=== PATIENT | male | born 2005 | race Caucasian/White ===

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

== ENCOUNTER 2024-03-31 14:34 | Emergency (ER) | payer OTHER, SELFPAY ==
--- NOTE | 2024-03-31 14:50 | ED.EXTPRO ---
HPI - Extremity Problem General Chief complaint: Skin/Abscess/Foreign Body Stated complaint: rt hand swelling Time Seen by Provider: 03/31/24 15:10 Source: patient and RN notes reviewed Mode of arrival: ambulatory Limitations: dementia History of Present Illness HPI Narrative: 18-year-old male presents with concern for redness, pain, swelling to the right hand. Reports he may have gotten a bug bite on the knuckle and over the last 2 days it has become red, swollen, slightly tender. He reports mild itching. Reports he has been using hydrocortisone cream, Benadryl, ibuprofen. He denies fever, body aches, chills, sweats. MD Complaint: extremity pain Related Data Home Medications Medication Instructions Recorded Confirmed finasteride 1 mg tablet 1 mg PO DAILY 10/30/23 10/30/23 minoxidil 03/31/24 Allergies Allergy/AdvReac Type Severity Reaction Status Date / Time Penicillins Allergy Mild Rash Verified 03/31/24 14:54 Sulfa (Sulfonamide AdvReac Mild Vomiting Verified 03/31/24 14:54 Antibiotics) Review of Systems Review of Systems: CONSTITUTIONAL: Denies malaise, chills, sweats, or fever. EYES: Denies redness, or discharge. ENT: Denies rhinorrhea, congestion, swollen lips, swollen tongue CARDIOVASCULAR: Denies chest pain, palpitations, or edema. RESPIRATORY: Denies cough or dyspnea. GASTROINTESTINAL: Denies abdominal pain, nausea, vomiting SKIN: Reports redness, swelling, tenderness to the right hand proximal to the 3rd digit. Denies purulent drainage, vesicles, bullae, numbness, pain beyond proportion MUSCULOSKELETAL: Denies joint pain or myalgia. NEUROLOGIC: Denies headache. All systems reviewed & are unremarkable except as noted in HPI and below [facility] Past Medical History Medical History (Updated 03/31/24 @ 15:19 by Sharita Rowe NP) Asthma Strep throat Surgical History Surgical History History of adenoidectomy History of myringotomy History of tonsillectomy History of tympanoplasty Social History Social History Smoking status: Never smoker Living arrangements: with family Occupation/Education: student Gender identity (if verbalized by the patient): Male Comments At time of signature, agree with nursing past medical, surgical, social and family history. There is no relevant family history pertinent to the presenting complaint Exam Narrative: GENERAL: Well-appearing, well-nourished, and in no acute distress. HEAD: Normocephalic, atraumatic. EYES: PERRLA, conjunctivae clear ENT: Mucous membranes moist. NECK: Supple. No lymphadenopathy CHEST: Clear to auscultation. No respiratory distress. HEART: Regular rate and rhythm. SKIN: Warm, dry. Erythema, induration, tenderness, warmth with sharp margins noted to the 3rd PCP joint and proximal to the joint of the right hand. No vesicles, bullae, necrosis, ecchymosis, crepitus noted. NEURO: Alert and oriented x3. PSYCH: Normal mood and affect Course Course Emergency Course: Patient is aware of diagnosis, understands and agrees to treatment plan. Anticipatory guidance given. Patient agrees to follow-up as directed and is aware of reasons to seek care at the emergency department. Portions of this record may have been created with voice recognition software Level of Care: Express Care Visit Vital Signs Vital signs: Reviewed. MDM - Extremity (Nontraumatic) MDM Narrative Medical decision making narrative: I evaluated this in the express care. History is obtained from patient who is an independent historian and physical exam was performed.? Available medical records were reviewed. ? Exam findings and relevant testing show no acute concerns or changes; patient is non-toxic appearing and is in no distress. No risk factors or findings concerning for epidural abscess, diskitis, vertebral osteomyelitis, cord com
[2024-03-31 14:55] VITALS: BP 98/52; PULSE 99; RESP 18; TEMP 36.6; O2SAT 98
== END 2024-03-31 15:25 | disposition home or self-care (01) ==
PROVIDERS: Emergency Provider Nurse Practitioner; PCP Family Medicine Sports Medicine
DX: L03.113 Cellulitis of right upper limb (principal); J45.909 Unspecified asthma, uncomplicated
CPT/HCPCS: 99213; G0463

== ENCOUNTER 2024-07-24 14:55 | Emergency (ER) | payer OTHER, SELFPAY ==
[2024-07-24 15:09] VITALS: BP 115/59; PULSE 72; RESP 16; TEMP 36.5; O2SAT 100
--- NOTE | 2024-07-24 15:36 | ED.EAR ---
HPI - Ear Problem General Chief complaint: Ear Stated complaint: RT ear pain Time Seen by Provider: 07/24/24 15:30 Source: patient and RN notes reviewed Mode of arrival: ambulatory Limitations: no limitations History of Present Illness HPI Narrative: Patient presents today complaining of a 2 day history of right ear pain, fullness, decreased hearing. He has tried Tylenol, ibuprofen, Excedrin with relief of pain, but not the fullness. Denies any additional URI symptoms at this time. Related Data Home Medications Medication Instructions Recorded Confirmed dicyclomine 10 mg capsule 10 mg PO QID 07/24/24 07/24/24 finasteride 1 mg tablet 1 mg PO DAILY 07/24/24 07/24/24 methylphenidate HCl 20 mg biphasic 20 mg PO DAILY 07/24/24 07/24/24 50-50 capsule,extended release Allergies Allergy/AdvReac Type Severity Reaction Status Date / Time Sulfa (Sulfonamide AdvReac Intermediate Nausea and Verified 07/24/24 15:04 Antibiotics) Vomiting Penicillins AdvReac Mild Rash Verified 07/24/24 15:04 Review of Systems Review of Systems: CONSTITUTIONAL: Denies body aches, fever, chills, or sweats. EYES: Denies visual changes, redness, or discharge. ENT: Denies rhinorrhea, congestion, sore throat. + right ear pain and fullness CARDIOVASCULAR: Denies chest pain, palpitations, or edema. RESPIRATORY: Denies cough or dyspnea. GASTROINTESTINAL: Denies abdominal pain, nausea, vomiting, or diarrhea. GENITOURINARY: Denies dysuria or hematuria. SKIN: Denies rash, itching, or wounds. MUSCULOSKELETAL: Denies back pain, joint pain, or myalgia. NEUROLOGIC: Denies headache, numbness, tingling, or weakness. PSYCH: Denies depression or anxiety. [facility] Past Medical History Medical History (Updated 07/24/24 @ 15:39 by Heidi Naidu, JOE, IGLESIA) Asthma Strep throat Surgical History Surgical History History of adenoidectomy History of myringotomy History of tonsillectomy History of tympanoplasty Social History Social History Smoking status: Never smoker Living arrangements: with family Occupation/Education: student Gender identity (if verbalized by the patient): Male Comments At time of signature, I have reviewed and agree with nursing past medical, surgical, social and family history unless otherwise noted. Please see nursing chart for further information. There is no relevant family history pertinent to the presenting complaint Exam Narrative: GENERAL: Well-appearing, well-nourished, and in no acute distress. HEAD: Normocephalic, atraumatic. EYES: EOMI. No redness or drainage. Conjunctivae normal. ENT: Mucous membranes pink and moist. Nares clear. No rhinorrhea. Left TM normal. Right TM severely erythematous and bulging with purulent material. NECK: Normal AROM. Supple. No lymphadenopathy. CHEST: No respiratory distress. EXTREMITIES: Normal range of motion. No edema. SKIN: Warm, dry, no rash. Capillary refill normal. Normal skin turgor. NEURO: No focal deficits. Alert and oriented x3. Gait steady. PSYCH: Normal affect. No signs of depression or anxiety. Course Course Level of Care: Express Care Visit Vital Signs Vital signs: Vital Signs Temperature 97.7 F 07/24/24 15:09 Pulse Rate 72 07/24/24 15:09 Respiratory Rate 16 07/24/24 15:09 Blood Pressure 115/59 L 07/24/24 15:09 Pulse Oximetry 100 07/24/24 15:09 Oxygen Delivery Room Air 07/24/24 15:09 Temperature 97.7 F 07/24/24 15:09 Pulse Rate 72 07/24/24 15:09 Respiratory Rate 16 07/24/24 15:09 Blood Pressure 115/59 L 07/24/24 15:09 Pulse Oximetry 100 07/24/24 15:09 Oxygen Delivery Room Air 07/24/24 15:09 Reviewed Medical Decision Making MDM Narrative Medical decision making narrative: Patient has been diagnosed with right otitis media. Prescription for cefdinir sent to pharmacy. Anticipatory guidance given. Differential Diagnosis Differential Diagnosis: Otitis media, otitis externa, ruptured TM, serous otitis, cerumen impaction Vital Signs Vital Signs: Vital Signs Temperature 97.7 F 07/24/24 15:09 Pulse Rate 72 07/24/24 15:09 Respiratory Rate 16 07/24/24 15:09 Blood Pressure 115/59 L 07/24/24 15:09 Pulse Oximetry 100 07/24/24 15:09 Oxygen Delivery Room Air 07/24/24 15:09 Temperature 97.7 F 07/24/24 15:09 Pulse Rate 72 07/24/24 15:09 Respiratory Rate 16 07/24/24 15:09 Blood Pressure 115/59 L 07/24/24 15:09 Pulse Oximetry 100 07/24/24 15:09 Oxygen Delivery Room Air 07/24/24 15:09 Critical Care Time Critical Care Time Critical Care Time: No Discharge Plan Discharge Clinical Impression: Acute suppur right otitis media w/o spontan rupture tympanic membrane Qualifiers: Recurrence: non-recurrent Qualified Code(s): H66.001 - Acute suppurative otitis media without spontaneous rupture of ear drum, right ear Patient Disposition: Home, Self-Care Condition: Stable Instructions: Antibiotic Form, Ear Infection (GEN) Additional Instructions: You have been diagnosed with a right-sided ear infection. Please take the cefdinir as prescribed. Continue [id number] medicine for pain if needed. Follow-up with your PCP in 3-4 days if symptoms are not improving. Prescriptions: New cefdinir 300 mg capsule 300 mg PO Q12H 7 Days Qty: 14 0RF No Action dicyclomine 10 mg capsule 10 mg PO QID methylphenidate HCl 20 mg capsule,ER biphasic 50-50 20 mg PO DAILY finasteride 1 mg Tablet 1 mg PO DAILY Follow-up/Referrals: Clay,Esa Kasper MD [Primary Care Provider] - Time of Disposition: 15:40
== END 2024-07-24 15:41 | disposition home or self-care (01) ==
PROVIDERS: Emergency Provider Nurse Practitioner; PCP Family Medicine Sports Medicine
DX: H66.001 Acute suppurative otitis media without spontaneous rupture of ear drum, right ear (principal); J45.909 Unspecified asthma, uncomplicated
CPT/HCPCS: 99213; G0463

== ENCOUNTER 2024-07-31 14:43 | Emergency (ER) | payer OTHER, SELFPAY ==
[2024-07-31 15:00] VITALS: BP 114/57; PULSE 99; RESP 18; TEMP 36.8; O2SAT 100
--- NOTE | 2024-07-31 15:03 | ED_ITS ---
HPI - Ear Problem General Chief complaint: Ear Stated complaint: ear infection Time Seen by Provider: 07/31/24 15:03 Source: patient Mode of arrival: ambulatory Limitations: no limitations History of Present Illness HPI Narrative: 18-year-old male presents with complaint of pain to right ear with decreased hearing. Patient was seen at [facility] on July 25 and diagnosed with ear infection. Completed cefdinir but continues to have symptoms. Afebrile. All systems reviewed and negative except as noted above. Related Data Home Medications Medication Instructions Recorded Confirmed dicyclomine 10 mg capsule 10 mg PO QID 07/24/24 07/31/24 finasteride 1 mg tablet 1 mg PO DAILY 07/24/24 07/31/24 methylphenidate HCl 20 mg biphasic 20 mg PO DAILY 07/24/24 07/31/24 50-50 capsule,extended release fluticasone propionate 50 1 spray intranasal BID 07/31/24 07/31/24 mcg/actuation nasal spray,suspension Allergies Allergy/AdvReac Type Severity Reaction Status Date / Time Penicillins Allergy Mild Rash Verified 07/31/24 15:04 Sulfa (Sulfonamide AdvReac Intermediate Nausea and Verified 07/31/24 15:04 Antibiotics) Vomiting Review of Systems Review of Systems: CONSTITUTIONAL: Denies fever, chills, or sweats. EYES: Denies visual changes, redness, or discharge. ENT: Denies rhinorrhea, congestion, sore throat . Reports right ear pain with decreased hearing. CARDIOVASCULAR: Denies chest pain, palpitations, or edema. RESPIRATORY: Denies cough or dyspnea. GASTROINTESTINAL: Denies abdominal pain, nausea, vomiting, or diarrhea. GENITOURINARY: Denies dysuria or hematuria. SKIN: Denies rash or itching. MUSCULOSKELETAL: Denies back pain, joint pain, or myalgia. NEUROLOGIC: Denies headache, numbness, or weakness. PSYCHIATRIC: Denies anxiety or depression. All other systems reviewed are negative, except as documented in HPI. [facility] Past Medical History Medical History (Updated 07/31/24 @ 15:13 by Federica Trivedi NP) Asthma Strep throat Surgical History Surgical History History of adenoidectomy History of myringotomy History of tonsillectomy History of tympanoplasty Social History Social History Smoking status: Never smoker Living arrangements: with family Occupation/Education: student Gender identity (if verbalized by the patient): Male Comments At time of signature, agree with nursing past medical, surgical, social and family history. There is no relevant family history pertinent to the presenting complaint. Exam Narrative: GENERAL: This is a well-nourished, well-developed patient, in no apparent distress. HEAD: normocephalic, atraumatic. EYES: PERRL. Sclera clear/white. Vision is grossly intact. EARS: External ears normal, auditory canals clear and without drainage, L TM normal. R TM erythematous with yellowish fluid, dull light reflex. no perforation bilaterally. NOSE: External nose normal with no obvious nasal discharge, nares without redness, no rhinorrhea. THROAT: Mucous membranes moist, posterior pharynx clear. NECK: Neck supple, non-tender without lymphadenopathy, masses or thyromegaly. CARDIOVASCULAR: Regular rate and rhythm without murmurs, gallops, or rubs. RESPIRATORY: Clear to auscultation. Breath sounds equal bilaterally. No wheezes, rales, or rhonchi. SKIN: warm, Dry, intact with no suspicious lesions or rash, good texture and turgor. NEURO: awake, alert, and oriented to person, place and time. There were no obvious focal neurologic abnormalities. EXTREMITIES: No joint tenderness, effusion, or edema noted. Course Course Level of Care: Express Care Visit Vital Signs Vital signs: Vital Signs Temperature 36.8 C 07/31/24 15:00 Pulse Rate 99 07/31/24 15:00 Respiratory Rate 18 07/31/24 15:00 Blood Pressure 114/57 L 07/31/24 15:00 Pulse Oximetry 100 07/31/24 15:00 Oxygen Delivery Room Air 07/31/24 15:00 Temperature 36.8 C 07/31/24 15:00 Pulse Rate 99 07/31/24 15:00 Respiratory Rate 18 07/31/24 15:00 Blood Pressure 114/57 L 07/31/24 15:00 Pulse Oximetry 100 07/31/24 15:00 Oxygen Delivery Room Air 07/31/24 15:00 Reviewed Medical Decision Making MDM Narrative Medical decision making narrative: patient continues to have ear infection to right ear. treatment failure with cefdinir. Will treat with azithromycin due to penicillin allergy. Recommend [id number] antihistamine and continue Flonase. Patient is aware of diagnosis, understands and agrees to treatment plan. Anticipatory guidance given. Patient agrees to follow-up as directed and is aware of reasons to seek care at the emergency department. Portions of this record may have been created with voice recognition software Differential Diagnosis Differential Diagnosis: Right otitis media, right serous otitis media, ruptured TM Vital Signs Vital Signs: Vital Signs Temperature 36.8 C 07/31/24 15:00 Pulse Rate 99 07/31/24 15:00 Respiratory Rate 18 07/31/24 15:00 Blood Pressure 114/57 L 07/31/24 15:00 Pulse Oximetry 100 07/31/24 15:00 Oxygen Delivery Room Air 07/31/24 15:00 Temperature 36.8 C 07/31/24 15:00 Pulse Rate 99 07/31/24 15:00 Respiratory Rate 18 07/31/24 15:00 Blood Pressure 114/57 L 07/31/24 15:00 Pulse Oximetry 100 07/31/24 15:00 Oxygen Delivery Room Air 07/31/24 15:00 Discharge Plan Discharge Clinical Impression: Acute serous otitis media Qualifiers: Laterality: right Recurrence: not specified as recurrent Qualified Code(s): H65.01 - Acute serous otitis media, right ear Patient Disposition: Home, Self-Care Condition: Stable Instructions: Antibiotic Form, Fluid In The Ear (Serous Otitis Media) (ED) Additional Instructions: take antibiotic as prescribed until gone. Take an [id number] antihistamine daily such as Zyrtec or Claritin. Continue using Flonase as directed on packaging. follow-up with your doctor if symptoms are not improving. Prescriptions: New azithromycin 250 mg tablet See Rx Instructions .ROUTE .COMPLEX Qty: 6 0RF Rx Instructions: For 250 mg dose pack: take 500 mg today (day 1), then 250 mg for 4 days (days 2-5) No Action fluticasone propionate [Flonase] 50 mcg/actuation [place],Suspension 1 spray INTRANASAL BID Rx Instructions: administer into each nostril dicyclomine 10 mg capsule 10 mg PO QID methylphenidate HCl 20 mg capsule,ER biphasic 50-50 20 mg PO DAILY finasteride 1 mg Tablet 1 mg PO DAILY Follow-up/Referrals: Clay,Esa Kasper MD [Primary Care Provider] - Time of Disposition: 15:13
== END 2024-07-31 15:17 | disposition home or self-care (01) ==
PROVIDERS: Emergency Provider Nurse Practitioner Family; PCP Family Medicine Sports Medicine
DX: H65.01 Acute serous otitis media, right ear (principal); J45.909 Unspecified asthma, uncomplicated
CPT/HCPCS: 99213; G0463

== ENCOUNTER 2024-09-16 09:43 | Emergency (ER) | payer OTHER, SELFPAY ==
[2024-09-16 10:01] VITALS: BP 120/51; PULSE 95; RESP 18; TEMP 36.6; O2SAT 100
--- NOTE | 2024-09-16 11:02 | ED_ITS ---
HPI - Ear Problem General Chief complaint: Ear Stated complaint: ear infection Source: patient Mode of arrival: ambulatory Limitations: no limitations History of Present Illness HPI Narrative: 19-year-old male presents to [facility] with complaints of bilateral ear pressure, decreased hearing and left ear pain for the past 2-3 days. Patient reports he started with cough, congestion runny nose for the past 4-5 days. Patient takes Flonase daily. Patient was evaluated here for similar symptoms in late June and was given round of cefdinir at that time. Patient was then seen in early July for similar symptoms and given a round of Zithromax at that time. Patient ear tubes as a child. Patient denies fever, body aches chills, nausea vomiting or diarrhea. MD Complaint: ear pain and decreased hearing Location: left ear Duration: intermittent Relieving factors: nothing Exacerbating factors: nothing Related Data Home Medications ?Medication ?Instructions ?Recorded ?Confirmed ?Last Taken ?Type dicyclomine 10 mg capsule 10 mg PO QID 07/24/24 07/31/24 Unknown History finasteride 1 mg tablet 1 mg PO DAILY 07/24/24 07/31/24 Unknown History fluticasone propionate 50 1 spray intranasal BID 07/31/24 07/31/24 Unknown History mcg/actuation nasal spray,suspension methylphenidate HCl 30 mg biphasic mg PO 09/16/24 Unknown History 50-50 capsule,extended release Allergies Allergy/AdvReac Type Severity Reaction Status Date / Time Penicillins Allergy Mild Rash Verified 09/16/24 10:21 Sulfa (Sulfonamide AdvReac Intermediate Nausea and Verified 09/16/24 10:21 Antibiotics) Vomiting Review of Systems Constitutional: Constitutional: Denies chills, Denies fatigue, Denies fever(s) and Denies weakness ENT: Denies dizziness, Denies epistaxis, Reports nasal congestion and Denies sore throat Comments: Bilateral ear pressure, left ear pain Respiratory: Respiratory: Reports cough, Denies dyspnea and Denies wheezing Gastrointestinal: Gastrointestinal: Denies diarrhea, Denies nausea and Denies vomiting Integumentary/Breasts: Skin/Breast: Denies rash Neurologic: Denies headache(s) [facility] Past Medical History Medical History (Updated 09/16/24 @ 11:08 by Wilma Bobo APRN) Strep throat Asthma Surgical History Surgical History History of tympanoplasty History of myringotomy History of adenoidectomy History of tonsillectomy Social History Social History Smoking status: Never smoker Living arrangements: with family Occupation/Education: student Gender identity (if verbalized by the patient): Male Comments At time of signature, I agree with nursing past medical, surgical, social and family history. There is no relevant family history pertinent to the presenting complaint. Exam Const: General: healthy appearing and no acute distress Nutritional Appearance: well nourished Orientation/consciousness: patient oriented x3 Limitations: no limitations HENMT: Head: normal to inspection Ears: external ears normal and TM abnormal dull bilateral, wth effusion serous bilateral and erythematous on the left Eyes: Conjunctivae: conjunctivae normal Neck: Neck: normal visual inspection Resp: Effort & Inspection: normal respiratory effort and not labored Auscultation: clear to auscultation bilaterally, no crackles, no rales, no rhonchi and no wheezes Cardio: Rate: regular rate Rhythm: regular rhythm Heart sounds: no murmurs Skin: General skin exam: normal color Rashes: no rashes Wounds: no wounds Neuro: General: patient oriented x3 Speech: normal speech Psych: Affect: normal affect Attitude: cooperative Course Course Level of Care: Express Care Visit Vital Signs Vital signs: Vital Signs Temperature 36.6 C 09/16/24 10:01 Pulse Rate 95 09/16/24 10:01 Respiratory Rate 18 09/16/24 10:01 Blood Pressure 120/51 L 09/16/24 10:01 Pulse Oximetry 100 09/16/24 10:01 Oxygen Delivery Room Air 09/16/24 10:01 Temperature 36.6 C 09/16/24 10:01 Pulse Rate 95 09/16/24 10:01 Respiratory Rate 18 09/16/24 10:01 Blood Pressure 120/51 L 09/16/24 10:01 Pulse Oximetry 100 09/16/24 10:01 Oxygen Delivery Room Air 09/16/24 10:01 Medical Decision Making MDM Narrative Medical decision making narrative: Educated patient continue Flonase daily. Educated patient to follow-up with primary care provider to discuss ENT referral. Educated patient to proceed to the emergency room if symptoms worsen Differential Diagnosis Differential Diagnosis: Otitis externa, acute otalgia, cerumen impaction Vital Signs Vital Signs: Vital Signs Temperature 36.6 C 09/16/24 10:01 Pulse Rate 95 09/16/24 10:01 Respiratory Rate 18 09/16/24 10:01 Blood Pressure 120/51 L 09/16/24 10:01 Pulse Oximetry 100 09/16/24 10:01 Oxygen Delivery Room Air 09/16/24 10:01 Temperature 36.6 C 09/16/24 10:01 Pulse Rate 95 09/16/24 10:01 Respiratory Rate 18 09/16/24 10:01 Blood Pressure 120/51 L 09/16/24 10:01 Pulse Oximetry 100 09/16/24 10:01 Oxygen Delivery Room Air 09/16/24 10:01 Critical Care Time Critical Care Time Critical Care Time: No Discharge Plan Discharge Clinical Impression: Acute suppur left otitis media w/o spontan rupture tympanic membrane Patient Disposition: Home, Self-Care Condition: Stable Instructions: Antibiotic Form, Ear Infection (ED) Additional Instructions: Continue Flonase daily Take Claritin daily Take prednisone and cefdinir as prescribed Follow-up with primary care provider to discuss ENT referral Proceed to the emergency room symptoms worsen Patient Language: [place]ian Prescriptions: New prednisone 20 mg tablet 40 mg PO DAILY 5 Days Qty: 10 0RF cefdinir 300 mg capsule 300 mg PO Q12H 10 Days Qty: 20 0RF loratadine [Claritin] 10 mg tablet 10 mg PO DAILY Qty: 30 0RF No Action fluticasone propionate [Flonase] 50 mcg/actuation [place],Suspension 1 spray INTRANASAL BID Rx Instructions: administer into each nostril methylphenidate HCl 30 mg capsule,ER biphasic 50-50 PO dicyclomine 10 mg capsule 10 mg PO QID finasteride 1 mg Tablet 1 mg PO DAILY Follow-up/Referrals: Clay,Esa Kasper MD [Primary Care Provider] - Time of Disposition: 11:09
--- OUTSIDE RECORDS SUMMARY | 2024-09-23 12:20 | XMS_ITS | Clinical Summary ---
Author Organization [facility] Address [address] [place] [address] Care Team Providers Care Manager Game Name Role Phone Nafisa Juarez MD Unavailable [phone] Esa Williamson MD Primary Care Provider [phone] Source Comments [facility],non-owned Affiliates and Associated Physician Practices is amultiple site organization consisting of ambulatory clinics and hospital sitesin [place], [place], [place] and [place]. This disclosure is being madepursuant to the Care Everywhere program and may not contain all information available regarding this patient. Last updated 18.[facility] Allergies Active Allergy Reactions Criticality Noted Date Comments Penicillins Rash Medium 03/22/2018 Sulfa Drugs 05/16/2014 Medications * Be aware that medications may not be up to date on this document. Alwaysverify current medications with the patient. Medication Sig Dispensed Refills Start Date End Date Status fluticasone propionate (FLONASE) 50 MCG/ACT nasal spray [place] 1 spray into each nostril once daily Active albuterol HFA (PROVENTIL;VENTOLIN;P ROAIR) 108 (90 Base) MCG/ACT inhalerIndications:Co ugh variant asthma (HCC) Inhale 2 puffs by mouth every 4 hours as needed 17 Inhaler 2 06/21/2020 Active dicyclomine (BENTYL) 20 MG tabletIndications:Amita rrhea, unspecified type Take 1 (one) tablet by mouth 4 times daily as needed 120 tablet 3 09/11/2021 Active Active Problems Problem Noted Date Diagnosed Date Influenza A 12/06/2018 Overview (12/06/2018): 12/05/18 Tamiflu Encounter for routine child health examination without abnormal findings 03/24/2018 Fear of vaccinations 03/24/2018 Cough variant asthma 08/02/2014 Immunizations Name Administration Dates Next Due INFLUENZA VACCINE, TRIV. (AF LURIA, FLUZONE TRIVALENT; 6MO+) (IIV3) 08/01/2014 Covid Pfizer primary monoval ent 12+ yr 0.3mL Purple cap 01/14/2021,12/23/2020 DTaP VACCINE IM (6wk-6yrs) 11/06/2008,,02/25/2005,2004,2004 FLU VACCINE TRI IIV3 SPLIT P F IM (FLUVIRIN) 07/05/2007,07/15/2006,07/24/2005,2004 HEP A PEDS 2 DOSE 08/24/2006,02/17/2006 HEP B VACCINE, PED/ADOL 12/09/2005,2004, HIB Hep B 12/09/2005,2004,2004 HIB-PRP-OMP 3 DOSE 12/09/2005,2004, 005 Human Papilloma Virus Nine[place] lent Vaccine 11/04/2020,07/02/2020,05/02/2020 INFLUENZA 07/20/2012, 1,10/13/2010,2006,07/15/2006,07/24/2005,06/23/2005 INFLUENZA VACCINE, QUADR. (F LUZONE; FLULAVAL; FLUARIX; AFLURIA QUADRIVALENT; 6MO+), 0.5 ML (IIV4) 08/01/2020 Influenza Nasal 08/11/2011,10/13/2010 MENINGOCOCAL MENINGITIS 04/10/2016 MMR 11/06/2008,09/30/2005 PNEUMOCOCCAL PCV7 CONJ, PEDS 12/09/2005, 02/25/2005,2004,2004 POLIO IPV 11/06/2008, 5,02/25/2005,2004 TDAP (7yrs+) 04/10/2016 VARICELLA 11/06/2008,02/17/2006 Family History Medical History Relation Name Comments Allergic Rhinitis Other Asthma Other Cancer - Colon Other Autoimmune Disease Neg Hx Hypertension Neg Hx Migraine Neg Hx Seizures Neg Hx Sudd. <30 Neg Hx Thyroid Disease Neg Hx Relation Name Status Comments Other Social History Tobacco Use Types Packs/Day Years Used Date Smoking Tobacco: Never Smokeless Tobacco: Never Alcohol Use Standard Drinks/Week Comments No 0 (1 standard drink = 0.6 oz pur e alcohol) Sex and Gender Information Value Date Recorded Sex Assigned at Not on file Gender Identity Not on file Sexual Orientation Not on file Last Filed Vital Signs Vital Sign Reading Time Taken Comments Blood Pressure 110/70 05/02/2020 3:13 PM CDT Pulse 100 05/02/2019 3:37 PM CDT Temperature 36.2 ??C (97.2 ??F) 11/04/2020 3:57 PM CS T Respiratory Rate 20 11/25/2015 7:13 PM AIRPLANE PILOT PHOTOGRAMMETRY Oxygen Saturation 100% 12/05/2018 11:00 AM CDT Inhaled Oxygen Concentration - - Weight 70.4 kg (155 lb 3.3 oz) 09/11/2021 10:38 AM AIRPLANE PILOT PHOTOGRAMMETRY Height 178.2 cm (5' 10.16 ) 09/11/2021 10:38 AM AIRPLANE PILOT PHOTOGRAMMETRY Body Mass Index 22.17 09/11/2021 10:38 AM AIRPLANE PILOT PHOTOGRAMMETRY Plan of Treatment Health Maintenance Due Date Last Done Comments PNEUMOCOCCAL VACCINE (1 of 1 - PPSV23 or PCV20) 2010 12/09/2005, 02/25/2005, 2004, Additional history exists HIV SCREENING 2019 HEPATITIS C SCREENING 08/16/2022 DEPRESSION SCREENING 09/27/2023 05/02/2020 COVID-19 VACCINE ( season) 2024 01/14/2021, 12/23/2020 INFLUENZA VACCINE (#1) 2024 , 08/01/2020, 08/01/2014, Additional history exists DTAP/TDAP/TD VACCINES (7 - Td or Tdap) 04/10/2026 04/10/2016, 11/06/2008, 12/09/2005, Additional history exists ZOSTER VACCINE (1 of 2) 2054 HEPATITIS B VACCINE Completed 12/09/2005, 12/09/2005, 2004, Additional history exists HIB VACCINE Completed 12/09/2005, 11/25, 2004, Additional history exists MENINGOCOCCAL VACCINE Aged Out 04/10/2016 No damian etienne eligible based on patient's age to complete this topic HPV VACCINE Completed 11/04/2020, 02/2020, 05/02/2020 Goals Goal Patient Goal Type Associated Problems Recent Progress Patient-Stated? Author Use safety retraint in car Lifestyle On track( 020 3:14 PM CDT) No Massiel Delgado MA Care Teams Manager Game Relationship Specialty [place] [id number] [place] [id number] PCP - General Family Medicine 09/11/21 Nafisa Juaerz MD Orthopedic Surgery 06/28/19
--- OUTSIDE RECORDS SUMMARY | 2024-09-23 12:20 | XMS_ITS | Patient Health Summary ---
Author Organization [facility] Address [address] [place] [address] Care Team Providers Care Home Appliance Tech Name Role Phone Nafisa Juarez MD Unavailable [phone] Esa Williamson MD Primary Care Provider [phone] Note from [facility],non-owned Affiliates and Associated Physician Practices is amultiple site organization consisting of ambulatory clinics and hospital sitesin [place], [place] and [place]. This disclosure is being madepursuant to the Care Everywhere program and may not contain all information available regarding this patient. Last updated 18.[facility] Allergies * Penicillins(Rash) -Medium Criticality * Sulfa Drugs Medications * Be aware that medications may not be up to date on this document. Alwaysverify current medications with the patient. * fluticasone propionate (FLONASE) 50 MCG/ACT nasal spray [place] 1 spray into each nostril once daily * albuterol HFA (PROVENTIL;VENTOLIN;PROAIR) 108 (90 Base) MCG/ACT inhaler (Started 06/21/2020) Inhale 2 puffs by mouth every 4 hours as needed 2 refills by 06/21/2021 * dicyclomine (BENTYL) 20 MG tablet(Started 09/11/2021) Take 1 (one) tablet by mouth 4 times daily as needed 3 refills by 09/11/2022 Active Problems Problem Noted Date Diagnosed Date Influenza A 12/06/2018 Encounter for routine child health examination without abnormal findings 03/24/2018 Fear of vaccinations 03/24/2018 Cough variant asthma 08/02/2014 Immunizations * INFLUENZA VACCINE, TRIV. (AFLURIA, FLUZONE TRIVALENT; 6MO+) (IIV3)(Given 08/01/2014) * Covid Pfizer primary monovalent 12+ yr 0.3mL Purple cap(Given 01/14/2021, 12/23/2020) * DTaP VACCINE IM (6wk-6yrs)(Given 11/06/2008, 12/09/2005, 02/25/2005, 2004, 2004) * FLU VACCINE TRI IIV3 SPLIT PF IM (FLUVIRIN)(Given 07/05/2007, 07/15/2006, 07/24/2005, 06/23/2005) * HEP A PEDS 2 DOSE(Given 08/24/2006, 02/17/2006) * HEP B VACCINE, PED/ADOL(Given 12/09/2005, 2004, 2004) * HIB Hep B(Given 12/09/2005, 2004, 2004) * HIB-PRP-OMP 3 DOSE(Given 12/09/2005, 2004, 2004) * Human Papilloma Virus Ninevalent Vaccine(Given 11/04/2020, 07/02/2020, 05/02/2020) * INFLUENZA(Given 07/20/2012, 08/11/2011, 10/13/2010, 07/05/2007, 07/15/2006, 07/24/2005, 06/23/2005) * INFLUENZA VACCINE, QUADR. (FLUZONE; FLULAVAL; FLUARIX; AFLURIA QUADRIVALENT; 6MO+), 0.5 ML (IIV4)(Given 08/01/2020) * Influenza Nasal(Given 08/11/2011, 10/13/2010) * MENINGOCOCAL MENINGITIS(Given 04/10/2016) * MMR(Given 11/06/2008, 09/30/2005) * PNEUMOCOCCAL PCV7 CONJ, PEDS(Given 12/09/2005, 02/25/2005, 2004, 2004) * POLIO IPV(Given 11/06/2008, 06/03/2005, 02/25/2005, 2004) * TDAP (7yrs+)(Given 04/10/2016) * VARICELLA(Given 11/06/2008, 02/17/2006) Social History Tobacco Use Types Packs/Day Years [...] T Respiratory Rate 20 11/25/2015 7:13 PM STUFFER Oxygen Saturation 100% 12/05/2018 11:00 AM CDT Inhaled Oxygen Concentration - - Weight 70.4 kg (155 lb 3.3 oz) 09/11/2021 10:38 AM STUFFER Height 178.2 cm (5' 10.16 ) 09/11/2021 10:38 AM STUFFER Body Mass Index 22.17 09/11/2021 10:38 AM STUFFER Procedures * XR LUMBAR SPINE 2 OR 3VW(Performed 05/21/2019) Performed for Acute low back pain without sciatica, unspecified back pain laterality * LIPID PROFILE+GLUCOSE - POINT OF CARE (AMB)(Performed 05/02/2019) Performed for Screening for lipid disorders * INFLUENZA A+B - POINT OF CARE (AMB)(Performed 12/05/2018) Performed for Fever, unspecified fever cause * STREP A SCREEN - POINT OF CARE (AMB) STL(Performed 12/05/2018) Performed for Fever, unspecified fever cause Results * XR LUMBAR SPINE 2 OR 3VW (05/21/2019) Anatomical Region Laterality Modality Spine Other Raina Calhoun PRN OCCUPATIONAL THERAPIST-MERCURY CELL CLEANER DIAGNOSTIC IMAGING ORDERABLES * (ABNORMAL) LIPID PROFILE+GLUCOSE - POINT OF CARE (AMB) (05/02/2019) QC Verified Yes Yes Cholesterol POCT 175 200 mg/dl HDL POCT 50 mg/dL Triglycerides POCT 162(A) 130 mg/dL LDL 92 130 mg/dl Non HDL Cholesterol POCT 125 145 mg/dL Total Cholesterol/HDL Ratio POCT 3.5 6.0 Glucose 106 70 - 126 mg/dL Blood BLOOD SPECIMEN / Unknown 05/02/2019 Raina Calhoun PRN OCCUPATIONAL THERAPIST-MERCURY CELL CLEANER LAB - POINT OF CARE ORDERABLES * STREP A SCREEN - POINT OF CARE (AMB) STL (12/05/2018) Strep A Rapid POCT Negative Negative Strep A Internal Control Present Lot # [id number] Expiration Date [id number] Throat ENTIRE THROAT (SURFACE REGION OF NECK) / Unknown 12/05/2018 Les Carvalho MD LAB - POINT OF CARE ORDERABLES * (ABNORMAL) INFLUENZA A+B - POINT OF CARE (AMB) (12/05/2018) Influenza A Antigen Rapid Positive(A) Negative Influenza B Antigen Rapid Negative Negative Influenza Internal Control PRESENT NEGATIVE - POSITIVE Influenza Lot Number [id number] Influenza Expiration Date 11/23/2019 Other NASOPHARYNGEAL SWAB / Unknown 12/05/2018 Les Carvalho MD LAB - POINT OF CARE ORDERABLES Care Teams Home Appliance Tech Relationship Specialty [place] [address] [place] [address] PCP - General Family Medicine 09/11/21 Nafisa Juarez MD Orthopedic Surgery 06/28/19
--- OUTSIDE RECORDS SUMMARY | 2024-09-23 12:20 | XMS_ITS | Referral Summary ---
Author Organization [facility] [employer] Address [address] [place] [address] Care Team Providers Care Assembler And Tester Electronics Name Role Phone Nafisa Juarez MD Unavailable [phone] Esa Williamson MD Primary Care Provider [phone] Source Comments [facility] [employer],non-owned Affiliates and Associated Physician Practices is amultiple site organization consisting of ambulatory clinics and hospital sitesin [place], [place], [place] and [place]. This disclosure is being madepursuant to the Care Everywhere program and may not contain all information available regarding this patient. Last updated 18.[facility] [employer] Allergies Active Allergy Reactions Criticality Noted Date Comments Penicillins Rash Medium 03/22/2018 Sulfa Drugs 05/16/2014 Medications * Be aware that medications may not be up to date on this document. Alwaysverify current medications with the patient. Medication Sig Dispensed Refills Start Date End Date Status fluticasone propionate (FLONASE) 50 MCG/ACT nasal spray [place] 1 spray into each nostril once daily [...] 11/06/2008, 5,02/25/2005,2004 TDAP (7yrs+) 04/10/2016 VARICELLA 11/06/2008,02/17/2006 Social History Tobacco Use Types Packs/Day Years [...] T Respiratory Rate 20 11/25/2015 7:13 PM USER SUPPORT ANALYST Oxygen Saturation 100% 12/05/2018 11:00 AM CDT Inhaled Oxygen Concentration - - Weight 70.4 kg (155 lb 3.3 oz) 09/11/2021 10:38 AM USER SUPPORT ANALYST Height 178.2 cm (5' 10.16 ) 09/11/2021 10:38 AM USER SUPPORT ANALYST Body Mass Index 22.17 09/11/2021 10:38 AM USER SUPPORT ANALYST Plan of Treatment Not on file Goals Goal Patient Goal Type Associated Problems Recent Progress Patient-Stated? Author Use safety retraint in car Lifestyle On track( 020 3:14 PM CDT) No Massiel Delgado MA Care Teams Assembler And Tester Electronics Relationship Specialty [place] [address] [place] [address] PCP - General Family Medicine 09/11/21 Nafisa Juarez MD Orthopedic Surgery 06/28/19
--- OUTSIDE RECORDS SUMMARY | 2024-09-23 12:21 | XMS_ITS | Encounter Summary ---
Author Organization [facility] Address [address] [place] [address] Care Team Providers Care Pipe Installer Name Role Phone Les Carvalho MD Primary Care Provider [phone] Nafisa Juarez MD Unavailable [phone] Reason for Visit * Reason Onset Date Comments Headache 07/03/2020 Fever 07/03/2020 Encounter Details Date Type Department Care Team (Late st Contact Info) Description 07/03/2020 Nurse Triage [facility] - Pediatrics [address] [place] [address] Les Carvalho MD [address] [place] [address] Headache; Fever Social History Tobacco Use Types Packs/Day Years Used Date Smoking Tobacco: Never Smokeless Tobacco: Never Alcohol Use Standard Drinks/Week Comments No 0 (1 standard drink = 0.6 oz pur e alcohol) Sex and Gender Information Value Date Recorded Sex Assigned at Not on file Gender Identity Not on file Sexual Orientation Not on file documented as of this encounter Miscellaneous Notes * Telephone Encounter - Daisy Bang RN - 07/03/2020 8:33 AM CDT Reason for Disposition ??? Fever onset within 24 hours of receiving VACCINE ??? Normal immunization reaction Answer Assessment - Initial Assessment Questions 1. FEVER LEVEL: What is the most recent temperature? What was the highest temperature in the last 24 hours? Slightly under 100 2. MEASUREMENT: How was it measured? (NOTE: Mercury thermometers should not be used according to the [place] [employer] and should be removed from the home to prevent accidental exposure to this toxin.) axillary 3. ONSET: When did the fever start? This morning 4. CHILD'S APPEARANCE: How sick is your child acting? What is he doing right now? If asleep, ask: How was he acting before he went to sleep? Headache, nausea 5. PAIN: Does your child appear to be in pain? (e.g., frequent crying or fussiness) If yes, Whatdoes it keep your child from doing? - MILD: doesn't interfere with normal activities - MODERATE: interferes with normal activities or awakens from sleep - SEVERE: excruciating pain, unable to do any normal activities, doesn't want to move, incapacitated mild 6. SYMPTOMS: Does he have any other symptoms besides the fever? Nausea and headache 7. CAUSE: If there are no symptoms, ask: What do you think is causing the fever? 8. VACCINE: Did your child get a vaccine shot within the last month? gardisil 9. CONTACTS: Does anyone else in the family have an infection? 10. TRAVEL HISTORY: Has your child traveled outside the country in the last month? (Note to triager: If positive, decide if this is a high risk area. If so, follow current CDC or local public health agency's recommendations.) 11. FEVER MEDICINE: Are you giving your child any medicine for the fever? If so, ask, How much and how often? (Caution: Acetaminophen should not be given more than 5 times per day. Reason: a leading cause of liver damage or even failure). Protocols used: FEVER - 3 MONTHS OR [id number]-FH, IMMUNIZATION [id number] documented in this encounter Plan of Treatment Not on file documented as of this encounter Goals Goal Patient Goal Type Associated Problems Recent Progress Patient-Stated? Author Use safety retraint in car Lifestyle On track( 020 3:14 PM CDT) No Massiel Delgado MA documented as of this encounter Visit Diagnoses Not on filedocumented in this encounter Care Teams Pipe Installer Relationship Specialty Start Date End Date Les Carvalho MD [address] [place] [id number] PCP - General Pediatrics 03/22/18 09/10/21 Nafisa Juarez MD [address] [place] [address] Orthopedic Surgery 06/28/19 documented as of this encounter
--- OUTSIDE RECORDS SUMMARY | 2024-09-23 12:21 | XMS_ITS | Encounter Summary ---
Author Organization [facility] Address [address] [place] [address] Care Team Providers Care Data Center Engineer Name Role Phone Les Carvalho MD Primary Care Provider [phone] Reason for Visit * Reason Comments Well Child Check 13 yo Encounter Details Date Type Department Care Team (Late st Contact Info) Description 05/02/2019 3:30 PM CDT Office Visit [facility] - Pediatrics [address], [facility] [address] [place] [address] Raina Calhoun, REJI-SUPERVISOR PRINTING [employer]OP Right from the Start Pediatrics [address] [place] [address] Encounter for well child visit at 13 years of age (Primary Dx); Cough variant asthma (HCC); Acute low back pain without sciatica, unspecified back pain laterality; Screening for lipid disorders Social History Tobacco Use Types Packs/Day Years Used Date Smoking Tobacco: Never Smokeless Tobacco: Never Alcohol Use Standard Drinks/Week Comments No 0 (1 standard drink = 0.6 oz pur e alcohol) Sex and Gender Information Value Date Recorded Sex Assigned at Not on file Gender Identity Not on file Sexual Orientation Not on file documented as of this encounter Last Filed Vital Signs Vital Sign Reading Time Taken Comments Blood Pressure 120/62 05/02/2019 3:37 PM CDT Pulse 100 05/02/2019 3:37 PM CDT Temperature 36.6 ??C (97.8 ??F) 05/02/2019 3:37 PM CD T Respiratory Rate - - Oxygen Saturation - - Inhaled Oxygen Concentration - - Weight 50.1 kg (110 lb 6.4 oz) 05/02/2019 3:37 P M CDT Height 164.5 cm (5' 4.76 ) 05/02/2019 3:37 PM CD T Body Mass Index 18.51 05/02/2019 3:37 PM CDT Body Mass Index Percentile 32.39% 05/02/2019 3:3 7 PM CDT Growth Chart: [facility] (Boys, 2-2 0 Years) documented in this encounter Patient Instructions * Patient Instructions* EdnaIsabellAstrid F - 05/02/2019 3:40 PM CDT YOUR GROWING CHILD: 12 TO 14 YEARS Child???s Name: Willi Nelson Today???s Date: 05/02/2019 BP 128/36 (BP SITE: LEFT ARM, BP POSITION: SITTING) Pulse 111 Temp 97.8 ??F (36.6 ??C) (Temporal) Ht 1.645 m (5' 4.76 ) Wt 50.1 kg (110 lb 6.4 oz) BMI 18.51 kg/m2 Wt Readings from Last 1 Encounters: 05/02/19 50.1 kg (110 lb 6.4 oz) (31 %, Z= -0.50)* * Growth percentiles are based on CDC 2-20 Years data. 31 %ile (Z= -0.50) based on CDC 2-20 Years eehnti-wkz-mtu data using vitals from 05/02/2019. Ht Readings from Last 1 Encounters: 05/02/19 1.645 m (5' 4.76 ) (31 %, Z= -0.49)* * Growth percentiles are based on CDC 2-20 Years data. 31 %ile (Z= -0.49) based on CDC 2-20 Years inijejh-eep-pdy data using vitals from 05/02/2019. IMMUNIZATIONS One of the best ways to insure continued good health for your child is through a program of regularimmunizations. Many contagious diseases have now been controlled by immunizations. We routinely immunize children at the time of their regular checkups. It is important for you to keep a record of all immunizations given. This information will be of value to you in the care of your child in the future. We will provide you a copy of your immunization record at each of your visits. WHAT TO EXPECT Talk with your child after school about their day, what they liked, what they didn???t like, and ifthey have any concerns. Talk with your child about what to do if they or someone they know is beingbullied. It???s a good idea to give your child chores to do around the house. Some age appropriate chores include: 1. Wash dishes 2. Prepare simple family meals 3. [place] leaves 4. Take the trash out for pick-up 5. Be responsible for feeding and watering the family pet 6. Keep bedroom and designates room in house clean 7. Vacuum individual rooms 8. Be responsible for homework Limit TV and electronic device time to 5-6 hours a day. Make sure that your child is active for at least 3 hours a day. Talk to your child about not using cigarettes, using drugs, or drinking alcohol. Make sure that youare familiar with the friends that they are spending time with. Teach your child the importance of delaying sexual behavior and make sure they know that they can ask you any questions that they make have about sexual behaviors. SAFETY POISON CONTROL: (PLEASE POST IN YOUR HOME OR ON YOUR PHONE) There are three ingredients for childhood injuries and accidents: the child, the object, and the environment in which the injury happens. Therefore, you must be aware of all three. Continue to be aware of poisonous hazards in your home, basement, and garage. Establish a plan for leaving the house in case of fire. Alert your children to be careful around strange animals, and to not bother any animal that is eating. Children should now know their name, address, and telephone number. Remind your child about not accepting rides or food from strangers. Helmets should be worn for anything that your child rides on that has wheels or could possibly fallout of or off of including but not limited to: bikes, skates, skate boards, scooters, horses, pogo sticks, etc. CAR SEATS Children should stay in a booster seat until adult belts fit correctly (usually when a child reaches about 4' 9 in height and is between 8 and 12 years of age). [place] and [place] law, effective May 24, 2006, says your child must be in a booster seat if they are ages 4 through 7 who weigh at least 40 pounds, unless they are 80 pounds or 4???9?? tall. BE SURE THE FAMILY RULE REGARDING CAR RESTRAINTS FOR ALL PASSENGERS IS ALWAYS OBEYED AND THAT YOUR CHILD IS IN AN APPROVED CAR SEAT. MAKE SURE YOUR CHILD IS SECURED IN THE CAR SEAT AND JUST IMPORTANTLY, MAKE SURE THE CAR SEAT IS PROPERLY SECURED IN THE CAR. DO NOT ALLOW ANYONE TO SMOKE AROUND YOUR CHILD. DIET Make sure that your child is eating breakfast in the morning middle school music teacher. Encourage them to eat at least 3 servings of dairy a day and at least 5 serving of vegetables/fruits per day. Limit candy, soft drinks, and other high fat/calorie food and snacks. TEETH Your child should be established and receiving regular check-ups with a dentist. A daily routine ofbrushing at least twice a day needs to be in place by now. Frequently your child may need some supervision for proper technique. Also, your child should be flossing at least once daily. SLEEP Make sure that your child is getting at least 8-10 hours of sleep a night. Where can I go for more information? [place] [employer] ( ) www.aap.org, HealthyChildren.org www.healthychildren.org Website and free downloadable chapis for smartphones: http://www.[employer].Moviestorm/ and http://www.[employer]/ documented in this encounter Progress Notes * Raina Calhoun APRN-SUPERVISOR [employer]ING [employer] - 05/02/2019 3:42 PM CDT Adolescent Well Energy Management Specialist Visit Name: Willi Nelson Age: [age] year old Accompanied By: Mother, brother Chief Complaint Patient presents with ??? Well Child Check 13 yo Concerns: 2 year history of intermittent lower back pain, not waking patient at night, pain will last for about 5-10 minutes. Mild to moderate pain, no pain medications. Patient does wrestle. Denies radiating pain or known trauma. Diet: Eats well balanced meals, good variety Yes Limits foods high in fat or calorie content Yes Interim Illness: The patient returns today for routine well child care centre manager. Illnesses since our last visit include: none Meds: Current Outpatient Prescriptions Medication Sig Dispense Refill ??? albuterol HFA (PROVENTIL;VENTOLIN;PROAIR) 108 (90 Base) MCG/ACT inhaler Inhale 2 puffs by mouthevery 4 hours as needed Reasons: Asthma 2 Inhaler 0 ??? fluticasone propionate (FLONASE) 50 MCG/ACT nasal spray Bypro 1 spray into each nostril once daily ??? LANSOPRAZOLE PO Take by mouth. No current facility-administered medications for this visit. Allergies: Allergies Allergen Reactions ??? Penicillins Rash ??? Sulfa Drugs Social History: Home: lives with their family, mom, brother Education: 9th Grade. Doing well in school. Activities: wrestling, model [employer] Drugs: no alcohol use no tobacco use occasional caffeine use Drug use: Never Sex: heterosexual, not sexually active Psych: No concerns for depression or suicidal ideation OBJECTIVE: BP 120/62 (BP SITE: LEFT ARM, BP POSITION: SITTING) Pulse 100 Temp 97.8 ??F (36.6 ??C) (Temporal) Ht 1.645 m (5' 4.76 ) Wt 50.1 kg (110 lb 6.4 oz) BMI 18.51 kg/m2 Wt Readings from Last 3 Encounters: 05/02/19 50.1 kg (110 lb 6.4 oz) (31 %, Z= -0.50)* 12/12/18 46.2 kg (101 lb 12.8 oz) (23 %, Z= -0.73)* 12/05/18 46.7 kg (103 lb) (26 %, Z= -0.65)* * Growth percentiles are based on CDC 2-20 Years data. Ht Readings from Last 3 Encounters: 05/02/19 1.645 m (5' 4.76 ) (31 %, Z= -0.49)* 03/22/18 1.515 m (4' 11.65 ) (13 %, Z= -1.14)* 06/14/15 1.321 m (4' 4 ) (6 %, Z= -1.55)* * Growth percentiles are based on CDC 2-20 Years data. 31 %ile (Z= -0.50) based on CDC 2-20 Years zelufr-bhy-ztf data using vitals from 05/02/2019. 31 %ile (Z= -0.49) based on CDC 2-20 Years lpznrzv-wmz-jca data using vitals from 05/02/2019. Body mass index is 18.51 kg/(m^2). Physical Exam: GENERAL: Alert, well developed, well nourished SKIN: No rash or lesions HEAD: Normocephalic EYES: PERRL, EOMI, red reflex bilat EARS: TM's WNL, canals clear NOSE: Passages clear MOUTH: OP clear, dentition appropriate, no oral lesions or excessive dental caries NECK: Thyroid not enlarged, nodes WNL, no mass or torticollis LUNGS: CTA bilaterally HEART: RRR without murmur ABD: Soft, NT,ND, NABS, no mass or HSM EXT: MAEW, FROM, no C/C/E, pulses 2+ BACK: No scoliosis NEURO: Alert, nl tone and reflexes for age, age appropriate gait : Nl male phallus, testicles normal, no hernia or hydrocele Stevenson Stage: III Impression / Plan: 1. Well child with normal growth and development. Oral and written anticipatory guidance provided including well child information, nutrition, well balanced diet, safety,and general well child care centre manager. Patient counseled regarding avoidance of alcohol, tobacco and drugs. Parent and patient instructed to call if any questions, concerns, problems or other health issues. Plan per orders. HPV declined today, patient has a needle phobia Immunizations benefits and risks discussed including site soreness, fever and allergic reaction. 2. Cough variant asthma: Albuterol MDI, 2 puffs every 4-6 hours as needed Asthma action plan completed. Follow up as needed. 3. Screening for lipoid disorder: Elevated Triglycerides, repeat fasting lab recommended. 4. Lower back pain, intermittent: X-ray of lumbar spine ordered Stretching exercises encouraged. Next Appointment: 1 year documented in this encounter Plan of Treatment Not on file documented as of this encounter Goals Goal Patient Goal Type Associated Problems Recent Progress Patient-Stated? Author Use safety retraint in car Lifestyle On track( 020 3:14 PM CDT) No Massiel Delgado MA documented as of this encounter Procedures Procedure Name Priority Date/Time Associated Diagnosis Comments LIPID PROFILE+GLUCOSE - POINT OF CARE (AMB) Routine 05/02/2019 Screening for lipid disorders documented in this encounter Results * XR LUMBAR SPINE 2 OR 3VW (05/21/2019) Anatomical Region Laterality Modality Spine Other Raina Calhoun PARTS CATALOGUER-SUPERVISOR PRINTING SHOP DIAGNOSTIC IMAGING ORDERABLES * (ABNORMAL) LIPID PROFILE+GLUCOSE - POINT OF CARE (AMB) (05/02/2019) QC Verified Yes Yes Cholesterol POCT 175 200 mg/dl HDL POCT 50 mg/dL Triglycerides POCT 162(A) 130 mg/dL LDL 92 130 mg/dl Non HDL Cholesterol POCT 125 145 mg/dL Total Cholesterol/HDL Ratio POCT 3.5 6.0 Glucose 106 70 - 126 mg/dL Blood BLOOD SPECIMEN / Unknown 05/02/2019 Raina Calhoun APRN-SUPERVISOR [employer] LAB - POINT OF CARE ORDERABLES documented in this encounter Visit Diagnoses Diagnosis Encounter for well child visit at 13 years of age- Primary Cough variant asthma (HCC) Cough variant asthma Acute low back pain without sciatica, unspecified back pain laterality Screening for lipid disorders documented in this encounter Care Teams Data Center Engineer Relationship Specialty Start Date End Date Les Carvalho MD [address] [place] [address] PCP - General Pediatrics 03/22/18 09/10/21 documented as of this encounter
--- OUTSIDE RECORDS SUMMARY | 2024-09-23 12:21 | XMS_ITS | Encounter Summary ---
Author Organization [facility] Address [address] [place] [address] [place] [address] Care Team Providers Care Auto Refinisher Name Role Phone Les Carvalho MD Primary Care Provider [phone] Nafisa Juarez MD Unavailable [phone] Reason for Visit * Reason Comments Imm Inj Encounter Details Date Type Department Care Team (Latest Contact Info) Description 08/01/2020 1:00 PM CLINICAL RESEARCH SPECIALIST Clinical Support [facility] Medical [facility] - Pediatrics [address] [place] [address] [place] [phone] Need for vaccination Social History Tobacco Use Types Packs/Day Years Used Date Smoking Tobacco: Never Smokeless Tobacco: Never Alcohol Use Standard Drinks/Week Comments No 0 (1 standard drink = 0.6 oz pur e alcohol) Sex and Gender Information Value Date Recorded Sex Assigned at Not on file Gender Identity Not on file Sexual Orientation Not on file COVID-19 Exposure Response Date Recorded In the last month, have you been in contact with someone who was confirmed or suspected to have Coronavirus / COVID-19? No / Unsure 07/29/2020 8:21 AM CLINICAL RESEARCH SPECIALIST documented as of this encounter Last Filed Vital Signs Vital Sign Reading Time Taken Comments Blood Pressure - - Pulse - - Temperature 36.5 ??C (97.7 ??F) 08/01/2020 1:59 PM CS T Respiratory Rate - - Oxygen Saturation - - Inhaled Oxygen Concentration - - Weight - - Height - - Body Mass Index - - documented in this encounter Progress Notes * Carl Ryan MA - 08/01/2020 1:00 PM CST Willi Nelson is a 14 year old male here today for flu shot. ICAL RESEARCH SPECIALIST documented in this encounter Plan of Treatment Not on file documented as of this encounter Goals Goal Patient Goal Type Associated Problems Recent Progress Patient-Stated? Author Use safety retraint in car Lifestyle On track( 020 3:14 PM CDT) Massiel Schulte MA documented as of this encounter Visit Diagnoses Diagnosis Need for vaccination- Primary Need for prophylactic vaccination and inoculation against unspecified single disease documented in this encounter Care Teams Auto Refinisher Relationship Specialty Start Date End Date Les Carvalho MD [address] [address] PCP - General Pediatrics 03/22/18 09/10/21 Nafisa Juarez MD [address] [id number] Orthopedic Surgery 06/28/19 documented as of this encounter
--- OUTSIDE RECORDS SUMMARY | 2024-09-23 12:21 | XMS_ITS | Encounter Summary ---
Author Organization [facility] Address [address] [place] [address] Care Team Providers Care Survey Research Teacher Name Role Phone Les Carvalho MD Primary Care Provider [phone] Nafisa Juarez MD Unavailable [phone] Reason for Visit * Reason Comments Refill Request Encounter Details Date Type Department Care Team (Late st Contact Info) Description 06/21/2020 Refill [facility] Medical [facility] - Pediatrics [address] [facility] [facility] [address] [place] [address] Les Cravalho MD [address] [place] [address] Refill Request Social History Tobacco Use Types Packs/Day Years [...] encounter Miscellaneous Notes * Telephone Encounter - Aleah Chaparro RN - 06/21/2020 11:19 AM CDT MEDICATION REFILL REQUEST - NOT PROTOCOL DRIVEN Last Office Visit with PCP: 05/02/2020 Next Appointment with PCP: Visit date not found Follow-up: 12 months Date of last refill: 04/11/19 Please advise. documented in this encounter Plan of Treatment Not on file documented as of this encounter Goals Goal Patient Goal Type Associated Problems Recent Progress Patient-Stated? Author Use safety retraint in car Lifestyle On track( 020 3:14 PM CDT) No Massiel Delgado MA documented as of this encounter Visit Diagnoses Diagnosis Cough variant asthma (HCC) Cough variant asthma documented in this encounter Care Teams Survey Research Teacher Relationship Specialty Start Date End Date Les Carvalho MD [address] [address] PCP - General Pediatrics 03/22/18 09/10/21 Nafisa Juarez MD [address] [address] Orthopedic Surgery 06/28/19 documented as of this encounter
--- OUTSIDE RECORDS SUMMARY | 2024-09-23 12:21 | XMS_ITS | Encounter Summary ---
Author Organization [facility] Health Address [address] [place] [address] [place] [address] Care Team Providers Care Feather Washer Name Role Phone Les Carvalho MD Primary Care Provider [phone] Nafisa Juarez MD Unavailable [phone] Reason for Referral * Evaluate & Treat - Closed Specialty Diagnoses / Procedures Referred By Contac t Referred To Contact Orthopedics Diagnoses Spondylolisthesis of lumbar region Les Carvalho MD [address] [place] [address] [facility] [address] [place] [address] [place] [address] Referral ID Status Reason Start Date Expiration Date V isits Requested Visits Authorized [id number] Closed Specialty Services Required 05/25/2019 11/21/2019 1 1 Scheduling Instructions If this order was placed as Emergent, this office will personally call this provider to schedule your appointment. If this order was placed as Urgent, an [facility] Wine Sales Representative will contact you within the next 4 hours to schedule your appointment. If your order was placed as Routine, an [facility] Wine Sales Representative will contact you by phone within the next 24 hours to schedule your appointment. Please let them know if you would like to schedule your appointment at a different [facility] location. Reason for Visit * Reason Comments Pain Back * Evaluate & Treat - Closed Specialty Diagnoses / Procedures Referred By Contac t Referred To Contact Orthopedics Diagnoses Spondylolisthesis of lumbar region Les Carvalho MD [address] [place] [address] [address] [place] [address] [facility]Note 3] [place] [address] Referral ID Status Reason Start Date Expiration Date V isits Requested Visits Authorized [id number] Closed Specialty Services Required 05/25/2019 11/21/2019 1 1 Encounter Details Date Type Department Care Team (Late st Contact Info) Description 06/28/2019 7:52 AM CDT - 06/28/2019 11:59 PM CDT Hospital Encounter [facility] Pediatrics - Orthopedics [address] [place] [place] [address] Nafisa Juarez MD [address] [facility] [place] [address] Discharge Disposition: Home or Self Care Social History Tobacco Use Types Packs/Day Years [...] have Coronavirus / COVID-19? No / Unsure 02/05/2020 10:04 AM CDT documented as of this encounter Last Filed Vital Signs Vital Sign Reading Time Taken Comments Blood Pressure - - Pulse - - Temperature - - Respiratory Rate - - Oxygen Saturation - - Inhaled Oxygen Concentration - - Weight 53.3 kg (117 lb 8.1 oz) 06/28/2019 8:00 A M CDT Height 166.6 cm (5' 5.59 ) 06/28/2019 8:00 AM CD T Body Mass Index 19.2 06/28/2019 8:00 AM CDT Body Mass Index Percentile 41.86% 06/28/2019 8:0 0 AM CDT Growth Chart: [facility] (Boys, 2-2 0 Years) documented in this encounter Discharge Instructions * Patient Instructions* Nafisa Juarez MD - 06/28/2019 8:39 AM CDT ICD-10-CM 1. Low back pain without sciatica, unspecified back pain laterality, unspecified chronicity M54.5 Halima referral to Physical Therapy 2. Spondylolisthesis of lumbar region M43.16 AMB REFERRAL TO PEDIATRIC ORTHOPEDICS AMB REFERRAL TO PEDIATRIC ORTHOPEDICS Return appointment: 3 month(s) for a Routine (15 min) visit if continues to have pain Medications prescribed: None, PT ordered Activity Restrictions: [employer] excuse: Patient had appointment on 06/28/19 If you have any further questions please contact Houston Pineda RN [phone]. documented in this encounter Medications at Time of Discharge Medication Sig Dispensed Refills Start Date End Date fluticasone propionate (FLONASE) 50 MCG/ACT nasal spray [place] 1 spray into each nostril once daily albuterol HFA (PROVENTIL;VENTOLIN;PRO AIR) 108 (90 Base) MCG/ACT inhalerIndications:Asth ma Inhale 2 puffs by mouth every 4 hours as needed Reasons: Asthma 2 Inhaler 04/11/2019 06/21/2020 LANSOPRAZOLE PO Take by mouth. 09/11/2021 documented as of this encounter Progress Notes * Nafisa Juarez MD - 06/28/2019 8:42 AM CDT PEDIATRIC ORTHOPAEDIC SURGERY Office Visit NAME: Willi Nelson DATE OF SERVICE: 06/28/2019 DATE: 2005 PCP: Les Carvalho MD Chief Complaint Patient presents with ??? Pain Back SUBJECTIVE: Willi presents for a New Problem Evaluation. Willi Nelson is a 13 year old male who presents with complaint of Back pain. This began several months ago and was Associated with an injury: happened after wrestling at school . Willi was seen no. He has recurrent self limited episodes of low back pain in the past. Since the pain began the symptoms have been stable. Today the pain is perceived as mild(1-3 pain scale). At the worst, the patient describes it as achy on a scale of 1 - 10.The pain is undescribable in character. Willi does not have pain at night. Willi has had similar pain before. His symptoms are aggravated by activity and are alleviated by rest. He has been treating with nothing. Neurological complaints: none Loss of bowel/urine control? no Radiation?: no Previous workup: none HISTORY: He was full term . There were not problems with the or delivery. IMMUNIZATIONS: Immunization status: up to date and documented. PAST MEDICAL HISTORY: has a past medical history of Acid reflux, Allergic rhinitis, and Asthma. PAST SURGICAL HISTORY: has a past surgical history that includes negative surgical history. MEDICATIONS: has a current medication list which includes the following prescription(s): albuterol hfa, fluticasone propionate, and lansoprazole. ALLERGIES: Penicillins and Sulfa drugs SOCIAL HISTORY: Willi lives with his parents. Willi does attend school, high school. Willi is involved in Boxing. FAMILY HISTORY: Family history is negative for genetic conditions affecting children. REVIEW OF SYSTEMS: History obtained from mother. A 12 point ROS was obtained and all others were negative except what is listed in the HPI. PHYSICAL EXAMINATION:Ht 5' 5.59 (166.6 cm) Wt 117 lb 8.1 oz (02796 g) BMI 19.2 kg/m2 General appearance: He has good head control. Orientation: alert, cooperative, no distress. Mood&affect: both mood and affect are normal Extremities: Bilateral upper extremity Skin - No rashes or abnormal dyspigmentation Inspection - No swelling, erythema, deformity, atrophy or hypertrophy noted Tenderness - absent Joint effusion - absent Range of motion - full range of motion Stability - stable Bilateral lower extremity Skin - No rashes or abnormal dyspigmentation Inspection - No swelling, erythema, deformity, atrophy or hypertrophy noted Tenderness - absent Joint effusion - absent Range of motion - full range of motion Stability - stable Back: Inspection: no skin abnormalities Head position: centered Shoulder Position: normal Chest wall abnormality: normal Waist asymmetry: No Body Position: balanced Thoracic spine: flexible, full range of motion without pain Lumbar spine: flexible, There are no abnormalities of the lumbosacral spine SLR - negative right leg, negative left leg Cutler forward bending: elevated right thoracic prominence Muscle tone and ROM exam: muscle tone normal without spasm Leg Length discrepancy: none Lower Extremity Neuro Exam right left Strength: normal 5/5 strength in all tested muscle groups normal 5/5 strength in all tested muscle groups Sensation: normal normal Reflexes: 2+ and symmetric 2+ and symmetric Gait: normal gait and stance, able to walk on heels, toes and in tandem Bilateral hamstring tightness RADIOLOGY: OSH XRs 05/20/2019 reviewed which show no significant abnormality ASSESSMENT: 13 year old 10 month old male with : 1. Low back pain without sciatica, unspecified back pain laterality, unspecified chronicity PLAN: 1. Questions solicited and answered. Patient/family voiced understanding to info/instructions given. 2. The diagnosis and findings were explained to the patient, questions answered. 3. Bracing: No 4. PT ordered 5. Medications Prescribed: none 6. Activity Restrictions: none 7. Follow up: as needed in 2-3 months. scoliosis PA and lateral X-rays I spent more than 45 minutes seeing patient, reviewing images and discussion case with colleagues and formulating the plan. Greater than 50% of that time was spent in counseling and/or coordination of care. Plan for PT 06/28/19 Nafisa Juarez MD Motor Equipment Commanding Officer of Orthopaedics Adult and Pediatric Spine Surgery * Brandie Hatfield - 06/28/2019 8:01 AM CDT # of children in family 2 order 2 grade freshmen Recreational Activities: boxing Scoliosis first noticed by: n/a Menarch (date) n/a Voice change (date) 13 Pain relieved by lying down Worsened by: sitting, lefting Radiation of sx n/a Bowel and Bladder sx n/a Previous xrays taken? yes documented in this encounter Plan of Treatment Scheduled Referrals Name Type Priority Associated Diagnoses Order Schedule AMB REFERRAL TO PEDIATRIC ORTHOPEDICS Outpatient Referral Routine Spondylolisthesis of lumbar region 1 Occurrences starting 06/28/2019 until 06/28/2019 documented as of this encounter Goals Goal Patient Goal Type Associated Problems Recent Progress Patient-Stated? Author Use safety retraint in car Lifestyle On track( 020 3:14 PM CDT) No Massiel Delgado MA documented as of this encounter Visit Diagnoses Diagnosis Low back pain without sciatica, unspecified back pain laterality, unspecified chronicity- Primary Spondylolisthesis of lumbar region Acquired spondylolisthesis documented in this encounter Care Teams Feather Washer Relationship Specialty Start Date End Date Les Carvalho MD [address] [address] PCP - General Pediatrics 03/22/18 09/10/21 Nafisa Juarez MD [address] [address] Orthopedic Surgery 06/28/19 documented as of this encounter
--- OUTSIDE RECORDS SUMMARY | 2024-09-23 12:21 | XMS_ITS | Encounter Summary ---
Author Organization [facility] Address [address] [facility] [place] [address] Care Team Providers Care Hourly Shift Name Role Phone Dilan Castaneda MD Primary Care Provider [phone] Reason for Visit * Reason Comments Weight Check Encounter Details Date Type Department Care Team (Late st Contact Info) Description 06/14/2015 3:15 PM CDT Office Visit [facility] - Family Medicine [address] [place] [address] Dilan Castaneda MD [address] [place] [phone] Slow weight gain (Primary Dx) Social History Tobacco Use Types Packs/Day Years Used Date Smoking Tobacco: Never Alcohol Use Standard Drinks/Week Comments Not Asked 0 (1 standard drink = 0.6 oz [...] - Inhaled Oxygen Concentration - - Weight 25.2 kg (55 lb 9.6 oz) 06/14/2015 3:19 PM CDT Height 132.1 cm (4' 4 ) 06/14/2015 3:19 PM CDT Body Mass Index 14.46 06/14/2015 3:19 PM CDT Body Mass Index Percentile 4.87% 06/14/2015 3:1 9 PM CDT Growth Chart: CDC (Boys, 2-2 0 Years) documented in this encounter Patient Instructions * Patient Instructions* Massiel Delgado MA - 06/14/2015 3:19 PM CDT YOUR GROWING CHILD: 9 TO 11 YEARS Child???s Name: Willi Nelson Today???s Date: 06/14/2015 Wt 25.22 kg (55 lb 9.6 oz) BMI 15.04 kg/m2 Wt Readings from Last 1 Encounters: 06/14/15 25.22 kg (55 lb 9.6 oz) (2 %*, Z = -2.11) * Growth percentiles are based on CDC 2-20 Years data. 2%ile (Z=-2.11) based on CDC 2-20 Years [id number] data using vitals from 06/14/2015. Ht Readings from Last 1 Encounters: 06/14/15 1.295 m (4' 3 ) (3 %*, Z = -1.93) * Growth percentiles are based on CDC 2-20 Years data. 3%ile (Z=-1.93) based on CDC 2-20 Years [id number] data using vitals from 06/14/2015. IMMUNIZATIONS One of the best ways to [...] appropriate chores include: 1. Wash dishes 2. [place] leaves 3. Take the trash out for pick-up 4. Be responsible for feeding and watering the family pet 5. Keep bedroom and designates room in house clean 6. Vacuum individual rooms 7. Be responsible for homework Limit TV and electronic device time to 3-4 hours a day. DO NOT put a TV or computer in your child???s room. Make sure that your child is active [...] scooters, horses, pogo sticks, etc. CAR SEATS Booster seats are for older children who have outgrown their forward-facing car safety seats. Children should stay in a booster seat until adult belts fit correctly (usually when a child reaches about 4' 9 in height and is between 8 and 12 years of age). 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 Encourage them to eat at least [...] that your child is getting at least 10-11 hours of sleep a night. Where can I go for more information? [place] [employer] ( ) www.aap.org, HealthyChildren.org www.healthychildren.org Website and free downloadable chapis for smartphones: http://www.[employer]/ and http://www.[employer]/ documented in this encounter Progress Notes * Dilan Castaneda MD - 06/14/2015 3:45 PM CDT Willi presents for a weight check. He was last seen on 03/27/15 for a well check and he had not gained weight over the past few months. In discussion with mom it was decided that we would proceed with trying to increase calories in. He is very active so mom has been supplementing with 1 can of pediasure a day. He has gained about 13 oz in 2 months. No fever, rash, cough, congestion, nausea, vomiting or diarrhea. No other sxs or concerns. I reviewed allergies and PMHx. Wt 25.22 kg (55 lb 9.6 oz) BMI 14.45 kg/m2 Head - normocephalic, without trauma Eye exam - pupils equal and reactive, extraocular eye movements intact. Nose no exudate Ears clear Throat MMM, no erythema Neck - Supple with no thyromegaly CVS exam: normal rate, regular rhythm, normal S1, S2, no murmurs, rubs, clicks or gallops. Chest - clear to auscultation, no wheezes, rales or rhonchi, symmetric air entry. Abdomen - soft, nontender, nondistended, no masses or organomegaly. Skin - No rashes or abnormal pigmentation Assessment/Plan Slow weight gain - he has maintained the 2 nd % for weight encourage increase intake continue pediasure supplementation weight check at home once a month Call or be seen if he cid not continue to gain weight documented in this encounter Plan of Treatment Not on file documented as of this encounter Goals Goal Patient Goal Type Associated Problems Recent Progress Patient-Stated? Author Use safety retraint in car Lifestyle On track( 020 3:14 PM CDT) No Massiel Delgado MA documented as of this encounter Visit Diagnoses Diagnosis Slow weight gain- Primary Failure to thrive documented in this encounter Care Teams Hourly Shift Relationship Specialty Start Date End Date Dilan Castaneda MD [address] [place] [address] PCP - General Pediatrics 03/27/15 06/22/17 documented as of this encounter
--- OUTSIDE RECORDS SUMMARY | 2024-09-23 12:21 | XMS_ITS | Encounter Summary ---
Author Organization [facility] Address [address] [place] [address] [place] [address] Care Team Providers Care Ready Mix Truck Driver Name Role Phone Nafisa Juarez MD Unavailable [phone] Esa Williamson MD Primary Care Provider [phone] Encounter Details Date Type Department Care Team (Latest Contact Info) Description 09/11/2021 Travel Social History Tobacco Use Types Packs/Day Years [...] have Coronavirus / COVID-19? 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 Author Use safety retraint in car Lifestyle On track( 020 3:14 PM CDT) No Massiel Delgado MA documented as of this encounter Visit Diagnoses Not on filedocumented in this encounter Care Teams Ready Mix Truck Driver Relationship Specialty [place] [address] [place] [address] PCP - General Family Medicine 09/11/21 Nafisa Juarez MD Orthopedic Surgery 06/28/19 documented as of this encounter
--- OUTSIDE RECORDS SUMMARY | 2024-09-23 12:21 | XMS_ITS | Encounter Summary ---
Author Organization [facility] Address [address] [place] [address] Care Team Providers Care Waiter/Waitress Bar Name Role Phone Les Carvalho MD Primary Care Provider [phone] Reason for Referral * Evaluate & Treat - Closed Specialty Diagnoses / Procedures Referred By Contac t Referred To Contact Orthopedics Diagnoses Spondylolisthesis of lumbar region Les Carvalho MD [address] [place] [address] [facility] [address] [place] [address] [place] [address] Referral ID Status Reason Start Date Expiration Date V isits Requested Visits Authorized [id number] Closed Specialty Services Required 05/25/2019 11/21/2019 1 1 Scheduling Instructions If this order was placed as Emergent, this office will personally call this provider to schedule your appointment. If this order was placed as Urgent, an [facility] Safety And Occupational Health Manager will contact you within the next 4 hours to schedule your appointment. If your order was placed as Routine, an [facility] Safety And Occupational Health Manager will contact you by phone within the next 24 hours to schedule your appointment. Please let them know if you would like to schedule your appointment at a different [facility] location. Reason for Visit * Reason Onset Date Comments Results 05/25/2019 Encounter Details Date Type Department Care Team (Late st Contact Info) Description 05/25/2019 Telephone [facility] - Pediatrics [address] [place] [address] [place] [phone] Les Carvalho MD [address] [place] [address] Results Social History Tobacco Use Types Packs/Day Years [...] encounter Miscellaneous Notes * Telephone Encounter - Les Carvalho MD - 05/25/2019 4:56 PM CDT Willi had X-rays of his Lumbar spine done on 05/20/19 for evaluation of recurrent low back pain over the past 2 years. X-ray results reviewed with mother over the phone. X-rays of Lumbar spine showedmild grade 1/4 Spondylolisthesis of L3 anterior relative to L2 with Vertbral alignment. No fractures or other abnormalities noted on X-ray. Unclear if this is the cause of his chronic low back pain. Will refer to Peds Orthopedics at . Mother would prefer to go to the [facility]. * Telephone Encounter - Sandie Pang RN - 05/25/2019 1:56 PM CDT Results received from [facility]. Please advise. * Telephone Encounter - Sandie Pang RN - 05/25/2019 12:15 PM CDT Pt's mother called for results of xray done this weekend at [facility] in [place]. No report in chart. I have faxed request to [facility] to fax us the results. documented in this encounter Plan of Treatment Scheduled Referrals Name Type Priority Associated Diagnoses Order Schedule AMB REFERRAL TO PEDIATRIC ORTHOPEDICS Outpatient Referral Routine Spondylolisthesis of lumbar region 1 Occurrences starting 05/25/2019 until 05/25/2020 documented as of this encounter Goals Goal Patient Goal Type Associated Problems Recent Progress Patient-Stated? Author Use safety retraint in car Lifestyle On track( 020 3:14 PM CDT) Massiel Schulte MA documented as of this encounter Visit Diagnoses Diagnosis Spondylolisthesis of lumbar region- Primary Acquired spondylolisthesis documented in this encounter Care Teams Waiter/Waitress Bar Relationship Specialty Start Date End Date Les Carvalho MD [address] [place] [address] PCP - General Pediatrics 03/22/18 09/10/21 documented as of this encounter
--- OUTSIDE RECORDS SUMMARY | 2024-09-23 12:21 | XMS_ITS | Encounter Summary ---
Author Organization [facility] Address [address] [place] [address] [place] [address] Care Team Providers Care Car Shagger Name Role Phone Les Carvalho MD Primary Care Provider [phone] Nafisa Juarez MD Unavailable [phone] Encounter Details Date Type Department Care Team (Latest Contact Info) Description 07/29/2020 Travel Social History Tobacco Use Types Packs/Day [...] COVID-19? 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 Author Use safety retraint in car Lifestyle On track( 020 3:14 PM CDT) No Massiel Delgado MA documented as of this encounter Visit Diagnoses Not on filedocumented in this encounter Care Teams Car Shagger Relationship Specialty Start Date End Date Les Carvalho MD [address] [place] [id number] PCP - General Pediatrics 03/22/18 09/10/21 Nafisa Juarez MD [address] [place] [address] Orthopedic Surgery 06/28/19 documented as of this encounter
--- OUTSIDE RECORDS SUMMARY | 2024-09-23 12:21 | XMS_ITS | Encounter Summary ---
Author Organization [facility] Address [address] [place] [address] Care Team Providers Care Brand Sales Consultant Name Role Phone Dilan Castaneda MD Primary Care Provider [phone] Reason for Visit * Reason Comments Refill Request Encounter Details Date Type Department Care Team (Late st Contact Info) Description 06/13/[address] [facility] - Family Medicine [address] [place] [address] Kerri Felipe MD [address] [place], [place] [address]Y [address] [place] [phone] Refill Request Social History Tobacco Use Types [...] encounter Miscellaneous Notes * Telephone Encounter - Sharita Hunt - 06/14/2015 8:40 AM CDT Last refill: 03/09/15 Last OV: 03/27/15 documented in this encounter Plan of Treatment Not on file documented as of this encounter Goals Goal Patient Goal Type Associated Problems Recent Progress Patient-Stated? Author Use safety retraint in car Lifestyle On track( 020 3:14 PM CDT) No Massiel Delgado MA documented as of this encounter Visit Diagnoses Not on filedocumented in this encounter Care Teams Brand Sales Consultant Relationship Specialty Start Date End Date Dilan Castaneda MD [address] [place] [address] PCP - General Pediatrics 03/27/15 06/22/17 documented as of this encounter
--- OUTSIDE RECORDS SUMMARY | 2024-09-23 12:21 | XMS_ITS | Encounter Summary ---
Author Organization [facility] Address [address] [facility] [place] [address] Care Team Providers Care Front Office Java Developer Name Role Phone Nafisa Juarez MD Unavailable [phone] Esa Williamson MD Primary Care Provider [phone] Reason for Visit * Reason Onset Date Comments Results 09/12/2021 Encounter Details Date Type Department Care Team (Late st Contact Info) Description 09/12/2021 Telephone [facility] Pediatrics - [address] [address] Genia Mccarthy MD [address] [place] [phone] Results Social History Tobacco Use Types Packs/Day [...] COVID-19? No / Unsure 09/11/2021 11:22 AM HOME HEALTH CLINICAL LIAISON documented as of this encounter Miscellaneous Notes * Telephone Encounter - Brandie Llanos RN - 09/23/2021 11:41 AM HOME HEALTH CLINICAL LIAISON Gave Dr Mccarthy's messages to mom. HEALTH CLINICAL LIAISON * Telephone Encounter - Gail Acosta RN - 09/23/2021 10:55 AM HOME HEALTH CLINICAL LIAISON Mom returning call. HEALTH CLINICAL LIAISON * Telephone Encounter - Genia Mccarthy MD - 09/23/2021 9:11 AM CST Thanks Aye. Yes all labs normal HEALTH CLINICAL LIAISON * Telephone Encounter - Gail Acosta RN - 09/23/2021 8:33 AM CST Left message on unidentified voicemail to call the office HEALTH CLINICAL LIAISON * Telephone Encounter - Gail Acosta RN - 09/23/2021 6:43 AM CST Also, now received normal Fecal Calprotectin (9). Will call mom with all results. HEALTH CLINICAL LIAISON * Telephone Encounter - Gail Acosta RN - 09/23/2021 6:24 AM CST Mom calling requesting lab results. Dr. Mccarthy had previous said all normal, waiting on TTG and Iga. Those have been received and arenormal. HEALTH CLINICAL LIAISON * Telephone Encounter - Gail Acosta RN - 09/17/2021 8:10 AM CST Received IgA and TTG result, imported into media. Will forward to Dr. Mccarthy to review. HEALTH CLINICAL LIAISON * Telephone Encounter - Genia Mccarthy MD - 09/15/2021 3:05 PM CST labs look good so far. I dont see celiac serology yet. We can let family know results when we have all labs back. HEALTH CLINICAL LIAISON * Telephone Encounter - Gail Acosta RN - 09/12/2021 7:38 AM CST Received CBC, CRP, CMP, ESR. Imported into media. Will forward to Dr. Mccarthy to review. HEALTH CLINICAL LIAISON documented in this encounter Plan of Treatment Not on file documented as of this encounter Goals Goal Patient Goal Type Associated Problems Recent Progress Patient-Stated? Author Use safety retraint in car Lifestyle On track( 020 3:14 PM CDT) No Masisel Delgado MA documented as of this encounter Visit Diagnoses Not on filedocumented in this encounter Care Teams Front Office Java Developer Relationship Specialty [place] [address] [place] [address] PCP - General Family Medicine 09/11/21 Nafisa Juarez MD Orthopedic Surgery 06/28/19 documented as of this encounter
--- OUTSIDE RECORDS SUMMARY | 2024-09-23 12:21 | XMS_ITS | Encounter Summary ---
Author Organization [facility] Address [address] [place] [address] [place] [address] Care Team Providers Care Elder Assistant Name Role Phone Les Carvalho MD Primary Care Provider [phone] Reason for Visit * Reason Onset Date Comments MEDICATION REFILL 04/11/2019 Encounter Details Date Type Department Care Team (Late st Contact Info) Description 04/11/2019 Refill [facility] Medical [facility] - Pediatrics [address] [facility], [facility] [address] [place] [address] Les Carvalho MD [address] [place] [address] MEDICATION REFILL Social History Tobacco Use Types Packs/Day Years [...] encounter Miscellaneous Notes * Telephone Encounter - Sandie Pang RN - 04/11/2019 8:30 AM CDT Refill request for Albuterol inhaler ROWENA:12-12-18 Last refill:03-22-18 NOV:04-17-19 Requested Prescriptions Pending Prescriptions Disp Refills ??? albuterol HFA (PROVENTIL;VENTOLIN;PROAIR) 108 (90 Base) MCG/ACT inhaler 2 Inhaler 0 Sig: Inhale 2 puffs by mouth every 4 hours as needed Reasons: Asthma documented in this encounter Plan of Treatment Not on file documented as of this encounter Goals Goal Patient Goal Type Associated Problems Recent Progress Patient-Stated? Author Use safety retraint in car Lifestyle On track( 020 3:14 PM CDT) Massiel Schulte MA documented as of this encounter Visit Diagnoses Diagnosis Cough variant asthma (HCC) Cough variant asthma documented in this encounter Care Teams Elder Assistant Relationship Specialty Start Date End Date Les Carvalho MD [address] [place] [address] PCP - General Pediatrics 03/22/18 09/10/21 documented as of this encounter
--- OUTSIDE RECORDS SUMMARY | 2024-09-23 12:21 | XMS_ITS | Encounter Summary ---
Author Organization [facility] Address [address] [place] [address] [place] [address] Care Team Providers Care Correctional Medicine Physician Name Role Phone Les Carvalho MD Primary Care Provider Nafisa Juarez MD Unavailable [phone] Encounter Details Date Type Department Care Team (Latest Contact Info) Description 11/04/2020 4:00 PM PROTOCOL MANAGER Clinical Support [facility] Medical [facility] - Pediatrics [address] [place] [address] [address] [place] [phone] Need for vaccination Social History Tobacco Use [...] Pressure - - Pulse - - Temperature 36.2 ??C (97.2 ??F) 11/04/2020 3:57 PM CS T Respiratory Rate - - Oxygen Saturation - - Inhaled Oxygen Concentration - - Weight - - Height - - Body Mass Index - - documented in this encounter Plan of Treatment [...] disease documented in this encounter Care Teams Correctional Medicine Physician Relationship Specialty Start Date End Date Les Carvalho MD [address] [address] PCP - General Pediatrics 03/22/18 09/10/21 Nafisa Juarez MD [address] [address] Orthopedic Surgery 06/28/19 documented as of this encounter
--- OUTSIDE RECORDS SUMMARY | 2024-09-23 12:21 | XMS_ITS | Encounter Summary ---
Author Organization [facility] Address [address] [facility] [place] [address] Care Team Providers Care Pharmacy Benefits Coordinator Name Role Phone Dilan Castaneda MD Primary Care Provider [phone] Reason for Visit * Reason Onset Date Comments MEDICATION REFILL 04/12/2015 Encounter Details Date Type Department Care Team (Late st Contact Info) Description 04/12/2015 Refill [facility] Medical Group - Family Medicine [address] [place] [address] Dilan Castaneda MD [address] [facility] [address] [place] [phone] MEDICATION REFILL Social History Tobacco Use Types [...] encounter Miscellaneous Notes * Telephone Encounter - Lola Hollis - 04/12/2015 1:30 PM CDT Left detailed message on machine per HIPPA that 3 inhalers have been sent to the pharmacy and to call office if she has any questions. * Telephone Encounter - Dilan Castaneda MD - 04/12/2015 10:35 AM CDT Prescription for 3 inhalers sent to the pharmacy. * Telephone Encounter - Lola Hollis - 04/12/2015 8:57 AM CDT Patients mother called to get emergency Albuterol inhaler's refilled. Mom states she needs one for him to take to school and one for him to be able to leave at aftercare. documented in this encounter Plan of Treatment Not on file documented as of this encounter Goals Goal Patient Goal Type Associated Problems Recent Progress Patient-Stated? Author Use safety retraint in car Lifestyle On track( 020 3:14 PM CDT) No Massiel Delgado MA documented as of this encounter Visit Diagnoses Not on filedocumented in this encounter Care Teams Pharmacy Benefits Coordinator Relationship Specialty Start Date End Date Dilan Castaneda MD [address] [place] [address] PCP - General Pediatrics 03/27/15 06/22/17 documented as of this encounter
--- OUTSIDE RECORDS SUMMARY | 2024-09-23 12:21 | XMS_ITS | Encounter Summary ---
Author Organization [facility] Address [address] [place] [address] [place] [address] Care Team Providers Care Business Education Teacher Name Role Phone Les Carvalho MD Primary Care Provider [phone] Nafisa Juarez MD Unavailable [phone] Encounter Details Date Type Department Care Team (Latest Contact Info) Description 02/05/2020 Travel Social History Tobacco Use Types Packs/Day [...] AM CDT documented as of this encounter Plan of Treatment Not on file documented as of this encounter Goals Goal Patient Goal Type Associated Problems Recent Progress Patient-Stated? Author Use safety retraint in car Lifestyle On track( 020 3:14 PM CDT) No Massiel Delgado MA documented as of this encounter Visit Diagnoses Not on filedocumented in this encounter Care Teams Business Education Teacher Relationship Specialty Start Date End Date Les Carvalho MD [address] [place] [id number] PCP - General Pediatrics 03/22/18 09/10/21 Nafisa Juarez MD [address] [place] [address] Orthopedic Surgery 06/28/19 documented as of this encounter
--- OUTSIDE RECORDS SUMMARY | 2024-09-23 12:21 | XMS_ITS | Encounter Summary ---
Author Organization [facility] Address [address] [place] [address] Care Team Providers Care Fixture Fabricator Repairer Name Role Phone Les Carvalho MD Primary Care Provider [phone] Encounter Details Date Type Department Care Team (Late st Contact Info) Description 05/26/2019 Orders Only [facility] Medical Group - Pediatrics [address] [facility] [address] [place] [address] Raina Calhoun, REJI-MILL LABORER Right from the Start Pediatrics [address] [facility] [address] [place] [address] Acute low back pain without sciatica, unspecified back pain laterality Social History Tobacco Use Types Packs/Day Years Used Date Smoking Tobacco: Never Smokeless Tobacco: Never Alcohol Use Standard Drinks/Week Comments No 0 (1 standard drink = 0.6 oz pur e alcohol) Sex and Gender Information Value Date Recorded Sex Assigned at Not on file Gender Identity Not on file Sexual Orientation Not on file documented as of this encounter Plan of Treatment Not on file documented as of this encounter Goals Goal Patient Goal Type Associated Problems Recent Progress Patient-Stated? Author Use safety retraint in car Lifestyle On track( 020 3:14 PM CDT) No Massiel Delgado MA documented as of this encounter Procedures Procedure Name Priority Date/Time Associated Diagnosis Comments XR LUMBAR SPINE 2 OR 3VW Routine 05/21/2019 Acute low back pain without sciatica, unspecified back pain laterality documented in this encounter Results * XR LUMBAR SPINE 2 OR 3VW (05/21/2019) Anatomical Region Laterality Modality Spine Other Raina Calhoun SURFACE GRINDING MACHINE HAND-MILL LABORER DIAGNOSTIC IMAGING ORDERABLES documented in this encounter Visit Diagnoses Diagnosis Acute low back pain without sciatica, unspecified back pain laterality documented in this encounter Care Teams Fixture Fabricator Repairer Relationship Specialty Start Date End Date Les Carvalho MD [address] [place] [address] PCP - General Pediatrics 03/22/18 09/10/21 documented as of this encounter
--- OUTSIDE RECORDS SUMMARY | 2024-09-23 12:21 | XMS_ITS | Encounter Summary ---
Author Organization [facility] Address [address] [facility] [place] [address] Care Team Providers Care Portfolio Administrator Name Role Phone Les Carvalho MD Primary Care Provider [phone] Nafisa Juarez MD Unavailable [phone] Encounter Details Date Type Department Care Team (Latest Contact Info) Description 07/02/2020 4:00 PM CDT Clinical Support [facility] Medical [facility] - Pediatrics [address] [place] [phone] Need for vaccination Social History Tobacco Use Types Packs/Day Years Used Date Smoking Tobacco: Never Smokeless Tobacco: Never Alcohol Use Standard Drinks/Week Comments No 0 (1 standard drink = 0.6 oz pur e alcohol) Sex and Gender Information Value Date Recorded Sex Assigned at Not on file Gender Identity Not on file Sexual Orientation Not on file documented as of this encounter Progress Notes * Dayana Roe - 07/02/2020 4:00 PM CDT Pt here for HPV #2 documented in this encounter Plan of Treatment [...] disease documented in this encounter Care Teams Portfolio Administrator Relationship Specialty Start Date End Date Les Carvalho MD [address] [address] PCP - General Pediatrics 03/22/18 09/10/21 Nafisa Juarez MD [address] [address] Orthopedic Surgery 06/28/19 documented as of this encounter
--- OUTSIDE RECORDS SUMMARY | 2024-09-23 12:21 | XMS_ITS | Encounter Summary ---
Author Organization [facility] Address [address] [place] [address] Care Team Providers Care Correctional Officer Lieutenant Name Role Phone Nafisa Juarez MD Unavailable [phone] Esa Williamson MD Primary Care Provider [phone] Reason for Visit * Reason Comments GI Problem diarrhea constantly. and frequently. happening for years. Encounter Details Date Type Department Care Team (Latest Contact Info) Description 09/11/2021 10:25 AM ENVIRONMENTAL EDUCATOR - 09/11/2021 11:59 PM ENVIRONMENTAL EDUCATOR Hospital Encounter [facility] Pediatrics - GI [address] [place] [address] Genia Mccarthy MD [facility] [place] [address] Discharge Disposition: Home or Self Care Social [...] COVID-19? No / Unsure 09/11/2021 11:22 AM ENVIRONMENTAL EDUCATOR documented as of this encounter Last Filed Vital Signs Vital Sign Reading Time Taken Comments Blood Pressure - - Pulse - - Temperature - - Respiratory Rate - - Oxygen Saturation - - Inhaled Oxygen Concentration - - Weight 70.4 kg (155 lb 3.3 oz) 09/11/20 21 10:38 AM ENVIRONMENTAL EDUCATOR Height 178.2 cm (5' 10.16 ) 09/11/2021 10:38 AM ENVIRONMENTAL EDUCATOR Body Mass Index 22.17 09/11/2021 10:38 AM ENVIRONMENTAL EDUCATOR Body Mass Index Percentile 61.96% 09/11 10:38 AM ENVIRONMENTAL EDUCATOR Growth Chart: [facility] (Boys, 2-2 0 Years) documented in this encounter Discharge Instructions * Patient Instructions* Genia Mccarthy MD - 09/11/2021 11:08 AM ENVIRONMENTAL EDUCATOR 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 This is bothersome, but notdangerous. I have also ordered additional testing to look for other issues (celiac, signs of Crohn's or colitis) Check out the low FODMAP diet Take the Bentyl 20 mg twice daily, you can take additional doses (up to 4 times daily if needed) RONMENTAL EDUCATOR documented in this encounter Medications at Time of Discharge Medication Sig Dispensed Refills Start Date End Date albuterol HFA (PROVENTIL;VENTOLIN;PROA IR) 108 (90 Base) MCG/ACT inhalerIndications:Cough variant asthma (HCC) Inhale 2 puffs by mouth every 4 hours as needed 17 Inhaler 2 06/21/2020 dicyclomine (BENTYL) 20 MG tabletIndications:Diarrh ea, unspecified type Take 1 (one) tablet by mouth 4 times daily as needed 120 tablet 3 09/11/2021 fluticasone propionate (FLONASE) 50 MCG/ACT nasal spray [place] 1 spray into each nostril once daily documented as of this encounter Progress Notes * Genia Mccarthy MD - 09/11/2021 10:42 AM CST CHIEF COMPLAINT: GI Problem (diarrhea constantly. and frequently. happening for years. ) Willi Nelson was seen in the Pediatric GI clinic accompanied by his in consultation at request ofhis or PCP Esa Williamson MD HISTORY: Willi is a 16 year old male who presents with abdomnal pain and diarrhea. . History is obtained from my review of available records in EMR and Willi has had long history of abdominal pain and frequent stooling that he describes as diarrhea . Mos t concerned about frequency of stool He has alreay had 3-4 trips to the bathroom, this morning though cant recall how many times he actually stooled. ?tenesmus. Perceived to have large aount of flatulence that is malodorous. On questioning, he describes what seems to be a [place] type 4 stool, occasionally liquid stools, this is not frequent. I have reviewed growth chart - he hasnt had any weight loss Sometimes has nuasea when he has a BM Occasional heart burn PAST MEDICAL HISTORY: Willi's past medical history includes: Past Medical History: Diagnosis Date ??? Acid reflux ??? Allergic rhinitis ??? Asthma PAST SURGICAL HISTORY: Willi's past surgical history includes: Past Surgical History: Procedure Laterality Date ??? NEGATIVE SURGICAL HISTORY SOCIAL HISTORY: Social History Social History Narrative Willi lives at home with his mother and brother FAMILY HISTORY: Family History Problem Relation Name Age of Onset ??? Asthma Other ??? Allergic Rhinitis Other ??? Cancer - Colon Other ??? Autoimmune Disease Neg Hx ??? Hypertension Neg Hx ??? Migraine Neg Hx ??? Seizures Neg Hx ? ? Sudd. <30 Neg Hx ??? Thyroid Disease Neg Hx No family history of Crohn's disease, Ulcerative colitis or celiac disease REVIEW OF SYSTEMS is negative for fever, weight loss, mouth sores, joint pains or rashes. The remainder of the 14 point review of systems is as stated in HPI or otherwise egative. CURRENT MEDICATIONS: Current Outpatient Medications Medication Sig Dispense Refill ??? albuterol HFA (PROVENTIL;VENTOLIN;PROAIR) 108 (90 Base) MCG/ACT inhaler Inhale 2 puffs by mouthevery 4 hours as needed 17 Inhaler 2 ??? dicyclomine (BENTYL) 20 MG tablet Take 1 (one) tablet by mouth 4 times daily as needed 120 tablet 3 ??? fluticasone propionate (FLONASE) 50 MCG/ACT nasal spray [place] 1 spray into each nostril once daily No current facility-administered medications for this encounter. PHYSICAL EXAM: Ht 1.782 m (5' 10.16 ) Wt 70.4 kg (155 lb 3.3 oz) BMI 22.17 kg/m2 General: Healthy, alert, well nourished Head: Normocephalic, atraumatic Eyes: No scleral icterus, no injection Mouth: Moist mucus membranes, no oral ulcers Neck: No lymphadenopathy Heart: Regular rate and rhythm, no murmur Lungs: Clear to auscultation bilaterally Abdomen: soft, nontender, nondistended, no Hepatosplenomegaly Rectal:deferred Extremities: warm and well perfused, no joint swelling Neuro: No facial asymmetry, normal tone, normal gait IMPRESSION: 16 year old male with abdominal pain and stooling changes. He meets many criteria for IBS. Also consider celiac disease. Less likely IBD> PLAN: Orders Placed This Encounter ??? CBC WITH DIFFERENTIAL Standing Status: Future Number of Occurrences: 1 Standing Expiration Date: 09/06/2022 Order Specific Question: Release to patient Answer: Immediate ??? CALPROTECTIN FECAL Standing Status: Future Number of Occurrences: 1 Standing Expiration Date: 09/06/2022 Order Specific Question: Release to patient Answer: Immediate ??? COMPREHENSIVE METABOLIC PANEL Standing Status: Future Number of Occurrences: 1 Standing Expiration Date: 09/06/2022 Order Specific Question: Release to patient Answer: Immediate ??? C-REACTIVE PROTEIN Standing Status: Future Number of Occurrences: 1 Standing Expiration Date: 09/06/2022 Order Specific Question: Release to patient Answer: Immediate ??? ERYTHROCYTE SEDIMENTATION RATE Standing Status: Future Number of Occurrences: 1 Standing Expiration Date: 09/06/2022 Order Specific Question: Release to patient Answer: Immediate ??? IGA BLOOD Standing Status: Future Number of Occurrences: 1 Standing Expiration Date: 09/06/2022 Order Specific Question: Release to patient Answer: Immediate ??? TISSUE TRANSGLUTAMINASE AB IGA Standing Status: Future Number of Occurrences: 1 Standing Expiration Date: 09/06/2022 Order Specific Question: Release to patient Answer: Immediate ??? CBC WITH DIFFERENTIAL Standing Status: Standing Number of Occurrences: 1 Order Specific Question: Release to patient Answer: Immediate ??? CALPROTECTIN FECAL Standing Status: Standing Number of Occurrences: 1 Order Specific Question: Release to patient Answer: Immediate ??? COMPREHENSIVE METABOLIC PANEL Standing Status: Standing Number of Occurrences: 1 Order Specific Question: Release to patient Answer: Immediate ??? C-REACTIVE PROTEIN Standing Status: Standing Number of Occurrences: 1 Order Specific Question: Release to patient Answer: Immediate ??? ERYTHROCYTE SEDIMENTATION RATE Standing Status: Standing Number of Occurrences: 1 Order Specific Question: Release to patient Answer: Immediate ??? IGA BLOOD Standing Status: Standing Number of Occurrences: 1 Order Specific Question: Release to patient Answer: Immediate ??? TISSUE TRANSGLUTAMINASE AB IGA Standing Status: Standing Number of Occurrences: 1 Order Specific Question: Release to patient Answer: Immediate ??? dicyclomine (BENTYL) 20 MG tablet Sig: Take 1 (one) tablet by mouth 4 times daily as needed Dispense: 120 tablet Refill: 3 1. Labs today 2. Start anti-spasmodic for IBS 3. Discussed low FODMAP diet 4. Follow up in 3months, sooner if more concerning symptoms. 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 This is bothersome, but notdangerous. I have also ordered additional testing to look for other issues (celiac, signs of Crohn's or colitis) Check out the low FODMAP diet Take the Bentyl 20 mg twice daily, you can take additional doses (up to 4 times daily if needed) Plan of care, including education on the safe and effective use of medication(s) and/or medical equipment if prescribed, was discussed with the family. They verbalized understanding and agreed with the treatment options discussed. 09/11/2021 1:03 PM RONMENTAL EDUCATOR documented in this encounter Plan of Treatment Not on file documented as of this encounter Goals Goal Patient Goal Type Associated Problems Recent Progress Patient-Stated? Author Use safety retraint in car Lifestyle On track( 020 3:14 PM CDT) No Massiel Delgado MA documented as of this encounter Visit Diagnoses Diagnosis Diarrhea, unspecified type- Primary Abdominal pain, generalized documented in this encounter Care Teams Correctional Officer Lieutenant Relationship Specialty [place] [address] [place] [address] PCP - General Family Medicine 09/11/21 Nafisa Juarez MD Orthopedic Surgery 06/28/19 documented as of this encounter
--- OUTSIDE RECORDS SUMMARY | 2024-09-23 12:21 | XMS_ITS | Encounter Summary ---
Author Organization [facility] Address [address] [facility] [place] [address] Care Team Providers Care Full Stack Software Developer Name Role Phone Dilan Castaneda MD Primary Care Provider [phone] Reason for Visit * Reason Comments Refill Request Encounter Details Date Type Department Care Team (Late st Contact Info) Description 04/20/2015 Refill [facility] Medical Group - Family Medicine [address] [place], [place] [id number] Kerri Felipe MD [address] [place], [place] [address] [place] [phone] Refill Request Social History Tobacco Use Types [...] encounter Miscellaneous Notes * Telephone Encounter - Radha Dorantes MA - 04/20/2015 8:41 AM CDT Last OV: 03/27/15 Last refill: 08/17/14 documented in this encounter Plan of Treatment Not on file documented as of this encounter Goals Goal Patient Goal Type Associated Problems Recent Progress Patient-Stated? Author Use safety retraint in car Lifestyle On track( 020 3:14 PM CDT) No Massiel Delgado MA documented as of this encounter Visit Diagnoses Not on filedocumented in this encounter Care Teams Full Stack Software Developer Relationship Specialty Start Date End Date Dilan Castaneda MD [address] [place] [address] PCP - General Pediatrics 03/27/15 06/22/17 documented as of this encounter
--- OUTSIDE RECORDS SUMMARY | 2024-09-23 12:21 | XMS_ITS | Encounter Summary ---
Author Organization [facility] Address [address] [place] [address] [place] [address] Care Team Providers Care Flight Manager Name Role Phone Les Carvalho MD Primary Care Provider [phone] Reason for Visit * Reason Comments Follow-up asthma Ear Pain right, x3 days Encounter Details Date Type Department Care Team (Late st Contact Info) Description 12/12/2018 4:00 PM CDT Office Visit [facility] - Pediatrics [address] [facility], [address] [phone] Les Carvalho MD [address] [place] [address] Cough variant asthma (HCC) (Primary Dx); Influenza A; Otalgia of right ear Social History Tobacco Use Types Packs/Day Years [...] Pressure - - Pulse - - Temperature 36 ??C (96.8 ??F) 12/12/2018 3:59 PM CDT Respiratory Rate - - Oxygen Saturation - - Inhaled Oxygen Concentration - - Weight 46.2 kg (101 lb 12.8 oz) 12/12/2018 3:59 PM CDT Height - - Body Mass Index - - documented in this encounter Patient Instructions * Patient Instructions* Les Carvalho MD - 12/12/2018 4:06 PM CDT Images from the original note were not included. Asthma in Children WHAT YOU NEED TO KNOW: What is asthma? Asthma is a condition that causes breathing problems. Inflammation and narrowing ofyour child's airway prevents air from getting to his or her lungs. An asthma attack is when your child's symptoms get worse. If your child's asthma is not managed, symptoms may become chronic or life- threatening. What is cough-variant asthma? Cough-variant asthma is a type of asthma with symptoms of a dry coughthat comes and goes. A dry cough may be your child's only symptom, or he or she may also have chesttightness. Your child's cough may be worse at night. These symptoms may be caused by exercise or exposure to odors, allergens, or respiratory infections. Cough-variant asthma is treated the same way as typical asthma. What are the signs and symptoms of asthma in children? ?? Coughing ?? Wheezing ?? Shortness of breath ?? Fast breathing in infants ?? Chest tightness What may trigger an asthma attack? ?? A sinus infection, cold, or the flu ?? Exercise ?? Intense crying, laughing, or yelling ?? Cold air, or a change in weather temperature ?? Air pollution or pollen ?? Tobacco smoke ?? Acid reflux ?? Pets, fur, dust mites, cockroaches, or mold How is asthma in children diagnosed? Tell your child's county bailiff if your child has a family history of asthma. Tell the provider about your child's symptoms and what you think may trigger symptoms. The provider will examine your child and listen to his or her lungs. Your child may need to be tested for allergies that could trigger asthma attacks. He or she may also need the following: ?? Lung function tests are done to show how well your child can breathe. ?? A chest x-ray is used to check for other lung problems such as an infection. How is asthma in children treated? The cause of your child's asthma, such as acid reflux, may need to be treated. Your child may need any of the following: ?? Medicines decrease inflammation, open your child's airway, and make breathing easier. Your childmay need rescue medicine that works quickly during an attack. He or she may also need long-acting medicine that works over time to prevent attacks. Asthma medicine may be inhaled, taken as a pill, orinjected. ?? Allergy testing may be used to find allergies that trigger an asthma attack. Your child may needallergy shots or medicine to control allergies that make his or her asthma worse. What is an Asthma Action Plan (AAP)? An AAP is a written plan to help you manage your child's asthma. It is created with your child's county bailiff. Give the AAP to all of your child's care providers.This includes your child's teachers and school nurse. An AAP contains the following information: ?? A list of what triggers your child's asthma ?? How to keep your child away from triggers ?? When and how to use a peak flow meter ?? What your child's peak numbers are for the Green, Yellow, and Red Zones ?? Symptoms to watch for and how to treat them ?? Names and doses of medicines, and when to use each medicine ?? Emergency telephone numbers and locations of emergency care ?? Instructions for when to call the doctor and when to seek immediate care What else can I do to manage my child's asthma? ?? Keep a diary of your child's asthma symptoms. This will help identify asthma triggers so you cankeep your child away from them. ?? Do not smoke near your child. Do not smoke in your car or anywhere in your home. Do not let yourolder child smoke. Nicotine and other chemicals in cigarettes and cigars can make your child's asthma worse. Ask your child's county bailiff for information if you or your child currently smoke and need help to quit. E-cigarettes or smokeless tobacco still contain nicotine. Talk to your child's county bailiff before you or your child use these products. ?? Manage your child's other health conditions. This includes allergies and acid reflux. These conditions can make your child's symptoms worse. ?? Ask about vaccines your child may need. Vaccines can help prevent infections that could worsen your child's symptoms. Your child may need a yearly flu vaccine. Call your local emergency number (911 in the ) if: ?? Your child's peak flow numbers are in the Red Zone and do not get better after treatment. ?? Your child's lips or nails are blue or meneses. ?? The skin of your child's neck and ribcage pull in with each breath. ?? Your child's nostrils are flaring with each breath. ?? Your child has trouble talking or walking because of shortness of breath. When should I call my child's doctor? ?? Your child's peak flow numbers are in the Yellow Zone and his or her symptoms are the same or worse after treatment. ?? Your child is breathing faster than usual. ?? Your child needs to use his or her rescue medicine more often than every 4 hours. ?? Your child's shortness of breath is so severe that he or she cannot sleep or do usual activities. ?? Your child has a fever. ?? Your child coughs up yellow or green mucus. ?? Your child runs out of medicine before his or her next scheduled refill. ?? Your child needs more medicine than usual to control his or her symptoms. ?? Your child struggles to do his or her usual activities because of symptoms. ?? You have questions or concerns about your child's condition or care. CARE AGREEMENT: You have the right to help plan your child's care. Learn about your child's health condition and how it may be treated. Discuss treatment options with your child's healthcare providers to decide whatcare you want for your child. The above information is an educational sign language interpreter only. It is not intended as medical advice for individual conditions or treatments. Talk to your doctor, nurse or pharmacist before following any medical regimen to see if it is safe and effective for you. ?? Copyright [employer] 2018 Information is for End User's use only and may not be sold, redistributed or otherwise used for commercial purposes. All illustrations and images included in CareNotes?? are the copyrighted property of [employer] or [employer] documented in this encounter Progress Notes * Les Carvalho MD - 12/12/2018 4:07 PM CDT Sick Visit Name: Willi Nelson Age: [age] year old Accompanied By: Mother CC: Chief Complaint Patient presents with ??? Follow-up asthma ??? Ear Pain right, x3 days HPI: 13 year old male here for follow up of recent asthma exacerbation and Influenza A. He was seenon 12/05/18 with 2 days of cough, congestion, runny nose, headaches, sore throat and fever up to 103. He was started on Prednisone, Tamiflu and Albuterol Neb treatments. Mother states that he threw up after the first dose of steroids, and then did not take them after that. Since then he has felt better, fever resolved. However, he is still coughing a lot and has right ear pain off and on over thepast 2-3 days. No wheezing, retractions, stridor, SOB, tachypnea. Denies rash, fever, sore throat, headaches, respiratory distress, vomiting, diarrhea. Current Medications: Current Outpatient Prescriptions Medication Sig Dispense Refill ??? albuterol HFA (PROVENTIL;VENTOLIN;PROAIR) 108 (90 BASE) MCG/ACT inhaler Inhale 2 puffs by mouthevery 4 hours as needed Reasons: Asthma 2 Inhaler 0 ??? fluticasone propionate (FLONASE) 50 MCG/ACT nasal spray Neville 1 spray into each nostril once daily ??? LANSOPRAZOLE PO Take by mouth. No current facility-administered medications for this visit. Allergies: Allergies Allergen Reactions ??? Penicillins Rash ??? Sulfa Drugs PE: Temp 96.8 ??F (36 ??C) (Temporal) Wt 46.2 kg (101 lb 12.8 oz) General alert, cooperative, no distress Skin Skin color, texture, turgor normal. No rashes or lesions Head NCAT w/o lesions or tenderness Eyes/ Ears sclera and conjunctiva clear Bilateral TM and external canals normal Nose/ Throat/ Mouth nose:clear rhinorrhea and mucosal edema and congestion, throat: normal and no erythema or exudates noted. Mouth:mucous membranes moist and pink Neck supple, non-tender, with full ROM Nodes no lymphadenopathy Heart regular rate and rhythm, no murmur Lungs Coarse breath sounds to auscultation bilaterally Faint wheezing noted to posterior lung bases Abdomen soft, non-tender, non distended, normal BS ?? Extremities no cyanosis, edema INFLUENZA A&B-POSITIVE FOR INFLUENZA A RAPID STREP-NEGATIVE ?? Impression / Plan: 1. Asthma, Mild Intermittent. With mild exacerbation. Still with mild wheezing on exam. Restart on Prednisone 20 mg tabs, 2 tabs (40 mg) po q day x 4 days. Albuterol HFA 2-4 puffs every 4 hours as needed for asthma symptoms. ER if signs of significant respiratory distress or dehydration.?? Call any questions, concerns, breathing difficulties, increased respiratory rate, worsening of wheezing, or signs/symptoms of respiratory distress including: retractions, accessory muscle use, head bobbing or grunting respirations.?? Follow up as needed to recheck asthma symptoms. 2. Influenza A Symptoms improved. Completed Tamiflu 75 mg po BID x 5 days. Reviewed symptoms. Continue supportive care for colds. Encourage adequate po fluids. Humidifier. Tylenol/Motrin as needed for fever/pain. Follow up as needed. Call or return to clinic prn if these symptoms worsen or fail to improve as anticipated. 3. Otalgia, right. Reassurance. Ear exam normal today and symptoms improved. No further evaluation or treatment neededat this time. Follow up as needed. ?? documented in this encounter Plan of Treatment Not on file documented as of this encounter Goals Goal Patient Goal Type Associated Problems Recent Progress Patient-Stated? Author Use safety retraint in car Lifestyle On track( 020 3:14 PM CDT) No Massiel Delgado MA documented as of this encounter Visit Diagnoses Diagnosis Cough variant asthma (HCC)- Primary Cough variant asthma Influenza A Influenza with other respiratory manifestations Otalgia of right ear Otalgia, unspecified documented in this encounter Care Teams Flight Manager Relationship Specialty Start Date End Date Les Carvalho MD [address] [place] [address] PCP - General Pediatrics 03/22/18 09/10/21 documented as of this encounter
--- OUTSIDE RECORDS SUMMARY | 2024-09-23 12:21 | XMS_ITS | Encounter Summary ---
Author Organization [facility] Address [address] [place] [address] Care Team Providers Care Crystal Growing Technician Name Role Phone Dilan Castaneda MD Primary Care Provider [phone] Encounter Details Date Type Department Care Team (Latest Contact Info) Description 11/25/2015 6:45 PM BABY NURSE - 11/25/2015 11:59 PM BABY NURSE Hospital Encounter [facility] [address], [address] [place] [address] Sharath Bland, RESIDENT SERVICES MANAGER-SOFT SUGAR SUPERVISOR [address] [place] [address] Discharge Disposition: Home or Self Care Social [...] Sign Reading Time Taken Comments Blood Pressure 104/68 11/25/2015 7:13 PM BABY NURSE Pulse 84 11/25/2015 7:13 PM BABY NURSE Temperature 36.9 ??C (98.4 ??F) 11/25/2015 7:13 PM CS T Respiratory Rate 20 11/25/2015 7:13 PM BABY NURSE Oxygen Saturation 100% 11/25/2015 7:13 PM BABY NURSE Inhaled Oxygen Concentration - - Weight 27.8 kg (61 lb 3.2 oz) 11/25/2015 7:13 PM BABY NURSE Height - - Body Mass Index - - documented in this encounter Discharge Instructions * Patient Instructions* Sharath Bland, ELIECER - 11/25/2015 7:42 PM BABY NURSE Images from the original note were not included. -need ear recheck in 7-10 days, sooner if worse or changes as discussed. Warm wash cloth over ear can help with pain as can otc topical ear gtts as discussed. -monitor symptoms closely for improvement or any changes/problems. -Patient to follow up with primary care provider/ER in 4-5 days if symptoms persist and not improving and sooner with PCP/ER if becoming worse or symptoms change/new symptoms arise as discussed, -Take medications as directed. Proper medication use, risks, side effects/adverse effects and potential interactions reviewed and patient states understands. Patient states understanding and agrees with plan of care at this time and stating no further questions. Patient to stay well hydrated, otc tylenol or ibuprofen for pain or fever as discussed. AVS reviewed with patient. Otitis Media in Children WHAT YOU SHOULD KNOW: Otitis media is an ear infection. Your child may have an ear infection in one or both ears. Your child may get an ear infection when his eustachian tubes become swollen or blocked. Eustachian tubes drain fluid away from the middle ear. Your child may have a buildup of fluid and pressure in his ear when he has an ear infection. The ear may become infected by germs, which grow easily in the fluid trapped behind the eardrum. INSTRUCTIONS: Medicines: ?? Medicines may be given to decrease your child's pain or fever, or to treat an infection caused by bacteria. ?? Give your child's medicine as directed. Call your child's primary healthcare provider (PHP) if you think the medicine is not working as expected. Tell him if your child is allergic to any medicine. Keep a current list of the medicines, vitamins, and herbs your child takes. Include the amounts, and when, how, and why they are taken. Bring the list or the medicines in their containers to follow-up visits. Carry your child's medicine list with you in case of an emergency. Throw away old medicine lists. ?? Do not give aspirin to children younger than 18 years. Your child could develop Leticia syndrome ifhe takes aspirin. Leticia syndrome can cause life- threatening brain and liver damage. Check your child's medicine labels for aspirin, salicylates, or oil of wintergreen. Care for your child at home: ?? Prop your child's head and chest up while he sleeps. This may decrease his ear pressure and pain. ?? Have your child lie with his infected ear facing down to allow excess fluid to drain from his ear. ?? Use ice or heat to help decrease your child's ear pain. Ask which of these is best for your child, and use as directed. ?? Ask about ways to keep water out of your child's ears when he bathes or swims. Prevent otitis media: ?? Wash your and your child's hands often to help prevent the spread of germs. Encourage everyone in your house to wash their hands with soap and water after they use the bathroom, after they change a diaper, and before they prepare or eat food. ?? Keep your child away from people who are ill, such as sick playmates. Germs spread easily and quickly in daycare centers. ?? If possible, breastfeed your baby. Your baby may be less likely to get an ear infection if he isbreastfed. ?? Do not give your child a bottle while he is lying down. This may cause liquid from his sinuses to leak into his eustachian tube. ?? Keep your child away from people who smoke. ?? Vaccinate your child. Ask your child's PHP about the shots your child needs. Follow up with your child's PHP as directed: Write down your questions so you remember to ask them during your child's visits. Contact your child's PHP if: ?? Your child has a fever. ?? Your child is still not eating or drinking 24 hours after he takes his medicine. ?? Your child still has signs and symptoms of an ear infection 48 hours after he takes his medicine. ?? You have questions or concerns about your child's condition or care. Return to the emergency department if: ?? You see blood or pus draining from your child's ear. ?? Your child seems confused or cannot stay awake. ?? Your child has a stiff neck and a fever. ?? 2015 [employer]. Information is for End User's use only and may not be sold, redistributed or otherwise used for commercial purposes. All illustrations and images included in CareNotes?? are the copyrighted property of [employer] or [employer]. The above information is an educational speech language clinician only. It is not intended as medical advice for individual conditions or treatments. Talk to your doctor, nurse or pharmacist before following any medical regimen to see if it is safe and effective for you. Otitis Media in Children WHAT YOU SHOULD KNOW: Otitis media is an ear infection. Your child may have an ear infection in one or both ears. Your child may get an ear infection when his eustachian tubes become swollen or blocked. Eustachian tubes drain fluid away from the middle ear. Your child may have a buildup of fluid and pressure in his ear when he has an ear infection. The ear may become infected by germs, which grow easily in the fluid trapped behind the eardrum. AFTER YOU LEAVE: Medicines: ?? Medicines may be given to decrease your child's pain or fever, or to treat an infection caused by bacteria. ?? Give your child's medicine as directed. Contact your child's primary healthcare provider (PHP) if you think the medicine is not working as expected. Tell him if your child is allergic to any medicine. Keep a current list of the medicines, vitamins, and herbs your child takes. Include the amounts, and when, how, and why they are taken. Bring the list or the medicines in their containers to follow-up visits. Carry your child's medicine list with you in case of an emergency. Throw away old medicine lists. ?? Do not give aspirin to children younger than 18 years. Your child could develop Leticia syndrome ifhe takes aspirin. Leticia syndrome can cause life- threatening brain and liver damage. Check your child's medicine labels for aspirin, salicylates, or oil of wintergreen. Care for your child at home: ?? Prop your child's head and chest up while he sleeps. This may decrease his ear pressure and pain. ?? Have your child lie with his infected ear facing down to allow excess fluid to drain from his ear. ?? Use ice or heat to help decrease your child's ear pain. Ask which of these is best for your child, and use as directed. ?? Ask about ways to keep water out of your child's ears when he bathes or swims. Prevent otitis media: ?? Wash your and your child's hands often to help prevent the spread of germs. Encourage everyone in your house to wash their hands with soap and water after they use the bathroom, after they change a diaper, and before they prepare or eat food . ?? Keep your child away from people who are ill, such as sick playmates. Germs spread easily and quickly in daycare centers. ?? If possible, breastfeed your baby. Your baby may be less likely to get an ear infection if he isbreastfed. ?? Do not give your child a bottle while he is lying down. This may cause liquid from his sinuses to leak into his eustachian tube. ?? Keep your child away from people who smoke. ?? Vaccinate your child. Ask your child's PHP about the shots your child needs. Follow up with your child's PHP as directed: Write down your questions so you remember to ask them during your child's visits. Contact your child's PHP if: ?? Your child has a fever. ?? Your child is still not eating or drinking 24 hours after he takes his medicine. ?? Your child still has signs and symptoms of an ear infection 48 hours after he takes his medicine. ?? You have questions or concerns about your child's condition or care. Seek care immediately or call 911 if: ?? You see blood or pus draining from your child's ear. ?? Your child seems confused or cannot stay awake. ?? Your child has a stiff neck and a fever. ?? 2015 [employer]. Information is for End User's use only and may not be sold, redistributed or otherwise used for commercial purposes. All illustrations and images included in CareNotes?? are the copyrighted property of [employer] or [employer]. The above information is an educational speech language clinician only. It is not intended as medical advice for individual conditions or treatments. Talk to your doctor, nurse or pharmacist before following any medical regimen to see if it is safe and effective for you. Otitis Media in Children, Broadcast Traffic Coordinator GENERAL INFORMATION: Otitis media is an infection in one or both ears. Children are most likely to get ear infections when they are between 3 months and 3 years old. Ear infections are most common during the winter and early spring months. Your child may have an ear infection more than once. Common symptoms include the following: ?? Fever ?? Ear pain or tugging, pulling, or rubbing of the ear ?? Decreased appetite from painful sucking, swallowing, or chewing ?? Fussiness, restlessness, or difficulty sleeping ?? Yellow fluid or pus coming from the ear ?? Difficulty hearing ?? Dizziness or loss of balance Seek immediate care for the following symptoms: ?? Blood or pus draining from your child's ear ?? Confusion or your child cannot stay awake ?? Stiff neck and a fever Treatment for otitis media may include medicines to decrease your child's pain or fever or medicineto treat an infection caused by bacteria. Ear tubes may be used to keep fluid from collecting in your child's ears. Your child may need these to help prevent frequent ear infections or hearing loss. During this procedure, the healthcare provider will cut a small hole in your child's eardrum. Prevent otitis media: ?? Wash your and your child's hands often to help prevent the spread of germs. Encourage everyone in your house to wash their hands with soap and water after they use the bathroom, change a diaper, and before they prepare or eat food. ?? Keep your child away from people who are ill, such as sick playmates. Germs spread easily and quickly in daycare centers. ?? If possible, breastfeed your baby. Your baby may be less likely to get an ear infection if he isbreastfed. ?? Do not give your child a bottle while he is lying down. This may cause liquid from his sinuses to leak into his eustachian tube. ?? Keep your child away from people who smoke. ?? Vaccinate your child. Ask your child's healthcare provider about the shots your child needs. Follow up with your healthcare provider as directed: Write down your questions so you remember to ask them during your visits. CARE AGREEMENT: You have the right to help plan your care. Learn about your health condition and how it may be treated. Discuss treatment options with your caregivers to decide what care you want to receive. You always have the right to refuse treatment. The above information is an educational speech language clinician only. It is not intended as medical advice for individual conditions or treatments. Talk to your doctor, nurse or pharmacist before following any medical regimen to see if it is safe and effective for you. ?? 2014 [employer]. Information is for End User's use only and may not be sold, redistributed or otherwise used for commercial purposes. All illustrations and images included in CareNotes?? are the copyrighted property of [employer]. or [employer]. NURSE documented in this encounter Medications at Time of Discharge Medication Sig Dispensed Refills Start Date End Date albuterol HFA (PROVENTIL;VENTOLIN;PROA IR) 108 (90 BASE) MCG/ACT inhaler Inhale 2 Puffs by mouth every 4 hours as needed 3 Inhaler 0 04/12/2015 03/22/2018 amoxicillin (AMOXIL) 400 MG/5ML suspension Take 6.25 mL by mouth 3 times daily for 10 days 187.5 mL 0 11/25/2015 12/05/2015 Beclomethasone Dipropionate (QVAR IN) Inhale by mouth. 0 03/22/2018 lansoprazole (PREVACID) 30 MG capsule Take 1 Cap by mouth once daily 30 Cap 1 03/09/2015 03/22/2018 lansoprazole (PREVACID) 30 MG capsule TAKE ONE CAPSULE BY MOUTH EVERY DAY 30 Cap 1 03/09/2015 03/22/2018 LANSOPRAZOLE PO Take by mouth. 09/11/2021 montelukast (SINGULAIR) 4 MG chew tablet TAKE 1 TABLET BY MOUTH EVERY DAY AT BEDTIME 30 Tab 3 06/14/2015 03/22/2018 montelukast (SINGULAIR) 4 MG chew tablet TAKE 1 TABLET BY MOUTH EVERY DAY AT BEDTIME 30 Tab 3 03/09/2015 03/22/2018 QVAR 80 MCG/ACT inhaler INHALE 2 PUFFS BY MOUTH 2 TIMES A DAY 1 Inhaler 5 04/21/2015 03/22/2018 documented as of this encounter Progress Notes * Sharath Bland APRN-CNP - 11/25/2015 7:37 PM CST Images from the original note were not included. Provider contact with the patient: 11/25/2015 19:37 Willi Nelson [id number] [facility] History No chief complaint on file. ear pain HPI Pt and guardian report pt has had ear pain left side since last night, worse today, also mild pain right ear per pt. Mom reports mild cold last week that has resolved. Denies sore throat or abd pain.Tylenol last at 4pm. Denies injury or trauma. States long history of ear infections. Pt alert and oriented x3, nad, intake and output wnl other than mentioned, denies other complaints including cp/sob/dizziness/n/v/d/fever or chills. Denies other aggravating or alleviating factors at this time. Pt denies recent travel outside of [facility] in past 21 days. No past medical history on file. No past surgical history on file. No family history on file. History Social History ??? Marital Status: Single Spouse Name: N/A Number of Children: N/A ??? Years of Education: N/A Occupational History ??? Not on file. Social History Main Topics ??? Smoking status: Never Smoker ??? Smokeless tobacco: Not on file ??? Alcohol Use: Not on file ??? Drug Use: Not on file ??? Sexual Activity: Not on file Other Topics Concern ??? Not on file Social History Narrative Review of Systems Review of Systems Constitutional: Negative. HENT: Positive for ear pain. Negative for congestion, ear discharge, hearing loss, nosebleeds, sorethroat and tinnitus. Eyes: Negative. Respiratory: Negative. Negative for stridor. Cardiovascular: Negative. Gastrointestinal: Negative. Genitourinary: Negative. Musculoskeletal: Negative. Skin: Negative. Neurological: Negative. Negative for headaches. Endo/Heme/Allergies: Negative. Psychiatric/Behavioral: Negative. All other systems reviewed and are negative. Physical Exam BP 104/68 mmHg Pulse 84 Temp(Src) 98.4 ??F (Oral) Resp 20 Wt 27.76 kg (61 lb 3.2 oz) [id number]% Physical Exam Constitutional: He appears well-developed and well-nourished. He is active. No distress. HENT: Head: Atraumatic. No signs of injury. Nose: No nasal discharge. Mouth/Throat: Mucous membranes are moist. Dentition is normal. Bilateral acute otitis media with erythema mild retraction and dullness, tms intact, eacs wnl bilaterally, pop non erythematous, tonsils 1+ non erythematous and without exudate, no submandibular or cervical lymphadenopathy or nuchal rigidity noted at this time. Eyes: Conjunctivae and EOM are normal. Right eye exhibits no discharge. Left eye exhibits no discharge. Neck: Normal range of motion. Neck supple. No rigidity. Cardiovascular: Normal rate, regular rhythm, S1 normal and S2 normal. Pulmonary/Chest: Effort normal and breath sounds normal. There is normal air entry. No accessory muscle usage, nasal flaring or stridor. No respiratory distress. Air movement is not decreased. No transmitted upper airway sounds. He has no decreased breath sounds. He has no wheezes. He has no rhonchi. He has no rales. He exhibits no retraction. Abdominal: Soft. Bowel sounds are normal. He exhibits no distension and no mass. There is no hepatosplenomegaly. There is no tenderness. There is no rigidity, no rebound and no guarding. Genitourinary: Denies complaints. Musculoskeletal: Normal range of motion. Lymphadenopathy: No occipital adenopathy is present. He has no cervical adenopathy. Neurological: He is alert. He exhibits normal muscle tone. Coordination normal. Skin: Skin is warm and moist. Capillary refill takes less than 3 seconds. No petechiae and no rash noted. He is not diaphoretic. No jaundice. Nursing note and vitals reviewed. Medications Current Outpatient Prescriptions Medication Sig Dispense Refill ??? amoxicillin (AMOXIL) 400 MG/5ML suspension Take 6.25 mL by mouth 3 times daily for 10 days 187.5 mL 0 ??? QVAR 80 MCG/ACT inhaler INHALE 2 PUFFS BY MOUTH 2 TIMES A DAY 1 Inhaler 5 ??? montelukast (SINGULAIR) 4 MG chew tablet TAKE 1 TABLET BY MOUTH EVERY DAY AT BEDTIME (Patient not taking: Reported on 11/25/2015) 30 Tab 3 ??? albuterol HFA (PROVENTIL;VENTOLIN;PROAIR) 108 (90 BASE) MCG/ACT inhaler Inhale 2 Puffs by mouthevery 4 hours as needed 3 Inhaler 0 ??? lansoprazole (PREVACID) 30 MG capsule Take 1 Cap by mouth once daily (Patient not taking: Reported on 11/25/2015) 30 Cap 1 ??? lansoprazole (PREVACID) 30 MG capsule TAKE ONE CAPSULE BY MOUTH EVERY DAY (Patient not taking: Reported on 11/25/2015) 30 Cap 1 ??? montelukast (SINGULAIR) 4 MG chew tablet TAKE 1 TABLET BY MOUTH EVERY DAY AT BEDTIME (Patient not taking: Reported on 11/25/2015) 30 Tab 3 ??? Beclomethasone Dipropionate (QVAR IN) Inhale by mouth. ??? LANSOPRAZOLE PO Take by mouth. Procedures Procedures ECG Interpretation ECG Interpretation Lab/SPO2 Interpretation No results found for this visit on 11/25/15. No orders to display Progress Notes 1939 discussed symptoms, diagnosis, monitoring, treatment and follow up. Pt guardian states understanding and denies further questions at this time. ED Course Medical Decision Making Orders Placed This Encounter ??? amoxicillin (AMOXIL) 400 MG/5ML suspension -need ear recheck in 7-10 days, sooner if worse or changes as discussed. Warm wash cloth over ear can help with pain as can otc topical ear gtts as discussed. -monitor symptoms closely for improvement or any changes/problems. -Patient to follow up with primary care provider/ER in 4-5 days if symptoms persist and not improving and sooner with PCP/ER if becoming worse or symptoms change/new symptoms arise as discussed, -Take medications as directed. Proper medication use, risks, side effects/adverse effects and potential interactions reviewed and patient states understands. Patient states understanding and agrees with plan of care at this time and stating no further questions. Patient to stay well hydrated, otc tylenol or ibuprofen for pain or fever as discussed. AVS reviewed with patient. Clinical Impression Final diagnoses: Other acute nonsuppurative otitis media of both ears, recurrence not specified (Primary) NURSE documented in this encounter Miscellaneous Notes * Addendum Note - Federica Mckeon CPC - 11/26/2015 11:22 PM CSTEncounter addended by: Federica Mckeon CPC on: 11/26/2015 11:22 PM
Documentation filed: Charges VN NURSE * Addendum Note - Sharath Bland APRN-CNP - 11/25/2015 7:44 PM BABY NURSE Encounter addended by: Sharath Bland APRN-CNP on: 11/25/2015 7:44 PM
Documentation filed: Letters NURSE documented in this encounter Plan of Treatment Not on file documented as of this encounter Goals Goal Patient Goal Type Associated Problems Recent Progress Patient-Stated? Author Use safety retraint in car Lifestyle On track( 020 3:14 PM CDT) Massiel Schulte MA documented as of this encounter Visit Diagnoses Diagnosis Other acute nonsuppurative otitis media of both ears, recurrence not specified- Primary documented in this encounter Care Teams Crystal Growing Technician Relationship Specialty Start Date End Date Dilan Castaneda MD [address] [place] [address] PCP - General Pediatrics 03/27/15 06/22/17 documented as of this encounter
--- OUTSIDE RECORDS SUMMARY | 2024-09-23 12:21 | XMS_ITS | Encounter Summary ---
Author Organization [facility] Address [address] [place] [address] [place] [address] Care Team Providers Care Farm Butcher Name Role Phone Les Carvalho MD Primary Care Provider [phone] Nafisa Juarez MD Unavailable [phone] Encounter Details Date Type Department Care Team (Latest Contact Info) Description 05/02/2020 Travel Social History Tobacco Use Types Packs/Day [...] have Coronavirus / COVID-19? No / Unsure 05/02/2020 4:04 PM CDT documented as of this encounter Plan of Treatment Not on file documented as of this encounter Goals Goal Patient Goal Type Associated Problems Recent Progress Patient-Stated? Author Use safety retraint in car Lifestyle On track( 020 3:14 PM CDT) No Massiel Delgado MA documented as of this encounter Visit Diagnoses Not on filedocumented in this encounter Care Teams Farm Butcher Relationship Specialty Start Date End Date Les Carvalho MD [address] [place] [id number] PCP - General Pediatrics 03/22/18 09/10/21 Nafisa Juarez MD [address] [place] [address] Orthopedic Surgery 06/28/19 documented as of this encounter
--- OUTSIDE RECORDS SUMMARY | 2024-09-23 12:21 | XMS_ITS | Encounter Summary ---
Author Organization [facility] Address [address] [place] [address] Care Team Providers Care Emergency Operator Name Role Phone Les Carvalho MD Primary Care Provider [phone] Reason for Visit * Reason Comments Congestion started yesterday Fever started yesterday, h ighest 103 Cough x2 days Encounter Details Date Type Department Care Team (Late st Contact Info) Description 12/05/2018 11:00 AM CDT Office Visit [facility] - Pediatrics [address] [facility], [facility] [address] [place] [address] Les Carvalho MD [address] [place] [address] Influenza A (Primary Dx); Cough variant asthma (HCC); Fever, unspecified fever cause Social History Tobacco Use Types Packs/Day Years [...] Taken Comments Blood Pressure - - Pulse 107 12/05/2018 11:00 AM CDT Temperature 37.3 ??C (99.2 ??F) 12/05/2018 11:00 AM C DT Respiratory Rate - - Oxygen Saturation 100% 12/05/2018 11:00 AM CDT Inhaled Oxygen Concentration - - Weight 46.7 kg (103 lb) 12/05/2018 11:00 AM CDT Height - - Body Mass Index - - documented in this encounter Patient Instructions * Patient Instructions* Les Carvalho MD - 12/05/2018 11:21 AM CDT Images from the original note were not included. Influenza in Children WHAT YOU NEED TO KNOW: What is influenza? Influenza (the flu) is an infection caused by the influenza virus. The flu is easily spread when an infected person coughs, sneezes, or has close contact with others. Your child may be able to spread the flu to others for 1 week or longer after signs or symptoms appear. What are the signs and symptoms of the flu? Severe symptoms are more likely in children younger than 5. They are also more likely in children who have heart or lung disease, or a weak immune system. Signs and symptoms include the following: ?? Fever and chills ?? Headaches, body aches, earaches, and muscle or joint pain ?? Dry cough, runny or stuffy nose, and sore throat ?? Loss of appetite, nausea, vomiting, or diarrhea ?? Tiredness ?? Fast breathing, trouble breathing, or chest pain How is the flu diagnosed? Your child's healthcare provider will examine your child. Tell him or herif your child has health problems such as epilepsy or asthma. Tell the provider if your child has been around sick people or traveled recently. A sample of fluid may be collected from your child's nose or throat to be tested for the flu virus. How is the flu treated? Most healthy children get better within a week. Your child may need any of the following: ?? Acetaminophen decreases pain and fever. It is available without a doctor's order. Ask how much to give your child and how often to give it. Follow directions. Read the labels of all other medicines your child uses to see if they also contain acetaminophen, or ask your child's doctor or pharmacist. Acetaminophen can cause liver damage if not taken correctly. ?? NSAIDs , such as ibuprofen, help decrease swelling, pain, and fever. This medicine is available with or without a doctor's order. NSAIDs can cause stomach bleeding or kidney problems in certain people. If your child takes blood thinner medicine, always ask if NSAIDs are safe for him. Always readthe medicine label and follow directions. Do not give these medicines to children under 6 months of age without direction from your child's healthcare provider. ?? Antivirals help fight a viral infection. How can I manage my child's symptoms? ?? Help your child rest and sleep as much as possible as he or she recovers. ?? Give your child liquids as directed to help prevent dehydration. Your child may need to drink more than usual. Ask your child's healthcare provider how much liquid your child should drink each day. Good liquids include water, fruit juice, or broth. ?? Use a cool mist humidifier to increase air moisture in your home. This may make it easier for your child to breathe and help decrease his or her cough. How can I help prevent the spread of the flu? ?? Have your child wash his or her hands often. Use soap and water. Encourage your child to wash his or her hands after using the bathroom, coughs, or sneezes. Use gel hand cleanser that contains 60%alcohol, when soap and water are not available. Teach your child to wash his or her hands before touching his or her eyes, ears, and mouth. ?? Teach your child to cover his or her mouth when sneezing or coughing. Show your child how to cough into a tissue or the bend of his or her arm. If your child uses a tissue, have him or her throw it away immediately. Then have your child wash his or her hands. ?? Clean shared items with a germ-killing silverware cleaner. Clean table surfaces, doorknobs, and light switches. Do not share towels, silverware, and dishes with people who are sick. Wash bed sheets, towels, silverware, and dishes with soap and water. ?? Your child should wear a mask over his or her mouth and nose when sick. The face mask may help protect others from becoming infected with the flu. He or she should wear the mask when in common areas in your home. The mask should also be worn when your child is in his or her healthcare provider'soffice. ?? Keep your child home if he or she is sick. Keep your child home until his or her fever and symptoms are gone for 24 hours. ?? Get your child vaccinated. The influenza vaccine helps prevent influenza (flu). Everyone older than 6 months should get a yearly influenza vaccine. Get the vaccine as soon as it is available. Yourchild will need 2 vaccines during the first year of the vaccine. The 2 vaccines should be given 4 or more weeks apart. It is best if the same type of vaccine is given both times. Call your local emergency number (911 in the [place]) if: ?? Your child has fast breathing, trouble breathing, or chest pain. ?? Your child has a seizure. ?? Your child does not want to be held and does not respond to you. ?? He or she does not wake up. When should I call my child's doctor? ?? Your child has a fever with a rash. ?? Your child's skin is blue or meneses. ?? Your child's symptoms got better, but then came back with a fever or a worse cough. ?? Your child will not drink liquids, is not urinating, or has no tears when he or she cries. ?? Your child has trouble breathing, a cough, and vomits blood. ?? Your child's symptoms get worse. ?? Your child has new symptoms, such as muscle pain or weakness. ?? You have questions or concerns about your child's condition or care. CARE AGREEMENT: You have the right to help plan your child's care. Learn about your child's health condition and how it may be treated. Discuss treatment options with your child's healthcare providers to decide whatcare you want for your child. The above information is an hotel maid only. It is not intended as medical advice for individual conditions or treatments. Talk to your doctor, nurse or pharmacist before following any medical regimen to see if it is safe and effective for you. ?? Copyright [employer] 2018 Information is for End User's use only and may not be sold, redistributed or otherwise used for commercial purposes. All illustrations and images included in CareNotes?? are the copyrighted property of [employer] Inc[employer] or [employer] documented in this encounter Progress Notes * Les Carvalho MD - 12/05/2018 11:03 AM CDT Sick Visit Name: Willi Nelson Age: 13 y.o. Accompanied By: Mother CC: Chief Complaint Patient presents with ??? Congestion started yesterday ??? Fever started yesterday, highest 103 ??? Cough x2 days HPI: 13 year old male with history of asthma here with cough, congestion, runny nose, headaches, sore throat and fever up to 103. General malaise with decreased appetite. Older brother with similar symptoms. No wheezing, retractions, stridor, SOB, tachypnea. Denies rash, ear pain, respiratory distress, vomiting, diarrhea. Current Medications: Current Outpatient Prescriptions Medication Sig Dispense Refill ??? albuterol HFA (PROVENTIL;VENTOLIN;PROAIR) 108 (90 BASE) MCG/ACT inhaler Inhale 2 puffs by mouthevery 4 hours as needed Reasons: Asthma 2 Inhaler 0 ??? fluticasone propionate (FLONASE) 50 MCG/ACT nasal spray [place] 1 spray into each nostril once daily ??? LANSOPRAZOLE PO Take by mouth. ??? oseltamivir (TAMIFLU) 75 MG capsule Take 1 capsule by mouth 2 times daily for 5 days Reasons: Influenza A 10 capsule 0 ??? predniSONE (DELTASONE) 20 MG tablet Take 2 tablets by mouth once daily for 5 days Reasons: Asthma 10 tablet 0 No current facility-administered medications for this visit. Allergies: Allergies Allergen Reactions ??? Penicillins Rash ??? Sulfa Drugs PE: Pulse 107 Temp 99.2 ??F (37.3 ??C) (Temporal) Wt 46.7 kg (103 lb) SpO2 100% General alert, cooperative, no distress Skin Skin [...] Abdomen soft, non-tender, non distended, normal BS Extremities no cyanosis, edema INFLUENZA A&B-POSITIVE FOR INFLUENZA A RAPID STREP-NEGATIVE Impression / Plan: 1. Influenza A Flu swab today + for influenza A. Rx for Tamiflu 75 mg po BID x 5 days. Reviewed symptoms. Handout on Flu given. Supportive care for colds. Encourage adequate po fluids. Humidifier. Tylenol/Motrin asneeded for fever/pain. Follow up as needed. Call or return to clinic prn if these symptoms worsen or fail to improve as anticipated. 2. Asthma, Mild Intermittent. With mild exacerbation. Start on Prednisone 20 mg tabs, 2 tabs (40 mg) po q da x 5 days. Albuterol HFA 2-4 puffs every 4 hours as needed for asthma symptoms. Spacer given in office today. Spacer usage emphasized and reviewed with family. ER if signs of significant respiratory distress or dehydration.?? Call any questions, concerns, breathing difficulties, increased respiratory rate, worsening of wheezing, or signs/symptoms of respiratory distress including: retractions, accessory muscle use, head bobbing or grunting respirations.?? Follow up in 1 week to recheck asthma symptoms. documented in this encounter Plan of Treatment Not on file documented as of this encounter Goals Goal Patient Goal Type Associated Problems Recent Progress Patient-Stated? Author Use safety retraint in car Lifestyle On track( 020 3:14 PM CDT) No Massiel Delgado MA documented as of this encounter Procedures Procedure Name Priority Date/Time Associated Diagnosis Comments STREP A SCREEN - POINT OF CARE (AMB) STL Routine 12/05/2018 Fever, unspecified fever cause INFLUENZA A+B - POINT OF CARE (AMB) Routine 12/05/2018 Fever, unspecified fever cause documented in this encounter Results * (ABNORMAL) INFLUENZA A+B - POINT OF CARE (AMB) (12/05/2018) Pathologist [facility] Influenza A Antigen Rapid Positive(A) Negative Influenza [...] Strep A Internal Control Present Lot # [id number] Expiration Date [id number] Throat ENTIRE THROAT (SURFACE REGION OF NECK) / Unknown 12/05/2018 Les Carvalho MD LAB - POINT OF CARE ORDERABLES documented in this encounter Visit Diagnoses Diagnosis Influenza A- Primary Influenza with other respiratory manifestations Cough variant asthma (HCC) Cough variant asthma Fever, unspecified fever cause documented in this encounter Care Teams Emergency Operator Relationship Specialty Start Date End Date Les Carvalho MD [address] [place] [address] PCP - General Pediatrics 03/22/18 09/10/21 documented as of this encounter
--- OUTSIDE RECORDS SUMMARY | 2024-09-23 12:21 | XMS_ITS | Encounter Summary ---
Author Organization [facility] Address [address] [place] [address] [place] [address] Care Team Providers Care Paint Roller Winder Name Role Phone Les Carvalho MD Primary Care Provider [phone] Reason for Visit * Reason Comments Well Child Check Encounter Details Date Type Department Care Team (Late st Contact Info) Description 03/22/2018 2:30 PM CDT Office Visit [facility] - Pediatrics [address] [facility], [facility] [address] [place] [address] Les Carvalho MD [address] [place] [address] Encounter for routine child health examination without abnormal findings (Primary Dx); Cough variant asthma (HCC); Fear of vaccinations Social History Tobacco Use Types Packs/Day Years [...] Sign Reading Time Taken Comments Blood Pressure 105/60 03/22/2018 1:28 PM CDT Pulse 95 03/22/2018 1:28 PM CDT Temperature 36.3 ??C (97.4 ??F) 03/22/2018 1:28 PM CD T Respiratory Rate - - Oxygen Saturation 100% 03/22/2018 1:28 PM CDT Inhaled Oxygen Concentration - - Weight 37.4 kg (82 lb 6.4 oz) 03/22/2018 1:28 PM CDT Height 151.5 cm (4' 11.65 ) 03/22/2018 1:28 PM C DT Body Mass Index 16.28 03/22/2018 1:28 PM CDT Body Mass Index Percentile 9.94% 03/22/2018 1:2 8 PM CDT Growth Chart: [facility][NOTE 3] (Boys, 2-2 0 Years) documented in this encounter Patient Instructions * Patient Instructions* Madison Lopez - 03/22/2018 1:35 PM CDT YOUR GROWING CHILD: 12 TO 14 YEARS Child???s Name: Willi Nelson Today???s Date: 03/22/2018 BP 105/60 (BP SITE: RIGHT ARM, BP POSITION: SITTING) Pulse 95 Temp 97.4 ??F (36.3 ??C) (Temporal) Ht 1.515 m (4' 11.65 ) Wt 37.4 kg (82 lb 6.4 oz) SpO2 100% BMI 16.28 kg/m2 Wt Readings from Last 1 Encounters: 03/22/18 37.4 kg (82 lb 6.4 oz) (7 %, Z= -1.50)* * Growth percentiles are based on CDC 2-20 Years data. 7 %ile (Z= -1.50) based on CDC 2-20 Years [id number] data using vitals from 03/22/2018. Ht Readings from Last 1 Encounters: 03/22/18 1.515 m (4' 11.65 ) (13 %, Z= -1.14)* * Growth percentiles are based on CDC 2-20 Years data. 13 %ile (Z= -1.14) based on CDC 2-20 Years [id number] data using vitals from 03/22/2018. IMMUNIZATIONS One of the best ways to [...] dishes 2. Prepare simple family meals 3. [place] leaves 4. Take the trash out for [...] between 8 and 12 years of age). [place] and [place] law, effective May 24, 2006, says your [...] child is eating breakfast in the morning school nurse. Encourage them to eat at least 3 [...] Where can I go for more information? [employer] ( ) www.aap.org, HealthyChildren.org www.healthychildren.org Website and free downloadable chapis for smartphones: http://www.Ins[employer] Business Applications.Binary Thumb/ and http://www.Accion.Binary Thumb/ documented in this encounter Progress Notes * Les Carvalho MD - 03/22/2018 1:32 PM CDT Adolescent Well Refueling [place] Visit Name: Willi Nelson Age: 12 y.o. Accompanied By: Mother Chief Complaint Patient presents with ??? Well Child Check Concerns: 12 year old male here for Well Child Visit and to establish care. No concerns. Doing well. ROS: General: Denies recent changes in weight, appetite, energy level, sleep habits, or bowel/bladder habits. Eyes: Denies blurred vision, diplopia, discharge, pain, itching, redness, or photophobia. ENT: Denies hearing loss, ear pain, congestion, nasal drainage, nose bleeds, post-nasal drip, sore throat, and hoarseness. Cardio: Denies chest pain, palpitations, irregular heart beat, syncope. Pulmonary: Denies shortness of breath, cough, sputum, wheezing, or hemoptysis. Gastro: Denies loss of appetite, dysphagia,abdominal pain, nausea, vomiting, diarrhea, constipation, heartburn,bloody/tarry stools, or vomiting blood. : Reports normal urine output with no c/o pain or discomfort. MS: Denies muscle or joint pain, weakness, or swelling, back pain, or recent injuries. Neuro: Denies headache, dizziness, seizures, numbness/tingling, or weakness. Endo: Denies excessive thirst, fatigue, weight changes, weakness,or cold/heat intolerance. Skin: +history of eczema. Denies rashes, itching bruises or lesions.. Immunologic: +asthma, seasonal allergies, eczema Diet: Eats well balanced meals, good variety Yes Limits foods high in fat or calorie content Yes Interim Illness: The patient returns today for routine well child caregiver private home. Illnesses since our last visit include: none Past Medical History: Diagnosis Date ??? Acid reflux ??? Allergic rhinitis ??? Asthma Family History Problem Relation Age of Onset ??? Asthma Other ??? Allergic Rhinitis Other ??? Cancer - Colon Other ??? Autoimmune Disease Neg Hx ??? Hypertension Neg Hx ??? Migraine Neg Hx ??? Seizures Neg Hx ? ? Sudd. <30 Neg Hx ??? Thyroid Disease Neg Hx Social History Occupational History ??? Not on file. Social History Main Topics ??? Smoking status: Never Smoker ??? Smokeless tobacco: Never Used ??? Alcohol use No ??? Drug use: No ??? Sexual activity: No Home: lives with their family Education: 8th Grade. No teacher or parent concerns. and Doing well in school Activities: Fencing Drugs: no alcohol use no tobacco use no caffeine use Drug use: Never Sex: heterosexual, not sexually active Psych: +Severe fear of needles/vaccinations. No concerns for depression or suicidal ideation Meds: Current Outpatient Prescriptions Medication Sig Dispense Refill ??? albuterol HFA (PROVENTIL;VENTOLIN;PROAIR) 108 (90 BASE) MCG/ACT inhaler Inhale 2 Puffs by mouthevery 4 hours as needed 3 Inhaler 0 ??? QVAR 80 MCG/ACT inhaler INHALE 2 PUFFS BY MOUTH 2 TIMES A DAY (Patient not taking: Reported on 03/22/2018) 1 Inhaler 5 ??? lansoprazole (PREVACID) 30 MG capsule Take 1 Cap by mouth once daily (Patient not taking: Reported on 11/25/2015) 30 Cap 1 ??? montelukast (SINGULAIR) 4 MG chew tablet TAKE 1 TABLET BY MOUTH EVERY DAY AT BEDTIME (Patient not taking: Reported on 11/25/2015) 30 Tab 3 ??? LANSOPRAZOLE PO Take by mouth. No current facility-administered medications for this visit. Allergies: Allergies Allergen Reactions ??? Penicillins Rash ??? Sulfa Drugs OBJECTIVE: BP 105/60 (BP SITE: RIGHT ARM, BP POSITION: SITTING) Pulse 95 Temp 97.4 ??F (36.3 ??C) (Temporal) Ht 1.515 m (4' 11.65 ) Wt 37.4 kg (82 lb 6.4 oz) SpO2 100% BMI 16.28 kg/m2 Wt Readings from Last 3 Encounters: 03/22/18 37.4 kg (82 lb 6.4 oz) (7 %, Z= -1.50)* 11/25/15 27.8 kg (61 lb 3.2 oz) (4 %, Z= -1.74)* 06/14/15 25.2 kg (55 lb 9.6 oz) (2 %, Z= -2.11)* * Growth percentiles are based on CDC 2-20 Years data. Ht Readings from Last 3 Encounters: 03/22/18 1.515 m (4' 11.65 ) (13 %, Z= -1.14)* 06/14/15 1.321 m (4' 4 ) (6 %, Z= -1.55)* 03/27/15 1.308 m (4' 3.5 ) (5 %, Z= -1.60)* * Growth percentiles are based on CDC 2-20 Years data. 7 %ile (Z= -1.50) based on CDC 2-20 Years [id number]-[id number] data using vitals from 03/22/2018. 13 %ile (Z= -1.14) based on CDC 2-20 Years [id number] data using vitals from 03/22/2018. Body mass index is 16.28 kg/(m^2). Physical Exam: GENERAL: Alert, well developed, well nourished SKIN: No rash or lesions HEAD: Normocephalic EYES: PERRL, EOMI, fundi grossly normal, red reflex bilat EARS: TM's WNL, canals [...] well balanced diet, safety,and general well child caregiver private home. Patient counseled regarding avoidance of alcohol, tobacco and drugs. Parent and patient instructed to call if any questions, concerns, problems or other health issues. Immunizations benefits and risks discussed including site soreness, fever and allergic reaction. Next Appointment: 1 year 2. History of Asthma. Symptoms in the past have been consistent with cough variant asthma especially during intense exercise. Reviewed symptoms. Asthma Action Plan and Medication Authorization form for school given to mother. Refill albuterol HFA 2-4 puffs every 4-6 hours as needed for asthma symptoms. Follow up if increased albuterol usage and/or asthma symptoms increase. 3. Fear of Vaccinations. Mother reports that Willi has an intense fear of vaccinations and needles. In the past it has been extremely difficult to give him immunizations even when he has been older. It has taken multiple clinic staff at previous clinics to hold him down. At the time of this visit his recommended vaccines are the HPV series, which mother does want him to get, however we will defer them at this time. Mother requests referral for help with his severe fear of vaccinations. I will be in contact with different behavioral health specialists and/or psychiatry for potential therapy. documented in this encounter Plan of Treatment Not on file documented as of this encounter Goals Goal Patient Goal Type Associated Problems Recent Progress Patient-Stated? Author Use safety retraint in car Lifestyle On track( 020 3:14 PM CDT) Massiel Schulte MA documented as of this encounter Visit Diagnoses Diagnosis Encounter for routine child health examination without abnormal findings- Primary Routine infant or child health check Cough variant asthma (HCC) Cough variant asthma Fear of vaccinations Other isolated or specific phobias documented in this encounter Care Teams Paint Roller Winder Relationship Specialty Start Date End Date Les Carvalho MD [address] [place] [address] PCP - General Pediatrics 03/22/18 09/10/21 documented as of this encounter
--- OUTSIDE RECORDS SUMMARY | 2024-09-23 12:21 | XMS_ITS | Encounter Summary ---
Author Organization [facility] Address [address] [place] [address] Care Team Providers Care Wheel Installer Name Role Phone Les Carvalho MD Primary Care Provider [phone] Nafisa Juarez MD Unavailable Reason for Visit * Reason Comments Well Child Check Encounter Details Date Type Department Care Team (Late st Contact Info) Description 05/02/2020 3:15 PM CDT Office Visit [facility] Medical [facility] - Pediatrics [address] [place] [address] Les Carvalho MD [address] [place] [address] Encounter for routine child health examination without abnormal findings (Primary Dx); Need for vaccination; Cough variant asthma (HCC) Social History Tobacco Use Types Packs/Day Years [...] PM CDT documented as of this encounter Last Filed Vital Signs Vital Sign Reading Time Taken Comments Blood Pressure 110/70 05/02/2020 3:13 PM CDT Pulse - - Temperature 36.7 ??C (98 ??F) 05/02/2020 3:13 PM CDT Respiratory Rate - - Oxygen Saturation - - Inhaled Oxygen Concentration - - Weight 60.1 kg (132 lb 6.4 oz) 05/02/2020 3:13 P M CDT Height 171.5 cm (5' 7.5 ) 05/02/2020 3:13 PM CDT Body Mass Index 20.43 05/02/2020 3:13 PM CDT Body Mass Index Percentile 51.61% 05/02/2020 3:1 3 PM CDT Growth Chart: CDC (Boys, 2-2 0 Years) documented in this encounter Patient Instructions * Patient Instructions* Jyothi, December - 05/02/2020 3:14 PM CDT YOUR GROWING CHILD: 15 TO 17 YEARS Child???s Name: Willi Nelson Today???s Date: 05/02/2020 BP 110/70 Temp 98 ??F (36.7 ??C) (Temporal) Ht 1.715 m (5' 7.5 ) Wt 60.1 kg (132 lb 6.4 oz) BMI 20.43 kg/m2 Today's Percentiles 52 %ile (Z= 0.04) based on CDC (Boys, 2-20 Years) fhrnga-nex-gcu data using vitals from 05/02/2020. 44 %ile (Z= -0.16) based on CDC (Boys, 2-20 Years) Tgfxckt-msh-cpx data based on Stature recorded on 05/02/2020. Today and Previous Weights and Heights Wt Readings from Last 3 Encounters: 05/02/20 60.1 kg (132 lb 6.4 oz) (52 %, Z= 0.04)* 06/28/19 53.3 kg (117 lb 8.1 oz) (41 %, Z= -0.23)* 05/02/19 50.1 kg (110 lb 6.4 oz) (31 %, Z= -0.49)* * Growth percentiles are based on CDC (Boys, 2-20 Years) data. Ht Readings from Last 3 Encounters: 05/02/20 1.715 m (5' 7.5 ) (44 %, Z= -0.16)* 06/28/19 1.666 m (5' 5.59 ) (37 %, Z= -0.33)* 05/02/19 1.645 m (5' 4.76 ) (31 %, Z= -0.48)* * Growth percentiles are based on [facility] (Boys, 2-20 Years) data. IMMUNIZATIONS One of the best ways to [...] they or someone they know is beingbullied. Speak with your child about what they might want to do after high school, where they might want to go to college, and if they have a career in mind. It???s a good idea to give your child chores to do around the house. Some age appropriate chores include: 1. Wash dishes 2. Prepare simple family meals 3. [place] leaves 4. Take the trash out for pick-up 5. Be responsible for feeding and watering the family pet 6. Keep bedroom and designates room in house clean 7. Vacuum individual rooms 8. Be responsible for homework 9. Help younger siblings with their chores Limit TV and electronic device time to [...] boards, scooters, horses, pogo sticks, etc. CAR SAFETY Please speak with your child about the importance of car safety. Make use that they wear seat beltsat all times while driving or being a passenger. Also speak to them about cell phone usage while driving. The texts and phone calls can WAIT. [place] law, effective May 24, 2006, says your child must be in a booster seat if they are ages 4 through 7 who weigh at least 40 pounds, unless they are 80 pounds or 4???9?? tall. DO NOT ALLOW ANYONE TO SMOKE AROUND YOUR CHILD. DIET Make sure that your child is eating breakfast in the morning preschool teacher assistant. Encourage them to eat at least 3 [...] Where can I go for more information? [place] [employer] ( ) www.aap.org, HealthyChildren.org www.healthychildren.org Website and free downloadable chapis for smartphones: http://www.Shellcatch.[employer]/ and http://www.Scodix.[employer]/ documented in this encounter Progress Notes * Les Carvalho MD - 05/02/2020 3:24 PM CDT Adolescent Well Sheet Manufacturing Supervisor Visit Name: Willi Nelson Age: [age] year old Accompanied By: Mother Chief Complaint Patient presents with ??? Well Child Check Concerns: 14 year old male here for [facility]. Diet: Eats well balanced meals, good variety Yes Limits foods high in fat or calorie content Yes Interim Illness: The patient returns today for routine well school childcare attendant. Illnesses since our last visit include: none Meds: Current Outpatient Medications Medication Sig Dispense Refill ??? albuterol HFA (PROVENTIL;VENTOLIN;PROAIR) 108 (90 Base) MCG/ACT inhaler Inhale 2 puffs by mouthevery 4 hours as needed Reasons: Asthma 2 Inhaler 0 ??? fluticasone propionate (FLONASE) 50 MCG/ACT nasal spray [place] 1 spray into each nostril once daily ??? LANSOPRAZOLE PO Take by mouth. No current facility-administered medications for this visit. Allergies: Allergies Allergen Reactions ??? Penicillins Rash ??? Sulfa Drugs Social History: Home: lives with their family Education: 10th Grade. No teacher or parent concerns. and Doing well in school Activities: None Drugs: no alcohol use no tobacco use no caffeine use Drug use: Never Sex: heterosexual, not sexually active Psych: No concerns for depression or suicidal ideation OBJECTIVE: BP 110/70 Temp 98 ??F (36.7 ??C) (Temporal) Ht 1.715 m (5' 7.5 ) Wt 60.1 kg (132 lb 6.4 oz) BMI 20.43 kg/m2 Wt Readings from Last 3 Encounters: 05/02/20 60.1 kg (132 lb 6.4 oz) (52 %, Z= 0.04)* 06/28/19 53.3 kg (117 lb 8.1 oz) (41 %, Z= -0.23)* 05/02/19 50.1 kg (110 lb 6.4 oz) (31 %, Z= -0.49)* * Growth percentiles are based on CDC (Boys, 2-20 Years) data. Ht Readings from Last 3 Encounters: 05/02/20 1.715 m (5' 7.5 ) (44 %, Z= -0.16)* 06/28/19 1.666 m (5' 5.59 ) (37 %, Z= -0.33)* 05/02/19 1.645 m (5' 4.76 ) (31 %, Z= -0.48)* * Growth percentiles are based on CDC (Boys, 2-20 Years) data. 52 %ile (Z= 0.04) based on CDC (Boys, 2-20 Years) zqkmyd-cxd-ueq data using vitals from 05/02/2020. 44 %ile (Z= -0.16) based on [facility] (Boys, 2-20 Years) Hezmckw-wvp-swm data based on Stature recorded on 05/02/2020. Body mass index is 20.43 kg/m??. Physical Exam: GENERAL: Alert, well developed, well [...] normal, no hernia or hydrocele Stevenson Stage: V Impression / Plan: 1. Well child with normal growth and development. Oral and written anticipatory guidance provided including well child information, nutrition, well balanced diet, safety,and general well school childcare attendant. Patient counseled regarding avoidance of alcohol, tobacco and drugs. Parent and patient instructed to call if any questions, concerns, problems or other health issues. HPV #1 vaccine given today. Immunizations benefits and risks discussed including site soreness, fever and allergic reaction. Next Appointment: 1 year 2. History of Cough Variant Asthma. Stable. Albuterol HFA PRN. Medication form and Asthma action plan for school. documented in this encounter Plan of Treatment Not on file documented as of this encounter Goals Goal Patient Goal Type Associated Problems Recent Progress Patient-Stated? Author Use safety retraint in car Lifestyle On track( 020 3:14 PM CDT) Massiel Schulte MA documented as of this encounter Visit Diagnoses Diagnosis Encounter for routine child health examination without abnormal findings- Primary Routine or child health check Need for vaccination Need for prophylactic vaccination and inoculation against unspecified single disease Cough variant asthma (HCC) Cough variant asthma documented in this encounter Care Teams Wheel Installer Relationship Specialty Start Date End Date Les Carvalho MD [address] [address] PCP - General Pediatrics 03/22/18 09/10/21 Nafisa Juarez MD [address] [id number] Orthopedic Surgery 06/28/19 documented as of this encounter
--- OUTSIDE RECORDS SUMMARY | 2024-09-23 12:22 | XMS_ITS | Encounter Summary ---
Author Organization [facility] Address [address] [place] [address] Care Team Providers Care Automatic Machines Supervisor Name Role Phone Dilan Castaneda MD Primary Care Provider [phone] Reason for Visit * Reason Comments Physical 9 year Encounter Details Date Type Department Care Team (Late st Contact Info) Description 03/27/2015 5:30 PM CDT Office Visit [facility] Medical [facility] - Family Medicine [address] [place] [address] Dilan Castaneda MD [address] [place] [id number] Routine infant or child health check (Primary Dx); Asthma, mild persistent, with acute exacerbation; Poor weight gain in child Social History Tobacco Use Types Packs/Day Years [...] Sign Reading Time Taken Comments Blood Pressure 98/62 03/27/2015 5:06 PM CDT Pulse - - Temperature 36.3 ??C (97.3 ??F) 03/27/2015 5:06 PM CD T Respiratory Rate - - Oxygen Saturation - - Inhaled Oxygen Concentration - - Weight 24.9 kg (54 lb 12.8 oz) 03/27/2015 5:06 P M CDT Height 130.8 cm (4' 3.5 ) 03/27/2015 5:06 PM CDT Body Mass Index 14.53 03/27/2015 5:06 PM CDT Body Mass Index Percentile 6.26% 03/27/2015 5:0 6 PM CDT Growth Chart: CDC (Boys, 2-2 0 Years) documented in this encounter Patient Instructions * Patient Instructions* Massiel Delgado MA - 03/27/2015 4:59 PM CDT YOUR GROWING CHILD: 9 TO 11 YEARS Child???s Name: Willi Nelson Today???s Date: 03/27/2015 BP 98/62 mmHg Temp(Src) 97.3 ??F (Oral) Wt 24.857 kg (54 lb 12.8 oz) BMI 14.53 kg/m2 Wt Readings from Last 1 Encounters: 03/27/15 24.857 kg (54 lb 12.8 oz) (2 %*, Z = -2.07) * Growth percentiles are based on [facility] 2-20 Years data. 2%ile (Z=-2.07) based on CDC 2-20 Years sbjzcu-hrg-mwi data using vitals from 03/27/2015. Ht Readings from Last 1 Encounters: 03/27/15 1.308 m (4' 3.5 ) (5 %*, Z = -1.60) * Growth percentiles are based on [facility] 2-20 Years data. 5%ile (Z=-1.60) based on [facility] 2-20 Years cetqrbv-xjl-pgh data using vitals from 03/27/2015. IMMUNIZATIONS One of the best ways to [...] appropriate chores include: 1. Wash dishes 2. [place] leaves 3. Take the trash out for [...] and 12 years of age). [place] law, effective May 24, 2006, says your [...] is eating breakfast in the morning preschool teacher's assistant. Encourage them to eat at least [...] Where can I go for more information? [place] [employer] ( ) www.aap.org, HealthyChildren.org www.healthychildren.org Website and free downloadable chapis for smartphones: http://www.Big Contacts/ and http://www.PureWRX/ documented in this encounter Progress Notes * Dilan Castaneda MD - 03/27/2015 6:34 PM CDT I. Interval History / Parent's Concerns Parent concerns: weight gain. He has not gained any weight over the past 8 months. He eats well andis drinking a lot, but is very active. Asthma - takes Q lashon and singulair daily and 2 to 3 times a year he usess his albuterol inhaler II. Physical Exam BP 98/62 mmHg Temp(Src) 97.3 ??F (Oral) Wt 24.857 kg (54 lb 12.8 oz) BMI 14.53 kg/m2 Eyes: Normal HEENT: Normal Neck: Normal Chest/Breast: Normal Lungs: Clear to auscultation, unlabored breathing Heart: Normal PMI, regular rate & rhythm, normal S1,S2, no murmurs, rubs, or gallops Abdomen: Normal scaphoid appearance, soft, non-tender, without organ enlargement or masses. Genitourinary: Normal male, testes descended, sherice 2 Musculoskeletal: Normal symmetric bulk and strength Lymphatic: No abnormally enlarged lymph nodes. Skin/Hair/Nails: No rashes or abnormal dyspigmentation Neurologic: Mental status normal, no cranial nerve deficits, normal strength and tone, normal gait III. Anticipatory Guidance (check at least one) Discussed the following topics with parents/child: Exercise/Physical activity IV. Labs/Immunizations No labs indicated. Shots up to date so far. V. Lead Screen N/A . Developmental - Personal-Social and Language (check at least one) Follows rules at school, Follows rules at home VII. Developmental - Fine Motor / Gross Motor (check at least one) Handwriting within normal limits and Sports and gross motor skills within normal limits VIII. Hearing (check at least one) Parental perception of hearing is normal IX. Vision (check at least one) Parental/child perception of vision is normal X. Dental Referral for routine preventative dental care every 6 months Assessment and Plan: Healthy patient, routine guidance given. Follow up at next scheduled well child check. Poor weight gain - will recheck his weight in 2 to 3 months. Mom will encourage intake and considera protein calorie supplement ( pediasure) Asthma - continue Qvar and singulair daily documented in this encounter Plan of Treatment Not on file documented as of this encounter Goals Goal Patient Goal Type Associated Problems Recent Progress Patient-Stated? Author Use safety retraint in car Lifestyle On track( 020 3:14 PM CDT) No Massiel Delgado MA documented as of this encounter Visit Diagnoses Diagnosis Routine or child health check- Primary Asthma, mild persistent, with acute exacerbation (HCC) Poor weight gain in child Failure to thrive documented in this encounter Care Teams Automatic Machines Supervisor Relationship Specialty Start Date End Date Dilan Castaneda MD [address] [place] [address] PCP - General Pediatrics 03/27/15 06/22/17 documented as of this encounter
--- OUTSIDE RECORDS SUMMARY | 2024-09-23 12:22 | XMS_ITS | Encounter Summary ---
Author Organization [facility] Address [address] [place] [address] Care Team Providers Care Photographs Curator Name Role Phone Kerri Felipe MD Primary Care Provider [phone] Reason for Visit * Reason Onset Date Comments MEDICATION REFILL 03/09/2015 Encounter Details Date Type Department Care Team (Late st Contact Info) Description 03/09/2015 Refill [facility] Medical [facility] - Family Medicine [address] [place] [address] Kerri Felipe MD [address] [place] [address] [address] [place] [phone] MEDICATION REFILL Social History Tobacco Use Types [...] * Telephone Encounter - Sharita Hunt - 03/09/2015 8:[address] Felipe patient. Last refill: 01/05/15 with 1 refill Last OV: 08/01/14 documented in this encounter Plan of Treatment Not on file documented as of this encounter Visit Diagnoses Not on filedocumented in this encounter Care Teams Photographs Curator Relationship Specialty Start Date End Date Kerri Felipe MD PCP - General Pediatrics 05/07/14 03/26/15 documented as of this encounter
--- OUTSIDE RECORDS SUMMARY | 2024-09-23 12:22 | XMS_ITS | Encounter Summary ---
Author Organization [facility] Address [address] [place] [address] Care Team Providers Care Hot Plate Press Operator Name Role Phone Kerri Felipe MD Primary Care Provider [phone] Reason for Visit * Reason Comments Establish Care Medication Check Encounter Details Date Type Department Care Team (Late st Contact Info) Description 05/16/2014 4:30 PM CDT Office Visit [facility] Medical [facility] - Family Medicine [address] [place] [address] Kerri Felipe MD [address] [place] [address] [address] [place] [id number] Cough variant asthma (HCC) (Primary Dx) Social History Tobacco Use Types Packs/Day Years Used Date Smoking Tobacco: Never Assessed Sex and Gender Information Value Date Recorded Sex Assigned at Not on file Gender Identity Not on file Sexual Orientation Not on file documented as of this encounter Last Filed Vital Signs Vital Sign Reading Time Taken Comments Blood Pressure 84/44 05/16/2014 4:14 PM CDT Pulse 80 05/16/2014 4:14 PM CDT Temperature 36.8 ??C (98.3 ??F) 05/16/2014 4:14 PM CD T Respiratory Rate - - Oxygen Saturation 98% 05/16/2014 4:14 PM CDT Inhaled Oxygen Concentration - - Weight 24 kg (53 lb) 05/16/2014 4:14 PM CDT Height 128.3 cm (4' 2.5 ) 05/16/2014 4:14 PM CDT Body Mass Index 14.61 05/16/2014 4:14 PM CDT Body Mass Index Percentile 11.00% 05/16/2014 4:1 4 PM CDT Growth Chart: CDC (Boys, 2-2 0 Years) documented in this encounter Patient Instructions * Patient Instructions* Anisha Calabrese, [id number] - 05/16/2014 4:46 PM CDT Images from the original note were not included. Asthma in Children GENERAL INFORMATION: What is asthma in children? Asthma is long-term inflammation and narrowing of the airways in your child's lungs. This causes less air flow to his lungs and makes it hard for your child to breathe. Anasthma attack is when your child's symptoms are worse than usual. During an asthma attack, the muscles around your child's airways tighten. This causes the airways to swell and make more mucus. What are the types of asthma in children? ?? Intermittent: Your child has symptoms 2 times a month or less. His asthma attacks last minutes and his symptoms are mild. In between attacks, your child has no symptoms. ?? Mild persistent: Your child has symptoms more than 2 times a week but not 2 days in a row. He has symptoms at night 2 to 4 times a month or less. His asthma attacks last minutes to hours. His symptoms interfere with his daily activities. ?? Moderate persistent: Your child has symptoms each day. He has symptoms at night more than once aweek but not every night. His asthma attacks last for hours or days. His symptoms keep him from doing any activity. ?? Severe persistent: You child has symptoms has symptoms that last most of the day and night. His asthma attacks last for many days and can get worse over time. Your child may need to be taken to the hospital for treatment. What triggers an asthma attack? The exact cause of asthma is not known. The following may trigger an asthma attack: ?? Activities: ?? Sports or exercise ?? Stress or strong emotions, such as fear, anger, or hard crying or laughing ?? Allergens: ?? Certain foods ?? Cockroach droppings, dust, or dust mites ?? Dander (tiny skin flakes) from cats, dogs, and other animals ?? Mold or plant pollen ?? Irritants: ?? Air pollution, chemical fumes, or cigarette smoke ?? Strong-smelling body care products ?? Very cold or hot weather, with high or low humidity ?? Medical problems and medicines: ?? A cold or the flu ?? Infections in his airways, lungs, or sinuses caused by bacteria or viruses ?? Medicines such as NSAIDs or heart medicine What increases my child's risk of asthma? ?? Family history: He has parents or other family members who have asthma. ?? Medical conditions: Lung infections, sinusitis, and gastric reflux can damage your child's airways and cause them to react easily to triggers. ?? Closed, crowded spaces: Poor air flow in closed spaces may lead to buildup of dirt, dust, chemicals, and smoke. If your child breathes in these irritants, it may trigger an asthma attack. What are the signs and symptoms of an asthma attack? ?? Coughing: This is usually worse at night or early in the morning. ?? Wheezing: This is a whistling or squeaky sound when your child breathes. ?? Struggling with activities: Your child may get tired easily with small amounts of physical activity. He may have trouble playing sports. He may need to slow down or stop to catch his breath often. ?? Allergies: Your child's nose may be red, runny, and clogged, and he may have itchy and teary eyes. Your child may also have dry, red, itchy or flaking skin, or an itchy, sore throat. ?? Trouble breathing: Your child's chest may feel tight. He may take hard, fast breaths. Your childmay feel like he cannot get enough air in or out of his lungs. He may raise his shoulders to force air in and out of his lungs. ?? Trouble sleeping: Coughing and breathing problems may make it hard for your child to fall asleep. His symptoms may wake him from sleep. This can make him feel tired and sleepy the next day. How is asthma in children diagnosed? Your child's caregiver will ask about your child's medical history and examine him. He will ask about your child's symptoms and what triggers them. Tell your child's caregiver what medicine or other treatments have been used for your child's symptoms. Your childmay need any of the following tests: ?? Peak flow testing: A peak flow meter is a small tube-shaped device that measures how much and how fast your child exhales. This test can usually be given to children older than 5. ?? Pulmonary function test: This helps caregivers learn how well your child's lungs work. During the test, your child breathes into a mouthpiece connected to a machine. The machine measures how much air he breathes in and out over a certain amount of time. ?? Bronchoprovocation testing: This test measures how much air your child can breathe out as fast as he can. This test is done first to see how well his lungs work normally. Then, your child's caregiver will give your child a chemical to trigger a mild asthma attack. After 10 minutes, your child's caregiver will repeat the test. If the amount of air he breathes out decreases, it is likely that hehas asthma. ?? Allergy testing: These tests help caregivers find out if your child has allergies and if those allergies trigger his asthma. Your child's caregiver will put a drop of different liquids on his arm or back. These may include liquids from foods and some chemicals. He will prick the skin under thesedrops with a needle. He will wipe off the drops and watch closely for any redness or swelling on your child's skin. He will monitor your child closely during this test. ?? Blood tests: Your child may need blood tests to determine if his asthma attack is triggered by an infection. ?? Blood gases: These tests are also called arterial blood gases (ABGs). Blood is taken from an artery usually in your child's wrist. ABGs may be done if your child has trouble breathing or other problems caused by his illness. ?? Chest x-ray: This is a picture of your child's lungs to look for signs of infection, such as pneumonia. How is asthma in children treated? ?? Make an asthma action plan: This is a set of instructions to follow when your child has an asthma attack. Work with your child's caregiver to develop an asthma action plan. List any medicines yourchild takes and how much or how often he takes them. Also list his triggers. Write down his signs and symptoms and what to do if he has an attack. List emergency phone numbers. Update the plan when he has an asthma attack and write down what may have triggered it. The plan should explain when to seek immediate care for your child or call 911. ?? Medicines: ?? Inhaled short-acting bronchodilators: These are given to help open your child's airways quickly.They start to work right away and are used to relieve sudden, severe symptoms, such as trouble breathing. These medicines may be called relievers or rescue inhalers. ?? Steroids: These help decrease swelling and open your child's airways to help him breathe easier.They may be given as a pill or an inhaler. After an asthma attack, your child may need steroid pills for several days. Inhaled steroids are used for long-term control. ?? Combination inhalers: These include a long-acting bronchodilator and a steroid. They can help open the airways over time, and are used to decrease and prevent breathing problems. They are only used when your child's asthma is not controlled with other medicines. They are not helpful during an asthma attack. ?? Leukotriene inhibitors: These can decrease the swelling in your child's lungs. They may help reduce your child's wheezing or shortness of breath. They may also help shorten your child's asthma attacks. They are used for long-term control of asthma. They are not used to treat an asthma attack. ?? Mast cell stabilizers: These help decrease inflammation and prevent your child's airways from becoming too narrow. They can be used regularly to decrease the number of asthma attacks. They can also be used right before your child is exposed to a trigger. They are not used once an asthma attack has started. What types of inhalers may be used to treat my child's asthma? ?? Metered dose inhaler: This is a small, tube-shaped device. Your child holds the open end inside his mouth. The medicine comes out as a mist when he presses a switch. Your child should breathe in deeply to get the right amount of medicine. He may use a spacer with this inhaler. A spacer is a large tube that holds the mist before your child breathes it in. ?? Nebulizer: A long tube goes from the machine to a small round container that holds asthma medicine. The liquid turns into a mist once the machine is turned on. Your child breathes in this mist through a mouthpiece. ?? Dry powder inhaler: This is a small tube or disc-shaped device that contains powder asthma medicine. Your child holds the open end inside his mouth. The powder is released when he presses a switch. With this type of inhaler, your child must breathe in hard to suck in the powder. How can I help prevent my child from having an asthma attack? ?? Avoid triggers. ?? Follow your child's asthma action plan. ?? Try to avoid people who are sick and stay up-to-date on your child's vaccines. ?? Use air conditioning to control the temperature and humidity in your house. ?? Keep pets out of your home. If you have cockroaches or other pests in your home, get rid of themquickly. ?? Remove old carpets, fabric-covered furniture, drapes, and furry toys in your house. Use hypoallergenic covers for your child's mattresses and pillows. What are the risks of asthma in children? Without treatment, you child's asthma can get worse. His asthma attacks can last longer and happen more often. He may have trouble doing his usual activitiesor miss school. He may even need to be admitted to the hospital for treatment. Your child's lung tissue can get damaged and scarred. His body may not get enough oxygen. This can cause damage to his or crystal and be life-threatening. Where can I find support and more information? ?? [employer] [address], [address] [place] [address] Phone: Web Address: http://www.aaaai.org ?? National Asthma Education and Prevention Program National Heart, Lung and Blood [place] National Asthma Education and Prevention Program [address] [address] [place] [address] Phone: Web Address: http://www.nhlbi.nih.gov/about/naepp/ When should I contact my child's caregiver? Contact your child's caregiver if: ?? Your child coughs or wheezes more than usual. ?? Your child's medicines do not relieve his symptoms as well as they used to. ?? Your child's symptoms keep him from doing activities he enjoys. ?? You have questions or concerns about your child's condition or care. When should I seek immediate care? Seek care immediately or call 911 if: ?? Your child has wheezing or shortness of breath that does not get better with treatment. ?? Your child faints or does not respond. ?? Your child has severe chest pain. ?? Your child's lips or fingernails turn meneses or blue. CARE AGREEMENT: You have the right to help plan your child's care. Learn about your child's health condition and how it may be treated. Discuss treatment options with your child's caregivers to decide what care you want for your child. Copyright ?? 2012. [employer]. All rights reserved. Information is for End User's use only andmay not be sold, redistributed or otherwise used for commercial purposes. The above information is an dining room maid only. It is not intended as medical advice for individual conditions or treatments. Talk to your doctor, nurse or pharmacist before following any medical regimen to see if it is safe and effective for you. documented in this encounter Progress Notes * Kerri Felipe MD - 05/16/2014 4:53 PM CDT SUBJECTIVE: Willi is here today with mother, brother He has a new member this is the very 1st time he is being seen here family moved to the area just recently with Chief Complaint Patient presents with ??? Establish Care ??? Medication Check Here to establish the care, and to have medicsation check, and follow up of his cough variant asthma. Child had been diagnosed with cough variant asthma a year ago, mother status that he was coughing for a long long time when the needed diagnosis of the above ahe was treated with the albuterol inhaler and Q lashon Inhaler 2 inhalation twice daily which is the inhaled corticosteroid, he has been on it for the past year he has not had anycough since the he was put on it. He is also on a Flonase nasal for Allergic Rhinitisnever had any wheezing, he only had the cough. PAST HISTORY: Child was born after full-term normal weighing 6 lb 14 oz at He had his tonsillar else and adenoids out 2 years ago and Tympanostomy tubes put in few years ago, he had to have tubes put in again a year or so ago again FAMILY HISTORY: father has asthma SOCIAL HISTORY Child live with both parents and older brother, he is in 4th grade this year no one smokes in the household. OBJECTIVE: BP 84/44 Pulse 80 Temp(Src) 98.3 ??F (Oral) Wt 24.041 kg (53 lb) BMI 14.60 kg/m2 General appearance: alert, active, well appearing, and in no distress Head- normocephalic, atraumatic. Eyes- pupils equal and reactive, extraocular eye movements intact, sclera anicteric. ENT- Ears - bilateral TM's and external ear canals normal. Nose: Nares normal. Septum midline. Mucosa normal. No drainage Oropharyngeal exam - mucous membranes moist, pharynx normal without lesions. CVS exam: normal rate, regular rhythm, normal S1, S2, no murmurs, rubs, clicks or gallops. Chest: clear to auscultation, no wheezes, rales or rhonchi, symmetric air entry. Abdominal exam: soft, nontender, nondistended, no masses or organomegaly. Skin exam: No rashes or abnormal dyspigmentation ASSESSMENT and PLAN: Child with a history of cough variant asthma on inhaled corticosteroid Had a lengthy discussion with mom regarding the diagnosis and the treatment, and continuation of inhaled corticosteroid explaining to mom as the child has had no symptoms since does put on inhaled corticosteroid I am not 100 sure about the diagnosis of asthma so we could stopped the inhaled corticosteroid after the winter months see if his symptoms come back Gave mother of stuff info on of rescue medicine an, controller medicine, in treatment of asthma to make sure to rinse the mouth after the use of inhaled corticosteroids Mother to call if any concerns questions, to call or return as needed. documented in this encounter Plan of Treatment Not on file documented as of this encounter Visit Diagnoses Diagnosis Cough variant asthma (HCC)- Primary Cough variant asthma documented in this encounter Care Teams Hot Plate Press Operator Relationship Specialty Start Date End Date Kerri Felipe MD PCP - General Pediatrics 05/07/14 03/26/15 documented as of this encounter
--- OUTSIDE RECORDS SUMMARY | 2024-09-23 12:22 | XMS_ITS | Encounter Summary ---
Author Organization [facility] Address [address] [place] [address] Care Team Providers Care Computing Consultant Name Role Phone Kerri Felipe MD Primary Care Provider [phone] Reason for Visit * Reason Comments Refill Request Encounter Details Date Type Department Care Team (Late st Contact Info) Description 03/09/2015 Refill [facility] Medical [facility] - Family Medicine [address] [place] [address] Kerri Felipe MD [address] [place], [place] [address] [place] [id number] Refill Request Social History Tobacco Use Types [...] encounter Miscellaneous Notes * Telephone Encounter - Yenny Hurtado LPN - 03/09/2015 11:03 AM CDT Last refill of Singulair 10/23/14 Last OV 08/01/14 documented in this encounter Plan of Treatment Not on file documented as of this encounter Visit Diagnoses Not on filedocumented in this encounter Care Teams Computing Consultant Relationship Specialty Start Date End Date Kerri Felipe MD PCP - General Pediatrics 05/07/14 03/26/15 documented as of this encounter
--- OUTSIDE RECORDS SUMMARY | 2024-09-23 12:22 | XMS_ITS | Encounter Summary ---
Author Organization [facility] Address [address] [address] Care Team Providers Care Pediatric Licensed Practical Nurse Name Role Phone Kerri Felipe MD Primary Care Provider [phone] Encounter Details Date Type Department Care Team (Latest Contact Info) Description 10/04/2014 6:48 PM HEALTH AND SAFETY COORDINATOR - 10/04/2014 11:59 PM HEALTH AND SAFETY COORDINATOR Hospital Encounter [facility] [address], [address] [place] [address] Idania Easton, SIGNS SALES REPRESENTATIVE-DECATIZER [address] [place] [address] Discharge Disposition: Home or Self Care Social History Tobacco Use Types Packs/Day Years Used Date Smoking Tobacco: Never Assessed Sex and Gender Information Value Date Recorded Sex Assigned at Not on file Gender Identity Not on file Sexual Orientation Not on file documented as of this encounter Last Filed Vital Signs Vital Sign Reading Time Taken Comments Blood Pressure 89/69 10/04/2014 6:54 PM HEALTH AND SAFETY COORDINATOR Pulse 83 10/04/2014 6:54 PM HEALTH AND SAFETY COORDINATOR Temperature 36.7 ??C (98 ??F) 10/04/2014 6:54 PM HEALTH AND SAFETY COORDINATOR Respiratory Rate 18 10/04/2014 6:54 PM HEALTH AND SAFETY COORDINATOR Oxygen Saturation - - Inhaled Oxygen Concentration - - Weight 25.9 kg (57 lb) 10/04/2014 6:54 PM HEALTH AND SAFETY COORDINATOR Height - - Body Mass Index - - documented in this encounter Discharge Instructions * Patient Instructions* Idania Easton, REJI-DECATIZER - 10/04/2014 7:20 PM HEALTH AND SAFETY COORDINATOR Images from the original note were not included. Otitis Media in Children GENERAL INFORMATION: What is otitis media in children? Otitis media is an ear infection. Your child may have an ear infection in one or both ears. Children are most likely to get ear infections when they are between 3 months and 3 years old. Ear infections are most common during the winter and early spring months. Children often have ear infections more than once. What causes otitis media in children? Your child may get an ear infection when his eustachian tubesbecome swollen or blocked. Eustachian tubes connect the middle ear to the back of the nose and throat. They drain fluid away from the middle ear. Children with ear infections have a buildup of fluid and pressure in their ear. The ear may become infected by germs, which grow easily in the fluid trapped behind the eardrum. Who is at an increased risk for otitis media? ?? Children who go to daycare or school. ?? Children who live or play around people who smoke. ?? Children whose brother, sister, or parent has had problems with ear infections. ?? Babies who get their first ear infection before 6 months of age. ?? Children born with conditions such as cleft palate or Down syndrome. ?? Children who suck on pacifiers after 10 months of age. ?? Children who drink bottles while they lie flat. What are the signs and symptoms of otitis media in children? ?? Your child has a fever. ?? Your child has ear pain. He may tug, pull, or rub his ear. He may not eat as much due to pain when he sucks, swallows, or chews. ?? Your child is fussy and restless. He may also have trouble sleeping. ?? Your child has pus or yellowish fluid coming out of his ear. ?? Your child has trouble hearing. He may not hear quiet noises that he normally hears. He may seemlike he is not paying attention to you. He may try to sit very close to the TV or ask to turn up his music. ?? Your child may be dizzy or lose his balance. How is otitis media in children diagnosed? Your child's caregiver will look inside your child's ears. The caregiver may blow a puff of air inside your child's ears. These tests tell caregivers if your child's eardrums look healthy. If your child's eardrum is infected, it will not move as it should.A tympanogram is another test that may be done. During the test, an ear plug is put into each of your child's ears and air pressure is used to see how the eardrum moves. It can help your child's caregiver learn if your child has fluid in his middle ear. How is otitis media in children treated? ?? Medicines: ?? Ibuprofen or acetaminophen: These help decrease your child's pain and fever. They are available without a doctor's order. Ask how much to give to your child and how often to give it. ?? Ear drops: These help treat your child's ear pain. ?? Antibiotics: These help kill the germs that caused your child's ear infection. ?? Ear tubes: Your child may need ear tubes if he has infections often. He may need them if he has fluid in his ears that causes hearing loss. During this procedure, the caregiver will cut a small hole in your child's eardrum. The caregiver will put in a small tube to help fluid drain. What can I do to help prevent otitis media? ?? Wash your and your child's hands often: This will help prevent the spread of germs. Encourage everyone in your house to wash their hands with soap and water after they use the bathroom. Everyone should also wash their hands after they change a child's diaper and before they prepare or eat food. ?? Keep your child away from people who are ill: Germs are easily and quickly spread in daycare centers. Keep your child away from sick playmates. Try to keep him home if there is a cold or other infection going around daycare. ?? Keep your child away from people who smoke: Babies and children who are around people who smoke are more likely to have ear infections. ?? If possible, breastfeed your baby: Your baby may be less likely to get an ear infection if he isbreastfed. ?? Do not give your child a bottle while he is lying down: This may cause liquid from his sinuses to leak into his eustachian tube. ?? Vaccinate your child: Talk to your child's caregiver about the shots your child needs. What are the risks of otitis media in children? Ear infections can cause your child to have a short-term hearing loss. Your child's hearing usually returns to normal when the infection is gone. Sometimes ear infections lead to permanent hearing loss. Hearing loss can cause your child to have problems with learning and speaking clearly. When should I contact my child's caregiver? Contact your child's caregiver if: ?? Your child has a fever. [...] has a stiff neck and a fever. CARE AGREEMENT: You have the right to help plan your child's care. Learn about your child's health condition and how it may be treated. Discuss treatment options with your child's caregivers to decide what care you want for your child. Copyright ?? 2011. [employer]. All rights reserved. Information is for End User's use only andmay not be sold, redistributed or otherwise used for commercial purposes. The above information is an educational administrator only. It is not intended as medical advice for individual conditions or treatments. Talk to your doctor, nurse or pharmacist before following any medical regimen to see if it is safe and effective for you. TH AND SAFETY COORDINATOR documented in this encounter Medications at Time of Discharge Medication Sig Dispensed Refills Start Date End Date albuterol HFA (PROAIR HFA) 108 (90 BASE) MCG/ACT inhaler Inhale 2 Puffs by mouth every 4 hours as needed. 2 Inhaler 1 05/30/2014 11/19/2014 beclomethasone dipropionate (QVAR) 80 MCG/ACT inhaler Take 2 Puffs by mouth 2 times daily. 1 Inhaler 5 08/17/2014 11/19/2014 ciprofloxacin-dexamethas one (CIPRODEX) 0.3-0.1 % otic suspension Instill 4 Drops into left ear 2 times daily for 7 days. Shake well before using. 1 Bottle 0 10/04/2014 10/11/2014 fluticasone propionate (FLONASE) 50 MCG/ACT nasal spray Norwood 1 Norwood into each nostril once daily. 1 Bottle 5 08/17/2014 11/19/2014 lansoprazole (PREVACID) 30 MG capsule Take 1 Cap by mouth once daily. 30 Cap 2 06/18/2014 11/13/2014 montelukast (SINGULAIR) 4 MG chew tablet Take 1 Tab by mouth at bedtime. 30 Tab 3 08/01/2014 11/19/2014 documented as of this encounter Progress Notes * Idania Easton, SIGNS SALES REPRESENTATIVE-DECATIZER - 10/04/2014 7:19 PM CST [facility] PCP: Kerri Felipe Does patient have a PCP?: Yes Suggested Name: Kerri Felipe MD (PEDS) CHIEF COMPLAINT: Ear Pain SUBJECTIVE: Willi Nelson is a 9 y.o. male who presents to the Urgent Care today with complaints of left ear pain and drainage since this evening. Mom reports Willi noticed yellow and white drainage from the left ear when attempting to apply his headgear for wrestling practice tonight. Willi and his family just returned home from vacation in [place] earlier this week, Willi had been swimming frequently. Willi and mom deny an other symptoms. No fevers. No hearing change. No past medical history on file. No past surgical history on file. No family history on file. History Substance Use Topics ??? Smoking status: Not on file ??? Smokeless tobacco: Not on file ??? Alcohol Use: Not on file Current Outpatient Prescriptions on File Prior to Encounter Medication Sig Dispense Refill ??? beclomethasone dipropionate (QVAR) 80 MCG/ACT inhaler Take 2 Puffs by mouth 2 times daily. 1 Inhaler 5 ??? fluticasone propionate (FLONASE) 50 MCG/ACT nasal spray Norwood 1 Norwood into each nostril once daily. 1 Bottle 5 ??? montelukast (SINGULAIR) 4 MG chew tablet Take 1 Tab by mouth at bedtime. 30 Tab 3 ??? lansoprazole (PREVACID) 30 MG capsule Take 1 Cap by mouth once daily. 30 Cap 2 ??? albuterol HFA (PROAIR HFA) 108 (90 BASE) MCG/ACT inhaler Inhale 2 Puffs by mouth every 4 hours as needed. 2 Inhaler 1 No current facility-administered medications on file prior to encounter. Allergies Allergen Reactions ??? Sulfa Drugs Review of Systems - History obtained from mother and the patient General ROS: negative ENT ROS: positive for - left ear drainage and pain Respiratory ROS: positive for - cough, mom attributes to asthma negative for - shortness of breath, sputum changes or wheezing Cardiovascular ROS: negative Gastrointestinal ROS: negative Genito-Urinary ROS: negative Musculoskeletal ROS: negative Neurological ROS: negative Dermatological ROS: negative OBJECTIVE: Vitals: 10/04/14 1854 BP: 89/69 Pulse: 83 Temp: 98 ??F Resp: 18 Weight: 25.855 kg (57 lb) Pain Assessment Pain Score: Five Pain Loc: Ear Appearance alert, well appearing, and in no distress, oriented to person, place, and time, normal appearing weight, playful, active and well hydrated Eye exam pupils equal and reactive, extraocular eye movements intact ENT exam reveals Right canal free of fluid or infection. Left canal inflamed, mildly swollen with white, fluffy drainage present. Bilateral TM normal without fluid or infection, neck without nodes, throat normal without erythema or exudate, sinuses nontender and oral mucosa moist without lesions. Nasal mucosa is not swollen or inflamed. Chest clear to auscultation, no wheezes, rales or rhonchi, symmetric air entry CVS exam normal rate, regular rhythm, normal S1, S2, no murmurs, rubs, clicks or gallops Abdominal exam soft, nontender, nondistended, no masses or organomegaly Musculoskeletal exam no joint tenderness, deformity or swelling, no muscular tenderness noted, fullrange of motion without pain Neurological exam alert, oriented, normal speech, no focal findings or movement disorder noted, neck supple without rigidity Skin exam normal coloration and turgor, no rashes, no suspicious skin lesions noted ASSESSMENT: ICD-9-CM 1. Otitis externa of left ear 380.10 PLAN: Orders Placed This Encounter ??? ciprofloxacin-dexamethasone (CIPRODEX) 0.3-0.1 % otic suspension Sig: Instill 4 Drops into left ear 2 times daily for 7 days. Shake well before using. Dispense: 1 Bottle Refill: [address] Marcos Newsome D.O. Symptomatic care recommended: Motrin as needed for pain. Follow up with Kerri Azarpour 3days if symptoms persist or worsen. AVS reviewed with patient. The Parent indicates understanding of these issues and agrees with the plan. Patient discharged to Home. TH AND SAFETY COORDINATOR documented in this encounter Miscellaneous Notes * Addendum Note - Ana Deal CPC - 10/05/2014 5:06 PM CSTEncounter addended by: LA NENA Li on: 10/05/2014 5:06 PM
Documentation filed: Charges VN TH AND SAFETY COORDINATOR documented in this encounter Plan of Treatment Not on file documented as of this encounter Visit Diagnoses Diagnosis Otitis externa of left ear- Primary Infective otitis externa, unspecified documented in this encounter Care Teams Pediatric Licensed Practical Nurse Relationship Specialty Start Date End Date Kerri Felipe MD PCP - General Pediatrics 05/07/14 03/26/15 documented as of this encounter
--- OUTSIDE RECORDS SUMMARY | 2024-09-23 12:22 | XMS_ITS | Encounter Summary ---
Author Organization [facility] Address [address] [address] Care Team Providers Care String Winding Machine Operator Name Role Phone Kerri Felipe MD Primary Care Provider [phone] Encounter Details Date Type Department Care Team ([facility] st Contact Info) Description 12/23/2014 11:30 AM CDT - 12/23/2014 11:59 PM CDT [facility] [address], [address] [place] [address] Diana Sebastian APRN-SEAM TAPER MACHINE [address] [place] [address] Discharge Disposition: Home or Self Care Social [...] Sign Reading Time Taken Comments Blood Pressure 92/58 12/23/2014 11:33 AM CDT Pulse 77 12/23/2014 11:33 AM CDT Temperature 36.8 ??C (98.3 ??F) 12/23/2014 11:33 AM C DT Respiratory Rate 18 12/23/2014 11:33 AM CDT Oxygen Saturation 100% 12/23/2014 11:33 AM CDT Inhaled Oxygen Concentration - - Weight 24.9 kg (55 lb) 12/23/2014 11:33 AM CDT Height - - Body Mass Index - - documented in this encounter Discharge Instructions * Patient Instructions* Diana Sebastian APRN-SEAM TAPER MACHINE - 12/23/2014 11:46 AM CDT Images from the original note were not included. Conjunctivitis WHAT YOU SHOULD KNOW: Conjunctivitis, or pink eye, is inflammation of your conjunctiva. The conjunctiva is a thin tissue that covers the front of your eye and the back of your eyelids. The conjunctiva helps protect your eye and keep it moist. INSTRUCTIONS: Medicines: ?? Allergy medicine: This medicine helps decrease itchy, red, swollen eyes caused by allergies. It may be given as a pill, eye drops, or nasal spray. ?? Antibiotics: You will need antibiotics if your conjunctivitis is caused by bacteria. This medicine may be given as eye drops or eye ointment. ?? Steroid medicine: This medicine helps decrease inflammation. It may be given as a pill, eye drops, or nasal spray. ?? Take your medicine as directed: Call your primary healthcare provider if you think your medicineis not helping or if you have side effects. Tell him if you are allergic to any medicine. Keep a list of the medicines, vitamins, and herbs you take. Include the amounts, and when and why you take them. Bring the list or the pill bottles to follow-up visits. Carry your medicine list with you in case of an emergency. Follow up with your primary healthcare provider as directed: You may need to return for more tests on your eyes. These will help your primary healthcare provider check for eye damage. Write down yourquestions so you remember to ask them during your visits. Avoid the spread of conjunctivitis: ?? Wash your hands often: Wash your hands before you touch your eyes. Also wash your hands before you prepare or eat food and after you use the bathroom or change a diaper. ?? Avoid allergens: Try to avoid the things that cause your allergies, such as pets, dust, or grass. ?? Avoid contact: Do not share towels or washcloths. Try to stay away from others as much as possible. Ask when you can return to work or school. ?? Throw away eye makeup: Throw away mascara and other eye makeup. Manage your symptoms: ?? Apply a cool compress: Wet a washcloth with cold water and place it on your eye. This will help decrease swelling. ?? Use eye drops: Eye drops, or artificial tears, can be bought without a doctor's order. They helpkeep your eye moist. ?? Do not wear contact lenses: They can irritate your eye. Throw away the pair you are using and ask when you can wear them again. Use a new pair of lenses when your primary healthcare provider says it is okay. ?? Flush your eye: You may need to flush your eye with saline to help decrease your symptoms. Ask for more information on how to flush your eye. Contact your primary healthcare provider if: ?? Your eyesight becomes blurry. ?? You have tiny bumps or spots of blood on your eye. ?? You have questions or concerns about your condition or care. Return to the emergency department if: ?? The swelling in your eye gets worse, even after treatment. ?? Your vision suddenly becomes worse or you cannot see at all. ?? Your eye begins to bleed. Copyright ?? 2011. [employer]. All rights reserved. Information is for End User's use only andmay not be sold, redistributed or otherwise used for commercial purposes. The above information is an director educational radio only. It is not intended as medical advice for individual conditions or treatments. Talk to your doctor, nurse or pharmacist before following any medical regimen to see if it is safe and effective for you. documented in this encounter Medications at Time of Discharge Medication Sig Dispensed Refills Start Date End Date Beclomethasone Dipropionate (QVAR IN) Inhale by mouth. 0 03/22/2018 LANSOPRAZOLE PO Take by mouth. 09/11/2021 montelukast (SINGULAIR) 4 MG chew tablet TAKE 1 TABLET BY MOUTH EVERY DAY AT BEDTIME 30 Tab 3 11/19/2014 06/13/2015 moxifloxacin 0.5% (VIGAMOX) 0.5 % ophthalmic solution Instill 1 Drop into left eye 3 times daily for 7 days. 1 Bottle 0 12/23/2014 12/30/2014 documented as of this encounter Progress Notes * Diana Sebastian APRN-CNP - 12/23/2014 11:39 AM CDT Images from the original note were not included. Provider contact with the patient: 12/23/2014 11:39 Willi Nelson [id number] [facility] History Left eye red and crusty. HPI Comments: Willi Nelson is a 9 y.o. male who presents to the Urgent Care with complaints of ared, crusty left eye. He has had a mildly sore throat for a couple of days. That seems to be going away. He tried Chloraseptic spray which helps the throat a lot. He has a history of allergies. Had headache a couple of days ago. Denies fevers. He woke up with his left eye red and crusty this morning. Denies itching or photophobia. Accompanied by his mother. No past medical history on file. No [...] Review of Systems Review of Systems Constitutional: Negative for fever. HENT: Positive for sore throat. Eyes: Positive for discharge and redness. All other systems reviewed and are negative. Physical Exam BP 92/58 Pulse 77 Temp(Src) 98.3 ??F (Oral) Resp 18 Wt 24.948 kg (55 lb) SpO2 100% Physical Exam Constitutional: He appears well-developed and well-nourished. He is active and cooperative. HENT: Head: Normocephalic. Right Ear: Tympanic membrane normal. Left Ear: Tympanic membrane normal. Nose: Nose normal. Mouth/Throat: Mucous membranes are moist. Dentition is normal. Oropharynx is clear. Eyes: Left eye exhibits discharge and erythema. Cardiovascular: Normal rate, regular rhythm, S1 normal and S2 normal. Pulmonary/Chest: Effort normal and breath sounds normal. There is normal air entry. Lymphadenopathy: No anterior cervical adenopathy. Neurological: He is alert and oriented for age. Skin: Skin is warm and dry. Capillary refill takes less than 3 seconds. Nursing note reviewed. Medications Current Outpatient Prescriptions Medication Sig Dispense Refill ??? Beclomethasone Dipropionate (QVAR IN) Inhale by mouth. ??? LANSOPRAZOLE PO Take by mouth. ??? moxifloxacin 0.5% (VIGAMOX) 0.5 % ophthalmic solution Instill 1 Drop into left eye 3 times daily for 7 days. 1 Bottle 0 ??? montelukast (SINGULAIR) 4 MG chew tablet TAKE 1 TABLET BY MOUTH EVERY DAY AT BEDTIME 30 Tab 3 Procedures Procedures ECG Interpretation ECG Interpretation Lab/SPO2 Interpretation No results found for this visit on 12/23/14. No orders to display Progress Notes UC Course Discussed pink eye diagnosis with patient and mother. Will treat with Vigamox eye drops. Eye secretions contagious until on eye drops for 24-48 hours. Good handwashing. Don't share towels or washcloths. Change pillow case every morning. Patient and mother verbalize understanding of diagnosis and instructions. Follow up with your PCP in 3-5 days if not improving, sooner if worsening or if you have concerns. Medical Decision Making Orders Placed This Encounter ??? moxifloxacin 0.5% (VIGAMOX) 0.5 % ophthalmic solution Clinical Impression Final diagnoses: Mucopurulent conjunctivitis, left (Primary) documented in this encounter Miscellaneous Notes * Addendum Note - Patricia Horta CPC - 12/24/2014 6:06 PM CDTEncounter addended by: LA NENA Phelan on: 12/24/2014 6:06 PM
Documentation filed: Charges VN documented in this encounter Plan of Treatment Not on file documented as of this encounter Visit Diagnoses Diagnosis Mucopurulent conjunctivitis, left- Primary documented in this encounter Care Teams String Winding Machine Operator Relationship Specialty Start Date End Date Kerri Felipe MD PCP - General Pediatrics 05/07/14 03/26/15 documented as of this encounter
--- OUTSIDE RECORDS SUMMARY | 2024-09-23 12:22 | XMS_ITS | Encounter Summary ---
Author Organization [facility] Address [address] [place] [address] Care Team Providers Care Torpedo Man Name Role Phone Kerri Felipe MD Primary Care Provider [phone] Reason for Visit * Reason Comments Refill Request Encounter Details Date Type Department Care Team (Late st Contact Info) Description 11/13/2014 Refill [facility] - Family Medicine [address] [place] [address] Kerri Felipe MD [address] [place], [place] [address]Y [address] [place] [id number] Refill Request Social History Tobacco Use Types Packs/Day Years Used Date Smoking Tobacco: Never Assessed Sex and Gender Information Value Date Recorded Sex Assigned at Not on file Gender Identity Not on file Sexual Orientation Not on file documented as of this encounter Miscellaneous Notes * Telephone Encounter - Sulema Kaiser MD - 11/13/2014 1:53 PM CST Pharmacy requesting refill. should have run out before now. Sending to Dr felipe TRICAL ASSEMBLIES SUPERVISOR * Telephone Encounter - Sharita Hunt - 11/13/2014 12:[address] Felipe pt. Last refill: 06/18/14 Last OV: 08/01/14 TRICAL ASSEMBLIES SUPERVISOR documented in this encounter Plan of Treatment Not on file documented as of this encounter Visit Diagnoses Not on filedocumented in this encounter Care Teams Torpedo Man Relationship Specialty Start Date End Date Kerri Felipe MD PCP - General Pediatrics 05/07/14 03/26/15 documented as of this encounter
--- OUTSIDE RECORDS SUMMARY | 2024-09-23 12:22 | XMS_ITS | Encounter Summary ---
Author Organization [facility] Health Address [address] [facility] [place] [address] Care Team Providers Care Cable Installation Manager Name Role Phone Kerri Felipe MD Primary Care Provider [phone] Encounter Details Date Type Department Care Team (Late st Contact Info) Description 10/05/2014 Telephone [facility] [address] [facility], [address] [place] [address] Lizbeth Mejias APRN-CNP [address] [place] [address], [place] [address] Social History Tobacco Use Types Packs/Day Years Used Date Smoking Tobacco: Never Assessed Sex and Gender Information Value Date Recorded Sex Assigned at Not on file Gender Identity Not on file Sexual Orientation Not on file documented as of this encounter Miscellaneous Notes * Telephone Encounter - Lizbeth Mejias APRN-CNP - 10/05/2014 6:44 PM CST In chart for call-back MAKER SUPERVISOR documented in this encounter Plan of Treatment Not on file documented as of this encounter Visit Diagnoses Not on filedocumented in this encounter Care Teams Cable Installation Manager Relationship Specialty Start Date End Date Kerri Felipe MD PCP - General Pediatrics 05/07/14 03/26/15 documented as of this encounter
--- OUTSIDE RECORDS SUMMARY | 2024-09-23 12:22 | XMS_ITS | Encounter Summary ---
Author Organization [facility] Address [address] [facility] [place] [address] Care Team Providers Care Oil And Gas Lease Pumper Name Role Phone Kerri Felipe MD Primary Care Provider [phone] Encounter Details Date Type Department Care Team (Late st Contact Info) Description 11/19/2014 Orders Only [facility] Medical [facility] - Family Medicine [address] [place] [address] Antonia Macias MA Social History Tobacco Use Types Packs/Day Years Used Date Smoking Tobacco: Never Assessed Sex and Gender Information Value Date Recorded Sex Assigned at Not on file Gender Identity Not on file Sexual Orientation Not on file documented as of this encounter Plan of Treatment Not on file documented as of this encounter Visit Diagnoses Not on filedocumented in this encounter Care Teams Oil And Gas Lease Pumper Relationship Specialty Start Date End Date Kerri Felipe MD PCP - General Pediatrics 05/07/14 03/26/15 documented as of this encounter
--- OUTSIDE RECORDS SUMMARY | 2024-09-23 12:22 | XMS_ITS | Encounter Summary ---
Author Organization [facility] Address [address] [place] [address] Care Team Providers Care Geographic Information System Analyst Name Role Phone Kerri Felipe MD Primary Care Provider [phone] Reason for Visit * Reason Onset Date Comments MEDICATION REFILL 05/30/2014 Encounter Details Date Type Department Care Team (Late st Contact Info) Description 05/30/2014 Refill [facility] Medical [facility] - Family Medicine [address] [place] [address] Kerri Felipe MD [address] [place] [address] [address] [place] [address] MEDICATION REFILL Social History Tobacco Use Types Packs/Day Years Used Date Smoking Tobacco: Never Assessed Sex and Gender Information Value Date Recorded Sex Assigned at Not on file Gender Identity Not on file Sexual Orientation Not on file documented as of this encounter Miscellaneous Notes * Telephone Encounter - Sharita Hunt - 05/30/2014 4:05 PM CDT Last OV: 05/16/14 documented in this encounter Plan of Treatment Not on file documented as of this encounter Visit Diagnoses Not on filedocumented in this encounter Care Teams Geographic Information System Analyst Relationship Specialty Start Date End Date Kerri Felipe MD PCP - General Pediatrics 05/07/14 03/26/15 documented as of this encounter
--- OUTSIDE RECORDS SUMMARY | 2024-09-23 12:22 | XMS_ITS | Encounter Summary ---
Author Organization [facility] Address [address] [facility] [place] [address] Care Team Providers Care Railroader Name Role Phone Kerri Felipe MD Primary Care Provider [phone] Reason for Visit * Reason Comments Refill Request Encounter Details Date Type Department Care Team (Late st Contact Info) Description 01/05/2015 Refill [facility] - Family Medicine [address] [place] [address] Kerri Felipe MD [address] [place], [place] [address] [place] [address] Refill Request Social History Tobacco Use Types [...] Telephone Encounter - Yenny Hurtado LPN - 01/05/2015 9:50 AM CDT Last OV 08/01/14. Last RF 11/14/14. Requested Prescriptions Pending Prescriptions Disp Refills ??? lansoprazole (PREVACID) 30 MG capsule [Pharmacy Med Name: LANSOPRAZOLE DR 30 MG CAPSULE] 30 Cap1 Sig: TAKE ONE CAPSULE BY MOUTH EVERY DAY documented in this encounter Plan of Treatment Not on file documented as of this encounter Visit Diagnoses Not on filedocumented in this encounter Care Teams Railroader Relationship Specialty Start Date End Date Kerri Felipe MD PCP - General Pediatrics 05/07/14 03/26/15 documented as of this encounter
--- OUTSIDE RECORDS SUMMARY | 2024-09-23 12:22 | XMS_ITS | Encounter Summary ---
Author Organization [facility] Address [address] [facility] [place] [address] Care Team Providers Care Agricultural Consultant Name Role Phone Kerri Felipe MD Primary Care Provider Reason for Visit * Reason Onset Date Comments MEDICATION REFILL 06/18/2014 Encounter Details Date Type Department Care Team (Late st Contact Info) Description 06/18/2014 Refill [facility] Medical [facility] - Family Medicine [address] [place] [address] Kerri Felipe MD [address] [place], [place] [address] [place] [address] MEDICATION REFILL Social History Tobacco Use Types Packs/Day Years Used Date Smoking Tobacco: Never Assessed Sex and Gender Information Value Date Recorded Sex Assigned at Not on file Gender Identity Not on file Sexual Orientation Not on file documented as of this encounter Miscellaneous Notes * Telephone Encounter - Kiki Noriega - 06/18/2014 12:28 PM CDT Pharmacy requesting refill: Last RF 05/07/2014 and last OV 05/16/14. documented in this encounter Plan of Treatment Not on file documented as of this encounter Visit Diagnoses Not on filedocumented in this encounter Care Teams Agricultural Consultant Relationship Specialty Start Date End Date Kerri Felipe MD PCP - General Pediatrics 05/07/14 03/26/15 documented as of this encounter
--- OUTSIDE RECORDS SUMMARY | 2024-09-23 12:22 | XMS_ITS | Encounter Summary ---
Author Organization [facility] Address [address] [facility] [place] [address] Care Team Providers Care Academic Computing Director Name Role Phone Kerri Felipe MD Primary Care Provider Reason for Visit * Reason Comments Refill Request Encounter Details Date Type Department Care Team (Late st Contact Info) Description 11/19/2014 Refill [facility] Medical [facility] - Family Medicine [address] [place] [address] Kerri Felipe MD [address] [place], [place] [address]Y [address] [place] [address] Refill Request Social History Tobacco Use Types Packs/Day Years Used Date Smoking Tobacco: Never Assessed Sex and Gender Information Value Date Recorded Sex Assigned at Not on file Gender Identity Not on file Sexual Orientation Not on file documented as of this encounter Miscellaneous Notes * Telephone Encounter - Kiki Noriega - 11/19/2014 4:33 PM CST Pharmacy escribed refill request. Last RF 10/23/2014 and last OV 08/01/2014. MERIZATION OVEN OPERATOR documented in this encounter Plan of Treatment Not on file documented as of this encounter Visit Diagnoses Not on filedocumented in this encounter Care Teams Academic Computing Director Relationship Specialty Start Date End Date Kerri Felipe MD PCP - General Pediatrics 05/07/14 03/26/15 documented as of this encounter
--- OUTSIDE RECORDS SUMMARY | 2024-09-23 12:22 | XMS_ITS | Encounter Summary ---
Author Organization [facility] Address [address] [facility] [place] [address] Care Team Providers Care Front Desk Auxiliary Name Role Phone Kerri Felipe MD Primary Care Provider [phone] Reason for Visit * Reason Onset Date Comments MEDICATION REFILL 08/17/2014 Encounter Details Date Type Department Care Team (Late st Contact Info) Description 08/17/2014 Refill [facility] Medical Group - Family Medicine [address] [place] [address] Kerri Felipe MD [address] [place], [place] [address] [place] [address] MEDICATION REFILL Social History Tobacco Use Types Packs/Day Years Used Date Smoking Tobacco: Never Assessed Sex and Gender Information Value Date Recorded Sex Assigned at Not on file Gender Identity Not on file Sexual Orientation Not on file documented as of this encounter Miscellaneous Notes * Telephone Encounter - Kerri Felipe MD - 08/17/2014 2:34 PM CST Yes. BITS CURATOR * Telephone Encounter - Kiki Noriega - 08/17/2014 2:27 PM CST Pharmacy states that Qvar should be taken BID. Is it ok to change the order? BITS CURATOR * Telephone Encounter - Kiki Noriega - 08/17/2014 12:10 PM CST Both are historical medications. Last OV 08/01/2014. BITS CURATOR documented in this encounter Plan of Treatment Not on file documented as of this encounter Visit Diagnoses Not on filedocumented in this encounter Care Teams Front Desk Auxiliary Relationship Specialty Start Date End Date Kerri Felipe MD PCP - General Pediatrics 05/07/14 03/26/15 documented as of this encounter
--- OUTSIDE RECORDS SUMMARY | 2024-09-23 12:22 | XMS_ITS | Encounter Summary ---
Author Organization [facility] Health Address [address] [facility] [place] [address] Care Team Providers Care Wedger Machine Name Role Phone Kerri Felipe MD Primary Care Provider [phone] Encounter Details Date Type Department Care Team (Late st Contact Info) Description 12/25/2014 Telephone [facility] [address] [place] [address], [address] [place] [address] Dona Murphy, RN Social History Tobacco Use Types Packs/Day Years Used Date Smoking Tobacco: Never Alcohol Use Standard Drinks/Week Comments Not Asked 0 (1 standard drink = 0.6 oz pur e alcohol) Sex and Gender Information Value Date Recorded Sex Assigned at Not on file Gender Identity Not on file Sexual Orientation Not on file documented as of this encounter Miscellaneous Notes * Telephone Encounter - Dona Murphy, RN - 12/25/2014 10:45 AM CDT In chart for follow up call documented in this encounter Plan of Treatment Not on file documented as of this encounter Visit Diagnoses Not on filedocumented in this encounter Care Teams Wedger Machine Relationship Specialty Start Date End Date Kerri Felipe MD PCP - General Pediatrics 05/07/14 03/26/15 documented as of this encounter
--- OUTSIDE RECORDS SUMMARY | 2024-09-23 12:22 | XMS_ITS | Encounter Summary ---
Author Organization [facility] Address [address] [place] [address] Care Team Providers Care Glue Bone Drier Name Role Phone Kerri Felipe MD Primary Care Provider [phone] Reason for Visit * Reason Comments Cough on going Encounter Details Date Type Department Care Team (Late st Contact Info) Description 08/01/2014 4:40 PM HOSPITAL TELEVISION RENTAL CLERK Office Visit [facility] - Family Medicine [address] [place] [address] Kerri Felipe MD [address] [place], [place] [address] [address] [place] [phone] Cough (Primary Dx); Need for prophylactic vaccination and inoculation against influenza; Allergic rhinitis; Cough variant asthma (HCC) Social History Tobacco Use Types Packs/Day Years Used Date Smoking Tobacco: Never Assessed Sex and Gender Information Value Date Recorded Sex Assigned at Not on file Gender Identity Not on file Sexual Orientation Not on file documented as of this encounter Last Filed Vital Signs Vital Sign Reading Time Taken Comments Blood Pressure - - Pulse - - Temperature 36.9 ??C (98.5 ??F) 08/01/2014 4:48 PM CS T Respiratory Rate - - Oxygen Saturation - - Inhaled Oxygen Concentration - - Weight 24.9 kg (55 lb) 08/01/2014 4:48 PM HOSPITAL TELEVISION RENTAL CLERK Height - - Body Mass Index - - documented in this encounter Progress Notes * Brisa Thomas - 08/03/2014 11:23 AM CST Per documentation changed primary DX from V04.81 to 796.2 ITAL TELEVISION RENTAL CLERK * Kerri Felipe MD - 08/02/2014 10:23 AM CST SUBJECTIVE: Willi is here today with mother, brother with Chief Complaint Patient presents with ??? Cough on going Child has had a cough for at least 2 weeks, he has no wheezing no shortness of breath running no fever has not missed any school due to cough has a history of cough variant asthma and allergic rhinitis and currently is on Qvar inhaler and Flonase nasal he is also here for flu vaccine OBJECTIVE: Temp(Src) 98.5 ??F (Oral) Wt 24.948 kg (55 lb) General appearance: alert, active, well appearing, and in no distress ENT exam reveals - both sides TM normal without fluid or infection, neck without nodes and throat normal without erythema or exudate CVS exam: normal rate, regular rhythm, normal S1, S2, no murmurs, rubs, clicks or gallops. Chest: clear to auscultation, no wheezes, rales or rhonchi, symmetric air entry. Abdominal exam: soft, nontender, nondistended, no masses or organomegaly. Skin exam: No rashes or abnormal dyspigmentation ASSESSMENT and PLAN: Cough Allergic Rhinitis Cough varient asthma Continue with QVAR inhaler, Flonase nasal Will start him on Singulair, see orders Symptomatic treatment, cough instruction was given in detail. Flu.vacc.given,side effects explained. Mother to call me in 1 week with update To call or return as needed. ITAL TELEVISION RENTAL CLERK * Anisha Calabrese MA - 08/01/2014 5:40 PM CST VIS given. Consent signed and sent to scanning. ITAL TELEVISION RENTAL CLERK documented in this encounter Plan of Treatment Not on file documented as of this encounter Visit Diagnoses Diagnosis Cough- Primary Need for prophylactic vaccination and inoculation against influenza Allergic rhinitis Cough variant asthma (HCC) Cough variant asthma documented in this encounter Care Teams Glue Bone Drier Relationship Specialty Start Date End Date Kerri Felipe MD PCP - General Pediatrics 05/07/14 03/26/15 documented as of this encounter
--- OUTSIDE RECORDS SUMMARY | 2024-09-23 12:23 | XMS_ITS | Encounter Summary ---
Author Organization [facility] Address [address] [place] [address]. [place], [place] [address] [place] [address] Care Team Providers Care Regulatory Services Consultant Name Role Phone Esa Williamson MD Primary Care Provider [phone] Encounter Details Date Type Department Care Team (Latest Contact Info) Description 07/05/2024 Travel Social History Tobacco Use Types Packs/Day Years Used Date Smoking Tobacco: Never Passive Smoke Exposure: Never Smokeless Tobacco: Never Alcohol Use Standard Drinks/Week Comments Never 0 (1 standard drink = 0.6 oz pur e alcohol) PHQ-2 Answer Date Recorded Patient Health Questionnaire-2 Score 0 06/28/2024 Sex and Gender Information Value Date Recorded Sex Assigned at Not on file Legal Sex Male 7:45 PM CDT Gender Identity Not on file Sexual Orientation Not on file documented as of this encounter Plan of Treatment Upcoming Encounters Date Type Department Care Team (Latest Contact Info) Description 09/24/2024 7:30 PM PMP CERTIFIED PROJECT MANAGER Appointment [facility] [address] [place] [address] Nelly Guerrero SENIOR REPORT DEVELOPER [address] [place], [place] [address] 09/25/2024 7:00 AM PMP CERTIFIED PROJECT MANAGER Appointment [facility] [address] [place] [address] Nelly Guerrero SENIOR REPORT DEVELOPER [address] [facility] [place] [place] [address] 11/01/2024 9:10 AM PMP CERTIFIED PROJECT MANAGER Hospital Encounter [facility] [address] [place] [address] Chin Carcamo MD [address] [address] [place] [address] 11/01/2024 9:10 AM PMP CERTIFIED PROJECT MANAGER - 11/01/2024 9:40 AM PMP CERTIFIED PROJECT MANAGER Surgery [facility] [address] [place] [address] Chin Carcamo MD [address] [address] COLONOSCOPY DIAGNOSTIC WITH/WITHOUT SPECIMEN BRUSH/WASH Scheduled Procedures Name Priority Associated Diagnoses Date/Ti me COLONOSCOPY DIAGNOSTIC WITH/WITHOUT SPECIMEN BRUSH/WASH Hematochezia Chronic diarrhea 11/01/2024 9:10 AM PMP CERTIFIED PROJECT MANAGER documented as of this encounter Visit Diagnoses Not on filedocumented in this encounter Care Teams Regulatory Services Consultant Relationship Specialty [place] [address] [place] [address] PCP - General FAMILY PRACTICE 08/21/22 documented as of this encounter
--- OUTSIDE RECORDS SUMMARY | 2024-09-23 12:23 | XMS_ITS | Encounter Summary ---
Author Organization [facility] Address [address] [place] [address]. [place], [place] [address] [place] [address] Care Team Providers Care Rug Drying Machine Operator Name Role Phone Esa Williamson MD Primary Care Provider [phone] Reason for Referral * Sleep Lab (Routine) - Authorized Specialty Diagnoses / Procedures Referred By Jeb gilliam Referred To Contact [facility] Sleep Disorders Diagnoses Hypersomnolence Procedures Multiple Sleep Latency Test (MSLT) (86868) Nelly Guerrero NP [address] [place] [address] Phone: tel: fax: [facility] [address] [place] [address] Phone: tel: fax: Referral ID Status Reason Start Date Expiration Date V isits Requested Visits Authorized [id number] Authorized 08/01/2024 09/01/2025 1 1 DANCER * Sleep Lab (Routine) - Authorized Specialty Diagnoses / Procedures Referred By Jeb gilliam Referred To Contact [facility] Sleep Disorders Diagnoses Hypersomnolence Procedures Diagnostic PSG (39659, 97550) Nelly Guerrero NP [address] [place] [address] Phone: tel: fax: [facility] [address] [place] [address] Phone: tel: fax: Referral ID Status Reason Start Date Expiration Date V isits Requested Visits Authorized [id number] Authorized 08/01/2024 09/01/2025 1 1 DANCER Encounter Details Date Type Department Care Team (Late st Contact Info) Description 08/01/2024 Transcribe Orders [facility] [address] [place] [address] Nelly Guerrero LOCOMOTIVE SWITCH OPERATOR [address] [place], [place] [phone] Social History Tobacco Use Types Packs/Day Years [...] (Latest Contact Info) Description 09/24/2024 7:30 PM TAXI DANCER Appointment [facility] [address] [place] [address] Nelly Guerrero, LOCOMOTIVE SWITCH OPERATOR [address] [place] [address] 09/25/2024 7:00 AM TAXI DANCER Appointment [facility] [address] [place] [address] Nelly Guerrero LOCOMOTIVE SWITCH OPERATOR [address] [facility] [place] [place] [address] 11/01/2024 9:10 AM TAXI DANCER Hospital Encounter [facility] [address] [place] [address] Chin Carcamo MD [address] [facility] [address] [place] [address] 11/01/2024 9:10 AM TAXI DANCER - 11/01/2024 9:40 AM TAXI DANCER Surgery [facility] [address] [place] [address] Chin Carcamo MD [address] [facility] [address] [place], [place] [phone] COLONOSCOPY DIAGNOSTIC WITH/WITHOUT SPECIMEN BRUSH/WASH Scheduled Orders Name Type Priority Associated Diagnoses Orde r Schedule Diagnostic PSG (11104, 84159) Sleep Center Routine Hypersomnolence Expected: 08/01/2024, Expires: 08/01/2025 Multiple Sleep Latency Test (MSLT) (37526) Sleep Center Routine Hypersomnolence Expected: 08/01/2024, Expires: 08/01/2025 Scheduled Procedures Name Priority Associated Diagnoses Date/Ti me COLONOSCOPY DIAGNOSTIC WITH/WITHOUT SPECIMEN BRUSH/WASH Hematochezia Chronic diarrhea 11/01/2024 9:10 AM TAXI DANCER documented as of this encounter Visit Diagnoses Diagnosis Hematochezia Blood in stool Chronic diarrhea Diarrhea Hypersomnolence- Primary Hypersomnia, unspecified Hematochezia Blood in stool Chronic diarrhea Diarrhea documented in this encounter Care Teams Rug Drying Machine Operator Relationship Specialty [place] [address] [place] [address] PCP - General FAMILY PRACTICE 08/21/22 documented as of this encounter
--- OUTSIDE RECORDS SUMMARY | 2024-09-23 12:23 | XMS_ITS | Encounter Summary ---
Author Organization [facility] Address [address] [place] [address]. [place], [place] [address] [place] [address] Care Team Providers Care Airport Representative Name Role Phone Esa Williamson MD Primary Care Provider [phone] Encounter Details Date Type Department Care Team (Latest Contact Info) Description 07/31/2024 Scan [facility] INFO SRVCS Scanned, Doc Med Group Social History Tobacco Use Types Packs/Day Years [...] (Latest Contact Info) Description 09/24/2024 7:30 PM BREAKER HAND Appointment [facility] [address] [place] [address] Nelly Guerrero, RECORDS MANAGEMENT ANALYST [address] [place] [address] 09/25/2024 7:00 AM BREAKER HAND Appointment [facility] [address] [place] [address] Nelly Guerrero, RECORDS MANAGEMENT ANALYST [address] [place] [address] 11 11/01/2024 9:10 AM BREAKER HAND Hospital Encounter [facility] [address] [place] [address] Chin Carcamo MD [address] [address] 11/01/2024 9:10 AM BREAKER HAND - 11/01/2024 9:40 AM BREAKER HAND Surgery [facility] [address] [place] [address] Chin Carcamo MD [address] [address] COLONOSCOPY DIAGNOSTIC WITH/WITHOUT SPECIMEN BRUSH/WASH Scheduled Procedures Name Priority Associated Diagnoses Date/Ti me COLONOSCOPY DIAGNOSTIC WITH/WITHOUT SPECIMEN BRUSH/WASH Hematochezia Chronic diarrhea 11/01/2024 9:10 AM BREAKER HAND documented as of this encounter Visit Diagnoses Not on filedocumented in this encounter Care Teams Airport Representative Relationship Specialty [place] [address] [place] [address] PCP - General FAMILY PRACTICE 08/21/22 documented as of this encounter
--- OUTSIDE RECORDS SUMMARY | 2024-09-23 12:23 | XMS_ITS | Encounter Summary ---
Author Organization [facility] Address [address] [place] [address]. [place], [place] [address] [place] [address] Care Team Providers Care Manager Of Case Name Role Phone Esa Williamson MD Primary Care Provider [phone] Encounter Details Date Type Department Care Team (Latest Contact Info) Description 07/24/2024 Scan [facility] INFO SRVCS Scanned, Doc [...] (Latest Contact Info) Description 09/24/2024 7:30 PM IRONER HAND Appointment [facility] [address] [place] [address] Nelly Guerrero, BILLET INSPECTOR [address] [place] [address] 09/25/2024 7:00 AM IRONER HAND Appointment [facility] [address] [place] [address] Nelly Guerrero, BILLET INSPECTOR [address] [place] [address] 11/01/2024 9:10 AM IRONER HAND Hospital Encounter [facility] [address] [place] [address] Chin Carcamo MD [address] [address] 11/01/2024 9:10 AM IRONER HAND - 11/01/2024 9:40 AM IRONER HAND Surgery [facility] [address] [place] [address] Chin Carcamo MD [address] [address] COLONOSCOPY DIAGNOSTIC WITH/WITHOUT SPECIMEN BRUSH/WASH Scheduled Procedures Name Priority Associated Diagnoses Date/Ti me COLONOSCOPY DIAGNOSTIC WITH/WITHOUT SPECIMEN BRUSH/WASH Hematochezia Chronic diarrhea 11/01/2024 9:10 AM IRONER HAND documented as of this encounter Visit Diagnoses Not on filedocumented in this encounter Care Teams Manager Of Case Relationship Specialty [place] [address] [place] [address] PCP - General FAMILY PRACTICE 08/21/22 documented as of this encounter
--- OUTSIDE RECORDS SUMMARY | 2024-09-23 12:23 | XMS_ITS | Encounter Summary ---
Author Organization [facility] Address [address] [place] [address]. [place], [place] [address] [place] [address] Care Team Providers Care Manufacturing Shift Supervisor Name Role Phone Esa Williamson MD Primary Care Provider [phone] Reason for Referral * Sleep Lab (Routine) - Closed Specialty Diagnoses / Procedures Referred By Jeb gilliam Referred To Contact [facility] Sleep Disorders Diagnoses MARIO (obstructive sleep apnea) Procedures Diagnostic PSG (38298, 00059) Nelly Guerrero NP [address] [place] [address] Phone: tel: fax: [facility] [id number] [place] [address] Phone: tel: fax: Referral ID Status Reason Start Date Expiration Date Visits Re quested Visits Authorized [id number] Closed 06/23/2024 07/24/2025 1 1 Reason for Visit * Reason Comments Obstructive Sleep Apnea * Sleep Lab (Routine) - Closed Specialty Diagnoses / Procedures Referred By Contac t Referred To Contact [facility] Sleep Disorders Diagnoses MARIO (obstructive sleep apnea) Procedures Diagnostic PSG (42744, 81879) Nelly Guerrero NP [address] [place] [address] Phone: tel: fax: [facility] [address] [place] [address] Phone: tel: fax: Referral ID Status Reason Start Date Expiration Date Visits Re quested Visits Authorized [id number] Closed 06/23/2024 07/24/2025 1 1 Encounter Details Date Type Department Care Team (Latest Contact Info) Description 07/05/2024 8:10 PM CDT - 07/05/2024 11:59 PM CDT Hospital Encounter [facility] [address] [place] [address] Nelly Guerrero, HIGHWAY TRUCK DRIVER [address] [place] [address] Obstructive Sleep Apnea Discharge Disposition: Home or Self Care (Routine Discharge) Social History Tobacco Use Types Packs/Day Years [...] on file documented as of this encounter Medications at Time of Discharge albuterol sulfate HFA 108 (90 Base) MCG/ACT inhaler Inhale 1-2 puffs into the lungs every 4 (four) hours as needed. 05/14/2017 dicyclomine (BENTYL) 10 MG capsuleIndicatio ns:Chronic diarrhea Take 1 capsule (10 mg total) by mouth 4 (four) times daily as needed. 120 capsule 2 06/29/2024 methylphenidate LA (RITALIN LA) 20 MG 24 hr capsule take 1 capsule by mouth every day in the morning for 30 days 06/16/2024 Na sulfate-K sulfate-Mg sulfate (SUPREP BOWEL PREP KIT) 17.5-3.13-1.6 GM/177ML SolutionIndicati ons:Hematochezia ,Chronic diarrhea Take 177 mLs by mouth every 12 (twelve) hours. Per GI instructions 354 mL 06/28/2024 documented as of this encounter Progress Notes * Luke Solano MD - 07/05/2024 8:15 PM CDTEncounter addended by: Luke Solano MD on: 07/18/2024 1:00 PM Actions taken: Pend clinical note, Clinical Note Signed documented in this encounter Procedure Notes * Luke Solano MD - 07/05/2024 8:15 PM CDTAssociated Order(s): POLYSOMNOGRAPHY 4 OR MORE PARAMETERS [place], [place] DIAGNOSTIC NOCTURNAL POLYSOMNOGRAM INTERPRETATION PATIENT NAME: WILLI NELSON DATE OF : 2005 DATE OF SERVICE: 07/05/2024 PATIENT TYPE: CLI Ordering Phy Exam Description Nelly PAZ PSG 4+PARAMETERS ATTENDING PHYSICIAN: Luke Solano MD REFERRING PHYSICIAN: Nelly PAZ GENERAL INFORMATION Total Sleep Time: 436.5 minutes Sleep Efficiency Index: 96.4% Sleep Latency: 7.7 minutes REM Latency: 159.0 minutes Respiratory Disturbance Index: 6.2 per hour Apnea-Hypopnea Index: 0.3 per hour Procedure: The overnight polysomnogram was an attended study using a multiple channel system including simultaneous monitoring and recording of electroencephalography (EEG), right and left electrooculography (EOC), submental electromyography (EOG), submental electromyography (EMG), EKG, oral/nasal a irflow, snoring, respiratory effort, oxygen saturations, right and left anterior tibialis electromyography, and body position. Sleep Architecture: The patient underwent sleep testing and slept for a total of 436.5 minutes during 453.0 minutes of recording time. Latency to persistent sleep was 7.7 minutes with sleep efficiency of 96.4% and a REM latency of 159.0 minutes. Patient spent 3.4% (15.0 minutes) in stage N1, 64.5% (281.5 minutes) in stage N2, 14.2% (62.0 minutes) in Stage N3, 17.9% (78.0 minutes) in REM. The patient slept 100% of the time in supine position, 0.0% of the time in prone position, 0.0% of the time in left-sided position, and 0.0% of the time in right-sided position. There were 90 arousals, of which 15 were associated with respiratory events and 64 were spontaneous. Arousal index was 12.4 per hour. Limb Activity Summary: The patient demonstrated a total of 30 leg movements during the night, of which 12 had the appearance of periodic limb movements. There were a total of 12 arousals associated with leg movements for an arousal index with leg movements of 1.6 per hour. The periodic limb movement index was 1.6 per hour. Cardiac Events Summary: The average heart rate was 58.1 beats per minute. Bradycardia was noted during this study. Respiratory Events Summary: There were a total of 2 apneas and hypopneas, of which - were apneas. Of those apneas, - were Obstructive, - were Central and - were Mixed. There were an additional 15 respiratory event-related arousals. The overall AHI was 0.3 per hour and the overall RDI was 6.2 per hour. During non- supine sleep, the overall AHI was - per hour. During supine sleep, the overall AHI was 0.3 per hour. NREM AHI was - per hour and REM AHI was 1.5 per hour. Oxygen Saturation Summary: Patient's average saturation was 97.0% during REM and 96.2% during NREM.The patient's lowest saturation was 93.0% during REM and 93.0% during NREM. Saturation was 90% or higher for 100% of the total sleep time. Saturation was less than or equal to 88% for 0.0% of the total sleep time or 0.0 minutes. ASSESSMENT/PLAN: No Evidence of Obstructive Sleep Apnea. This patient should maintain good sleep hygiene techniques, maintain a consistent sleep/wake schedule with adequate hours of sleep, and avoid hazardous activities when sleepy. The patient should be cautioned about factors that may potentially exacerbate snoring and sleep-related problems, such as GEAR CHANGER depressants, especially at bedtime. This document was electronically signed by: Luke Solano M.D. on 07/11/2024 at 10:48 AM. documented in this encounter Plan of Treatment Upcoming Encounters Date Type Department Care Team (Latest Contact Info) Description 09/24/2024 7:30 PM PAINTER M[address]ROR Appointment [facility] [address] [place] [address] Nelly Guerrero, HIGHWAY TRUCK DRIVER [address] [place] [address] 09/25/2024 7:00 AM PAINTER MIRROR Appointment [facility] [address] [place] [address] Nelly Guerrero, HIGHWAY TRUCK DRIVER [address] [place] [address] 11/01/2024 9:10 AM PAINTER MIRROR Hospital Encounter [facility] [address] [place] [address] Chin Carcamo MD [address] [id number] 11/01/2024 9:10 AM PAINTER MIRROR - 11/01/2024 9:40 AM PAINTER MIRROR Surgery [facility] [address] [place] [address] Chin Carcamo MD [address] [address] COLONOSCOPY DIAGNOSTIC WITH/WITHOUT SPECIMEN BRUSH/WASH Scheduled Procedures Name Priority Associated Diagnoses Date/Ti me COLONOSCOPY DIAGNOSTIC WITH/WITHOUT SPECIMEN BRUSH/WASH Hematochezia Chronic diarrhea 11/01/2024 9:10 AM PAINTER MIRROR documented as of this encounter Procedures Procedure Name Priority Date/Time Associated Diagnosis Comments POLYSOMNOGRAPHY 4 OR MORE PARAMETERS Routine 07/05/2024 8:15 PM CDT MARIO (obstructive sleep apnea) documented in this encounter Results * Diagnostic PSG (00043, 73825) (07/05/2024 8:15 PM CDT) Narrative [facility] - 07/05/2024 8:15 PM CDT Luke Solaon MD ? 07/18/2024 ??1:00 PM [place], [place] DIAGNOSTIC NOCTURNAL POLYSOMNOGRAM INTERPRETATION PATIENT NAME: WILLI NELSON DATE OF : 2005 DATE OF SERVICE: 07/05/2024 PATIENT TYPE: CLI Ordering Phy Exam Description Nelly PAZ PSG 4+PARAMETERS ATTENDING PHYSICIAN: Luke Solano MD REFERRING PHYSICIAN: Nelly PAZ GENERAL INFORMATION Total Sleep Time: 436.5 minutes Sleep Efficiency Index: 96.4% Sleep Latency: 7.7 minutes REM Latency: 159.0 minutes Respiratory Disturbance Index: 6.2 per hour ?? Apnea-Hypopnea Index: 0.3 per hour Procedure: The overnight polysomnogram was an attended study using a multiple channel system including simultaneous monitoring and recording of electroencephalography (EEG), right and left electrooculography (EOC), submental electromyography (EOG), submental electromyography (EMG), EKG, oral/nasal airflow, snoring, respiratory effort, oxygen saturations, right and left anterior tibialis electromyography, and body position. Sleep Architecture: The patient underwent sleep testing and slept for a total of 436.5 minutes during 453.0 minutes of recording time. Latency to persistent sleep was 7.7 minutes with sleep efficiency of 96.4% and a REM latency of 159.0 minutes. Patient spent 3.4% (15.0 minutes) in stage N1, 64.5% (281.5 minutes) in stage N2, 14.2% (62.0 minutes) in Stage N3, 17.9% (78.0 minutes) in REM. The patient slept 100% of the time in supine position, 0.0% of the time in prone position, 0.0% of the time in left-sided position, and 0.0% of the time in right-sided position. There were 90 arousals, of which 15 were associated with respiratory events and 64 were spontaneous. Arousal index was 12.4 per hour. Limb Activity Summary: The patient demonstrated a total of 30 leg movements during the night, of which 12 had the appearance of periodic limb movements. There were a total of 12 arousals associated with leg movements for an arousal index with leg movements of 1.6 per hour. The periodic limb movement index was 1.6 per hour. Cardiac Events Summary: The average heart rate was 58.1 beats per minute. Bradycardia was noted during this study. Respiratory Events Summary: There were a total of 2 apneas and hypopneas, of which - were apneas. Of those apneas, - were Obstructive, - were Central and - were Mixed. There were an additional 15 respiratory event-related arousals. The overall AHI was 0.3 per hour and the overall RDI was 6.2 per hour. During non-supine sleep, the overall AHI was - per hour. During supine sleep, the overall AHI was 0.3 per hour. NREM AHI was - per hour and REM AHI was 1.5 per hour. Oxygen Saturation Summary: Patient's average saturation was 97.0% during REM and 96.2% during NREM. The patient's lowest saturation was 93.0% during REM and 93.0% during NREM. Saturation was 90% or higher for 100% of the total sleep time. Saturation was less than or equal to 88% for 0.0% of the total sleep time or 0.0 minutes. ASSESSMENT/PLAN: No Evidence of Obstructive Sleep Apnea. This patient should maintain good sleep hygiene techniques, maintain a consistent sleep/wake schedule with adequate hours of sleep, and avoid hazardous activities when sleepy. The patient should be cautioned about factors that may potentially exacerbate snoring and sleep-related problems, such as GEAR CHANGER depressants, especially at bedtime. This document was electronically signed by: Luke Solano M.D. on 07/11/2024 at 10:48 AM. us Nelly Guerrero NP SLEEP CENTER ORDERABLES Final Result [facility] [address] [place] [address], [place] [phone] documented in this encounter Visit Diagnoses Diagnosis Hematochezia Blood in stool Chronic diarrhea Diarrhea MARIO (obstructive sleep apnea) Obstructive sleep apnea (adult) (pediatric) Hematochezia Blood in stool Chronic diarrhea Diarrhea documented in this encounter Care Teams Manufacturing Shift Supervisor Relationship Specialty [place] [address] [place] [address] PCP - General FAMILY PRACTICE 08/21/22 documented as of this encounter
--- OUTSIDE RECORDS SUMMARY | 2024-09-23 12:23 | XMS_ITS | Clinical Summary ---
Author Organization [facility] Address [address] [place] [address]. [place], [place] [address] [place] [address] Care Team Providers Care Patient Access Manager Name Role Phone sEa Williamson MD Primary Care Provider Allergies Active Allergy Reactions Criticality Noted Date Comments Penicillins Rash Low 03/22/2018 Sulfa Antibiotics Vomiting Low 05/16/2014 Medications albuterol sulfate HFA 108 (90 Base) MCG/ACT inhaler Inhale 1-2 puffs into the lungs every 4 (four) hours as needed. 7 Active methylphenidate LA (RITALIN LA) 20 MG 24 hr capsule take 1 capsule by mouth every day in the morning for 30 days 4 Active Na sulfate-K sulfate-Mg sulfate (SUPREP BOWEL PREP KIT) 17.5-3.13-1.6 GM/177ML SolutionIndicat ions:Hematochez ia,Chronic diarrhea Take 177 mLs by mouth every 12 (twelve) hours. Per GI instructions 354 mL 4 Active dicyclomine (BENTYL) 10 MG capsuleIndicati ons:Chronic diarrhea Take 1 capsule (10 mg total) by mouth 4 (four) times daily as needed. 120 capsule 2 4 Active Active Problems Problem Noted Date Diagnosed Date Hematochezia 06/29/2024 Chronic diarrhea 06/29/2024 Spondylolisthesis of lumbar region 10/19/2022 Penile abnormality 08/24/2022 Irritable bowel syndrome with diarrhea 2 Cough variant asthma (HHS/HCC) 08/02/2014 Overview (02/20/2021): Transitioned From: History of asthma Encounters Date Type Department Care Team Description 08/01/2024 Transcribe Orders [facility] [address] [place] [address] Nelly Guerrero, DOG LICENSE OFFICER SUPERVISOR 07/31/2024 Scan [facility] INFO SRVCS Scanned, Doc [facility] 07/28/2024 Scan [facility] INFO SRVCS Scanned, [facility] 07/24/2024 Scan [facility] INFO SRVCS Scanned, Doc [facility] 07/05/2024 8:10 PM CDT - 07/05/2024 11:59 PM CDT Hospital Encounter [facility] [address] [place] [address] Nelly Guerrero, DOG LICENSE OFFICER SUPERVISOR Obstructive Sleep Apnea Discharge Disposition: Home or Self Care (Routine Discharge) 07/05/2024 Travel 06/29/2024 [facility] - [address], [address] [place] [phone] Chin Carcamo MD 06/28/2024 2:20 PM CDT [facility] - [address] [place] [phone] Gail John NP Follow Up; IBS (F/u (IBS/diarrhea,bloat ing)) 06/28/2024 Travel from Last 3 Months Immunizations Name Administration Dates Next Due DTaP (Daptacel) 11/06/2008 Dtap 12/09/2005, 5,2004,09/28 Dtap (Acel-Immune) 11/06/2008 Dtap (Generic) 11/06/2008 Fluzone 6 Months+ Quad (0.5 mL Prefilled Syringe) 07/20/2022,07/10/2021 HPV GARDASIL 9-VALENT 11/04/2020,07/02/2020,08/0 02/2020 Hepatitis A Vaccine - 2 Dose 08/24/2006,02/18/20 06 Hepatitis B (Generic: Adult) 12/09/2005,12/25/19 05,2004 Hib Vaccine, Prp-Omp 12/09/2005,2004,10/21 Hib-Hepatitis B (Comvax) 12/09/2005,2004,0 2004 Influenza (FluMist) 07/20/2012,08/11/2011,2010 Influenza (Generic) 08/01/2014, 7,07/05/2007,06/27,07/15/2006,07/24/2005,07/24/20 05,06/23/2005,06/23/2005 Influenza Adult (Generic) 08/01/2020,08/01/2020, 08/01/2014 MENINGOCOCCAL A C Y&W-135 oligosaccharide (MENVEO) 04/03/2021 MMR 11/06/2008,09/30/2005 Menactra 04/10/2016 PFIZER COVID-19 (ORIGINAL FO RMULATION, PURPLE CAP) mRNA, LNP-S, PF, 30 MCG/0.3 ML DOSE 09/16/2021,01/14/2021,12/23/2020 Pneumococcal (Prevnar 7) 12/09/2005,0609/2004,2004,09/28 Polio IPV (Ipol) 11/06/2008, 5,02/25/2005,10/29 Polio Ipv (Generic) 11/06/2008, 5,02/25/2005,10/29 Tdap (Generic) 04/10/2016 Varicella Vaccine 11/06/2008,02/17/2006 Family History Medical History Relation Comments No Known Problems Brother No Known Problems Father No Known Problems Mother Colon Cancer o n Mom's side Relation Status Comments Brother Alive Father Mother Alive Social History Tobacco Use Types Packs/Day Years Used Date Smoking Tobacco: Never Passive Smoke Exposure: Never Smokeless Tobacco: Never Tobacco Cessation:Counseling Given: No Alcohol Use Standard Drinks/Week Comments Never 0 [...] Reading Time Taken Comments Blood Pressure 110/70 06/28/2024 2:16 PM CDT Pulse 112 06/28/2024 2:16 PM CDT Temperature 36.9 ??C (98.4 ??F) 06/28/2024 2:16 PM CD T Respiratory Rate 18 06/28/2024 2:16 PM CDT Oxygen Saturation 100% 06/28/2024 2:16 PM CDT Inhaled Oxygen Concentration - - Weight 72.6 kg (160 lb) 06/28/2024 2:16 PM CDT Height 177.8 cm (5' 10 ) 06/28/2024 2:16 PM CDT Body Mass Index 22.96 06/28/2024 2:16 PM CDT Plan of Treatment Upcoming Encounters Date Type Department Care Team (Latest Contact Info) Description 09/24/2024 7:30 PM FLIGHT DISPATCHER Appointment [facility] [address] [place] [address] Nelly Guerrero, DOG LICENSE OFFICER SUPERVISOR [address] [place], [place] [address] 09/25/2024 7:00 AM FLIGHT DISPATCHER Appointment [facility] [address] [place] [address] Nelly Guerrero DOG LICENSE OFFICER SUPERVISOR [address] [place], [place] [address] 11/01/2024 9:10 AM FLIGHT DISPATCHER Hospital Encounter [facility] [address] [place] [address] Chin Carcamo MD [address] [place] [address] 11/01/2024 9:10 AM FLIGHT DISPATCHER - 11/01/2024 9:40 AM FLIGHT DISPATCHER Surgery [facility] [address] [place] [address] Chin Carcamo MD [address] [address] COLONOSCOPY DIAGNOSTIC WITH/WITHOUT SPECIMEN BRUSH/WASH Scheduled Procedures Name Priority Associated Diagnoses Date/Ti me COLONOSCOPY DIAGNOSTIC WITH/WITHOUT SPECIMEN BRUSH/WASH Hematochezia Chronic diarrhea 11/01/2024 9:10 AM FLIGHT DISPATCHER Health Maintenance Due Date Last Done Comments Pneumococcal Vaccine: Pediatrics (0 to 5 Years) and At-Risk Patients (6 to 64 Years) (1 of 2 - PCV) 2010 12/09/2005, 02/25/2005, 2004, Additional history exists Hepatitis C 2022 Annual Physical 04/16/2023 04/16/2022, 04/03/2021 COVID-19 Vaccine ( season) 2024 07/02/2022, 09/16/2021, 01/14/2021, Additional history exists Influenza Adult (#1) 2024 07/20/2022, 07/10/2021, 08/01/2020, Additional history exists DTaP, Tdap and Td Vaccines (7 - Td or Tdap) 04/10/2026 04/10/2016, 11/06/2008, 11/06/2008, Additional history exists Hepatitis B Vaccines Completed 12/09/2005, 12/09/2005, 2004, Additional history exists HPV Vaccines Completed 11/04/2020, 02/2020, 05/02/2020 Meningococcal Vaccine Completed 04/03/2021, 016 RSV Immunizations Under 20 Months Aged Out No longer eligible based on patient's age to complete this topic Procedures Procedure Name Priority Date/Time Associated Diagnosis Comments POLYSOMNOGRAPHY 4 OR MORE PARAMETERS Routine 07/05/2024 8:15 PM CDT MARIO (obstructive sleep apnea) from Last 3 Months Results * Diagnostic PSG (74142, 13810) (07/05/2024 8:15 PM CDT) Narrative [facility] - 07/05/2024 8:15 PM CDT Luke Solano MD ? 07/18/2024 ??1:00 PM [place], [place] DIAGNOSTIC NOCTURNAL POLYSOMNOGRAM INTERPRETATION PATIENT NAME: [...] exacerbate snoring and sleep-related problems, such as WRAPPER LAYER depressants, especially at bedtime. This document was electronically signed by: Luke Solano M.D. on 07/11/2024 at 10:48 AM. Nelly Guerrero NP SLEEP CENTER ORDERABLES Final Result [facility] [address] [place] [address], from Last 3 Months Insurance [employer] [facility] [employer] [facility] Care Teams Patient Access Manager Relationship Specialty [place] [address] [place] [address] PCP - General FAMILY PRACTICE 08/21/22
--- OUTSIDE RECORDS SUMMARY | 2024-09-23 12:23 | XMS_ITS | Encounter Summary ---
Author Organization [facility] Address [address] [place] [address]. [place], [place] [address] [place] [address] Care Team Providers Care Formal Wear Rental Clerk Name Role Phone Esa Williamson MD Primary Care Provider [phone] Encounter Details Date Type Department Care Team (Latest Contact Info) Description 07/28/2024 Scan [facility] HEALTH INFO SRVCS Scanned, [...] (Latest Contact Info) Description 09/24/2024 7:30 PM SEAFOOD PACKER Appointment [facility] [address] [place] [address] Nelly Guerrero, FARM SPECIALIST [address] [place] [address] 09/25/2024 7:00 AM SEAFOOD PACKER Appointment [facility] [address] [place] [address] Nelly Guerrero, FARM SPECIALIST [address] [place] [address] 11/01/2024 9:10 AM SEAFOOD PACKER Hospital Encounter [facility] [address] [place] [address] Chin Carcamo MD [address] [address] 11/01/2024 9:10 AM SEAFOOD PACKER - 11/01/2024 9:40 AM SEAFOOD PACKER Surgery [facility] [address] [place] [address] Chin Carcamo MD [address] [address] COLONOSCOPY DIAGNOSTIC WITH/WITHOUT SPECIMEN BRUSH/WASH Scheduled Procedures Name Priority Associated Diagnoses Date/Ti me COLONOSCOPY DIAGNOSTIC WITH/WITHOUT SPECIMEN BRUSH/WASH Hematochezia Chronic diarrhea 11/01/2024 9:10 AM SEAFOOD PACKER documented as of this encounter Visit Diagnoses Not on filedocumented in this encounter Care Teams Formal Wear Rental Clerk Relationship Specialty [place] [address] [place] [address] PCP - General FAMILY PRACTICE 08/21/22 documented as of this encounter
--- OUTSIDE RECORDS SUMMARY | 2024-09-23 12:24 | XMS_ITS | Encounter Summary ---
Author Organization [facility] Address [address] [place] [address]. [place], [place] [address] [place] [address] Care Team Providers Care Corporate Real Estate Specialist Name Role Phone Esa Williamson MD Primary Care Provider [phone] Encounter Details Date Type Department Care Team (Latest Contact Info) Description 01/01/2023 Travel Social History Tobacco Use Types Packs/Day Years Used Date Smoking Tobacco: Never Smokeless Tobacco: Never Alcohol Use Standard Drinks/Week Comments Never 0 (1 standard drink = 0.6 oz pur e alcohol) PHQ-2 Answer Date Recorded PHQ-2 Score - If the patient scores above 3, please move on to questions 3-9 0 08/24/2022 Sex and Gender Information Value Date Recorded Sex Assigned at Not on file Legal Sex Male 7:45 PM CDT Gender Identity Not on file Sexual Orientation Not on file COVID-19 Exposure Response Date Recorded In the last 10 days, have yo u been in contact with someone who was confirmed or suspected to have Coronavirus/COVID-19? No / Unsure 01/01/2023 1:31 PM CDT documented as of this encounter Plan of Treatment Upcoming Encounters Date Type Department Care Team (Latest Contact Info) Description 09/24/2024 7:30 PM DATA PROCESSING OPERATOR Appointment [facility] [address] [place] [address] Nelly Guerrero CRAB STEAMER [address] [place] [address] 09/25/2024 7:00 AM DATA PROCESSING OPERATOR Appointment [facility] [address] [place] [address] Nelly Guerrero, CRAB STEAMER [address] [place] [address] 11/01/2024 9:10 AM DATA PROCESSING OPERATOR Hospital Encounter [facility] [address] [place] [address] Chin Carcamo MD 3 [facility] [address] [place] [address] 11/01/2024 9:10 AM DATA PROCESSING OPERATOR - 11/01/2024 9:40 AM DATA PROCESSING OPERATOR Surgery [facility] [address] [place] [address] Chin Cracamo MD 3 [facility] [address] [place] [address] COLONOSCOPY DIAGNOSTIC WITH/WITHOUT SPECIMEN BRUSH/WASH Scheduled Procedures Name Priority Associated Diagnoses Date/Ti me COLONOSCOPY DIAGNOSTIC WITH/WITHOUT SPECIMEN BRUSH/WASH Hematochezia Chronic diarrhea 11/01/2024 9:10 AM DATA PROCESSING OPERATOR documented as of this encounter Visit Diagnoses Not on filedocumented in this encounter Care Teams Corporate Real Estate Specialist Relationship Specialty [place] [address] [place] [address] PCP - General FAMILY PRACTICE 08/21/22 documented as of this encounter
--- OUTSIDE RECORDS SUMMARY | 2024-09-23 12:24 | XMS_ITS | Encounter Summary ---
Author Organization [facility] Address [address] [place] [address]. [place], [place] [address] [place] [address] Care Team Providers Care Neurosurgical Nurse Name Role Phone Esa Williamson MD Primary Care Provider [phone]- [phone] Encounter Details Date Type Department Care Team (Latest Contact Info) Description 01/20/2023 3:21 PM CDT - 01/20/2023 11:59 PM CDT Hospital Encounter [facility] [address] [place] [address] Chin Carcamo MD 3 [place] [address] Discharge Disposition: Home or Self Care (Routine [...] suspected to have Coronavirus/COVID-19? No / Unsure 01/20/2023 3:17 PM CDT documented as of this encounter Medications at Time of Discharge albuterol sulfate HFA 108 (90 Base) MCG/ACT inhaler Inhale 1-2 puffs into the lungs every 4 (four) hours as needed. 05/14/2017 hyoscyamine ER (SYMAX-SR) 0.375 MG 12 hr tablet Take 1 tablet (0.375 mg total) by mouth every 12 (twelve) hours as needed for Cramping. 60 tablet 2 01/01/2023 03/02/2023 documented as of this encounter Progress Notes * Chin Carcamo MD - 01/20/2023 3:25 PM CDT Your celiac test was negative. documented in this encounter Plan of Treatment Upcoming Encounters Date Type Department Care Team (Latest Contact Info) Description 09/24/2024 7:30 PM COORDINATE MEASURING EQUIPMENT OPERATOR Appointment [facility] [address] [place] [address] Nelly Guerrero, SOFTWARE ASSET MANAGER [address] [place] [address] 09/25/2024 7:00 AM COORDINATE MEASURING EQUIPMENT OPERATOR Appointment [facility] [address] [place] [address] Nelly Guerrero, SOFTWARE ASSET MANAGER [address] [place] [address] 11/01/2024 9:10 AM COORDINATE MEASURING EQUIPMENT OPERATOR Hospital Encounter [facility] [address] [place] [address] Chin Carcamo MD [address] [address] 11/01/2024 9:10 AM COORDINATE MEASURING EQUIPMENT OPERATOR - 11/01/2024 9:40 AM COORDINATE MEASURING EQUIPMENT OPERATOR Surgery [facility] [address] [place] [address] Chin Carcamo MD [address] [place] [address] COLONOSCOPY DIAGNOSTIC WITH/WITHOUT SPECIMEN BRUSH/WASH Scheduled Procedures Name Priority Associated Diagnoses Date/Ti me COLONOSCOPY DIAGNOSTIC WITH/WITHOUT SPECIMEN BRUSH/WASH Hematochezia Chronic diarrhea 11/01/2024 9:10 AM COORDINATE MEASURING EQUIPMENT OPERATOR documented as of this encounter Procedures Procedure Name Priority Date/Time Associated Diagnosis Comments CELIAC DISEASE COMP PANEL Routine 01/20/2023 3:31 PM CDT Diarrhea, unspecified type documented in this encounter Results * CELIAC DISEASE COMP PANEL (01/20/2023 3:31 PM CDT) INTERPRETATION REPORT 01/28/2023 4:17 AM CDT [facility] Comment: No serological evidence for celiac disease is present. tTG may normalize in individuals with celiac disease who maintain a gluten free diet. If high suspicion of celiac disease, consider HLA DQ2 and DQ8 testing to rule out celiac disease. TISSUE TRANSGLUTAMINASE IGA AB <1.0 <15.0 U/mL 01/28/2023 4:17 AM CDT [facility] Comment: ? Value ?Interpretation ? <15.0 ?Antibody not detected > or = 15.0 ?Antibody detected IGA 97 47 - 310 mg/dL 01/28/2023 4:17 AM CDT [facility] Comment: Test Performed by Marco Antonio Alcantara, [employer] [facility], [address] [place] [address] Migel Vaz M.D., Ph.D., Director of Laboratories , [place] [id number] 01/20/2023 3:31 PM CDT Chin Carcamo MD LABORATORY Final Result [facility] [address] [place] [address], [place] [phone] documented in this encounter Visit Diagnoses Diagnosis Diarrhea, unspecified type Hematochezia Blood in stool Chronic diarrhea Diarrhea documented in this encounter Care Teams Neurosurgical Nurse Relationship Specialty [place] [address] [place] [address] PCP - General FAMILY PRACTICE 08/21/22 documented as of this encounter
--- OUTSIDE RECORDS SUMMARY | 2024-09-23 12:24 | XMS_ITS | Encounter Summary ---
Author Organization [facility] Address [address] [place] [address]. [place], [place] [address] [place] [address] Care Team Providers Care Astronomy Teacher Name Role Phone Esa Williamson MD Primary Care Provider [phone] Encounter Details Date Type Department Care Team (Latest Contact Info) Description 10/30/2023 Scan [facility] INFO SRVCS Scanned, Doc [...] (Latest Contact Info) Description 09/24/2024 7:30 PM TICKET SPECULATOR Appointment [facility] [address] [place] [address] Nelly Guerrero NP [address] [place], [place] [phone] 09/25/2024 7:00 AM TICKET SPECULATOR Appointment [facility] [address] [place] [address] Nelly Guerrero NP [address]6 [place] [address] 11/01/2024 9:10 AM TICKET SPECULATOR Hospital Encounter [facility] [address] [place] [address] Chin Carcamo MD 3 [facility] [address] [place] [address] 11/01/2024 9:10 AM TICKET SPECULATOR - 11/01/2024 9:40 AM TICKET SPECULATOR Surgery [facility] [address] [place] [address] Chin Carcamo MD 3 [facility] [address] [place] [address] COLONOSCOPY DIAGNOSTIC WITH/WITHOUT SPECIMEN BRUSH/WASH Scheduled Procedures Name Priority Associated Diagnoses Date/Ti me COLONOSCOPY DIAGNOSTIC WITH/WITHOUT SPECIMEN BRUSH/WASH Hematochezia Chronic diarrhea 11/01/2024 9:10 AM TICKET SPECULATOR documented as of this encounter Visit Diagnoses Not on filedocumented in this encounter Care Teams Astronomy Teacher Relationship Specialty [place] [address] [place] [address] PCP - General FAMILY PRACTICE 08/21/22 documented as of this encounter
--- OUTSIDE RECORDS SUMMARY | 2024-09-23 12:24 | XMS_ITS | Encounter Summary ---
Author Organization [facility] Address [address] [place] [address]. [place], [place] [address] [place] [address] Care Team Providers Care Water Chemist Name Role Phone Esa Williamson MD Primary Care Provider [phone] Encounter Details Date Type Department Care Team (Latest Contact Info) Description 03/31/2024 Scan [facility] INFO SRVCS Scanned, Doc Med Group Social History Tobacco Use Types Packs/Day Years Used Date Smoking Tobacco: Never Passive Smoke Exposure: Never Smokeless Tobacco: Never Alcohol Use Standard Drinks/Week Comments Never 0 (1 standard drink = 0.6 oz pur e alcohol) PHQ-2 Answer Date Recorded Patient Health Questionnaire-2 Score 1 01/06/2024 Sex and Gender Information Value Date Recorded Sex Assigned at Not on file Legal Sex Male 7:45 PM CDT Gender Identity Not on file Sexual Orientation Not on file documented as of this encounter Plan of Treatment Upcoming Encounters Date Type Department Care Team (Latest Contact Info) Description 09/24/2024 7:30 PM LINE SUPPLY Appointment [facility] [address] [place] [address] Nelly Guerrero, MANAGEMENT SERVICES TECHNICIAN [address] [place] [address] 09/25/2024 7:00 AM LINE SUPPLY Appointment [facility] [address] [place] [address] Nelly Guerrero, MANAGEMENT SERVICES TECHNICIAN [address] [place] [address] 09 11/01/2024 9:10 AM LINE SUPPLY Hospital Encounter [facility] [address] [place] [address] Chin Carcamo MD [address] [address] 11/01/2024 9:10 AM LINE SUPPLY - 11/01/2024 9:40 AM LINE SUPPLY Surgery [facility] [address] [place] [address] Chin Carcamo MD [address] [address] COLONOSCOPY DIAGNOSTIC WITH/WITHOUT SPECIMEN BRUSH/WASH Scheduled Procedures Name Priority Associated Diagnoses Date/Ti me COLONOSCOPY DIAGNOSTIC WITH/WITHOUT SPECIMEN BRUSH/WASH Hematochezia Chronic diarrhea 11/01/2024 9:10 AM LINE SUPPLY documented as of this encounter Visit Diagnoses Not on filedocumented in this encounter Care Teams Water Chemist Relationship Specialty [place] [address] [place] [address] PCP - General FAMILY PRACTICE 08/21/22 documented as of this encounter
--- OUTSIDE RECORDS SUMMARY | 2024-09-23 12:24 | XMS_ITS | Encounter Summary ---
Author Organization [facility] Address [address] [place] [address]. [place], [place] [address] [place] [address] Care Team Providers Care Inflated Pad Buffer Name Role Phone Esa Williamson MD Primary Care Provider [phone] Encounter Details Date Type Department Care Team (Late st Contact Info) Description 01/06/2023 Orders Only [facility] Medical Group Family & Internal Medicine [facility] [address] [place] [address] Esa Williamson MD [address] [place] [address] Social History Tobacco Use Types Packs/Day Years [...] (Latest Contact Info) Description 09/24/2024 7:30 PM CLINICAL DIETITIAN Appointment [facility] [address] [place] [address] Nelly Guerrero, LEATHER FITTER [address] [place] [address] 09/25/2024 7:00 AM CLINICAL DIETITIAN Appointment [facility] [address] [place] [address] Nelly Guerrero, LEATHER FITTER [address] [place] [address] 11/01/2024 9:10 AM CLINICAL DIETITIAN Hospital Encounter [facility] [address] [place] [address] Chin Carcamo MD 3 [facility] [address] [place] [address] 11/01/2024 9:10 AM CLINICAL DIETITIAN - 11/01/2024 9:40 AM CLINICAL DIETITIAN Surgery [facility] [address] [place] [address] Chin Carcamo MD 3 [facility] [address] [place] [address] COLONOSCOPY DIAGNOSTIC WITH/WITHOUT SPECIMEN BRUSH/WASH Scheduled Procedures Name Priority Associated Diagnoses Date/Ti me COLONOSCOPY DIAGNOSTIC WITH/WITHOUT SPECIMEN BRUSH/WASH Hematochezia Chronic diarrhea 11/01/2024 9:10 AM CLINICAL DIETITIAN documented as of this encounter Results * (ABNORMAL) COMPREHENSIVE METABOLIC PANEL (01/20/2023 3:31 PM CDT) [facility] GLUCOSE 89 70 - 99 MG/DL 01/20/2023 4:03 PM CDT [facility] BUN 21(H) 7 - 18 MG/DL 01/20/2023 4:03 PM CDT [facility] CREATININE S/P/B 1.07 0.7 - 1.3 MG/DL 01/20/2023 4:03 PM [facility] SODIUM S/P/B 140 136 - 145 MMOL/L 01/20/2023 4:03 PM [facility] POTASSIUM S/P/B 4.0 3.5 - 5.1 MMOL/L 01/20/2023 4:03 PM [facility] CHLORIDE S/P/B 105 100 - 108 MMOL/L 01/20/2023 4:03 PM [facility] CO2 26.6 21 - 32 MMOL/L 01/20/2023 4:03 PM [facility] CALCIUM S/P/B 9.3 8.5 - 10.1 MG/DL 01/20/2023 4:03 PM [facility] BILIRUBIN TOTAL S/P/B 0.5 0.2 - 1.1 MG/DL 01/20/2023 4:03 PM [facility] TOTAL PROTEIN S/P/B 7.6 6.4 - 8.2 G/DL 01/20/2023 4:03 PM [facility] ALBUMIN S/P/B 4.7 3.4 - 5.0 G/DL 01/20/2023 4:03 PM [facility] AST 22 15 - 37 U/L 01/20/2023 4:03 PM [facility] ALT 33 16 - 60 U/L 01/20/2023 4:03 PM [facility] ALKALINE PHOSPHATASE S/P/B 97 65 - 260 U/L 01/20/2023 4:03 PM [facility] ANION GAP 8.4 5 - 15 MMOL/L 01/20/2023 4:03 PM [facility] BUN CREATININE RATIO 19.6 6 - 26 01/20/2023 4:03 PM CDT [facility] A/G RATIO 1.6 1.0 - 2.0 RATIO 01/20/2023 4:03 PM CDT [facility] GFR ESTIMATE >90 >90 ML/MIN/1.7 3 M2 01/20/2023 4:03 PM CDT [facility] Comment: NOTE: eGFR is not calculated for patients <18 years of age. This is an estimated GFR calculation using the new CKD EPI creatinine equation without race and so does not require a correction factor for race. This estimated GFR should not be used for calculating drug doses. 01/20/2023 3:31 PM CDT us Esa Williamson MD LABORATORY Final Resul t [facility] [address] [place] [address], * (ABNORMAL) CBC W/DIFF AUTOMATED (01/20/2023 3:31 PM CDT) WBC 8.65 4.4 - 11.0 x10'3/uL 01/20/2023 3:48 PM CDT [facility] RBC 5.07 4.50 - 5.90 x10'6/uL 01/20/2023 3:48 PM CDT [facility] HGB 15.0 14.0 - 17.5 G/DL 01/20/2023 3:48 PM CDT [facility] HCT 43.3 41.5 - 50.4 % 01/20/2023 3:48 PM CDT [facility] MCV 85.4 80.0 - 96.0 FL 01/20/2023 3:48 PM CDT [facility] MCH 29.6 26.5 - 31.4 PG 01/20/2023 3:48 PM CDT [facility] MCHC 34.6 31.9 - 34.8 G/DL 01/20/2023 3:48 PM CDT [facility] RDW 12.2(L) 12.3 - 14.3 % 01/20/2023 3:48 PM CDT [facility] PLT 298 151 - 353 x10'3/uL 01/20/2023 3:48 PM CDT [facility] MPV 9.2(L) 9.7 - 11.9 FL 01/20/2023 3:48 PM CDT [facility] RBC MORPHOLOGY NORMAL 01/20/2023 3:48 PM CDT [facility] PLT MORPH. NORMAL 01/20/2023 3:48 PM CDT [facility] WBC MORPHOLOGY NORMAL 01/20/2023 3:48 PM CDT [facility] LYMPHOCYTES % 30.3 15.8 - 45.0 % 01/20/2023 3:48 PM CDT [facility] NEUTROPHILS % 56.1 42.1 - 71.9 % 01/20/2023 3:48 PM CDT [facility] MONOCYTES % 8.8 5.7 - 12.5 % 01/20/2023 3:48 PM CDT [facility] EOSINOPHILS 3.7 0.0 - 5.6 % 01/20/2023 3:48 PM CDT [facility] BASOPHILS 0.8 0.0 - 1.3 % 01/20/2023 3:48 PM CDT [facility] ABS. NEUTROPHILS 4.85 1.40 - 6.00 x10'3/uL 01/20/2023 3:48 PM CDT [facility] IMMATURE GRANS % 0.3 0.0 - 0.5 % 01/20/2023 3:48 PM CDT [facility] ABS. LYMPHOCYTES 2.62 0.80 - 4.70 x10'3/uL 01/20/2023 3:48 PM CDT [facility] 01/20/2023 3:31 PM CDT us Esa Williamson MD LABORATORY Final Resul t [facility] [address] [place] [address], documented in this encounter Visit Diagnoses Diagnosis Dizziness- Primary Dizziness and giddiness Hematochezia Blood in stool Chronic diarrhea Diarrhea documented in this encounter Care Teams Inflated Pad Buffer Relationship Specialty [place] [address] [place], [place] [id number] PCP - General FAMILY PRACTICE 08/21/22 documented as of this encounter
--- OUTSIDE RECORDS SUMMARY | 2024-09-23 12:24 | XMS_ITS | Encounter Summary ---
Author Organization [facility] Address [address] [place] [address]. [place], [place] [address] [place] [address] Care Team Providers Care Patient Access Director Name Role Phone Esa Williamson MD Primary Care Provider [phone] Encounter Details Date Type Department Care Team (Late st Contact Info) Description 03/24/2023 MyChart Message Enc [facility] [address] [place] [address] [employer], [facility] Provider Air Quality Message Social History Tobacco Use Types Packs/Day Years [...] (Latest Contact Info) Description 09/24/2024 7:30 PM GEOTHERMAL OPERATIONS ENGINEER Appointment [facility] [address] [place], [place] [address] Nelly Guerrero, DIRECTOR OF INDUSTRIAL RELATIONS [address] [place] [address] 09/25/2024 7:00 AM GEOTHERMAL OPERATIONS ENGINEER Appointment [facility] [address] [place] [address] Nelly Guerrero, DIRECTOR OF INDUSTRIAL RELATIONS [address] [place] [address] 11/01/2024 9:10 AM GEOTHERMAL OPERATIONS ENGINEER Hospital Encounter [facility] [address] [place] [address] Chin Carcamo MD 3 [facility] [address] [place] [address] 11/01/2024 9:10 AM GEOTHERMAL OPERATIONS ENGINEER - 11/01/2024 9:40 AM GEOTHERMAL OPERATIONS ENGINEER Surgery [facility] [address] [place] [address] Chin Carcamo MD 3 [facility] [address] [place] [address] COLONOSCOPY DIAGNOSTIC WITH/WITHOUT SPECIMEN BRUSH/WASH Scheduled Procedures Name Priority Associated Diagnoses Date/Ti me COLONOSCOPY DIAGNOSTIC WITH/WITHOUT SPECIMEN BRUSH/WASH Hematochezia Chronic diarrhea 11/01/2024 9:10 AM GEOTHERMAL OPERATIONS ENGINEER documented as of this encounter Visit Diagnoses Not on filedocumented in this encounter Care Teams Patient Access Director Relationship Specialty [place] [address] [place] [address] PCP - General FAMILY PRACTICE 08/21/22 documented as of this encounter
--- OUTSIDE RECORDS SUMMARY | 2024-09-23 12:24 | XMS_ITS | Encounter Summary ---
Author Organization [facility] Address [address] [place] [address]. [place], [place] [address] [place] [address] Care Team Providers Care Dormitory Counselor Name Role Phone Esa Williamson MD Primary Care Provider [phone] Reason for Referral * Surgical (Routine) - New Request Specialty Diagnoses / Procedures Referred By Conttomer gilliam Referred To Contact Diagnoses Hematochezia Chronic diarrhea Procedures Case request operating room: COLONOSCOPY DIAGNOSTIC WITH/WITHOUT SPECIMEN BRUSH/WASH Chin Carcamo MD 3 [facility] [address] [place] [address] Phone: tel: fax: Referral ID Status Reason Start Date Expiration Date V isits Requested Visits Authorized [id number] New Request 06/29/2024 06/29/2025 1 1 Encounter Details Date Type Department Care Team (Late st Contact Info) Description 06/29/2024 Orders Only [facility] Medical Group Multispecialty Care - [facility] [address] [facility] [address] [place] [address] Chin Carcamo MD 3 [facility] [address] [place], [place] [id number] Social History Tobacco Use Types Packs/Day Years [...] (Latest Contact Info) Description 09/24/2024 7:30 PM EXHAUST AND MUFFLER FITTER Appointment [facility] [address] [place] [address] Nelly Guerrero, BOAT GARNISHER [address] [place] [address] 09/25/2024 7:00 AM EXHAUST AND MUFFLER FITTER Appointment [facility] [address] [place] [address] Nelly Guerrero, BOAT GARNISHER [address] [place] [address] 11/01/2024 9:10 AM EXHAUST AND MUFFLER FITTER Hospital Encounter [facility] [address] [place] [address] Chin Carcamo MD [address] [address] 11/01/2024 9:10 AM EXHAUST AND MUFFLER FITTER - 11/01/2024 9:40 AM EXHAUST AND MUFFLER FITTER Surgery [facility] [address] [place] [address] Chin Carcamo MD 3 [facility] [address] [place], [place] [address] COLONOSCOPY DIAGNOSTIC WITH/WITHOUT SPECIMEN BRUSH/WASH Scheduled Orders Name Type Priority Associated Diagnoses Orde r Schedule Case request operating room: COLONOSCOPY DIAGNOSTIC WITH/WITHOUT SPECIMEN BRUSH/WASH Case Request Routine Hematochezia Chronic diarrhea Ordered: 06/29/2024 Scheduled Procedures Name Priority Associated Diagnoses Date/Ti me COLONOSCOPY DIAGNOSTIC WITH/WITHOUT SPECIMEN BRUSH/WASH Hematochezia Chronic diarrhea 11/01/2024 9:10 AM EXHAUST AND MUFFLER FITTER documented as of this encounter Visit Diagnoses Diagnosis Hematochezia- Primary Blood in stool Chronic diarrhea Diarrhea Hematochezia Blood in stool Chronic diarrhea Diarrhea Hematochezia Blood in stool Chronic diarrhea Diarrhea documented in this encounter Care Teams Dormitory Counselor Relationship Specialty [place] [address] [place] [address] PCP - General FAMILY PRACTICE 08/21/22 documented as of this encounter
--- OUTSIDE RECORDS SUMMARY | 2024-09-23 12:24 | XMS_ITS | Encounter Summary ---
Author Organization [facility] Address [address] [place] [address]. [place], [place] [address] [place] [address] Care Team Providers Care Agile Developer Name Role Phone Esa Williamson MD Primary Care Provider [phone] Reason for Referral * Audiology Exam (Routine) - Closed Specialty Diagnoses / Procedures Referred By Contac t Referred To Contact AUDIOLOGY / [facility] Audiology Diagnoses Decreased hearing Procedures OFFICE/OUTPT VISIT,NEW,LEVL III OFFICE/OUTPT VISIT,NEW,LEVL IV OFFICE/OUTPT VISIT,NEW,LEVL V OFFICE/OUTPT VISIT,EST,LEVL III OFFICE/OUTPT VISIT,EST,LEVL IV OFFICE/OUTPT VISIT,EST,LEVL V Esa Williamson MD [address] [facility] [address] [place] [address] Phone: tel: fax: [facility] [address] [place] [address] Phone: tel: fax: Referral ID Status Reason Start Date Expiration Date V isits Requested Visits Authorized [id number] Closed Specialty Services 12/31/2022 01/30/2024 99 99 Encounter Details Date Type Department Care Team (Late st Contact Info) Description 12/31/2022 Orders Only [facility] Medical Group Family & Internal Medicine [address] [place] [address] Esa Williamson MD [address] [facility] [address] [place] [address] Social History Tobacco Use Types Packs/Day Years [...] suspected to have Coronavirus/COVID-19? No / Unsure 12/08/2022 3:37 PM CDT documented as of this encounter Plan of Treatment Upcoming Encounters Date Type Department Care Team (Latest Contact Info) Description 09/24/2024 7:30 PM CALL MANAGER Appointment [facility] [address] [place] [address] Nlely Guerrero, ELECTRONIC LAB TECHNICIAN [address] [place], [place] [address] 09/25/2024 7:00 AM CALL MANAGER Appointment [facility] [address] [place] [address] Nelly Guerrero ELECTRONIC LAB TECHNICIAN [address] [place], [place] [id number] 11/01/2024 9:10 AM CALL MANAGER Hospital Encounter [facility] [address] [place] [address] Chin Carcamo MD [address] [place] [id number] 11/01/2024 9:10 AM CALL MANAGER - 11/01/2024 9:40 AM CALL MANAGER Surgery [facility] [address] [place] [address] Chin Carcamo MD [address] [place] [address] COLONOSCOPY DIAGNOSTIC WITH/WITHOUT SPECIMEN BRUSH/WASH Scheduled Procedures Name Priority Associated Diagnoses Date/Ti sc COLONOSCOPY DIAGNOSTIC WITH/WITHOUT SPECIMEN BRUSH/WASH Hematochezia Chronic diarrhea 11/01/2024 9:10 AM CALL MANAGER Scheduled Referrals Name Type Priority Associated Diagnoses Orde r Schedule Ambulatory referral to Audiology Referral Routine Decreased hearing Ordered: 12/31/2022 documented as of this encounter Visit Diagnoses Diagnosis Hearing loss- Primary Unspecified hearing loss Decreased hearing Unspecified hearing loss Hematochezia Blood in stool Chronic diarrhea Diarrhea documented in this encounter Care Teams Agile Developer Relationship Specialty [place] [address] [place] [address] PCP - General FAMILY PRACTICE 08/21/22 documented as of this encounter
--- OUTSIDE RECORDS SUMMARY | 2024-09-23 12:24 | XMS_ITS | Encounter Summary ---
Author Organization [facility] Address [address] [place] [address]. [place], [place] [address] [place] [address] Care Team Providers Care Belt Machine Operator Name Role Phone Esa Williamson MD Primary Care Provider +1 [phone] Encounter Details Date Type Department Care Team (Latest Contact Info) Description 09/27/2023 Scan [facility] SRV[facility] Scanned, Doc [...] (Latest Contact Info) Description 09/24/2024 7:30 PM PACK WORKER SUPERVISOR Appointment [facility] [address] [place] [address] Nelly Guerrero NP [address] [place], [place] [id number] 09/25/2024 7:00 AM PACK WORKER SUPERVISOR Appointment [facility] [address] [place] [address] Nelly Guerrero NP 1170 [place] [address] 11/01/2024 9:10 AM PACK WORKER SUPERVISOR Hospital Encounter [facility] [address] [place] [address] Chin Carcamo MD 3 [facility] [address] [place] [address] 11/01/2024 9:10 AM PACK WORKER SUPERVISOR - 11/01/2024 9:40 AM PACK WORKER SUPERVISOR Surgery [facility] [address] [place] [address] Chin Carcamo MD 3 [facility] [address] [place] [address] COLONOSCOPY DIAGNOSTIC WITH/WITHOUT SPECIMEN BRUSH/WASH Scheduled Procedures Name Priority Associated Diagnoses Date/Ti me COLONOSCOPY DIAGNOSTIC WITH/WITHOUT SPECIMEN BRUSH/WASH Hematochezia Chronic diarrhea 11/01/2024 9:10 AM PACK WORKER SUPERVISOR documented as of this encounter Visit Diagnoses Not on filedocumented in this encounter Care Teams Belt Machine Operator Relationship Specialty [place] [address] [place] [address] PCP - General FAMILY PRACTICE 08/21/22 documented as of this encounter
--- OUTSIDE RECORDS SUMMARY | 2024-09-23 12:24 | XMS_ITS | Encounter Summary ---
Author Organization [facility] Address [address] [place] [address]. [place], [place] [address] [place] [address] Care Team Providers Care Charge Account Identification Clerk Name Role Phone Esa Williamson MD Primary Care Provider [phone] Encounter Details Date Type Department Care Team (Latest Contact Info) Description 06/16/2024 Scan [facility] SRVCS Scanned, Doc [...] (Latest Contact Info) Description 09/24/2024 7:30 PM CARDIOVASCULAR SURGICAL TECH Appointment [facility] [address] [place] [address] Nelly Guerrero, GEOSPATIAL DEVELOPER 1176 [place] [address] 09/25/2024 7:00 AM CARDIOVASCULAR SURGICAL TECH Appointment [facility] [address] [place] [address] Nelly Guerrero, GEOSPATIAL DEVELOPER [address]0 [place] [address] 11/01/2024 9:10 AM CARDIOVASCULAR SURGICAL TECH Hospital Encounter [facility] [address] [place] [address] Chin Carcamo MD [address] [address] 11/01/2024 9:10 AM CARDIOVASCULAR SURGICAL TECH - 11/01/2024 9:40 AM CARDIOVASCULAR SURGICAL TECH Surgery [facility] [address] [place] [address] Chin Carcamo MD [address] [address] COLONOSCOPY DIAGNOSTIC WITH/WITHOUT SPECIMEN BRUSH/WASH Scheduled Procedures Name Priority Associated Diagnoses Date/Ti me COLONOSCOPY DIAGNOSTIC WITH/WITHOUT SPECIMEN BRUSH/WASH Hematochezia Chronic diarrhea 11/01/2024 9:10 AM CARDIOVASCULAR SURGICAL TECH documented as of this encounter Visit Diagnoses Not on filedocumented in this encounter Care Teams Charge Account Identification Clerk Relationship Specialty [place] [address] [place] [address] PCP - General FAMILY PRACTICE 08/21/22 documented as of this encounter
--- OUTSIDE RECORDS SUMMARY | 2024-09-23 12:24 | XMS_ITS | Encounter Summary ---
Author Organization [facility] Address [address] [place] [address]. [place], [place] [address] [place] [address] Care Team Providers Care Wind Turbine Controls Engineer Name Role Phone Esa Williamson MD Primary Care Provider [phone]- [phone] Encounter Details Date Type Department Care Team (Latest Contact Info) Description 01/20/2023 Travel Social History Tobacco Use Types Packs/Day [...] (Latest Contact Info) Description 09/24/2024 7:30 PM CORRECTIONS CORPORAL Appointment [facility] [address] [place] [address] Nelly Guerrero PROJECT COACH [address]9 [place] [address] 09/25/2024 7:00 AM CORRECTIONS CORPORAL Appointment [facility] [address] [place] [address] Nelly Guerrero, PROJECT COACH [address] [place] [address] 11/01/2024 9:10 AM CORRECTIONS CORPORAL Hospital Encounter [facility] [address] [place] [address] Chin Carcamo MD 3 [facility] [address] [place] [address] 11/01/2024 9:10 AM CORRECTIONS CORPORAL - 11/01/2024 9:40 AM CORRECTIONS CORPORAL Surgery [facility] [address] [place] [address] Chin Carcamo MD 3 [facility] [address] [place] [address] COLONOSCOPY DIAGNOSTIC WITH/WITHOUT SPECIMEN BRUSH/WASH Scheduled Procedures Name Priority Associated Diagnoses Date/Ti me COLONOSCOPY DIAGNOSTIC WITH/WITHOUT SPECIMEN BRUSH/WASH Hematochezia Chronic diarrhea 11/01/2024 9:10 AM CORRECTIONS CORPORAL documented as of this encounter Visit Diagnoses Not on filedocumented in this encounter Care Teams Wind Turbine Controls Engineer Relationship Specialty [place] [address] [place] [address] PCP - General FAMILY PRACTICE 08/21/22 documented as of this encounter
--- OUTSIDE RECORDS SUMMARY | 2024-09-23 12:24 | XMS_ITS | Encounter Summary ---
Author Organization [facility] Address [address] [place] [address]. [place], [place] [address] [place] [address] Care Team Providers Care Floriculture Teacher Name Role Phone Esa Williamson MD Primary Care Provider [phone] [phone] Encounter Details Date Type Department Care Team (Late st Contact Info) Description 01/05/[address] [facility] [address] [address] Chin Carcamo MD [address] [place] [address] Bloodwork Social History Tobacco Use Types Packs/Day Years [...] (Latest Contact Info) Description 09/24/2024 7:30 PM GEOMETRY TUTOR Appointment [facility] [address] [place] [address] Nelly Guerrero, DECKER OPERATOR 1179 [place] [address] 09/25/2024 7:00 AM GEOMETRY TUTOR Appointment [facility] [address] [place] [address] Nelly Guerrero, DECKER OPERATOR [address]9 [place] [address] 11/01/2024 9:10 AM GEOMETRY TUTOR Hospital Encounter [facility] [address] [place] [address] Chin Carcamo MD [address] [address] 11/01/2024 9:10 AM GEOMETRY TUTOR - 11/01/2024 9:40 AM GEOMETRY TUTOR Surgery [facility] [address] [place] [address] Chin Carcamo MD [address] [address] [place] [address] COLONOSCOPY DIAGNOSTIC WITH/WITHOUT SPECIMEN BRUSH/WASH Scheduled Procedures Name Priority Associated Diagnoses Date/Ti me COLONOSCOPY DIAGNOSTIC WITH/WITHOUT SPECIMEN BRUSH/WASH Hematochezia Chronic diarrhea 11/01/2024 9:10 AM GEOMETRY TUTOR documented as of this encounter Visit Diagnoses Not on filedocumented in this encounter Care Teams Floriculture Teacher Relationship Specialty [place] [address] [place] [address] PCP - General FAMILY PRACTICE 08/21/22 documented as of this encounter
--- OUTSIDE RECORDS SUMMARY | 2024-09-23 12:24 | XMS_ITS | Encounter Summary ---
Author Organization [facility] Address [address] [place] [address]. [place], [place] [address] [place] [address] Care Team Providers Care Executive Search Consultant Name Role Phone Esa Williamson MD Primary Care Provider [phone] Encounter Details Date Type Department Care Team (Late st Contact Info) Description 03/26/2024 [employer] Message Enc [facility] Family & Internal Medicine [facility] [address] [place] [address] Esa Williamson MD [address] [place] [address] Sleep Referral & an Unrelated Vaccine Social History Tobacco Use Types Packs/Day Years [...] as of this encounter Progress Notes * Tiffany Orellana RN - 03/27/2024 10:31 AM CDT Please advise. Thank you! documented in this encounter Plan of Treatment Upcoming Encounters Date Type Department Care Team (Latest Contact Info) Description 09/24/2024 7:30 PM BASE REMOVER Appoint[address] [facility] [address] [place] [address] Nelly Guerrero, ALLERGIST/PEDIATRIC PULMONOLOGIST 1179 [place] [address] 09/25/2024 7:00 AM BASE REMOVER Appointment [facility] [address] [place] [address] Nelly Guerrero, ALLERGIST/PEDIATRIC PULMONOLOGIST 1179 [place] [address] 11/01/2024 9:10 AM BASE REMOVER Hospital Encounter [facility] [address] [place] [address] Chin Carcamo MD 3 [facility] [address] [place] [address] 11/01/2024 9:10 AM BASE REMOVER - 11/01/2024 9:40 AM BASE REMOVER Surgery [facility] [address] [place] [address] Chin Carcamo MD 3 [facility] [address] [place] [address] COLONOSCOPY DIAGNOSTIC WITH/WITHOUT SPECIMEN BRUSH/WASH Scheduled Procedures Name Priority Associated Diagnoses Date/Ti me COLONOSCOPY DIAGNOSTIC WITH/WITHOUT SPECIMEN BRUSH/WASH Hematochezia Chronic diarrhea 11/01/2024 9:10 AM BASE REMOVER documented as of this encounter Visit Diagnoses Not on filedocumented in this encounter Care Teams Executive Search Consultant Relationship Specialty [place] [address] [place] [address] PCP - General FAMILY PRACTICE 08/21/22 documented as of this encounter
--- OUTSIDE RECORDS SUMMARY | 2024-09-23 12:24 | XMS_ITS | Encounter Summary ---
Author Organization [facility] Address [address] [place] [address]. [place], [place] [address] [place] [address] Care Team Providers Care Shoe Sticks Repairer Name Role Phone Esa Williamson MD Primary Care Provider [phone]- [phone] Encounter Details Date Type Department Care Team (Latest Contact Info) Description 01/20/2023 3:19 PM CDT - 01/20/2023 3:20 PM CDT Hospital Encounter [facility] [address] [place] [address] Esa Williamson MD 9401 [place] [address] Discharge Disposition: Home or Self Care (Routine [...] 01/01/2023 03/02/2023 documented as of this encounter Plan of Treatment Upcoming Encounters Date Type Department Care Team (Latest Contact Info) Description 09/24/2024 7:30 PM BAIL BONDSMAN Appointment [facility] [address] [place] [address] Nelly Guerrero, CAFE LEAD [address] [place] [address] 09/25/2024 7:00 AM BAIL BONDSMAN Appointment [facility] [address] [place] [address] Nelly Guerrero CAFE LEAD [address] [place] [address] 11/01/2024 9:10 AM BAIL BONDSMAN Hospital Encounter [facility] [address] [place] [address] Chin Carcamo MD [address] [address] 11/01/2024 9:10 AM BAIL BONDSMAN - 11/01/2024 9:40 AM BAIL BONDSMAN Surgery [facility] [address] [place] [address] Chin Carcamo MD [address] [address] COLONOSCOPY DIAGNOSTIC WITH/WITHOUT SPECIMEN BRUSH/WASH Scheduled Procedures Name Priority Associated Diagnoses Date/Ti me COLONOSCOPY DIAGNOSTIC WITH/WITHOUT SPECIMEN BRUSH/WASH Hematochezia Chronic diarrhea 11/01/2024 9:10 AM BAIL BONDSMAN documented as of this encounter Procedures Procedure Name Priority Date/Time Associated Diagnosis Comments COMPREHENSIVE METABOLIC PANEL Routine 01/20/2023 3:31 PM CDT Dizziness CBC W/DIFF AUTOMATED Routine 01/20/2023 3:31 PM CDT Dizziness documented in this encounter Results * (ABNORMAL) COMPREHENSIVE METABOLIC PANEL (01/20/2023 3:31 PM CDT) GLUCOSE 89 70 - 99 MG/DL 01/20/2023 4:03 PM CDT [facility] BUN 21(H) 7 - 18 MG/DL 01/20/2023 4:03 PM CDT [facility] CREATININE S/P/B 1.07 0.7 - 1.3 MG/DL 01/20/2023 4:03 PM CDT [facility] SODIUM S/P/B 140 136 - 145 MMOL/L 01/20/2023 4:03 PM T [facility] POTASSIUM S/P/B 4.0 3.5 - 5.1 MMOL/L 01/20/2023 4:03 PM CDT [facility] CHLORIDE S/P/B 105 100 - 108 MMOL/L 01/20/2023 4:03 PM T [facility] CO2 26.6 21 - 32 MMOL/L 01/20/2023 4:03 PM CDT [facility] CALCIUM S/P/B 9.3 8.5 - 10.1 MG/DL 01/20/2023 4:03 PM T [facility] BILIRUBIN TOTAL S/P/B 0.5 0.2 - 1.1 MG/DL 01/20/2023 4:03 PM CDT [facility] TOTAL PROTEIN S/P/B 7.6 6.4 - 8.2 G/DL 01/20/2023 4:03 PM CDT [facility] ALBUMIN S/P/B 4.7 3.4 - 5.0 G/DL 01/20/2023 4:03 PM CDT [facility] AST 22 15 - 37 U/L 01/20/2023 4:03 PM CDT [facility] ALT 33 16 - 60 U/L 01/20/2023 4:03 PM CDT [facility] ALKALINE PHOSPHATASE S/P/B 97 65 - 260 U/L 01/20/2023 4:03 PM CDT [facility] ANION GAP 8.4 5 - 15 MMOL/L 01/20/2023 4:03 PM CDT [facility] BUN CREATININE RATIO 19.6 6 - 26 01/20/2023 4:03 PM T [facility] A/G RATIO 1.6 1.0 - 2.0 RATIO 01/20/2023 4:03 PM CDT [facility] GFR ESTIMATE >90 >90 ML/MIN/1.7 3 M2 01/20/2023 4:03 PM CDT [facility] Comment: NOTE: eGFR is not calculated for patients <18 years of age. This is an estimated GFR calculation using the new CKD EPI creatinine equation without race and so does not require a correction factor for race. This estimated GFR should not be used for calculating drug doses. 01/20/2023 3:31 PM CDT us Esa Williamson MD LABORATORY Final Resul t [facility] [address] [place] [address], [place] [phone] * (ABNORMAL) CBC W/DIFF AUTOMATED (01/20/2023 3:31 PM CDT) [facility] WBC 8.65 4.4 - 11.0 x10'3/uL 01/20/2023 3:48 PM CDT [facility] RBC 5.07 4.50 - 5.90 x10'6/uL 01/20/2023 3:48 PM CDT [facility] HGB 15.0 14.0 - 17.5 G/DL 01/20/2023 3:48 PM CDT [facility] HCT 43.3 41.5 - 50.4 % 01/20/2023 3:48 PM CDT [facility] MCV 85.4 80.0 - 96.0 FL 01/20/2023 3:48 PM CDT [facility] MCH 29.6 26.5 - 31.4 PG 01/20/2023 3:48 PM CDT [facility] MCHC 34.6 31.9 - 34.8 G/DL 01/20/2023 3:48 PM CDT [facility] RDW 12.2(L) 12.3 - 14.3 % 01/20/2023 3:48 PM CDT [facility] PLT 298 151 - 353 x10'3/uL 01/20/2023 3:48 PM CDT [facility] MPV 9.2(L) 9.7 - 11.9 FL 01/20/2023 3:48 PM CDT [facility] RBC MORPHOLOGY NORMAL 01/20/2023 3:48 PM CDT [facility] PLT MORPH. NORMAL 01/20/2023 3:48 PM CDT [facility] WBC MORPHOLOGY NORMAL 01/20/2023 3:48 PM CDT [facility] LYMPHOCYTES % 30.3 15.8 - 45.0 % 01/20/2023 3:48 PM CDT [facility] NEUTROPHILS % 56.1 42.1 - 71.9 % 01/20/2023 3:48 PM CDT [facility] MONOCYTES % 8.8 5.7 - 12.5 % 01/20/2023 3:48 PM CDT [facility] EOSINOPHILS 3.7 0.0 - 5.6 % 01/20/2023 3:48 PM CDT [facility] BASOPHILS 0.8 0.0 - 1.3 % 01/20/2023 3:48 PM CDT [facility] ABS. NEUTROPHILS 4.85 1.40 - 6.00 x10'3/uL 01/20/2023 3:48 PM CDT [facility] IMMATURE GRANS % 0.3 0.0 - 0.5 % 01/20/2023 3:48 PM CDT [facility] ABS. LYMPHOCYTES 2.62 0.80 - 4.70 x10'3/uL 01/20/2023 3:48 PM CDT [facility] 01/20/2023 3:31 PM CDT us Esa Williamson MD LABORATORY Final Resul t [facility] [address] [place] [address], documented in this encounter Visit Diagnoses Diagnosis Dizziness Dizziness and giddiness Hematochezia Blood in stool Chronic diarrhea Diarrhea documented in this encounter Care Teams Shoe Sticks Repairer Relationship Specialty [place] [address] [place] [address] PCP - General FAMILY PRACTICE 08/21/22 documented as of this encounter
--- OUTSIDE RECORDS SUMMARY | 2024-09-23 12:24 | XMS_ITS | Encounter Summary ---
Author Organization [facility] Address [address] [place] [address]. [place], [place] [address] [place] [address] Care Team Providers Care Bank Cashier Name Role Phone Esa Williamson MD Primary Care Provider [phone]- [phone] Encounter Details Date Type Department Care Team (Late st Contact Info) Description 01/06/2023 [employer] Message Enc [facility] Multispecialty Care - [facility] [address] [facility], [address] [place] [address] [place], [facility] Provider Lab order Social History Tobacco Use Types Packs/Day Years [...] (Latest Contact Info) Description 09/24/2024 7:30 PM BRAKE REPAIRER HYDRAULIC Appointment [facility] [address] [place] [address] Nelly Guerrero, ADULT NEUROPSYCHOLOGIST [address] [place] [address] 09/25/2024 7:00 AM BRAKE REPAIRER HYDRAULIC Appointment [facility] [address] [place] [address] Nelly Guerrero, ADULT NEUROPSYCHOLOGIST [address] [place] [address] 11/01/2024 9:10 AM BRAKE REPAIRER HYDRAULIC Hospital Encounter [facility] [address] [place] [address] Chin Carcamo MD [address] [address] 11/01/2024 9:10 AM BRAKE REPAIRER HYDRAULIC - 11/01/2024 9:40 AM BRAKE REPAIRER HYDRAULIC Surgery [facility] [address] [place] [address] Chin Carcamo MD [address] [address] COLONOSCOPY DIAGNOSTIC WITH/WITHOUT SPECIMEN BRUSH/WASH Scheduled Procedures Name Priority Associated Diagnoses Date/Ti me COLONOSCOPY DIAGNOSTIC WITH/WITHOUT SPECIMEN BRUSH/WASH Hematochezia Chronic diarrhea 11/01/2024 9:10 AM BRAKE REPAIRER HYDRAULIC documented as of this encounter Visit Diagnoses Not on filedocumented in this encounter Care Teams Bank Cashier Relationship Specialty [place] [address] [place] [address] PCP - General FAMILY PRACTICE 08/21/22 documented as of this encounter
--- OUTSIDE RECORDS SUMMARY | 2024-09-23 12:24 | XMS_ITS | Encounter Summary ---
Author Organization [facility] Address [address] [place] [address]. [place], [place] [address] [place] [address] Care Team Providers Care Personal Banking Representative Name Role Phone Esa Williamson MD Primary Care Provider [phone] Encounter Details Date Type Department Care Team (Latest Contact Info) Description 02/10/2024 Travel Social History Tobacco Use Types Packs/Day [...] (Latest Contact Info) Description 09/24/2024 7:30 PM FILM COLOR TESTER Appointment [facility] [address] [place] [address] Nelly Guerrero REPORT MANAGER [address] [place], [place] [address] 09/25/2024 7:00 AM FILM COLOR TESTER Appointment [facility] [address] [place] [address] Nelly Guerrero REPORT MANAGER [address] [facility] [place] [address] 11/01/2024 9:10 AM FILM COLOR TESTER Hospital Encounter [facility] [address] [place] [address] Chin Carcamo MD [address] [address] [place] [address] 11/01/2024 9:10 AM FILM COLOR TESTER - 11/01/2024 9:40 AM FILM COLOR TESTER Surgery [facility] [address] [place] [address] Chin Carcamo MD [address] [address] COLONOSCOPY DIAGNOSTIC WITH/WITHOUT SPECIMEN BRUSH/WASH Scheduled Procedures Name Priority Associated Diagnoses Date/Ti me COLONOSCOPY DIAGNOSTIC WITH/WITHOUT SPECIMEN BRUSH/WASH Hematochezia Chronic diarrhea 11/01/2024 9:10 AM FILM COLOR TESTER documented as of this encounter Visit Diagnoses Not on filedocumented in this encounter Care Teams Personal Banking Representative Relationship Specialty [place] [address] [place] [address] PCP - General FAMILY PRACTICE 08/21/22 documented as of this encounter
--- OUTSIDE RECORDS SUMMARY | 2024-09-23 12:24 | XMS_ITS | Encounter Summary ---
Author Organization [facility] Address [address] [place] [address]. [place], [place] [address] [place] [address] Care Team Providers Care Trainmaster Name Role Phone Esa Williamson MD Primary Care Provider [phone] Encounter Details Date Type Department Care Team (Latest Contact Info) Description 06/28/2024 Travel Social History Tobacco Use Types Packs/Day [...] (Latest Contact Info) Description 09/24/2024 7:30 PM DIRECTOR GLOBAL SALES Appointment [facility] [address] [place] [address] Nelly Guerrero CERTIFIED MEDICAL TECHNICIAN [address] [place], [place] [address] 09/25/2024 7:00 AM DIRECTOR GLOBAL SALES Appointment [facility] [address] [place] [address] Nelly Guerrero CERTIFIED MEDICAL TECHNICIAN 1179 [facility] [place] [address] 11/01/2024 9:10 AM DIRECTOR GLOBAL SALES Hospital Encounter [facility] [address] [place] [address] Chin Carcamo MD [address] [address] [place] [address] 11/01/2024 9:10 AM DIRECTOR GLOBAL SALES - 11/01/2024 9:40 AM DIRECTOR GLOBAL SALES Surgery [facility] [address] [place] [address] Chin Carcamo MD [address] [address] COLONOSCOPY DIAGNOSTIC WITH/WITHOUT SPECIMEN BRUSH/WASH Scheduled Procedures Name Priority Associated Diagnoses Date/Ti me COLONOSCOPY DIAGNOSTIC WITH/WITHOUT SPECIMEN BRUSH/WASH Hematochezia Chronic diarrhea 11/01/2024 9:10 AM DIRECTOR GLOBAL SALES documented as of this encounter Visit Diagnoses Not on filedocumented in this encounter Care Teams Trainmaster Relationship Specialty [place] [address] [place] [address] PCP - General FAMILY PRACTICE 08/21/22 documented as of this encounter
--- OUTSIDE RECORDS SUMMARY | 2024-09-23 12:24 | XMS_ITS | Encounter Summary ---
Author Organization [facility] Address [address] [place] [address]. [place], [place] [address] [place] [address] Care Team Providers Care Asphalt Surface Heater Operator Name Role Phone Esa Williamson MD Primary Care Provider [phone] Reason for Referral * Consultation (Routine) - Authorized Specialty Diagnoses / Procedures Referred By Contac t Referred To Contact OTOLARYNGOLOGY Diagnoses Snoring Sleep talking Procedures OFFICE/OUTPATIENT NEW LOW MDM 30-44 MINUTES OFFICE/OUTPT VISIT,NEW,LEVL IV OFFICE/OUTPT VISIT,NEW,LEVL V OFFICE/OUTPT VISIT,EST,LEVL III OFFICE/OUTPT VISIT,EST,LEVL IV OFFICE/OUTPT VISIT,EST,LEVL V Esa Williamson MD [address] [facility] [address] [place] [address] Phone: tel: fax: Nelly Guerrero, ICT HELP DESK OFFICER [address] [place] [address] Phone: tel: fax: Referral ID Status Reason Start Date Expiration Date V isits Requested Visits Authorized [id number] Authorized 04/04/2024 03/29/2025 99 99 Scheduling Instructions Would like to be seen at the [place] location. Thanks! Encounter Details Date Type Department Care Team (Late st Contact Info) Description 03/29/2024 Orders Only [facility] Family & Internal Medicine - [place] [address] [place] [phone] Esa Williamson MD [address] [facility] [address] [place] [address] Social History Tobacco Use Types Packs/Day Years [...] (Latest Contact Info) Description 09/24/2024 7:30 PM ENERGY AND SUSTAINABILITY MANAGER Appointment [facility] Sleep Lab [address] [place] [address] Nelly Guerrero, ICT HELP DESK OFFICER [address] [place] [address] 09/25/2024 7:00 AM ENERGY AND SUSTAINABILITY MANAGER Appointment [facility] Sleep Lab [address] [place] [address] Nelly Guerrero ICT HELP DESK OFFICER [address] [place] [address] 11/01/2024 9:10 AM ENERGY AND SUSTAINABILITY MANAGER Hospital Encounter [facility] [address] [place] [address] Chin Carcaom MD [address] [address] 11/01/2024 9:10 AM ENERGY AND SUSTAINABILITY MANAGER - 11/01/2024 9:40 AM ENERGY AND SUSTAINABILITY MANAGER Surgery [facility] [address] [place] [address], [place] [address] Chin Carcamo MD [address] [place] [address] COLONOSCOPY DIAGNOSTIC WITH/WITHOUT SPECIMEN BRUSH/WASH Scheduled Procedures Name Priority Associated Diagnoses Date/Ti me COLONOSCOPY DIAGNOSTIC WITH/WITHOUT SPECIMEN BRUSH/WASH Hematochezia Chronic diarrhea 11/01/2024 9:10 AM ENERGY AND SUSTAINABILITY MANAGER Scheduled Referrals Name Type Priority Associated Diagnoses Orde r Schedule Ambulatory referral to ENT Referral Routine Snoring Sleep talking Ordered: 03/29/2024 documented as of this encounter Visit Diagnoses Diagnosis Snoring- Primary Other dyspnea and respiratory abnormality Sleep talking 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
--- OUTSIDE RECORDS SUMMARY | 2024-09-23 12:24 | XMS_ITS | Encounter Summary ---
Author Organization [facility] Address [address] [place] [address]. [place], [place] [address] [place] [address] Care Team Providers Care Manager Global Name Role Phone Esa Williamson MD Primary Care Provider [phone] Reason for Referral * Sleep Lab (Routine) - Closed Specialty Diagnoses / Procedures Referred By Contac t Referred To Contact [facility] Sleep Disorders Diagnoses MARIO (obstructive sleep apnea) Procedures Diagnostic PSG (28992, 24188) Nelly Guerrero NP [address] [place] [address] Phone: tel: fax: [facility] Sleep Lab [address] [place] [address] Phone: tel: fax: Referral ID Status Reason Start Date Expiration Date Visits Re quested Visits Authorized [id number] Closed 06/23/2024 07/24/2025 1 1 Encounter Details Date Type Department Care Team (Late st Contact Info) Description 06/23/2024 Transcribe Orders [facility] Sleep Lab [address] [place] [address] Nelly Guerrero NP [address] [place] [address] Social History Tobacco Use Types Packs/Day Years [...] (Latest Contact Info) Description 09/24/2024 7:30 PM HISTOLOGY MANAGER Appointment [facility] Sleep Lab [address] [place] [address] Nelly Guerrero, MARKET SALES MANAGER [address] [place] [address] 09/25/2024 7:00 AM HISTOLOGY MANAGER Appointment [facility] Sleep Lab [address] [place] [address] Nelly Guerrero MARKET SALES MANAGER [address] [place] [address] 11/01/2024 9:10 AM HISTOLOGY MANAGER Hospital Encounter [facility] Surgery [address] [place] [address] Chin Carcamo MD [address] [address] 11/01/2024 9:10 AM HISTOLOGY MANAGER - 11/01/2024 9:40 AM HISTOLOGY MANAGER Surgery [facility] [address] [place] [address] Chin Carcamo MD [address] [address] [place] [address] COLONOSCOPY DIAGNOSTIC WITH/WITHOUT SPECIMEN BRUSH/WASH Scheduled Procedures Name Priority Associated Diagnoses Date/Ti ca COLONOSCOPY DIAGNOSTIC WITH/WITHOUT SPECIMEN BRUSH/WASH Hematochezia Chronic diarrhea 11/01/2024 9:10 AM HISTOLOGY MANAGER documented as of this encounter Results * Diagnostic PSG (50696, 34133) (07/05/2024 8:15 PM CDT) Narrative [facility] - 07/05/2024 8:15 PM CDT Luke Solano MD ? 07/18/2024 ??1:00 PM [place], [place] DIAGNOSTIC NOCTURNAL POLYSOMNOGRAM INTERPRETATION PATIENT NAME: [...] exacerbate snoring and sleep-related problems, such as STATION WORKER depressants, especially at bedtime. This document was electronically signed by: Luke Solano M.D. on 07/11/2024 at 10:48 AM. us Nelly Guerrero NP SLEEP CENTER ORDERABLES Final Result [facility] [address] [place], [place] [address] [phone] documented in this encounter Visit Diagnoses Diagnosis MARIO (obstructive sleep apnea)- Primary Obstructive sleep apnea (adult) (pediatric) Hematochezia Blood in stool Chronic diarrhea Diarrhea MARIO (obstructive sleep apnea) Obstructive sleep apnea (adult) (pediatric) Hematochezia Blood in stool Chronic diarrhea Diarrhea documented in this encounter Care Teams Manager Global Relationship Specialty [place] [address] [place] [address] PCP - General FAMILY PRACTICE 08/21/22 documented as of this encounter
--- OUTSIDE RECORDS SUMMARY | 2024-09-23 12:24 | XMS_ITS | Encounter Summary ---
Author Organization [facility] Address [address] [place] [address]. [place], [place] [address] [place] [address] Care Team Providers Care School Bus Driver Name Role Phone Mckenzie Williamson MD Primary Care Provider [phone] Reason for Referral * Consultation (Routine) - Authorized Specialty Diagnoses / Procedures Referred By Contac t Referred To Contact GASTROENTEROLOGY Diagnoses Irritable bowel syndrome with diarrhea Mckenzie Williamson MD [address] [facility] [address] [place] [address] Phone: tel: fax: [facility] [address], [address] [place] [address] Phone: tel: fax: Referral ID Status Reason Start Date Expiration Date V isits Requested Visits Authorized [id number] Authorized 01/06/2024 02/06/2025 99 99 Reason for Visit * Reason Comments Sleep Problem Snoring, sleep talki ng Back Pain Injury recently Gi Problem Referral for GI Rash Red dots on chest Cough Encounter Details Date Type Department Care Team (Late st Contact Info) Description 01/06/2024 3:00 PM CDT Office Visit [facility] Family & Internal Medicine [address] [address] Mckenzie Williamson MD [address] [facility] [address] [place] [address] Sleep Problem (Snoring, sleep talking); Back Pain (Injury recently ); Gi Problem (Referral for GI); Rash (Red dots on chest); Cough Social History Tobacco Use Types Packs/Day Years [...] Sign Reading Time Taken Comments Blood Pressure 96/64 01/06/2024 2:54 PM CDT Pulse 113 01/06/2024 2:54 PM CDT Temperature 36.8 ??C (98.3 ??F) 01/06/2024 2:54 PM CD T Respiratory Rate 20 01/06/2024 2:54 PM CDT Oxygen Saturation 97% 01/06/2024 2:54 PM CDT Inhaled Oxygen Concentration - - Weight 69.4 kg (153 lb) 01/06/2024 2:54 PM CDT Height 175.8 cm (5' 9.2 ) 01/06/2024 2:54 PM CDT Body Mass Index 22.46 01/06/2024 2:54 PM CDT documented in this encounter Progress Notes * Mckenzie Williamson MD - 01/06/2024 3:00 PM CDT Reason for Visit: Sleep Problem (Snoring, sleep talking), Back Pain (Injury recently ), Gi Problem (Referral for GI),Rash (Red dots on chest), and Cough History of Present Illness: 18yo male for follow up. GI concerns. Reports waxing and waning GI discomfort, going back years. Has seen both Peds and adult GI. Most recent diagnosis has been IBS with diarrhea. Has struggled to tolerate medication for symptoms previously. Denies specific symptoms trigger. No food triggers. MARIO. Previous diagnosis MAIRO, mild. Has seen sleep neurology previously. Reports some increase in snoring recently and reports sleep talking. Does report some daytime fatigue, tries to maintain regular sleep habits. URI symptoms. dry cough, fatigue, and sleep disturbance. Symptoms present for 1- 2 weeks. Taking acetaminophen. No sick contacts at home/work. denies fever denies chills ROS: Review of Systems Constitutional: Negative for chills and fever. Respiratory: Positive for cough. Cardiovascular: Negative for chest pain. Medications: Current Outpatient Medications: albuterol sulfate HFA 108 (90 Base) MCG/ACT inhaler, Inhale 1-2 puffs into the lungs every 4 (four)hours as needed., Disp: , Rfl: Review of patient's allergies indicates: Allergen Reactions Penicillins Rash Sulfa Antibiotics Vomiting Past Medical History: Diagnosis Date Acid reflux Asthma (HHS/HCC) Back pain Sleep apnea, unspecified Past Surgical History: Procedure Laterality Date ADENOIDECTOMY CIRCUMCISION BABY MYRINGOTOMY WITH TUBE INSERTION twice TONSILLECTOMY AND ADENOIDECTOMY Social History Socioeconomic History Marital status: Single Social History Narrative Lives with mother and older brother Social History Tobacco Use Smoking status: Never Passive exposure: Never Smokeless tobacco: Never Vaping Use Vaping status: Never Used Substance Use Topics Alcohol use: Never Drug use: Never Family History Problem Relation Name Age of Onset No Known Problems Mother Colon Cancer on Mom's side No Known Problems Father No Known Problems Brother Family Status Relation Name Status Mother Alive Father Brother Alive No partnership data on file Filed Vitals: 01/06/24 1454 BP: 96/64 Pulse: (!) 113 Resp: 20 Temp: 98.3 ??F (36.8 ??C) TempSrc: Temporal SpO2: 97% Weight: 69.4 kg (153 lb) Height: 1.758 m (5' 9.2 ) Physical Exam Vitals and nursing note reviewed. Constitutional: Appearance: He is well-developed. HENT: Head: Normocephalic and atraumatic. Cardiovascular: Rate and Rhythm: Normal rate and regular rhythm. Pulmonary: Effort: Pulmonary effort is normal. Breath sounds: Normal breath sounds. Abdominal: General: Bowel sounds are normal. Palpations: Abdomen is soft. Skin: General: Skin is warm and dry. Neurological: Mental Status: He is alert. Diagnoses/Impression: 1. Irritable bowel syndrome with diarrhea Ambulatory referral to Gastroenterology ( [place]) 2. Cough variant asthma (HHS/HCC) 3. MARIO (obstructive sleep apnea) Recommendations and Plan: 1. Irritable bowel syndrome with diarrhea Waxing and waning symptoms. No specific triggers. Discussed concerns. He would like referral back to GI, continue monitor. Discussed medication. Fu as needed. - Ambulatory referral to Gastroenterology ( [place]) 2. Cough variant asthma (HHS/HCC) Some recent URI symptoms. Does have asthma. Discussed options, continue as needed albuterol. Monitor. 3. MARIO (obstructive sleep apnea) Reports some snoring recently. Sleep study is 7 years ago. Consider repeat. Continue monitor. Discussed good sleep hygiene. I personally spent a total of 31 minutes on the day of the encounter. This includes elxx-oy-lncd and gie-lxvy-ca-face time I provided on the day of the encounter & excludes time spent performing separately reportable services. Orders Placed This Encounter Ambulatory referral to Gastroenterology ( [place]) Procedures MCKENZIE WILLIAMSON Referring Provider: No ref. provider found PCP: MCKENZIE WILLIAMSON MD documented in this encounter Plan of Treatment Upcoming Encounters Date Type Department Care Team (Latest Contact Info) Description 09/24/2024 7:30 PM SHOT PEENING OPERATOR Appointment [facility] Sleep Lab [address] [place] [address] Nelly Guerrero NP [address] [place] [address] 09/25/2024 7:00 AM SHOT PEENING OPERATOR Appointment [facility] Sleep Lab [address] [place] [address] Nelly Guerrero NP [address] [place] [address] 11/01/2024 9:10 AM SHOT PEENING OPERATOR Hospital Encounter [facility] Surgery [address] [place] [address] Chin Carcamo MD [address] [address] 11/01/2024 9:10 AM SHOT PEENING OPERATOR - 11/01/2024 9:40 AM SHOT PEENING OPERATOR Surgery [facility] Surgery [address] [place] [address] Chin Carcamo MD [address] [address] COLONOSCOPY DIAGNOSTIC WITH/WITHOUT SPECIMEN BRUSH/WASH Scheduled Procedures Name Priority Associated Diagnoses Date/Ti me COLONOSCOPY DIAGNOSTIC WITH/WITHOUT SPECIMEN BRUSH/WASH Hematochezia Chronic diarrhea 11/01/2024 9:10 AM SHOT PEENING OPERATOR Scheduled Referrals Name Type Priority Associated Diagnoses Orde r Schedule Ambulatory referral to Gastroenterology ( [place]) Referral Routine Irritable bowel syndrome with diarrhea Ordered: 01/06/2024 documented as of this encounter Visit Diagnoses Diagnosis Irritable bowel syndrome with diarrhea- Primary Irritable bowel syndrome Cough variant asthma (HHS/HCC) Cough variant asthma MARIO (obstructive sleep apnea) Obstructive sleep apnea (adult) (pediatric) Hematochezia Blood in stool Chronic diarrhea Diarrhea documented in this encounter Care Teams School Bus Driver Relationship Specialty [place] [address] [place] [address] PCP - General FAMILY PRACTICE 08/21/22 documented as of this encounter
--- OUTSIDE RECORDS SUMMARY | 2024-09-23 12:24 | XMS_ITS | Encounter Summary ---
Author Organization [facility] Address [address] [place] [address]. [place], [place] [address] [place] [address] Care Team Providers Care Manager Pmo Name Role Phone Esa Williamson MD Primary Care Provider [phone] Reason for Visit * Reason Comments IBS New pt here for IBS symptoms. At one time he was placed on dicyclomine, but it had a different affect on him it cause him more bloating, and stomach more uncomfortable. * Consultation (Routine) - Closed Specialty Diagnoses / Procedures Referred By Jeb gilliam Referred To Contact GASTROENTEROLOGY Diagnoses Irritable bowel syndrome with diarrhea Procedures OFFICE/OUTPT VISIT,NEW,LEVL III OFFICE/OUTPT VISIT,NEW,LEVL IV OFFICE/OUTPT VISIT,NEW,LEVL V OFFICE/OUTPT VISIT,EST,LEVL III OFFICE/OUTPT VISIT,EST,LEVL IV OFFICE/OUTPT VISIT,EST,LEVL V Juan R Bravo MD Kim, Peter S, MD [address] [place] [address] Phone: tel: fax: Referral ID Status Reason Start Date Expiration Date Visits Re quested Visits Authorized [id number] Closed 08/24/2022 08/24/2023 99 99 Encounter Details Date Type Department Care Team (Late st Contact Info) Description 01/01/2023 1:40 PM CDT Office Visit [facility] [address] [address] Juan R Bravo MD Kim, Peter S, MD [address] [phone] IBS (New pt here for IBS symptoms. At one time he was placed on dicyclomine, but it had a different affect on him it cause him more bloating, and stomach more uncomfortable. ) Social History Tobacco Use Types Packs/Day Years [...] Sign Reading Time Taken Comments Blood Pressure 98/64 01/01/2023 2:11 PM CDT Pulse 81 01/01/2023 2:11 PM CDT Temperature 35.9 ??C (96.6 ??F) 01/01/2023 2:11 PM CD T Respiratory Rate - - Oxygen Saturation 98% 01/01/2023 2:11 PM CDT Inhaled Oxygen Concentration - - Weight 69.2 kg (152 lb 9.6 oz) 01/01/2023 2:11 P M CDT Height 175.8 cm (5' 9.2 ) 01/01/2023 2:11 PM CDT Body Mass Index 22.41 01/01/2023 2:11 PM CDT Body Mass Index Percentile 54.17% 01/01/2023 2:1 1 PM CDT Growth Chart: [facility] (Boys, 2-2 0 Years) documented in this encounter Progress Notes * Brunilda Goldberg MA - 01/01/2023 1:40 PM CDT 98/64 * Carlton Carcamo MD - 01/01/2023 1:40 PM CDT Images from the original note were not included. Gastroenterology Initial Visit Reason for Visit: IBS (New pt here for IBS symptoms. At one time he was placed on dicyclomine, but it had a differentaffect on him it cause him more bloating, and stomach more uncomfortable. ) History of Present Illness: 17-year-old male with a history of IBS diarrhea. He was diagnosed many years ago by portfolio director. He was prescribed dicyclomine which she occasionally takes but it causes actually worsening bloating and fullness and gas problems. Currently has diarrhea about 5 times a day. Also is trying to bulk upwith weight lifting and has had some intentional weight loss. ROS: General: No fever, chills, malaise, fatigue, weight loss or gain HEENT: No acute changes in vision or hearing Respiratory: No shortness of breath, cough, sputum production, hemoptysis Cardiovascular: No chest pain, palpitations, orthopnea Gastrointestinal: As per HPI Musculoskeletal: No dysuria, hematuria, incontinence Neuro: No extremity edema, myalgia Hematology: No easy bruising, bleeding Skin: No new skin rashes or lesions Medications: Current Outpatient Medications: ??? albuterol sulfate HFA 108 (90 Base) MCG/ACT inhaler, Inhale 1-2 puffs into the lungs every 4 (four) hours as needed., Disp: , Rfl: ??? hyoscyamine ER (SYMAX-SR) 0.375 MG 12 hr tablet, Take 1 tablet (0.375 mg total) by mouth every 12 (twelve) hours as needed for Cramping., Disp: 60 tablet, Rfl: 2 Allergies: Allergies Allergen Reactions ??? Penicillins Rash ??? Sulfa Antibiotics Vomiting Medical History: Past Medical History: Diagnosis Date ??? Asthma Surgical History: Past Surgical History: Procedure Laterality Date ??? CIRCUMCISION BABY ??? MYRINGOTOMY WITH TUBE INSERTION twice ??? TONSILLECTOMY AND ADENOIDECTOMY Social History: Family History: Family History Problem Relation Name Age of Onset ??? No Known Problems Mother ??? No Known Problems Father ??? No Known Problems Brother PE: Filed Vitals: 01/01/23 1411 BP: 98/64 Pulse: 81 Temp: 96.6 ??F (35.9 ??C) TempSrc: Temporal SpO2: 98% Weight: 69.2 kg (152 lb 9.6 oz) Height: 5' 9.2 (1.758 m) General: In NAD, pleasant and appropriate HEENT: Anicteric Cardiovascular: RRR, no m Pulmonary: CTA BL, no added sounds Abdomen: Soft, ND/NT, normoactive BS Skin: Anicteric, no rashes Neuro: A&Ox3 Labs: Diagnoses/Impression: Probable IBS diarrhea. Dicyclomine seems to be counterproductive giving him more gas and bloating. Gas bloat syndrome is often dietary and I asked him to decrease dietary dairy products for 1 week followed by a trial of decreasing raw fruits and vegetables for a week. We will check celiac panel. Start Symax 0.375 twice daily if the above does not help. Consider EGD and colonoscopy. CARLTON CARCAMO MD 01/02/2023 Voice recognition software utilized documented in this encounter Plan of Treatment Upcoming Encounters Date Type Department Care Team (Latest Contact Info) Description 09/24/2024 7:30 PM CORDWOOD CUTTER Appointment [facility] Sleep Lab [address] [place] [address] Nelly Guerrero NP [address] [place] [address] 09/25/2024 7:00 AM CORDWOOD CUTTER Appointment [facility] Sleep Lab [address] [place] [address] Nelly Guerrero NP [address] [place] [address] 11/01/2024 9:10 AM CORDWOOD CUTTER Hospital Encounter [facility] Surgery [address] [place] [address] Carlton Carcamo MD 3 [facility] [address] [place] [address] 11/01/2024 9:10 AM CORDWOOD CUTTER - 11/01/2024 9:40 AM CORDWOOD CUTTER Surgery [facility] [address] [place] [address] Carlton Carcamo MD 3 [facility] [address] [place] [address] COLONOSCOPY DIAGNOSTIC WITH/WITHOUT SPECIMEN BRUSH/WASH Scheduled Procedures Name Priority Associated Diagnoses Date/Ti me COLONOSCOPY DIAGNOSTIC WITH/WITHOUT SPECIMEN BRUSH/WASH Hematochezia Chronic diarrhea 11/01/2024 9:10 AM CORDWOOD CUTTER documented as of this encounter Results * CELIAC DISEASE COMP PANEL (01/20/2023 3:31 PM CDT) INTERPRETATION REPORT 01/28/2023 4:17 AM CDT [employer] JHOANA FRENCH Comment: No serological evidence for celiac disease is present. tTG may normalize in individuals with celiac disease who maintain a gluten free diet. If high suspicion of celiac disease, consider HLA DQ2 and DQ8 testing to rule out celiac disease. TISSUE TRANSGLUTAMINASE IGA AB <1.0 <15.0 U/mL 01/28/2023 4:17 AM CDT [employer] JHOANA FRENCH Comment: ? Value ?Interpretation ? <15.0 ?Antibody not detected > or = 15.0 ?Antibody detected IGA 97 47 - 310 mg/dL 01/28/2023 4:17 AM CDT [employer] JHOANA FRENCH Comment: Test Performed by Marco Antonio Alcantara, [employer] [facility], [address] [place] [address] Migel Vaz M.D., Ph.D., Director of Laboratories , [place] [id number] 01/20/2023 3:31 PM CDT us Carlton Carcamo MD LABORATORY Final Result [employer] [facility] [address] [place] [address], [place] [phone] documented in this encounter Visit Diagnoses Diagnosis Diarrhea, unspecified type- Primary Hematochezia Blood in stool Chronic diarrhea Diarrhea documented in this encounter Care Teams Manager Pmo Relationship Specialty [place] [address] [place] [address] PCP - General FAMILY PRACTICE 08/21/22 documented as of this encounter
--- OUTSIDE RECORDS SUMMARY | 2024-09-23 12:24 | XMS_ITS | Encounter Summary ---
Author Organization [facility] Address [address] [place] [address]. [place], [place] [id number] [place] [address] Care Team Providers Care Sports Book Board Attendant Name Role Phone Esa Williamson MD Primary Care Provider [phone] Reason for Visit * Reason Comments Hearing Problem * Audiology Exam (Routine) - Closed Specialty Diagnoses / Procedures Referred By Jeb gilliam Referred To Contact AUDIOLOGY / [facility] Audiology Diagnoses Decreased hearing Procedures OFFICE/OUTPT VISIT,NEW,LEVL III OFFICE/OUTPT VISIT,NEW,LEVL IV OFFICE/OUTPT VISIT,NEW,LEVL V OFFICE/OUTPT VISIT,EST,LEVL III OFFICE/OUTPT VISIT,EST,LEVL IV OFFICE/OUTPT VISIT,EST,LEVL V Esa Williamson MD [address] [facility] [address] [place] [address] Phone: tel: fax: [facility] Audiology [address] [place] [address] Phone: tel: fax: Referral ID Status Reason Start Date Expiration Date V isits Requested Visits Authorized [id number] Closed Specialty Services 12/31/2022 01/30/2024 99 99 Encounter Details Date Type Department Care Team (Late st Contact Info) Description 01/14/2023 3:30 PM CDT Office Visit [facility] Audiology [address] [place] [address] Simran Gonzalez AUD [address] [place] [address] Hearing Problem Social History Tobacco Use Types Packs/Day Years [...] Recorded In the last 10 days, have tiffanie u been in contact with someone who was confirmed or suspected to have Coronavirus/COVID-19? No / Unsure 01/14/2023 3:13 PM CDT documented as of this encounter Progress Notes * DEYSI Brenner - 01/14/2023 3:30 PM CDTSummary: Audiometric Evaluation History: Willi Nelson, an 17 year-old male, was seen today for an audiological assessment. He reports hearing/processing difficulties, tinnitus, otalgia, pressure/fullness/popping sensation in ears, cerumen accumulation, and dizziness. There is a history of ear surgeries - 2 sets of tubes. There is a history of noise exposure. There is not a family history of hearing loss. Results: Otoscopic examination revealed clear canal with visible tympanic membrane, bilaterally. Tympanometric testing showed a Type A tympanogram, bilaterally, which is indicative of normal middle ear function. The audiogram revealed normal hearing, bilaterally. Word recognition scores were excellent, bilaterally. The SRT/MECHANICAL MAINTENANCE were in good agreement. Recommendations: Patient to follow-up with ENT/PCP. Annual audiological assessment or sooner if changes/concerns arise. Use of hearing protection when in the presence of noise. Deysi Brenner, [facility] documented in this encounter Plan of Treatment Upcoming Encounters Date Type Department Care Team (Latest Contact Info) Description 09/24/2024 7:30 PM HYDRODYNAMICIST Appointment [facility] [address] [place] [address] Nelly Guerrero, VETERINARY SURGEON [address] [place] [address] 09/25/2024 7:00 AM HYDRODYNAMICIST Appointment [facility] [address] [place] [address] Nelly Guerrero NP [address] [place], [place] [address] 11/01/2024 9:10 AM HYDRODYNAMICIST Hospital Encounter [facility] [address] [place] [address] Chin Carcamo MD [address] [address] 11/01/2024 9:10 AM HYDRODYNAMICIST - 11/01/2024 9:40 AM HYDRODYNAMICIST Surgery [facility] [address] [place] [address] Chin Carcamo MD [address] [address] COLONOSCOPY DIAGNOSTIC WITH/WITHOUT SPECIMEN BRUSH/WASH Scheduled Procedures Name Priority Associated Diagnoses Date/Ti me COLONOSCOPY DIAGNOSTIC WITH/WITHOUT SPECIMEN BRUSH/WASH Hematochezia Chronic diarrhea 11/01/2024 9:10 AM HYDRODYNAMICIST documented as of this encounter Visit Diagnoses Diagnosis Tinnitus, bilateral- Primary Unspecified tinnitus Dizziness Dizziness and giddiness Pressure sensation in both ears Normal hearing noted on examination Hematochezia Blood in stool Chronic diarrhea Diarrhea documented in this encounter Care Teams Sports Book Board Attendant Relationship Specialty [place] [address] [place] [address] PCP - General FAMILY PRACTICE 08/21/22 documented as of this encounter
--- OUTSIDE RECORDS SUMMARY | 2024-09-23 12:24 | XMS_ITS | Encounter Summary ---
Author Organization [facility] Address [address] [place] [address]. [place], [place] [address] [place] [address] Care Team Providers Care Gut Carrier Name Role Phone Esa Williamson MD Primary Care Provider [phone] Reason for Visit * Reason Comments Follow Up IBS F/u (IBS/diarrhea,bl oating) * Consultation (Routine) - Authorized Specialty Diagnoses / Procedures Referred By Contac t Referred To Contact GASTROENTEROLOGY Diagnoses Irritable bowel syndrome with diarrhea Esa Williamson MD [address] [facility] [address] [place] [address] Phone: tel: fax: [facility] - [address] [place] [address] Phone: tel: fax: Referral ID Status Reason Start Date Expiration Date V isits Requested Visits Authorized [id number] Authorized 01/06/2024 02/06/2025 99 99 Encounter Details Date Type Department Care Team (Latest Contact Info) Description 06/28/2024 2:20 PM CDT [facility] - [address], [address] [place] [address] Gail John NP 3 [facility] [address] [address] Follow Up; IBS (F/u (IBS/diarrhea,bloati ng)) Social History Tobacco Use Types Packs/Day Years [...] Mass Index 22.96 06/28/2024 2:16 PM CDT documented in this encounter Patient Instructions * Patient Instructions* Gail John NP - 06/28/2024 2:20 PM CDT It is recommended to consume 20-35 grams of fiber per day and at least 64 ounces/2 liters of water per day. Below are the common foods with fiber content listed for you. This will help with normal bowel movements. ?? 2018 [employer] and/or its affiliates. All Rights Reserved. Amount of fiber in different foods Food Serving Grams of fiber Fruits Apple (with skin) 1 medium apple 4.4 Banana 1 medium banana 3.1 Oranges 1 orange 3.1 Prunes 1 cup, pitted 12.4 Juices Apple, unsweetened, with added ascorbic acid 1 cup 0.5 Grapefruit, white, canned, sweetened 1 cup 0.2 Grape, unsweetened, with added ascorbic acid 1 cup 0.5 [place] 1 cup 0.7 Vegetables Cooked Green beans 1 cup 4.0 Carrots 1/2 cup sliced 2.3 Peas 1 cup 8.8 Potato (baked, with skin) 1 medium potato 3.8 Raw [place] (with peel) 1 cucumber 1.5 Lettuce 1 cup shredded 0.5 Tomato 1 medium tomato 1.5 Spinach 1 cup 0.7 Legumes Baked beans, canned, no salt added 1 cup 13.9 Kidney beans, canned 1 cup 13.6 Chin beans, canned 1 cup 11.6 Lentils, boiled 1 cup 15.6 Breads, pastas, flours Bran muffins 1 medium muffin 5.2 Oatmeal, cooked 1 cup 4.0 White bread 1 slice 0.6 Whole-wheat bread 1 slice 1.9 Pasta and rice, cooked Macaroni 1 cup 2.5 Rice, brown 1 cup 3.5 Rice, white 1 cup 0.6 Spaghetti (regular) 1 cup 2.5 Nuts Almonds 1/2 cup 8.7 Peanuts 1/2 cup 7.9 To learn how much fiber and other nutrients are in different foods, visit the [place] Department of Agriculture (USDA) National Nutrient Database at: http://www.nal.usda.gov/fnic/foodcomp/search/. Created using data from the USDA National Nutrient Database for Standard Reference. Available at http://www.nal.usda.gov/fnic/foodcomp/search/. Graphic 35321 Version 4.0 documented in this encounter Progress Notes * Gail John NP - 06/28/2024 2:20 PM CDT Images from the original note were not included. GASTROENTEROLOGY CONSULT 06/29/2024 11:53 AM Reason for Visit: Follow Up and IBS (F/u (IBS/diarrhea,bloating)) History of Present Illness: Willi Nelson is a 18-year-old male who presents today for IBSf/u. Was dx with IBS-D by a application support intern many yrs ago and managed with dicyclomine as needed. Was recommended to d/c dicyclomine last December since patient reported bloating when taking it. Patient is unsure if the bloating was from the dicyclomine or from the diarrhea since holding dicyclomine had no affect on his bloating. He did feel the medication helped during a more severe diarrhea flare. Was recommended adjusting diet, however he struggles to find specific food triggers. Still has ongoing symptoms despite changes with episodic diarrhea, bloating and gas. Reports infrequent hematochezia, maybeevery few months, over the past yr as well. Denies N/V episodes, heartburn or abdominal pain. Appetite appropriate. No unexplained weight loss. Earlier work-up in 2020 to include inflammatory markers was unremarkable. No previous endoscopies. Tested negative for celiac disease on 01/20/23. No hx of hepatitis infection NSAID/Anticoagulant use: None Past Medical History: Diagnosis Date Acid reflux Asthma (HHS/HCC) Back pain Sleep apnea, unspecified Past Surgical History: Procedure Laterality Date ADENOIDECTOMY CIRCUMCISION BABY MYRINGOTOMY WITH TUBE INSERTION twice TONSILLECTOMY AND ADENOIDECTOMY Family History Problem Relation Name Age of Onset No Known Problems Mother Colon Cancer on Mom's side No Known Problems Father No Known Problems Brother Social History Tobacco Use Smoking status: Never Passive exposure: Never Smokeless tobacco: Never Vaping Use Vaping status: Never Used Substance Use Topics Alcohol use: Never Drug use: Never Outpatient Medications Marked as Taking for the 06/28/24 encounter (Office Visit) with Gail John NP Medication Sig Dispense Refill albuterol sulfate HFA 108 (90 Base) MCG/ACT inhaler Inhale 1-2 puffs into the lungs every 4 (four) hours as needed. dicyclomine (BENTYL) 10 MG capsule Take 1 capsule (10 mg total) by mouth 4 (four) times daily as needed. 120 capsule 2 methylphenidate LA (RITALIN LA) 20 MG 24 hr capsule take 1 capsule by mouth every day in the morning for 30 days Na sulfate-K sulfate-Mg sulfate (SUPREP BOWEL PREP KIT) 17.5-3.13-1.6 GM/177ML Solution Take 177 mLs by mouth every 12 (twelve) hours. Per GI instructions 354 mL 0 Review of patient's allergies indicates: Allergen Reactions Penicillins Rash Sulfa Antibiotics Vomiting REVIEW OF SYSTEMS: Review of Systems Constitutional: Negative for unexpected weight change. Respiratory: Negative for shortness of breath. Cardiovascular: Negative for leg swelling. Gastrointestinal: Per HPI Musculoskeletal: Negative for joint swelling. Skin: Negative for rash. Neurological: Negative for dizziness and headaches. Psychiatric/Behavioral: Negative for confusion. The patient is not nervous/anxious. PHYSICAL EXAM: Filed Vitals: 06/28/24 1416 BP: 110/70 Pulse: (!) 112 Resp: 18 Temp: 98.4 ??F (36.9 ??C) TempSrc: Temporal SpO2: 100% Weight: 72.6 kg (160 lb) Height: 1.778 m (5' 10 ) Wt Readings from Last 1 Encounters: 06/28/24 72.6 kg (160 lb) Physical Exam Vitals reviewed. Constitutional: Appearance: Normal appearance. Cardiovascular: Rate and Rhythm: Normal rate and regular rhythm. Pulmonary: Breath sounds: Normal breath sounds. Abdominal: General: Bowel sounds are normal. There is no distension. Palpations: Abdomen is soft. There is no mass. Tenderness: There is no abdominal tenderness. There is no guarding or rebound. Hernia: No hernia is present. Musculoskeletal: Right lower leg: No edema. Left lower leg: No edema. Skin: General: Skin is warm and dry. Findings: No rash. Neurological: Mental Status: He is alert and oriented to person, place, and time. Psychiatric: Mood and Affect: Mood normal. Behavior: Behavior normal. Labs: Lab Results Component Value Date WBC 8.65 01/20/2023 RBC 5.07 01/20/2023 HGB 15.0 01/20/2023 HCT 43.3 01/20/2023 RDW 12.2 (L) 01/20/2023 PLT 298 01/20/2023 NA 140 01/20/2023 K 4.0 01/20/2023 CL 105 01/20/2023 AGAP 8.4 01/20/2023 GLU 89 01/20/2023 BUN 21 (H) 01/20/2023 CR 1.07 01/20/2023 GFRNON NOT CALCULATED 09/11/2021 GFR NOT CALCULATED 09/11/2021 CA 9.3 01/20/2023 ALB 4.7 01/20/2023 ALT 33 01/20/2023 AST 22 01/20/2023 ALKP 97 01/20/2023 Imaging: None Endoscopies: None Assessment 1. Hematochezia - Na sulfate-K sulfate-Mg sulfate (SUPREP BOWEL PREP KIT) 17.5-3.13-1.6 GM/177ML Solution; Take 177mLs by mouth every 12 (twelve) hours. Per GI instructions Dispense: 354 mL; Refill: 0 2. Chronic diarrhea - Na sulfate-K sulfate-Mg sulfate (SUPREP BOWEL PREP KIT) 17.5-3.13-1.6 GM/177ML Solution; Take 177mLs by mouth every 12 (twelve) hours. Per GI instructions Dispense: 354 mL; Refill: 0 - dicyclomine (BENTYL) 10 MG capsule; Take 1 capsule (10 mg total) by mouth 4 (four) times daily asneeded. Dispense: 120 capsule; Refill: 2 Recommendations/Plan: Schedule Dx Colonoscopy per chronic diarrhea with new onset of hematochezia over the past yr Suprep split prep prescribed Continue dicyclomine 10 mg as needed during diarrhea flare. Discussed low FODMAP diet to determine possible food triggers. Hand-outs given It is recommended to consume 20-35 grams of fiber per day and at least 64 ounces/2 liters of water per day. All questions answered More recommendations to follow endoscopic evaluation Risks/Benefits/Options: Risks, benefits and alternatives of the procedure(s) were discussed which can include but are not limited to: discomfort, missing lesions, allergic or adverse reaction to the sedation, perforation ofthe bowel or upper GI tract which may require hospitalization and surgery, bleeding, infection, aspiration. All questions were answered, patient is in agreement to proceed as planned. Orders placed this encounter: Orders Placed This Encounter methylphenidate LA (RITALIN LA) 20 MG 24 hr capsule Na sulfate-K sulfate-Mg sulfate (SUPREP BOWEL PREP KIT) 17.5-3.13-1.6 GM/177ML Solution dicyclomine (BENTYL) 10 MG capsule Gail John NP Gastroenterology documented in this encounter Plan of Treatment Upcoming Encounters Date Type Department Care Team (Latest Contact Info) Description 09/24/2024 7:30 PM TOBACCO SHAKER Appointment [facility] [address] [place] [address] Nelly Guererro, LIFE SCIENCES MANAGER [address] [place] [address] 09/25/2024 7:00 AM TOBACCO SHAKER Appointment [facility] [address] [place] [address] Nelly Guerrero, LIFE SCIENCES MANAGER [address] [place] [address] 11/01/2024 9:10 AM TOBACCO SHAKER Hospital Encounter [facility] [address] [place] [address] Chin Carcamo MD [address] [address] 11/01/2024 9:10 AM TOBACCO SHAKER - 11/01/2024 9:40 AM TOBACCO SHAKER Surgery [facility] [address] [place] [address] Chin Carcamo MD [address] [address] COLONOSCOPY DIAGNOSTIC WITH/WITHOUT SPECIMEN BRUSH/WASH Scheduled Procedures Name Priority Associated Diagnoses Date/Ti me COLONOSCOPY DIAGNOSTIC WITH/WITHOUT SPECIMEN BRUSH/WASH Hematochezia Chronic diarrhea 11/01/2024 9:10 AM TOBACCO SHAKER documented as of this encounter Visit Diagnoses Diagnosis Hematochezia- Primary Blood in stool Chronic diarrhea Diarrhea Hematochezia Blood in stool Chronic diarrhea Diarrhea documented in this encounter Care Teams Gut Carrier Relationship Specialty [place] [address] [place] [address] PCP - General FAMILY PRACTICE 08/21/22 documented as of this encounter
--- OUTSIDE RECORDS SUMMARY | 2024-09-23 12:24 | XMS_ITS | Encounter Summary ---
Author Organization [facility] Address [address] [place] [address]. [place], [place] [address] [place] [address] Care Team Providers Care Hand Mixer Name Role Phone Esa Williamson MD Primary Care Provider [phone] Encounter Details Date Type Department Care Team (Latest Contact Info) Description 02/10/2023 Travel Social History Tobacco Use Types Packs/Day [...] suspected to have Coronavirus/COVID-19? No / Unsure 02/10/2023 12:34 PM CDT documented as of this encounter Plan of Treatment Upcoming Encounters Date Type Department Care Team (Latest Contact Info) Description 09/24/2024 7:30 [address] [facility] [address] [place] [address] Nelly Guerrero NETWORKING TECHNICIAN [address] [place] [address] 09/25/2024 7:00 AM MINING HELPER Appointment [facility] [address] [place] [address] Nelly Guerrero, NETWORKING TECHNICIAN [address] [place] [address] 11/01/2024 9:10 AM MINING HELPER Hospital Encounter [facility] [address] [place] [address] Chin Carcamo MD 3 [facility] [address] [place] [address] 11/01/2024 9:10 AM MINING HELPER - 11/01/2024 9:40 AM MINING HELPER Surgery [facility] [address] [place] [address] Chin Carcamo MD 3 [facility] [address] [place] [address] COLONOSCOPY DIAGNOSTIC WITH/WITHOUT SPECIMEN BRUSH/WASH Scheduled Procedures Name Priority Associated Diagnoses Date/Ti me COLONOSCOPY DIAGNOSTIC WITH/WITHOUT SPECIMEN BRUSH/WASH Hematochezia Chronic diarrhea 11/01/2024 9:10 AM MINING HELPER documented as of this encounter Visit Diagnoses Not on filedocumented in this encounter Care Teams Hand Mixer Relationship Specialty [place] [address] [place] [address] PCP - General FAMILY PRACTICE 08/21/22 documented as of this encounter
--- OUTSIDE RECORDS SUMMARY | 2024-09-23 12:24 | XMS_ITS | Encounter Summary ---
Author Organization [facility] Address [address] [place] [address]. [place], [place] [address] [place] [address] Care Team Providers Care Waiter/Waitress Buffet Name Role Phone Esa Williamsno MD Primary Care Provider [phone] Encounter Details Date Type Department Care Team (Latest Contact Info) Description 01/06/2024 Travel Social History Tobacco Use Types Packs/Day [...] (Latest Contact Info) Description 09/24/2024 7:30 PM TUBING TESTER Appointment [facility] [address] [place] [address] Nelly Guerrero MANAGER TRUST [address] [place], [place] [address] 09/25/2024 7:00 AM TUBING TESTER Appointment [facility] [address] [place] [address] Nelly Guerrero MANAGER TRUST [address] [facility] [place] [address] 11/01/2024 9:10 AM TUBING TESTER Hospital Encounter [facility] [address] [place] [address] Chin Carcamo MD [address] [place] [address] [place] [address] 11/01/2024 9:10 AM TUBING TESTER - 11/01/2024 9:40 AM TUBING TESTER Surgery [facility] [address] [place] [address] Chin Carcamo MD [address] [address] COLONOSCOPY DIAGNOSTIC WITH/WITHOUT SPECIMEN BRUSH/WASH Scheduled Procedures Name Priority Associated Diagnoses Date/Ti me COLONOSCOPY DIAGNOSTIC WITH/WITHOUT SPECIMEN BRUSH/WASH Hematochezia Chronic diarrhea 11/01/2024 9:10 AM TUBING TESTER documented as of this encounter Visit Diagnoses Not on filedocumented in this encounter Care Teams Waiter/Waitress Buffet Relationship Specialty [place] [address] [place] [address] PCP - General FAMILY PRACTICE 08/21/22 documented as of this encounter
--- OUTSIDE RECORDS SUMMARY | 2024-09-23 12:24 | XMS_ITS | Encounter Summary ---
Author Organization [facility] Address [address] [place] [address]. [place], [place] [address] [place] [address] Care Team Providers Care Document Examiner Name Role Phone Mckenzie Williamson MD Primary Care Provider [phone] Reason for Visit * Reason Comments Hair/Scalp Problem Pt has concerns abou t hair loss Encounter Details Date Type Department Care Team (Late st Contact Info) Description 09/30/2023 3:40 PM FINANCIAL REPORTING ANALYST Office Visit [facility] Family & Internal Medicine [address] [address] Mckenzie Williamson MD [address] [place] [address] Hair/Scalp Problem (Pt has concerns about hair loss ) Social History Tobacco Use Types Packs/Day [...] Sign Reading Time Taken Comments Blood Pressure 118/58 09/30/2023 3:32 PM FINANCIAL REPORTING ANALYST Pulse 105 09/30/2023 3:32 PM FINANCIAL REPORTING ANALYST Temperature 36.6 ??C (97.9 ??F) 09/30/2023 3:32 PM CS T Respiratory Rate 16 09/30/2023 3:32 PM FINANCIAL REPORTING ANALYST Oxygen Saturation 96% 09/30/2023 3:32 PM FINANCIAL REPORTING ANALYST Inhaled Oxygen Concentration - - Weight 70.7 kg (155 lb 12.8 oz) 09/30/2023 3:32 PM FINANCIAL REPORTING ANALYST Height 175.8 cm (5' 9.2 ) 09/30/2023 3:32 PM FINANCIAL REPORTING ANALYST Body Mass Index 22.87 09/30/2023 3:32 PM FINANCIAL REPORTING ANALYST documented in this encounter Progress Notes * Mckenzie Williamson MD - 09/30/2023 3:40 PM CST Reason for Visit: Hair/Scalp Problem (Pt has concerns about hair loss ) History of Present Illness: 18yo male for evaluation. Hair loss concerns. Reports some receding of hairline over last 1-2 years. Primarily in temporal area. No prior treatments. Reports father with deep hairline, no other baldness in family. ROS: Review of Systems Constitutional: Negative for chills and fever. Cardiovascular: Negative for chest pain. Medications: Current Outpatient Medications: albuterol sulfate HFA 108 (90 Base) MCG/ACT inhaler, Inhale 1-2 puffs into the lungs every 4 (four)hours as needed., Disp: , Rfl: doxycycline hyclate (VIBRA-TABS) 100 MG tablet, Take 1 tablet (100 mg total) by mouth 2 (two) timesdaily., Disp: , Rfl: Review of patient's allergies indicates: Allergen Reactions Penicillins Rash Sulfa Antibiotics Vomiting Past Medical History: Diagnosis Date Asthma Past Surgical History: Procedure Laterality Date CIRCUMCISION BABY MYRINGOTOMY WITH TUBE INSERTION twice TONSILLECTOMY AND ADENOIDECTOMY Social History Socioeconomic History Marital status: Single Social History Narrative Lives with mother and older brother Social History Tobacco Use Smoking status: Never Smokeless tobacco: Never Vaping Use Vaping Use: Never used Substance Use Topics Alcohol use: Never Drug use: Never Family History Problem Relation Name Age of Onset No Known Problems Mother No Known Problems Father No Known Problems Brother Family Status Relation Name Status Mother Alive Father Alive Brother Alive Filed Vitals: 09/30/23 1532 BP: 118/58 Pulse: (!) 105 Resp: 16 Temp: 97.9 ??F (36.6 ??C) TempSrc: Temporal SpO2: 96% Weight: 70.7 kg (155 lb 12.8 oz) Height: 1.758 m (5' 9.2 ) Physical [...] Mental Status: He is alert. Diagnoses/Impression: 1. Hair loss Recommendations and Plan: 1. Hair loss Does have some deeper hairline in b/l temporal area, but not typical male patterned baldness. Discussed options, discussed medications, possible derm evaluation. Fu as needed. Orders Placed This Encounter doxycycline hyclate (VIBRA-TABS) 100 MG tablet Procedures MCKENZIE WILLIAMSON Referring Provider: No ref. provider found PCP: MCKENZIE WILLIAMSON MD NCIAL REPORTING ANALYST documented in this encounter Plan of Treatment Upcoming Encounters Date Type Department Care Team (Latest Contact Info) Description 09/24/2024 7:30 PM FINANCIAL REPORTING ANALYST Appointment [facility] Sleep Lab [address] [place] [address] Nelly Guerrero NP [address] [place] [address] 09/25/2024 7:00 AM FINANCIAL REPORTING ANALYST Appointment [facility] Sleep Lab [address] [place] [address] Nelly Guerrero NP [address] [place] [address] 11/01/2024 9:10 AM FINANCIAL REPORTING ANALYST Hospital Encounter [facility] Surgery [address] [place] [address] Chin Carcamo MD 3 [facility] [address] [place] [address] 11/01/2024 9:10 AM FINANCIAL REPORTING ANALYST - 11/01/2024 9:40 AM FINANCIAL REPORTING ANALYST Surgery [facility] Surgery [address] [place] [address] Chin Carcamo MD 3 [facility] [address] [place] [address] COLONOSCOPY DIAGNOSTIC WITH/WITHOUT SPECIMEN BRUSH/WASH Scheduled Procedures Name Priority Associated Diagnoses Date/Ti me COLONOSCOPY DIAGNOSTIC WITH/WITHOUT SPECIMEN BRUSH/WASH Hematochezia Chronic diarrhea 11/01/2024 9:10 AM FINANCIAL REPORTING ANALYST documented as of this encounter Visit Diagnoses Diagnosis Hair loss- Primary Alopecia, unspecified Hematochezia Blood in stool Chronic diarrhea Diarrhea documented in this encounter Care Teams Document Examiner Relationship Specialty [place] [address] [place] [address] PCP - General FAMILY PRACTICE 08/21/22 documented as of this encounter
--- OUTSIDE RECORDS SUMMARY | 2024-09-23 12:24 | XMS_ITS | Encounter Summary ---
Author Organization [facility] Address [address] [place] [address]. [place], [place] [address] [place] [address] Care Team Providers Care Chicken And Fish Cleaner Name Role Phone Esa Williamson MD Primary Care Provider [phone] Encounter Details Date Type Department Care Team (Latest Contact Info) Description 01/28/2023 Scan [facility] SRV[facility] Scanned, Doc [...] (Latest Contact Info) Description 09/24/2024 7:30 PM SPORTING GOODS SALES ASSOCIATE Appointment [facility] Sleep Lab [address] [place] [address] Nelly Guerrero, CLINICAL TRIALS SYSTEMS ADMINISTRATOR [address] [place], [place] [address] 09/25/2024 7:00 AM SPORTING GOODS SALES ASSOCIATE Appointment [facility] [address] [place] [address] Nelly Guerrero, CLINICAL TRIALS SYSTEMS ADMINISTRATOR [address] [facility] [place] [address] 11/01/2024 9:10 AM SPORTING GOODS SALES ASSOCIATE Hospital Encounter [facility] [address] [place] [address] Chin Carcamo MD 3 [facility] [address] [place] [address] 11/01/2024 9:10 AM SPORTING GOODS SALES ASSOCIATE - 11/01/2024 9:40 AM SPORTING GOODS SALES ASSOCIATE Surgery [facility] [address] [place] [address] Chin Carcamo MD 3 [facility] [address] [place] [address] COLONOSCOPY DIAGNOSTIC WITH/WITHOUT SPECIMEN BRUSH/WASH Scheduled Procedures Name Priority Associated Diagnoses Date/Ti me COLONOSCOPY DIAGNOSTIC WITH/WITHOUT SPECIMEN BRUSH/WASH Hematochezia Chronic diarrhea 11/01/2024 9:10 AM SPORTING GOODS SALES ASSOCIATE documented as of this encounter Visit Diagnoses Not on filedocumented in this encounter Care Teams Chicken And Fish Cleaner Relationship Specialty [place] [address] [place] [address] PCP - General FAMILY PRACTICE 08/21/22 documented as of this encounter
--- OUTSIDE RECORDS SUMMARY | 2024-09-23 12:24 | XMS_ITS | Encounter Summary ---
Author Organization [facility] Address [address] [place] [address]. [place], [place] [address] [place] [address] Care Team Providers Care Staff Research Associate Name Role Phone Esa Williamson MD Primary Care Provider [phone] Encounter Details Date Type Department Care Team (Late st Contact Info) Description 01/01/2023 Thrive Solot Message Enc [facility] Family & Internal Medicine [facility] [address] [place] [address] Esa Williamson MD [address] [place] [address] Bloodwork Social History Tobacco Use Types Packs/Day [...] (Latest Contact Info) Description 09/24/2024 7:30 PM HYDRAULIC BILLET MAKER Appointment [facility] Sleep Lab [address] [place] [address] Nelly Guerrero, INFORMATICS SPEC [address] [place] [address] 09/25/2024 7:00 AM HYDRAULIC BILLET MAKER Appointment [facility] Sleep Lab [address] [place] [address] Nelly Guerrero, INFORMATICS SPEC [address] [place] [address] 11/01/2024 9:10 AM HYDRAULIC BILLET MAKER Hospital Encounter [facility] [address] [place] [address] Chin Carcamo MD 3 [facility] [address] [place] [address] 11/01/2024 9:10 AM HYDRAULIC BILLET MAKER - 11/01/2024 9:40 AM HYDRAULIC BILLET MAKER Surgery [facility] [address] [place] [address] Chin Carcamo MD 3 [facility] [address] [place] [address] COLONOSCOPY DIAGNOSTIC WITH/WITHOUT SPECIMEN BRUSH/WASH Scheduled Procedures Name Priority Associated Diagnoses Date/Ti me COLONOSCOPY DIAGNOSTIC WITH/WITHOUT SPECIMEN BRUSH/WASH Hematochezia Chronic diarrhea 11/01/2024 9:10 AM HYDRAULIC BILLET MAKER documented as of this encounter Visit Diagnoses Not on filedocumented in this encounter Care Teams Staff Research Associate Relationship Specialty [place] [address] [place] [address] PCP - General FAMILY PRACTICE 08/21/22 documented as of this encounter
--- OUTSIDE RECORDS SUMMARY | 2024-09-23 12:24 | XMS_ITS | Encounter Summary ---
Author Organization [facility] Address [address] [place] [address]. [place], [place] [address] [place] [address] Care Team Providers Care Professor Of Industrial Technology Name Role Phone Esa Williamson MD Primary Care Provider [phone] Reason for Visit * Reason Comments Rash Pt co rash the genit als, underside of penis. Pt was seen days at [facility] 13 days ago and was nystatin cream and the rash has not resolved. Encounter Details Date Type Department Care Team (Late st Contact Info) Description 02/10/2023 1:00 PM CDT Office Visit [facility] Family & Internal Medicine [facility] [address] [place] [phone] Amrita Harry, ANAIS [address] [place] [address] Rash (Pt co rash the genitals, underside of penis. Pt was seen days at [facility] 13 days ago and was nystatin cream and the rash has not resolved. ) Social History Tobacco Use Types Packs/Day Years Used Date Smoking Tobacco: Never Smokeless Tobacco: Never Tobacco Cessation:Counseling Given: [...] Sign Reading Time Taken Comments Blood Pressure 104/61 02/10/2023 12:41 PM CDT Pulse 80 02/10/2023 12:41 PM CDT Temperature 37.5 ??C (99.5 ??F) 02/10/2023 1 2:41 PM CDT Respiratory Rate 18 02/10/2023 12:4 1 PM CDT Oxygen Saturation 95% 02/10/2023 12: 41 PM CDT Inhaled Oxygen Concentration - - Weight 69.7 kg (153 lb 9.6 oz) 02/11/20 23 12:41 PM CDT Height 175.8 cm (5' 9.2 ) 02/10/2023 12 :41 PM CDT Body Mass Index 22.55 02/10/2023 12:41 PM CDT Body Mass Index Percentile 55.10% 02/10 12:41 PM CDT Growth Chart: [facility] (Boys, 2-2 0 Years) documented in this encounter Patient Instructions * Attachments The following attachments cannot be sent through Care Everywhere. * Fungal Skin Rash ([place]) documented in this encounter Progress Notes * ANAIS Torres - 02/10/2023 1:00 PM CDT Images from the original note were not included. _ Reason for Visit: Rash (Pt co rash the genitals, underside of penis. Pt was seen days at [facility] 13 days ago and was nystatin cream and the rash has not resolved. ) Anel was present during exam. History of Present Illness: HPI Willi Nelson is a 17-year-old male here for evaluation thru the walk in clinic for evaluation of itching and irritation on his lower side of the shaft of hispenis his groin area. He is also noticing an itchy area on both of his knees. And his armpits. He was given nystatin cream and he has been using it but it does not seem to be responding. He describesthe rash as itchy. He did shave in the area prior to having the reaction. This was almost 2 weeks ago.. ROS: Review of Systems Feeling well. Denies headaches, vision or hearing problems. No recent colds or flus, denies symptoms suggestive of allergies. Denies dysphagia, heartburn or indigestion. No dyspnea or chest pain on exertion. No nausea, abdominal pain, change in bowel habits, black or bloody stools. No urinary symptoms. No muscle or joint aches or pains. No foot or leg edema. No numbness, tingling,or weakness. No anxiety or depressive symptoms, Sleeping well. No significant weight gain or loss. No fatigue. Medications: Outpatient Medications Marked as Taking for the 02/10/23 encounter (Office Visit) with ANAIS Torres Medication Sig Dispense Refill albuterol sulfate HFA 108 (90 Base) MCG/ACT inhaler Inhale 1-2 puffs into the lungs every 4 (four) hours as needed. fluconazole (DIFLUCAN) 150 MG tablet Once tablet every other day until gone 3 tablet 0 selenium sulfide (SELSUN) 2.5 % lotion Apply once daily lather for 10 minutes then rinse daily for 1 week 118 mL 0 Review of patient's allergies indicates: Allergen Reactions Penicillins Rash Sulfa Antibiotics Vomiting Past Medical History: Diagnosis Date Asthma Past Surgical History: Procedure Laterality Date CIRCUMCISION BABY MYRINGOTOMY WITH TUBE INSERTION twice TONSILLECTOMY AND ADENOIDECTOMY Social History Tobacco Use Smoking status: Never Smokeless tobacco: Never Vaping Use Vaping Use: Never used Substance Use Topics Alcohol use: Never Drug use: Never Family History Problem Relation Name Age of Onset No Known Problems Mother No Known Problems Father No Known Problems Brother Family Status Relation Name Status Mother Alive Father Alive Brother Alive Physical Exam Constitutional: Patient is oriented to person, place, and time. Patient appears well-developed and well-nourished. Head: Normocephalic. Eyes: Pupils are equal, round, and reactive to light. Neck: No JVD present. No thyromegaly present. Cardiovascular: Normal rate, regular rhythm, normal heart sounds and intact distal pulses. No murmur heard. Pulmonary/Chest: No respiratory distress. Patient has no wheezes. Patient has no rales. Patient exhibits no tenderness. Abdominal: Patient exhibits no distension and no mass. There is no suprapubic tenderness. There is no rebound and no guarding. Musculoskeletal: Normal range of motion. Patient exhibits no edema, tenderness or deformity. Lymphadenopathy: Patient has no cervical adenopathy. Neurological: Patient is alert and oriented to person, place, and time. Skin: Axillary has hyperpigmented erythema noted bilaterally. Behind both knees there appears to beerythema with a sandpapery appearance. Genital area was examined and found to have mild erythema noted on the underside of the shaft. There does not appear to be any bolus drainage or signs of ulcerations. There was nothing to culture. Psychiatric: Patient has a normal mood and affect. The behavior is normal. Thought content normal. View : No data to display. Vitals: 02/10/23 1241 Patient Position: Sitting BP Location: Left arm Cuff size: Adult Regular BP: 104/61 Pulse: 80 Body mass index is 22.55 kg/m??. Assessment and Plan Encounter Diagnose(s) ICD-10-CM ICD-9-CM SNOMED CT(R) 1. Tinea cruris B35.6 110.3 TINEA CRURIS selenium sulfide (SELSUN) 2.5 % lotion fluconazole (DIFLUCAN) 150 MG tablet We discussed using the selenium sulfide to the entire body to try to eradicate the yeast. I given Diflucan orally. Told him if he did not improve that he should contact dermatology. I told him that Iwould suggest that he use Selsun Blue shampoo as a body wash for maintenance at least for the summer help cut down the use fluid on his skin. Orders Placed This Encounter selenium sulfide (SELSUN) 2.5 % lotion fluconazole (DIFLUCAN) 150 MG tablet Patient was told that if symptoms do not improve to utilize the emergency room, call their PCP, or follow back up with the walk-in clinic. If patient needs any additional time off not discussed at this office visit they will need to contact the PCP or be seen in the walk in clinic. Patient should follow annual wellness exams recommended for age and sex of patient. Items to consider but not limited included yearly annual fasting labs, colonscopy or cologuard when indicated. PSA and prostate for males. Mammogram and female exam for females, Portions of this note were dictated using [employer] speech recognition software. Occasional wrong wordor sound-alike substitutions may have occurred due to the inherent limitations of voice recognition software. Please read the chart carefully and recognize, using context, where the substitutions may have occurred. Amrita Harry PA-C evaluated and Dr. Angelica Peña reviewed and agrees with plan. documented in this encounter Plan of Treatment Upcoming Encounters Date Type Department Care Team (Latest Contact Info) Description 09/24/2024 7:30 PM NAVAL ARCHITECT SPECIALIST Appointment [facility] Sleep Lab [address] [place] [address] Nelly Guerrero, DOOR FRAME BUILDER [address] [place] [address] 09/25/2024 7:00 AM NAVAL ARCHITECT SPECIALIST Appointment [facility] Sleep Lab [address] [place] [address] Nelly Guerrero, DOOR FRAME BUILDER [address] [place], [place] [address] 11/01/2024 9:10 AM NAVAL ARCHITECT SPECIALIST Hospital Encounter [facility] [address] [place] [address] Chin Carcamo MD [address] [address] 11/01/2024 9:10 AM NAVAL ARCHITECT SPECIALIST - 11/01/2024 9:40 AM NAVAL ARCHITECT SPECIALIST Surgery [facility] [address] [place] [address] Chin Carcamo MD [address] [id number] COLONOSCOPY DIAGNOSTIC WITH/WITHOUT SPECIMEN BRUSH/WASH Scheduled Procedures Name Priority Associated Diagnoses Date/Ti me COLONOSCOPY DIAGNOSTIC WITH/WITHOUT SPECIMEN BRUSH/WASH Hematochezia Chronic diarrhea 11/01/2024 9:10 AM NAVAL ARCHITECT SPECIALIST documented as of this encounter Visit Diagnoses Diagnosis Tinea cruris- Primary Dermatophytosis of groin and perianal area Hematochezia Blood in stool Chronic diarrhea Diarrhea documented in this encounter Care Teams Professor Of Industrial Technology Relationship Specialty [place] [address] [place] [address] PCP - General FAMILY PRACTICE 08/21/22 documented as of this encounter
--- OUTSIDE RECORDS SUMMARY | 2024-09-23 12:24 | XMS_ITS | Encounter Summary ---
Author Organization [facility] Address [address] [place] [address]. [place], [place] [address] [place] [address] Care Team Providers Care Steam Roller Operator Name Role Phone Esa Williamson MD Primary Care Provider [phone] Encounter Details Date Type Department Care Team (Latest Contact Info) Description 09/30/2023 Travel Social History Tobacco Use Types Packs/Day [...] (Latest Contact Info) Description 09/24/2024 7:30 PM CARGO ROUTER Appointment [facility] Sleep Lab [address] [place] [address] Nelly Guerrero, FRUIT RAISER [address] [place] [address] 09/25/2024 7:00 AM CARGO ROUTER Appointment [facility] Sleep Lab [address] [place] [address] Nelly Guerrero FRUIT RAISER [address] [place] [address]- 11/01/2024 9:10 AM CARGO ROUTER Hospital Encounter [facility] [address] [place] [address] Chin Carcamo MD 3 [facility] 5000 [place] [address] 11/01/2024 9:10 AM CARGO ROUTER - 11/01/2024 9:40 AM CARGO ROUTER Surgery [facility] [address] [place] [address] Chin Carcamo MD [address] [address] COLONOSCOPY DIAGNOSTIC WITH/WITHOUT SPECIMEN BRUSH/WASH Scheduled Procedures Name Priority Associated Diagnoses Date/Ti me COLONOSCOPY DIAGNOSTIC WITH/WITHOUT SPECIMEN BRUSH/WASH Hematochezia Chronic diarrhea 11/01/2024 9:10 AM CARGO ROUTER documented as of this encounter Visit Diagnoses Not on filedocumented in this encounter Care Teams Steam Roller Operator Relationship Specialty [place] [address] [place] [address] PCP - General FAMILY PRACTICE 08/21/22 documented as of this encounter
--- OUTSIDE RECORDS SUMMARY | 2024-09-23 12:24 | XMS_ITS | Encounter Summary ---
Author Organization [facility] Address [address] [place] [address]. [place], [place] [address] [place] [address] Care Team Providers Care Health Insurance Agent Name Role Phone Esa Williamson MD Primary Care Provider [phone] Encounter Details Date Type Department Care Team (Latest Contact Info) Description 01/14/2023 Travel Social History Tobacco Use Types Packs/Day [...] (Latest Contact Info) Description 09/24/2024 7:30 PM MATTRESS FILLING MACHINE TENDER Appointment [facility] [address] [place] [address] Nelly Guerrero MAT TESTER [address] [place] [address] 09/25/2024 7:00 AM MATTRESS FILLING MACHINE TENDER Appointment [facility] Sleep Lab [address] [place] [address] Nelly Guerrero, MAT TESTER [address] [place] [address] 11/01/2024 9:10 AM MATTRESS FILLING MACHINE TENDER Hospital Encounter [facility] Surgery [address] [place] [address] Chin Carcamo MD 3 [facility] [address] [place] [address] 11/01/2024 9:10 AM MATTRESS FILLING MACHINE TENDER - 11/01/2024 9:40 AM MATTRESS FILLING MACHINE TENDER Surgery [facility] Surgery [address] [place] [address] Chin Carcamo MD 3 [facility] [address] [place] [address] COLONOSCOPY DIAGNOSTIC WITH/WITHOUT SPECIMEN BRUSH/WASH Scheduled Procedures Name Priority Associated Diagnoses Date/Ti me COLONOSCOPY DIAGNOSTIC WITH/WITHOUT SPECIMEN BRUSH/WASH Hematochezia Chronic diarrhea 11/01/2024 9:10 AM MATTRESS FILLING MACHINE TENDER documented as of this encounter Visit Diagnoses Not on filedocumented in this encounter Care Teams Health Insurance Agent Relationship Specialty [place] [address] [place] [address] PCP - General FAMILY PRACTICE 08/21/22 documented as of this encounter
--- OUTSIDE RECORDS SUMMARY | 2024-09-23 12:24 | XMS_ITS | Encounter Summary ---
Author Organization [facility] Address [address] [place] [address]. [place], [place] [address] [place] [address] Care Team Providers Care Foreign Exchange Clerk Name Role Phone Esa Williamson MD Primary Care Provider [phone] Reason for Visit * Reason Comments Throat Problem Encounter Details Date Type Department Care Team (Late st Contact Info) Description 02/10/2024 6:28 PM CDT - 02/10/2024 7:27 PM CDT Emergency [facility] Emergency Room [id number] [place] [address] Kacy Oviedo MD [address] [place] [address] Throat Problem Discharge Disposition: Home or Self Care (Routine [...] Sign Reading Time Taken Comments Blood Pressure 137/76 02/10/2024 6:33 PM CDT Pulse 90 02/10/2024 6:33 PM CDT Temperature 36.8 ??C (98.3 ??F) 02/10/2024 6:33 PM CD T Respiratory Rate 18 02/10/2024 6:33 PM CDT Oxygen Saturation 98% 02/10/2024 6:33 PM CDT Inhaled Oxygen Concentration - - Weight 70.3 kg (155 lb) 02/10/2024 6:33 PM CDT Height 175.3 cm (5' 9 ) 02/10/2024 6:33 PM CDT Body Mass Index 22.89 02/10/2024 6:33 PM CDT documented in this encounter Discharge Instructions * Discharge Instructions* Kacy Oviedo MD - 02/10/2024 6:56 PM CDT Increase oral fluids intake. Follow-up with primary care doctor in 2 to 3 days. Continue clindamycin. Salt and water gargles. Use ibuprofen 600 mg every 6 hours as needed for pain. Return to ED if symptoms worsen prior to follow-up. * Attachments The following attachments cannot be sent through Care Everywhere. * Viral Pharyngitis Discharge Instructions (Lao) documented in this encounter Medications at Time of Discharge albuterol sulfate HFA 108 (90 Base) MCG/ACT inhaler Inhale 1-2 puffs into the lungs every 4 (four) hours as needed. 05/14/2017 documented as of this encounter ED Notes * Kacy Oviedo MD - 02/10/2024 6:52 PM CDT Chief Complaint Chief Complaint Patient presents with Throat Problem History of Present Illness Patient is a 18-year-old male who presents with complaints of a sore throat for the past 3 to 4 days. Patient is on day 3 of clindamycin. Of note he has had a previous adenoidectomy and tonsillectomy. No fever. No difficulty swallowing. No chest pain or shortness of breath. Medical History ALLERGIES: Review of patient's allergies indicates: Allergen Reactions Penicillins Rash Sulfa Antibiotics Vomiting MEDICATIONS: Prior to Admission medications Medication Sig Start Date End Date Taking? Authorizing Provider albuterol sulfate HFA 108 (90 Base) MCG/ACT inhaler Inhale 1-2 puffs into the lungs every 4 (four) hours as needed. 05/14/17 Doc [facility] PAST MEDICAL HISTORY: Past Medical History: Diagnosis Date Acid reflux Asthma (HHS/HCC) Back pain Sleep apnea, unspecified PAST SURGICAL HISTORY: Past Surgical History: Procedure Laterality Date ADENOIDECTOMY CIRCUMCISION BABY MYRINGOTOMY WITH TUBE INSERTION twice TONSILLECTOMY AND ADENOIDECTOMY FAMILY HISTORY: Family History Problem Relation Name Age of Onset No Known Problems Mother Colon Cancer on Mom's side No Known Problems Father No Known Problems Brother SOCIAL HISTORY: Social History Tobacco Use Smoking status: Never Passive exposure: Never Smokeless tobacco: Never Vaping Use Vaping status: Never Used Substance Use Topics Alcohol use: Never Drug use: Never Review of Systems Review of Systems All other systems reviewed and are negative. Physical Exam Filed Vitals: 02/10/24 1833 BP: 137/76 Pulse: 90 Resp: 18 Temp: 98.3 ??F (36.8 ??C) TempSrc: Oral SpO2: 98% Weight: 70.3 kg (155 lb) Height: 1.753 m (5' 9 ) Physical Exam Vitals and nursing note reviewed. Constitutional: Appearance: Normal appearance. HENT: Mouth/Throat: Mouth: Mucous membranes are moist. Pharynx: Posterior oropharyngeal erythema present. No oropharyngeal exudate. Comments: Increase swelling in left posterior pharynx Eyes: Conjunctiva/sclera: Conjunctivae normal. Cardiovascular: Rate and Rhythm: Normal rate and regular rhythm. Pulmonary: Effort: Pulmonary effort is normal. Abdominal: Palpations: Abdomen is soft. Tenderness: There is no abdominal tenderness. Musculoskeletal: General: Normal range of motion. Cervical back: Normal range of motion. Neurological: General: No focal deficit present. Mental Status: He is alert. Psychiatric: Mood and Affect: Mood normal. Diagnostic Studies / Procedures ELECTROCARDIOGRAMS: No results found for this visit on 02/10/24. LABORATORY STUDIES: No results found for this visit on 02/10/24. IMAGING STUDIES No orders to display ED Course / Medical Decision Making Medical Decision Making Patient declines further labs or imaging today. He was counseled to continue clindamycin for acute pharyngitis which was likely viral. Salt water gargles encouraged. NSAIDs also recommended. He will follow-up with primary care doctor in 2 to 3 days. Return to ED symptoms worsen prior to follow-up. Problems Addressed: Acute pharyngitis: acute illness or injury Risk OTC drugs. Prescription drug management. Clinical Impression Acute pharyngitis (Primary) Disposition: Discharge Kacy Oviedo MD 02/10/241932 * Sierra Clancy RN - 02/10/2024 6:31 PM CDT Patient arrives with c/o a possible abscess in his throat, patient was put on ABX 2 days ago following a walk-in clinic visit for this throat pain. Patient reports the pain has decreased but the areahas not changed. Patient denies fever or chills. documented in this encounter Plan of Treatment Upcoming Encounters Date Type Department Care Team (Latest Contact Info) Description 09/24/2024 7:30 PM PACKAGE LINE OPERATOR Appointment [facility] Sleep Lab [address] [place] [address] Nelly Guerrero KNOTTING MACHINE OPERATOR [address] [place] [address] 09/25/2024 7:00 AM PACKAGE LINE OPERATOR Appointment [facility] Lab [address] [place] [address] Nelly Guerrero KNOTTING MACHINE OPERATOR [address] [place] [address] 11/01/2024 9:10 AM PACKAGE LINE OPERATOR Hospital Encounter [facility] Surgery [address] [place] [address] Chin Carcamo MD [address] [address] 11/01/2024 9:10 AM PACKAGE LINE OPERATOR - 11/01/2024 9:40 AM PACKAGE LINE OPERATOR Surgery [facility] [address] [place] [address] Chin Carcamo MD [address] [place] [address] COLONOSCOPY DIAGNOSTIC WITH/WITHOUT SPECIMEN BRUSH/WASH Scheduled Procedures Name Priority Associated Diagnoses Date/Ti me COLONOSCOPY DIAGNOSTIC WITH/WITHOUT SPECIMEN BRUSH/WASH Hematochezia Chronic diarrhea 11/01/2024 9:10 AM PACKAGE LINE OPERATOR documented as of this encounter Visit Diagnoses Diagnosis Acute pharyngitis- Primary Hematochezia Blood in stool Chronic diarrhea Diarrhea documented in this encounter Care Teams Foreign Exchange Clerk Relationship Specialty [place] [address] [place] [address] PCP - General FAMILY PRACTICE 08/21/22 documented as of this encounter
--- OUTSIDE RECORDS SUMMARY | 2024-09-23 12:25 | XMS_ITS | Encounter Summary ---
Author Organization [facility] Address [address] [place] [address]. [place], [place] [address] [place] [address] Care Team Providers Care Business Sales Consultant Name Role Phone Esa Williamson MD Primary Care Provider [phone] Idania Schwab Primary Care Provider [phone] Esa Williamson MD Primary Care Provider [phone] Encounter Details Date Type Department Care Team (Late st Contact Info) Description 06/22/2022 CLIPPATEt Message Enc [facility] Family & Internal Medicine [facility] [address] [place] [address] Esa Williamson MD [address] [place] [address] Supplements Social History Tobacco Use Types Packs/Day Years Used Date Smoking Tobacco: Never Smokeless Tobacco: Never Alcohol Use Standard Drinks/Week Comments Never 0 (1 standard drink = 0.6 oz pur e alcohol) PHQ-2 Answer Date Recorded PHQ-2 Score - If the patient scores above 3, please move on to questions 3-9 0 02/02/2022 Sex and Gender Information Value Date Recorded Sex Assigned at Not on file Legal Sex Male 7:45 PM CDT Gender Identity Not on file Sexual Orientation Not on file documented as of this encounter Progress Notes * Tiffany Orellana RN - 06/22/2022 3:22 PM CDT Message sent to Dr Williamson regarding this. documented in this encounter Plan of Treatment Upcoming Encounters Date Type Department Care Team (Latest Contact Info) Description 09/24/2024 7:30 PM NUCLEAR REACTOR OPERATOR Appointment [facility] [address] [place] [address] Nelly Guerrero, CLIENT ADMINISTRATOR [address] [place] [address] 09/25/2024 7:00 AM NUCLEAR REACTOR OPERATOR Appointment [facility] [address] [place] [address] Nelly Guerrero, CLIENT ADMINISTRATOR [address] [place], [place] [address] 11/01/2024 9:10 AM NUCLEAR REACTOR OPERATOR Hospital Encounter [facility] [address] [place] [address] Chin Carcamo MD [address] [address] 11/01/2024 9:10 AM NUCLEAR REACTOR OPERATOR - 11/01/2024 9:40 AM NUCLEAR REACTOR OPERATOR Surgery [facility] [address] [place] [address] Chin Carcamo MD [address] [address] COLONOSCOPY DIAGNOSTIC WITH/WITHOUT SPECIMEN BRUSH/WASH Scheduled Procedures Name Priority Associated Diagnoses Date/Ti me COLONOSCOPY DIAGNOSTIC WITH/WITHOUT SPECIMEN BRUSH/WASH Hematochezia Chronic diarrhea 11/01/2024 9:10 AM NUCLEAR REACTOR OPERATOR documented as of this encounter Visit Diagnoses Not on filedocumented in this encounter Care Teams Business Sales Consultant Relationship Specialty [place] [address] [place] [address] PCP - General FAMILY PRACTICE 02/17/21 08/09/22 Idania Schwab APNP [address] [address] PCP - General Nurse Practitioner Family 08/10/22 [place] [address] [place] [address] PCP - General FAMILY PRACTICE 08/21/22 documented as of this encounter
--- OUTSIDE RECORDS SUMMARY | 2024-09-23 12:25 | XMS_ITS | Encounter Summary ---
Author Organization [facility] Address [address] [place] [address]. [place], [place] [address] [place] [address] Care Team Providers Care Clinical Services Director Name Role Phone Esa Williamson MD Primary Care Provider [phone] Encounter Details Date Type Department Care Team (Latest Contact Info) Description 12/02/2021 Scan HEALTH INFO SRVCS Scanned, Documents Social History Tobacco Use Types Packs/Day Years Used Date Smoking Tobacco: Never Smokeless Tobacco: Never Alcohol Use Standard Drinks/Week Comments Never 0 (1 standard drink = 0.6 oz pur e alcohol) PHQ-2 Answer Date Recorded PHQ-2 Score - If the patient scores above 3, please move on to questions 3-9 0 02/20/2021 Sex and Gender Information Value Date Recorded Sex Assigned at Not on file Legal Sex Male 7:45 PM CDT Gender Identity Not on file Sexual Orientation Not on file documented as of this encounter Plan of Treatment Upcoming Encounters Date Type Department Care Team (Latest Contact Info) Description 09/24/2024 7:30 PM FUEL ISLAND ATTENDANT Appointment [facility] [address] [place] [address] Nelly Guerrero STILL OPERATOR [address] [place], [place] [address] 09/25/2024 7:00 AM FUEL ISLAND ATTENDANT Appointment [facility] Lab [address] [place] [address] Nelly Guerrero STILL OPERATOR [address] [place] [address] 11/01/2024 9:10 AM FUEL ISLAND ATTENDANT Hospital Encounter [facility] [address] [place] [address] Chin Carcamo MD [address] [address] [place] [address] 11/01/2024 9:10 AM FUEL ISLAND ATTENDANT - 11/01/2024 9:40 AM FUEL ISLAND ATTENDANT Surgery [facility] [address] [place] [address] Chin Carcamo MD 3 [facility] [address] [place] [address] COLONOSCOPY DIAGNOSTIC WITH/WITHOUT SPECIMEN BRUSH/WASH Scheduled Procedures Name Priority Associated Diagnoses Date/Ti me COLONOSCOPY DIAGNOSTIC WITH/WITHOUT SPECIMEN BRUSH/WASH Hematochezia Chronic diarrhea 11/01/2024 9:10 AM FUEL ISLAND ATTENDANT documented as of this encounter Visit Diagnoses Not on filedocumented in this encounter Care Teams Clinical Services Director Relationship Specialty [place] [address] [place] [address] PCP - General FAMILY PRACTICE 02/17/21 08/09/22 documented as of this encounter
--- OUTSIDE RECORDS SUMMARY | 2024-09-23 12:25 | XMS_ITS | Encounter Summary ---
Author Organization [facility] Address [address] [place] [address]. [place] [address] [place] [address] Care Team Providers Care Energy Risk Management Analyst Name Role Phone Esa Williamson MD Primary Care Provider [phone] Reason for Visit * Reason Onset Date Comments COVID-19 09/04/2021 Encounter Details Date Type Department Care Team (Late st Contact Info) Description 09/04/[address] [facility] [address] [place] [address] Esa Williamson MD 9401 [facility] [address] [place] [address] COVID-19 Social History Tobacco Use Types Packs/Day Years [...] Progress Notes * Tiffany Orellana RN - 09/04/2021 10:49 AM CST Do you recommend the booster for this pt? Thanks! R * Grazyna Dominique LPN - 09/04/2021 10:35 AM CST Mom just heard that authorization for 16 and 17 year old have been given for covid booster do we remberto [phone] Jessica R documented in this encounter Plan of Treatment Upcoming Encounters Date Type Department Care Team (Latest Contact Info) Description 09/24/2024 7:30 PM GAMER Appointment [facility] Sleep Lab [address] [place] [address] Nelly Guerrero, LOG LOADER HELPER [address] [place] [address] 09/25/2024 7:00 AM GAMER Appointment [facility] Sleep Lab [address] [place] [address] Nelly Guerrero, LOG LOADER HELPER [address] [place] [address] 11/01/2024 9:10 AM GAMER Hospital Encounter [facility] [address] [place] [address] Chin Carcamo MD [address] [address] 11/01/2024 9:10 AM GAMER - 11/01/2024 9:40 AM GAMER Surgery [facility] [address] [place] [address] Chin Carcamo MD 3 [facility] [address] [place], [place] [address] COLONOSCOPY DIAGNOSTIC WITH/WITHOUT SPECIMEN BRUSH/WASH Scheduled Procedures Name Priority Associated Diagnoses Date/Ti me COLONOSCOPY DIAGNOSTIC WITH/WITHOUT SPECIMEN BRUSH/WASH Hematochezia Chronic diarrhea 11/01/2024 9:10 AM GAMER documented as of this encounter Visit Diagnoses Not on filedocumented in this encounter Care Teams Energy Risk Management Analyst Relationship Specialty [place] [address] [place] [address] PCP - General FAMILY PRACTICE 02/17/21 08/09/22 documented as of this encounter
--- OUTSIDE RECORDS SUMMARY | 2024-09-23 12:25 | XMS_ITS | Encounter Summary ---
Author Organization [facility] Address [address] [place] [address]. [place], [place] [address] [place] [address] Care Team Providers Care Loading Machine Adjuster Name Role Phone Esa Williamson MD Primary Care Provider [phone] Reason for Visit * Reason Onset Date Comments Question 06/22/2022 Encounter Details Date Type Department Care Team (Late st Contact Info) Description 06/22/2022 Telephone [facility] Family & Internal Medicine [facility] [address] [place] [phone] Esa Williamson MD [address] [place] [address] Question Social History Tobacco Use Types Packs/Day Years [...] Progress Notes * Tiffany Orellana RN - 06/30/2022 8:15 AM CDT Pt asking again about this. Please see notes below and advise. Thanks! * Tiffany Orellana RN - 06/23/2022 3:55 PM CDT Please advise. * Esa Williamson MD - 06/23/2022 8:46 AM CDT I would try concentrating on increasing dietary protein prior to adding a supplement like creatine * Tiffany Orellana RN - 06/22/2022 3:21 PM CDT ----- Message from Dayana Cross RN sent at 06/22/2022 3:19 PM CDT ----- Regarding: FW: Supplements ----- Message ----- From: Willi Nelson Sent: 06/22/2022 3:13 PM CDT To: Esa Ugalde Nurse Subject: Supplements For a few months, I have been weight lifting consistently. Recently I was looking into Creatine supplements. I have seen conflicting information on the possible side effects of taking them. Are Creatine supplements safe to consume? documented in this encounter Plan of Treatment Upcoming Encounters Date Type Department Care Team (Latest Contact Info) Description 09/24/2024 7:30 PM CORPORATE LAWYER Appointment [facility] Sleep Lab [address] [place] [address] Nelly Guerrero, FLAME CHANNELER [address] [place] [address] 09/25/2024 7:00 AM CORPORATE LAWYER Appointment [facility] Sleep Lab [address] [place] [address] Nelly Guerrero, FLAME CHANNELER [address] [place] [address] [phone] 11/01/2024 9:10 AM CORPORATE LAWYER Hospital Encounter [facility] [address] [place] [address] Chin Carcamo MD 3 [facility] [address] [place] [address] 11/01/2024 9:10 AM CORPORATE LAWYER - 11/01/2024 9:40 AM CORPORATE LAWYER Surgery [facility] [address] [place] [address] Chin Carcamo MD 3 [facility] [address] [place] [address] COLONOSCOPY DIAGNOSTIC WITH/WITHOUT SPECIMEN BRUSH/WASH Scheduled Procedures Name Priority Associated Diagnoses Date/Ti me COLONOSCOPY DIAGNOSTIC WITH/WITHOUT SPECIMEN BRUSH/WASH Hematochezia Chronic diarrhea 11/01/2024 9:10 AM CORPORATE LAWYER documented as of this encounter Visit Diagnoses Not on filedocumented in this encounter Care Teams Loading Machine Adjuster Relationship Specialty [place] [address] [place] [address] PCP - General FAMILY PRACTICE 02/17/21 08/09/22 documented as of this encounter
--- OUTSIDE RECORDS SUMMARY | 2024-09-23 12:25 | XMS_ITS | Encounter Summary ---
Author Organization [facility] Address [address] [place] [address]. [place], [place] [address] [place] [address] Care Team Providers Care Supervisor Assembly Stock Name Role Phone Esa Williamson MD Primary Care Provider [phone] Encounter Details Date Type Department Care Team (Latest Contact Info) Description 07/20/2022 Travel Social History Tobacco Use Types Packs/Day [...] suspected to have Coronavirus/COVID-19? No / Unsure 07/20/2022 3:13 PM CDT documented as of this encounter Plan of Treatment Upcoming Encounters Date Type Department Care Team (Latest Contact Info) Description 09/24/2024 7:30 [address] [facility] [address] [place] [address] Nelly Guerrero SOLAR PROJECT MANAGER [address] [place] [address] 09/25/2024 7:00 AM GROMMET MAN Appointment [facility] Sleep Lab [address] [place] [address] Nelly Guerrero, SOLAR PROJECT MANAGER [address] [place] [address] 11/01/2024 9:10 AM GROMMET MAN Hospital Encounter [facility] Surgery [address] [place] [address] Chin Carcamo MD [address] [facility] [address] [place] [address] 11/01/2024 9:10 AM GROMMET MAN - 11/01/2024 9:40 AM GROMMET MAN Surgery [facility] Surgery [address] [place] [address] Chin Carcamo MD [address] [facility] [address] [place] [address] COLONOSCOPY DIAGNOSTIC WITH/WITHOUT SPECIMEN BRUSH/WASH Scheduled Procedures Name Priority Associated Diagnoses Date/Ti me COLONOSCOPY DIAGNOSTIC WITH/WITHOUT SPECIMEN BRUSH/WASH Hematochezia Chronic diarrhea 11/01/2024 9:10 AM GROMMET MAN documented as of this encounter Visit Diagnoses Not on filedocumented in this encounter Care Teams Supervisor Assembly Stock Relationship Specialty [place] [address] [place] [address] PCP - General FAMILY PRACTICE 02/17/21 08/09/22 documented as of this encounter
--- OUTSIDE RECORDS SUMMARY | 2024-09-23 12:25 | XMS_ITS | Encounter Summary ---
Author Organization [facility] Address [address] [place] [address]. [place], [place] [address] [place] [address] Care Team Providers Care Hooker On Name Role Phone Esa Williamson MD Primary Care Provider [phone] Encounter Details Date Type Department Care Team (Latest Contact Info) Description 02/02/2022 2:31 PM CDT - 02/02/2022 11:59 PM CDT Hospital Encounter [facility] [address] [place] [address] Nichelle Correa, CHRISTIAN COUNSELOR [address] [facility] [address] [place] [address] Discharge Disposition: Home or Self Care (Routine [...] was confirmed or suspected to have Coronavirus/COVID-19? Yes 02/02/2022 3:36 PM CDT documented as of this encounter Medications at Time of Discharge albuterol sulfate HFA 108 (90 Base) MCG/ACT inhaler Inhale 1-2 puffs into the lungs every 4 (four) hours as needed. 05/14/2017 documented as of this encounter Plan of Treatment Upcoming Encounters Date Type Department Care Team (Latest Contact Info) Description 09/24/2024 7:30 PM BUGGY OPERATOR Appointment [facility] [address] [place] [address] Nelly Guerrero, CHRISTIAN COUNSELOR [address] [place] [address] 09/25/2024 7:00 AM BUGGY OPERATOR Appointment [facility] [address] [place] [address] Nelly Guerrero, CHRISTIAN COUNSELOR [address] [place] [address] 11/01/2024 9:10 AM BUGGY OPERATOR Hospital Encounter [facility] Surgery [address] [place] [address] Chin Carcamo MD [address] [address] 11/01/2024 9:10 AM BUGGY OPERATOR - 11/01/2024 9:40 AM BUGGY OPERATOR Surgery [facility] Surgery [address] [place] [address] Chin Carcamo MD [address] [address] [place], [place] [address] COLONOSCOPY DIAGNOSTIC WITH/WITHOUT SPECIMEN BRUSH/WASH Scheduled Procedures Name Priority Associated Diagnoses Date/Ti me COLONOSCOPY DIAGNOSTIC WITH/WITHOUT SPECIMEN BRUSH/WASH Hematochezia Chronic diarrhea 11/01/2024 9:10 AM BUGGY OPERATOR documented as of this encounter Procedures Procedure Name Priority Date/Time Associated Diagnosis Comments CORONAVIRUS (COVID 19) PCR Routine 02/02/2022 4:11 PM CDT Suspected COVID-19 virus infection documented in this encounter Results * CORONAVIRUS (COVID 19) PCR (02/02/2022 4:11 PM CDT) SPEC DESCRIPTION NASAL 02/04/20 2:31 PM CDT [facility] CORONAVIRUS SARS COV 2 PCR (RESP) NEGATIVE NEGATIVE 02/03/2022 6:39 PM CDT [facility] Comment: THE SARS-CoV-2 TEST HAS BEEN AUTHORIZED BY THE FDA UNDER AN EUA FOR USE BY AUTHORIZED LABORATORIES. PERFORMED BY NUCLEIC ACID AMPLIFICATION PCR FIRST TEST NO 02/03/2022 2:31 PM CDT [facility] EMPLOYED IN HEALTHCARE NO 02/03/2022 2:31 PM CDT [facility] SYMPTOMATIC DEFINED BY CDC YES 02/03/2022 2:31 PM CDT [facility] DATE OF SYMPTOM ONSET [id number]/03/2022 2:31 PM CDT [facility] HOSPITALIZATION STATUS NO 02/03/2022 2:31 PM CDT [facility] PATIENT IN ICU NO 02/03/2022 2:31 PM CDT [facility] RESIDENT OF [facility] NO 02/03/2022 2:31 PM CDT [facility] NASOPHARYNGEAL SWAB / Unknown 02/02/2022 4:11 PM CDT us Nichelle Correa CHRISTIAN COUNSELOR MICROBIOLOGY - GENERAL ORDERA BLES Final Result [facility] [address] [place] [address], documented in this encounter Visit Diagnoses Diagnosis Suspected COVID-19 virus infection Hematochezia Blood in stool Chronic diarrhea Diarrhea documented in this encounter Care Teams Hooker On Relationship Specialty Start Date End [place] [address] [place] [address] PCP - General FAMILY PRACTICE 02/17/21 08/09/22 documented as of this encounter
--- OUTSIDE RECORDS SUMMARY | 2024-09-23 12:25 | XMS_ITS | Encounter Summary ---
Author Organization [facility] Address [address] [place] [address]. [place] [address] [place] [address] Care Team Providers Care Nuclear Medicine Pet Ct Technologist Name Role Phone Esa Williamson MD Primary Care Provider [phone] Encounter Details Date Type Department Care Team (Late st Contact Info) Description 10/18/2022 [employer] Message Enc [facility] Medical Group Family & Internal Medicine [facility] [address] [place] [address] Esa Williamson MD [address] [address] Diagnosis Question Social History Tobacco Use Types Packs/Day [...] (Latest Contact Info) Description 09/24/2024 7:30 PM WIND OPERATIONS MANAGER Appointment [facility] [address] [place] [address] Nelly Guerrero, MILLINER HELPER [address] [place] [address] [phone] 09/25/2024 7:00 AM WIND OPERATIONS MANAGER Appointment [facility] [address] [place] [address] Nelly Guerrero, MILLINER HELPER [address] [place] [address] 11/01/2024 9:10 AM WIND OPERATIONS MANAGER Hospital Encounter [facility] [address] [place] [address] Chin Carcamo MD [address] [address] 11/01/2024 9:10 AM WIND OPERATIONS MANAGER - 11/01/2024 9:40 AM WIND OPERATIONS MANAGER Surgery [facility] [address] [place] [address] Chin Carcamo MD [address] [address] COLONOSCOPY DIAGNOSTIC WITH/WITHOUT SPECIMEN BRUSH/WASH Scheduled Procedures Name Priority Associated Diagnoses Date/Ti me COLONOSCOPY DIAGNOSTIC WITH/WITHOUT SPECIMEN BRUSH/WASH Hematochezia Chronic diarrhea 11/01/2024 9:10 AM WIND OPERATIONS MANAGER documented as of this encounter Visit Diagnoses Not on filedocumented in this encounter Care Teams Nuclear Medicine Pet Ct Technologist Relationship Specialty [place] [address] [place] [address] PCP - General FAMILY PRACTICE 08/21/22 documented as of this encounter
--- OUTSIDE RECORDS SUMMARY | 2024-09-23 12:25 | XMS_ITS | Encounter Summary ---
Author Organization [facility] Address [address] [place] [address]. [place], [place] [address] [place] [address] Care Team Providers Care Outpatient Pharmacy Manager Name Role Phone Esa Williamson MD Primary Care Provider [phone] Encounter Details Date Type Department Care Team (Late st Contact Info) Description 12/30/2022 [employer] Message Enc [facility] Medical Group Family & Internal Medicine [facility] [address] [place] [address] Esa Williamson MD [address] [address] Hearing Social History Tobacco Use Types Packs/Day Years [...] Progress Notes * Tiffany Orellana RN - 12/31/2022 9:16 AM CDT Please advise. Thanks! documented in this encounter Plan of Treatment Upcoming Encounters Date Type Department Care Team (Latest Contact Info) Description 09/24/2024 7:30 PM RAND SEWER Appointment [facility] [address] [place] [address] Nelly Guerrero, PROCESS PLANNER 1179 [place] [address] 09/25/2024 7:00 AM RAND SEWER Appointment [facility] [address] [place] [address] Nelly Guerrero, PROCESS PLANNER [address]9 [place], [place] [address] 11/01/2024 9:10 AM RAND SEWER Hospital Encounter [facility] [address] [place] [address] Chin Carcamo MD [address] [address] 11/01/2024 9:10 AM RAND SEWER - 11/01/2024 9:40 AM RAND SEWER Surgery [facility] [address] [place] [address] Chin Carcamo MD [address] 7[address] COLONOSCOPY DIAGNOSTIC WITH/WITHOUT SPECIMEN BRUSH/WASH Scheduled Procedures Name Priority Associated Diagnoses Date/Ti me COLONOSCOPY DIAGNOSTIC WITH/WITHOUT SPECIMEN BRUSH/WASH Hematochezia Chronic diarrhea 11/01/2024 9:10 AM RAND SEWER documented as of this encounter Visit Diagnoses Not on filedocumented in this encounter Care Teams Outpatient Pharmacy Manager Relationship Specialty [place] [address] [place] [address] PCP - General FAMILY PRACTICE 08/21/22 documented as of this encounter
--- OUTSIDE RECORDS SUMMARY | 2024-09-23 12:25 | XMS_ITS | Encounter Summary ---
Author Organization [facility] Address [address] [place] [address]. [place], [place] [address] [place] [address] Care Team Providers Care Surgical Supplies Sterilizer Name Role Phone Esa Williamson MD Primary Care Provider [phone] Encounter Details Date Type Department Care Team (Late st Contact Info) Description 09/11/2021 Orders Only [facility] [address] [place], [place] [phone] Genia Mccarthy MD [address] [place] [address] Social History Tobacco Use Types Packs/Day Years [...] Coronavirus / COVID-19? No / Unsure 09/11/2021 3:19 PM PRINT INSPECTOR documented as of this encounter Plan of Treatment Upcoming Encounters Date Type Department Care Team (Latest Contact Info) Description 09/24/2024 7:30 PM PRINT INSPECTOR Appointment [facility] [address] [place], [place] [address] [phone] Nelly Guerrero, FEED BLENDER [address] [place] [address] 09/25/2024 7:00 AM PRINT INSPECTOR Appointment [facility] [address] [place] [address] Nelly Guerrero, FEED BLENDER [address] [place] [address] 11/01/2024 9:10 AM PRINT INSPECTOR Hospital Encounter [facility] [address] [place] [address] Chin Carcamo MD 3 [facility] [address] [place] [address] 11/01/2024 9:10 AM PRINT INSPECTOR - 11/01/2024 9:40 AM PRINT INSPECTOR Surgery [facility] [address] [place] [address] Chin Carcamo MD 3 [facility] [address] [place] [address] COLONOSCOPY DIAGNOSTIC WITH/WITHOUT SPECIMEN BRUSH/WASH Scheduled Procedures Name Priority Associated Diagnoses Date/Ti dc COLONOSCOPY DIAGNOSTIC WITH/WITHOUT SPECIMEN BRUSH/WASH Hematochezia Chronic diarrhea 11/01/2024 9:10 AM PRINT INSPECTOR documented as of this encounter Results * CALPROTECTIN FECAL (09/11/2021 3:37 PM PRINT INSPECTOR) CALPROTECTIN (STOOL) 9 mcg/g 09/19/2021 6:46 PM PRINT INSPECTOR [facility] Comment: ? Reference Range: ? <50 ? Normal ? 50-120 ??Borderline ? >120 ?Elevated Calprotectin in Crohn's disease and ulcerative colitis can be five to several thousand times above the reference population (50 mcg/g or less). Levels are usually 50 mcg/g or less in healthy patients and with irritable bowel syndrome. Repeat testing in 4-6 weeks is suggested for borderline values. Test performed by [facility] ? [address], ? [place] [address] ? [employer] Lead: Michaelle Lee MD,PHD,ZOHREH Test Reported by Marco Antonio Alcantara, [employer] [facility], [address] [place], [place] Migel Vaz M.D., Ph.D., Director of Laboratories , [facility] [id number] STOOL SPECIMEN / Unknown 09/11/2021 3:37 PM PRINT INSPECTOR Genia Mccarthy MD BODY FLUIDS AND STOOLS ORDERAB LES Final Result [facility] [address] [place] [address], * TISSUE TRANSGLUTAMINASE IGA AB (09/11/2021 3:28 PM PRINT INSPECTOR) TISSUE TRANSGLUTAMINASE IGA AB <1.0 <15.0 U/mL 09/16/2021 9:21 PM PRINT INSPECTOR [employer] SHEKHARMICHAEL FRENHC Comment: ? Value ?Interpretation ? <15.0 ?Antibody not detected > or = 15.0 ?Antibody detected Test Performed by [facility] [facility], [facility], [address] [place] [address] Migel Vaz M.D., Ph.D., Director of Laboratories , CLIA [id number] 09/11/2021 3:28 PM PRINT INSPECTOR us Genia Mccarthy MD LABORATORY Final Result Performing Organization Address [facility]/ZIP Co de Phone Number [employer] [address] [place], [place] , [place] [phone] * IMMUNOGLOBULIN A (09/11/2021 3:28 PM PRINT INSPECTOR) IGA 80 47 - 310 mg/dL 09/16/2021 7:15 PM PRINT INSPECTOR [facility] Comment: Test Performed by [facility], [facility], [address] [place] [address] Migel Vaz M.D., Ph.D., Director of Laboratories , CLIA [id number] 09/11/2021 3:28 PM PRINT INSPECTOR us Genia Mccarthy MD LABORATORY Final Result Performing Organization Address City/[facility]/ZIP Co de Phone Number [email or web address] [address] [place] [address], [place] [phone] * SED RATE, ERYTHROCYTE (ESR) (09/11/2021 3:28 PM PRINT INSPECTOR) ESR 4 0 - 15 MM/HR 09/11/2021 4:32 PM PRINT INSPECTOR [facility] 09/11/2021 3:28 PM PRINT INSPECTOR us Genia Mccarthy MD LABORATORY Final Result [facility] [address] [place] [address], [place] [phone] * C-REACTIVE PROTEIN (09/11/2021 3:28 PM PRINT INSPECTOR) C-REACTIVE PROTEIN <0.20 <0.9 mg/dL 09/11/2021 4:28 PM PRINT INSPECTOR [facility] 09/11/2021 3:28 PM PRINT INSPECTOR Genia Mccarthy MD LABORATORY Final Result Performing Organization Address [facility]/ZIP Co de Phone Number [facility] [address] [place] [address], [place] [phone] * (ABNORMAL) COMPREHENSIVE METABOLIC PANEL (09/11/2021 3:28 PM PRINT INSPECTOR) Pathologist [facility] GLUCOSE 89 70 - 99 MG/DL 09/11/2021 4:[address] [facility] BUN 21(H) 7 - 18 MG/DL 09/11/2021 4:[address] [facility] CREATININE S/P/B 1.02 0.7 - 1.3 MG/DL 09/11/2021 4:[address] [facility] SODIUM S/P/B 144 136 - 145 MMOL/L 09/11/2021 4:[address] [facility] POTASSIUM S/P/B 4.0 3.5 - 5.1 MMOL/L 09/11/2021 4:[address] [facility] CHLORIDE S/P/B 108 100 - 108 MMOL/L 09/11/2021 4:[address] [facility] CO2 25.1 21 - 32 MMOL/L 09/11/2021 4:[address] [facility] CALCIUM S/P/B 8.8 8.5 - 10.1 MG/DL 09/11/2021 4:[address] [facility] BILIRUBIN TOTAL S/P/B 0.5 0.2 - 1.1 MG/DL 09/11/2021 4:[address] [facility] TOTAL PROTEIN S/P/B 6.8 6.4 - 8.2 G/DL 09/11/2021 4:[address] [facility] ALBUMIN S/P/B 4.2 3.4 - 5.0 G/DL 09/11/2021 4:[address] [facility] AST 32 15 - 37 U/L 09/11/2021 4:[address] [facility] ALT 47 16 - 60 U/L 09/11/2021 4:[address] [facility] ALKALINE PHOSPHATASE S/P/B 181 65 - 260 U/L 09/11/2021 4:[address] [facility] ANION GAP 10.9 5 - 15 MMOL/L 09/11/2021 4:[address] [facility] BUN CREATININE RATIO 20.6 6 - 26 09/11/2021 4:[address] [facility] A/G RATIO 1.6 1.0 - 2.0 RATIO 09/11/2021 4:[address] [facility] EGFR NON-AFR. AMER. NOT CALCULATED ML/MIN/1. 73 M2 09/11/2021 4:[address] [facility] EGFR AFR. AMER. NOT CALCULATED ML/MIN/1. 73 M2 09/11/2021 4:[address] [facility] Comment: NOTE: eGFR is not calculated for patients <18 years of age. This is an estimated GFR (CKD EPI) and should not be used for calculating drug doses. 09/11/2021 3:28 PM PRINT INSPECTOR us Genia Mccarthy MD LABORATORY Final Result [facility] [address] [place] [address], [place] [phone] * (ABNORMAL) CBC W/DIFF AUTOMATED (09/11/2021 3:28 PM PRINT INSPECTOR) Pathologist [facility] WBC 7.0 3.8 - 9.8 x10'3/uL 09/11/2021 4:11 PM PRINT INSPECTOR [facility] RBC 4.89 3.96 - 5.03 x10'6/uL 09/11/2021 4:11 PM PRINT INSPECTOR [facility] HGB 14.3 11.0 - 14.5 G/DL 09/11/2021 4:[address] [facility] HCT 42.5(H) 32.2 - 39.8 % 09/11/2021 4:[address] [facility] MCV 86.9 76.7 - 89.2 FL 09/11/2021 4:11 PM PRINT INSPECTOR [facility] MCH 29.2 24.9 - 29.2 PG 09/11/2021 4:11 PM PRINT INSPECTOR [facility] MCHC 33.6 32.2 - 34.9 G/DL 09/11/2021 4:[address] [facility] RDW 12.2(L) 12.5 - 14.9 % 09/11/2021 4:11 PM PRINT INSPECTOR [facility] PLT 349 202 - 403 x10'3/uL 09/11/2021 4:11 PM PRINT INSPECTOR [facility] MPV 9.3(L) 9.6 - 11.8 FL 09/11/2021 4:[address] [facility] RBC MORPHOLOGY NORMAL 09/11/2021 4:[address] [facility] PLT MORPH. NORMAL 09/11/2021 4:[address] [facility] WBC MORPHOLOGY NORMAL 09/11/2021 4:[address] [facility] LYMPHOCYTES % 37.9 15.8 - 45.0 % 09/11/2021 4:[address] [facility] NEUTROPHILS % 48.2 42.1 - 71.9 % 09/11/2021 4:[address] [facility] MONOCYTES % 10.0 5.7 - 12.5 % 09/11/2021 4:[address] [facility] EOSINOPHILS 2.7 0.0 - 5.6 % 09/11/2021 4:[address] [facility] BASOPHILS 0.9 0.0 - 1.3 % 09/11/2021 4:[address] [facility] ABS. NEUTROPHILS 3.36 1.40 - 6.00 x10'3/uL 09/11/2021 4:[address] [facility] IMMATURE GRANS % 0.3 0.0 - 0.5 % 09/11/2021 4:[address] [facility] ABS. LYMPHOCYTES 2.64 0.80 - 4.70 x10'3/uL 09/11/2021 4:[address] [facility] 09/11/2021 3:28 PM PRINT INSPECTOR us Genia Mccarthy MD LABORATORY Final Result [facility] [address] [place] [address], [place] [phone] documented in this encounter Visit Diagnoses Diagnosis Diarrhea, unspecified- Primary Hematochezia Blood in stool Chronic diarrhea Diarrhea documented in this encounter Care Teams Surgical Supplies Sterilizer Relationship Specialty [place] [address] [place] [address] PCP - General FAMILY PRACTICE 02/17/21 08/09/22 documented as of this encounter
--- OUTSIDE RECORDS SUMMARY | 2024-09-23 12:25 | XMS_ITS | Encounter Summary ---
Author Organization [facility] Address [address] [place] [address]. [place], [place] [address] [place] [address] Care Team Providers Care Guard Rail Installer Name Role Phone Esa Williamson MD Primary Care Provider [phone] Reason for Visit * Reason Onset Date Comments Called To Cancel Office Appt. 09/04/2022 Encounter Details Date Type Department Care Team (Late st Contact Info) Description 09/04/[address] [facility] Multispecialty Care - [facility] [address] [facility], [address] [place] [address] Tim Hodges MD [address] [place] [address] ANGEL SULTANA [address] Called To Cancel Office Appt. Social History Tobacco Use Types Packs/Day Years [...] suspected to have Coronavirus/COVID-19? No / Unsure 08/24/2022 4:16 PM SPOOL CLEANER HAND documented as of this encounter Progress Notes * Ryan Gill RN - 09/10/2022 12:59 PM CST Called pt again at this time regarding new urologist referral from PCP [facility] No [facility], voice mail left. L CLEANER HAND * Ryan Gill RN - 09/04/2022 9:14 AM CST Called pt at this time to cancel pt appointment 11/30/2022 and convey message from dr hodges to referback to PCP for another urologist, as dr hodges will be leaving [facility]. No answer, voice mail left. L CLEANER HAND documented in this encounter Plan of Treatment Upcoming Encounters Date Type Department Care Team (Latest Contact Info) Description 09/24/2024 7:30 PM SPOOL CLEANER HAND Appointment [facility] [address] [place] [address] Nelly Guerrero, DANCING TEACHER [address] [place] [address] 09/25/2024 7:00 AM SPOOL CLEANER HAND Appointment [facility] [address] [place] [address] Nelly Guerrero DANCING TEACHER 117[address] [place] [address] 11/01/2024 9:10 AM SPOOL CLEANER HAND Hospital Encounter [facility] [address] [place] [address] Chin Carcamo MD [address] [address] 11/01/2024 9:10 AM SPOOL CLEANER HAND - 11/01/2024 9:40 AM SPOOL CLEANER HAND Surgery [facility] [address] [place] [address] Chin Carcamo MD [address] [place] [address] COLONOSCOPY DIAGNOSTIC WITH/WITHOUT SPECIMEN BRUSH/WASH Scheduled Procedures Name Priority Associated Diagnoses Date/Ti ar COLONOSCOPY DIAGNOSTIC WITH/WITHOUT SPECIMEN BRUSH/WASH Hematochezia Chronic diarrhea 11/01/2024 9:10 AM SPOOL CLEANER HAND documented as of this encounter Visit Diagnoses Not on filedocumented in this encounter Care Teams Guard Rail Installer Relationship Specialty [place] [address] [place] [address] PCP - General FAMILY PRACTICE 08/21/22 documented as of this encounter
--- OUTSIDE RECORDS SUMMARY | 2024-09-23 12:25 | XMS_ITS | Encounter Summary ---
Author Organization [facility] Address [address] [place] [address]. [place], [place] [address] [place] [address] Care Team Providers Care Sand Drier Name Role Phone Esa Williamson MD Primary Care Provider [phone] Reason for Visit * Reason Onset Date Comments Results 02/04/2022 Encounter Details Date Type Department Care Team (Late st Contact Info) Description 02/04/2022 Telephone [facility] 9401 [place] [address] Esa Williamson MD 9401 [facility] [address] [place], [place] [phone] Results Social History Tobacco Use Types Packs/Day [...] as of this encounter Progress Notes * Sheila Rodriguez - 02/04/2022 11:17 AM CDT Patient's mother informed of results. No further questions or concerns. Sheila Rodriguez CMA 02/04/2022 * Dayana Cross RN - 02/04/2022 8:16 AM CDT ----- Message from Nichelle Correa NP sent at 02/03/2022 9:27 PM CDT ----- COVID PCR negative. Please let pt know. documented in this encounter Plan of Treatment Upcoming Encounters Date Type Department Care Team (Latest Contact Info) Description 09/24/2024 7:30 PM ROUTE CONTRACTOR Appointment [facility] [address] [place] [address] Nelly Guerrero DIRECTOR MEDICAL WRITING 1179 [place] [address] 09/25/2024 7:00 AM ROUTE CONTRACTOR Appointment [facility] [address] [place] [address] Nelly Guerrero NP 1179 [place] [address] 11/01/2024 9:10 AM ROUTE CONTRACTOR Hospital Encounter [facility] [address] [place] [address] Chin Carcamo MD [address] [place] [address] [address] 11/01/2024 9:10 AM ROUTE CONTRACTOR - 11/01/2024 9:40 AM ROUTE CONTRACTOR Surgery [facility] [address] [place] [address] Chin Carcamo MD [address] [place] [address] [address] COLONOSCOPY DIAGNOSTIC WITH/WITHOUT SPECIMEN BRUSH/WASH Scheduled Procedures Name Priority Associated Diagnoses Date/Ti me COLONOSCOPY DIAGNOSTIC WITH/WITHOUT SPECIMEN BRUSH/WASH Hematochezia Chronic diarrhea 11/01/2024 9:10 AM ROUTE CONTRACTOR documented as of this encounter Visit Diagnoses Not on filedocumented in this encounter Care Teams Sand Drier Relationship Specialty [place] [address] [place] [address] PCP - General FAMILY PRACTICE 02/17/21 08/09/22 documented as of this encounter
--- OUTSIDE RECORDS SUMMARY | 2024-09-23 12:25 | XMS_ITS | Encounter Summary ---
Author Organization [facility] Address [address] [place] [address]. [place], [place] [address] [place] [address] Care Team Providers Care Product Management Intern Name Role Phone Esa Williamson MD Primary Care Provider [phone] Reason for Visit * Reason Onset Date Comments Imm/Inj 05/15/2022 Encounter Details Date Type Department Care Team (Late st Contact Info) Description 05/15/2022 Telephone [facility] Medical Group Family & Internal Medicine [facility] [address] [place] [address] Esa Williamson MD [address] [place] [address] Imm/Inj Social History Tobacco Use Types Packs/Day Years [...] suspected to have Coronavirus/COVID-19? No / Unsure 04/16/2022 2:37 PM CDT documented as of this encounter Progress Notes * Dinora Menard RN - 05/15/2022 1:49 PM CDT Spoke with patient mom Iwona and informed that patient is up to date on his meningococcal vaccines.Iwona voiced understanding and stated that she also received a call from the school stating that they made an error. * Gaby Foley - 05/15/2022 12:40 PM CDT Mom called and stated that per the school Willi still needs the 2nd dose MCV 4 (Menigicoccil) Immunization. Can you please verify if he does or does not need this. Please call mom documented in this encounter Plan of Treatment Upcoming Encounters Date Type Department Care Team (Latest Contact Info) Description 09/24/2024 7:30 PM PLASTIC PRESS MOLDER Appointment [facility] [address] [place] [address] Nelly Guerrero, SUPERVISOR CELL OPERATION [address] [place] [address] 09/25/2024 7:00 AM PLASTIC PRESS MOLDER Appointment [facility] [address] [place] [address] Nelly Guerrero SUPERVISOR CELL OPERATION 1179 [place] [address] 11/01/2024 9:10 AM PLASTIC PRESS MOLDER Hospital Encounter [facility] [address] [place] [address] Chin Carcamo MD [address] [address] 11/01/2024 9:10 AM PLASTIC PRESS MOLDER - 11/01/2024 9:40 AM PLASTIC PRESS MOLDER Surgery [facility] [address] [place] [address] Chin Carcamo MD [address] [place] [address] COLONOSCOPY DIAGNOSTIC WITH/WITHOUT SPECIMEN BRUSH/WASH Scheduled Procedures Name Priority Associated Diagnoses Date/Ti me COLONOSCOPY DIAGNOSTIC WITH/WITHOUT SPECIMEN BRUSH/WASH Hematochezia Chronic diarrhea 11/01/2024 9:10 AM PLASTIC PRESS MOLDER documented as of this encounter Visit Diagnoses Not on filedocumented in this encounter Care Teams Product Management Intern Relationship Specialty [place] [address] [place] [address] PCP - General FAMILY PRACTICE 02/17/21 08/09/22 documented as of this encounter
--- OUTSIDE RECORDS SUMMARY | 2024-09-23 12:25 | XMS_ITS | Encounter Summary ---
Author Organization [facility] Address [address] [place] [address]. [place] [address] [place] [address] Care Team Providers Care Drapery Sewer Hand Name Role Phone Esa Williamson MD Primary Care Provider [phone] Encounter Details Date Type Department Care Team (Late st Contact Info) Description 10/19/2022 Chart Prep [facility] Medical Group Family & Internal Medicine [facility] [address] [place] [address] Esa Williamson MD [address] [address] Social History Tobacco Use Types Packs/Day Years [...] (Latest Contact Info) Description 09/24/2024 7:30 PM METAL BONDING WORKER Appointment [facility] [address] [place] [address] Nelly Guerrero, LADDERMAN [address] [place] [address] 09/25/2024 7:00 AM METAL BONDING WORKER Appointment [facility] [address] [place] [address] Nelly Guerrero, LADDERMAN 1179 [place] [address] 11/01/2024 9:10 AM METAL BONDING WORKER Hospital Encounter [facility] [address] [place] [address] Chin Carcamo MD [address] [address] 11/01/2024 9:10 AM METAL BONDING WORKER - 11/01/2024 9:40 AM METAL BONDING WORKER Surgery [facility] [address] [place] [address] Chin Carcamo MD [address] [address] COLONOSCOPY DIAGNOSTIC WITH/WITHOUT SPECIMEN BRUSH/WASH Scheduled Procedures Name Priority Associated Diagnoses Date/Ti me COLONOSCOPY DIAGNOSTIC WITH/WITHOUT SPECIMEN BRUSH/WASH Hematochezia Chronic diarrhea 11/01/2024 9:10 AM METAL BONDING WORKER documented as of this encounter Visit Diagnoses Not on filedocumented in this encounter Care Teams Drapery Sewer Hand Relationship Specialty [place] [address] [place] [address] PCP - General FAMILY PRACTICE 08/21/22 documented as of this encounter
--- OUTSIDE RECORDS SUMMARY | 2024-09-23 12:25 | XMS_ITS | Encounter Summary ---
Author Organization [facility] Address [address] [place] [address]. [place], [place] [address] [place] [address] Care Team Providers Care Warp Knitting Machine Operator Name Role Phone Esa Williamson MD Primary Care Provider [phone] Reason for Visit * Reason Onset Date Comments Referral 09/10/2022 Encounter Details Date Type Department Care Team (Late st Contact Info) Description 09/10/2022 Telephone [facility] [address] [place] [address] Esa Williamson MD [address] [facility] [address] [place], [place] [id number] Referral Social History Tobacco Use Types Packs/Day Years [...] Coronavirus/COVID-19? No / Unsure 08/24/2022 4:16 PM INJECTION PRESS OPERATOR documented as of this encounter Progress Notes * Lorenza Ayers RN - 09/11/2022 2:00 PM CST Noted. CTION PRESS OPERATOR * Tiffany Orellana RN - 09/11/2022 1:58 PM CST . CTION PRESS OPERATOR * Miranda Santo - 09/11/2022 1:33 PM CSTSummary: Urology Referral Good afternoon, I have reviewed this referral and submitted this referral to [facility]. They have securedan appointment for the patient. I did reach out by phone but was unsuccessful. I have submitted correspondence via [employer]. Please let us know if we can do anything else, Thank you Miranda CTION PRESS OPERATOR * Steve Dumont RN - 09/10/2022 4:20 PM CST Can referral be re routed to another urologist? Or does a new referral need placed? CTION PRESS OPERATOR * Tiffany Orellana RN - 09/10/2022 2:[address] Busch seen pt for this on 08-24 and did urology referral. CTION PRESS OPERATOR * Gail Dubois - 09/10/2022 1:08 PM CST Pts mom Jessica called stating ref to Urology will need to be sent to a new provider as Sandeep is nolonger going to be here please advise CTION PRESS OPERATOR documented in this encounter Plan of Treatment Upcoming Encounters Date Type Department Care Team (Latest Contact Info) Description 09/24/2024 7:30 PM INJECTION PRESS OPERATOR [facility]ment [facility] [address] [place] [address] Nelly Guerrero, DAIRY NUTRITIONIST [address] [place] [address] 09/25/2024 7:00 AM INJECTION PRESS OPERATOR Appointment [facility] [address] [place] [address] Nelly Guerrero, DAIRY NUTRITIONIST [address] [place] [address] 11/01/2024 9:10 AM INJECTION PRESS OPERATOR Hospital Encounter [facility] [address] [place] [address] Chin Carcamo MD [address] [address] 11/01/2024 9:10 AM INJECTION PRESS OPERATOR - 11/01/2024 9:40 AM INJECTION PRESS OPERATOR Surgery [facility] Surgery [address] [place] [address] Chin Carcamo MD [address] [address] COLONOSCOPY DIAGNOSTIC WITH/WITHOUT SPECIMEN BRUSH/WASH Scheduled Procedures Name Priority Associated Diagnoses Date/Ti me COLONOSCOPY DIAGNOSTIC WITH/WITHOUT SPECIMEN BRUSH/WASH Hematochezia Chronic diarrhea 11/01/2024 9:10 AM INJECTION PRESS OPERATOR documented as of this encounter Visit Diagnoses Not on filedocumented in this encounter Care Teams Warp Knitting Machine Operator Relationship Specialty [place] [address] [place] [address] PCP - General FAMILY PRACTICE 08/21/22 documented as of this encounter
--- OUTSIDE RECORDS SUMMARY | 2024-09-23 12:25 | XMS_ITS | Encounter Summary ---
Author Organization [facility] Address [address] [place] [address]. [place], [place] [address] [place] [address] Care Team Providers Care Section Weaver Name Role Phone Esa Williamson MD Primary Care Provider [phone] Encounter Details Date Type Department Care Team (Latest Contact Info) Description 02/02/2022 Travel Social History Tobacco Use Types Packs/Day [...] (Latest Contact Info) Description 09/24/2024 7:30 PM MOUNTAIN BIKE GUIDE Appointment [facility] [address] [place], [place] [phone] Nelly Guerrero INTERIOR SPECIALIST [address] [place] [address] 09/25/2024 7:00 AM MOUNTAIN BIKE GUIDE Appointment [facility] Sleep Lab [address] [place] [address] Nelly Guerrero, INTERIOR SPECIALIST [address] [place] [address] 11/01/2024 9:10 AM MOUNTAIN BIKE GUIDE Hospital Encounter [facility] Surgery [address] [place] [address] Chin Carcamo MD [address] [address] 11/01/2024 9:10 AM MOUNTAIN BIKE GUIDE - 11/01/2024 9:40 AM MOUNTAIN BIKE GUIDE Surgery [facility] Surgery [address] [place] [address] Chin Carcamo MD [address] [address] COLONOSCOPY DIAGNOSTIC WITH/WITHOUT SPECIMEN BRUSH/WASH Scheduled Procedures Name Priority Associated Diagnoses Date/Ti me COLONOSCOPY DIAGNOSTIC WITH/WITHOUT SPECIMEN BRUSH/WASH Hematochezia Chronic diarrhea 11/01/2024 9:10 AM MOUNTAIN BIKE GUIDE documented as of this encounter Visit Diagnoses Not on filedocumented in this encounter Care Teams Section Weaver Relationship Specialty [place] [address] [place] [address] PCP - General FAMILY PRACTICE 02/17/21 08/09/22 documented as of this encounter
--- OUTSIDE RECORDS SUMMARY | 2024-09-23 12:25 | XMS_ITS | Encounter Summary ---
Author Organization [facility] Address [address] [place] [address]. [place], [place] [address] [place] [address] Care Team Providers Care Filemaker Developer Name Role Phone Esa Williamson MD Primary Care Provider [phone] Reason for Visit * Reason Onset Date Comments Question 07/11/2021 Encounter Details Date Type Department Care Team (Late st Contact Info) Description 07/11/[address] [facility] [address] [place] [address] Esa Williamson MD 94[address] [facility] [address] [place], [place] [id number] Question Social History Tobacco Use Types Packs/Day [...] have Coronavirus / COVID-19? No / Unsure 07/10/2021 3:17 PM CDT documented as of this encounter Progress Notes * Tiffany Orellana RN - 07/11/2021 3:28 PM CDT Note written and given to pt's brother Corky per Mother's request. * Esa Williamson MD - 07/11/2021 2:45 PM CDT yes * Tiffany Orellana RN - 07/11/2021 11:08 AM CDT You ok with this? * Gail Dubois - 07/11/2021 8:47 AM CDT Pts mom Jessica called stating they talked yesterday about getting a note for bathroom breaks for ptand they forgot to get one she is wanting to get one for his school please advise c/b # [phone] documented in this encounter Plan of Treatment Upcoming Encounters Date Type Department Care Team (Latest Contact Info) Description 09/24/2024 7:30 PM FISH AGENT Appointment [facility] Sleep Lab [address] [place] [address] Nelly Guerrero ESL PROFESSOR [address] [place] [address] 09/25/2024 7:00 AM FISH AGENT App[address] [facility] Sleep Lab [address] [place] [address] Nelly Guerrero NP [address] [place] [address] 11/01/2024 9:10 AM FISH AGENT Hospital Encounter [facility] Surgery [address] [place] [address] Chin Carcamo MD [address] [address] 11/01/2024 9:10 AM FISH AGENT - 11/01/2024 9:40 AM FISH AGENT Surgery [facility] [address] [place] [address] Chin Carcamo MD [address] [address] COLONOSCOPY DIAGNOSTIC WITH/WITHOUT SPECIMEN BRUSH/WASH Scheduled Procedures Name Priority Associated Diagnoses Date/Ti me COLONOSCOPY DIAGNOSTIC WITH/WITHOUT SPECIMEN BRUSH/WASH Hematochezia Chronic diarrhea 11/01/2024 9:10 AM FISH AGENT documented as of this encounter Visit Diagnoses Not on filedocumented in this encounter Care Teams Filemaker Developer Relationship Specialty [place] [address] [place] [address] PCP - General FAMILY PRACTICE 02/17/21 08/09/22 documented as of this encounter
--- OUTSIDE RECORDS SUMMARY | 2024-09-23 12:25 | XMS_ITS | Encounter Summary ---
Author Organization [facility] Address [address] [place] [address]. [place], [place] [address] [place] [address] Care Team Providers Care Leaf Blender Name Role Phone Esa Williamson MD Primary Care Provider [phone] Encounter Details Date Type Department Care Team (Latest Contact Info) Description 04/16/2022 Travel Social History Tobacco Use Types Packs/Day [...] (Latest Contact Info) Description 09/24/2024 7:30 PM EMISSIONS ENGINEER Appointment [facility] [address] [place] [address] Nelly Guerrero CONSERVATION TECHNICIAN [address] [place] [address] 09/25/2024 7:00 AM EMISSIONS ENGINEER Appointment [facility] Sleep Lab [address] [place] [address] Nelly Guerrero, CONSERVATION TECHNICIAN [address] [place] [address] 11/01/2024 9:10 AM EMISSIONS ENGINEER Hospital Encounter [facility] Surgery [address] [place] [address] Chin Carcamo MD 3 [facility] [address] [place] [address] 11/01/2024 9:10 AM EMISSIONS ENGINEER - 11/01/2024 9:40 AM EMISSIONS ENGINEER Surgery [facility] Surgery [address] [place] [address] Chin Carcamo MD 3 [facility] [address] [place] [address] COLONOSCOPY DIAGNOSTIC WITH/WITHOUT SPECIMEN BRUSH/WASH Scheduled Procedures Name Priority Associated Diagnoses Date/Ti me COLONOSCOPY DIAGNOSTIC WITH/WITHOUT SPECIMEN BRUSH/WASH Hematochezia Chronic diarrhea 11/01/2024 9:10 AM EMISSIONS ENGINEER documented as of this encounter Visit Diagnoses Not on filedocumented in this encounter Care Teams Leaf Blender Relationship Specialty [place] [address] [place] [address] PCP - General FAMILY PRACTICE 02/17/21 08/09/22 documented as of this encounter
--- OUTSIDE RECORDS SUMMARY | 2024-09-23 12:25 | XMS_ITS | Encounter Summary ---
Author Organization [facility] Address [address] [place] [address]. [place], [place] [address] [place] [address] Care Team Providers Care Lead Generator Name Role Phone Mckenzie Williamson MD Primary Care Provider [phone] Reason for Visit * Reason Comments Dizziness/lightheadedness Encounter Details Date Type Department Care Team (Late st Contact Info) Description 12/08/2022 4:00 PM CDT Office Visit [facility] Family & Internal Medicine [address] [address] Mckenzie Williamson MD [address] [place] [address] Dizziness/lightheaded ness Social History Tobacco Use Types Packs/Day Years [...] Sign Reading Time Taken Comments Blood Pressure 94/57 12/08/2022 3:44 PM CDT Pulse 95 12/08/2022 3:44 PM CDT Temperature 37 ??C (98.6 ??F) 12/08/2022 3:44 PM CDT Respiratory Rate 18 12/08/2022 3:44 PM CDT Oxygen Saturation 98% 12/08/2022 3:44 PM CDT Inhaled Oxygen Concentration - - Weight 71 kg (156 lb 9.6 oz) 12/08/2022 3:44 PM CDT Height 176.5 cm (5' 9.5 ) 12/08/2022 3:44 PM CDT Body Mass Index 22.79 12/08/2022 3:44 PM CDT Body Mass Index Percentile 59.47% 12/08/2022 3:4 4 PM CDT Growth Chart: [facility] (Boys, 2-2 0 Years) documented in this encounter Progress Notes * Mckenzie Williamson MD - 12/08/2022 4:00 PM CDT Reason for Visit: Dizziness/lightheadedness History of Present Illness: 17yo male for evaluation. Reports some intermittent episodes of dizziness, lightheadedness. Started few weeks ago. Has been having episodes for orthostatic hypotension with changes in position. Now having some episodes duringmore everyday activity. Has been trying to cut weight, eating less. Occasional caffiene intake. Reports reasonable water intake, no other stimulant or supplement. 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 Weight loss about 5-10lbs over last 2 months, intentional. ROS: Review of Systems Constitutional: Negative for chills and fever. Respiratory: Negative for cough and shortness of breath. Cardiovascular: Negative for chest pain. Medications: Current Outpatient Medications: ??? albuterol sulfate HFA 108 (90 Base) MCG/ACT inhaler, Inhale 1-2 puffs into the lungs every 4 (four) hours as needed., Disp: , Rfl: Allergies Allergen Reactions ??? Penicillins Rash ??? Sulfa Antibiotics Vomiting Past Medical History: Diagnosis Date ??? Asthma Past Surgical History: Procedure Laterality Date ??? CIRCUMCISION BABY ??? MYRINGOTOMY WITH TUBE INSERTION twice ??? TONSILLECTOMY AND ADENOIDECTOMY Social History Socioeconomic History ??? Marital status: Single Social History Narrative Lives with mother and older brother Social History Tobacco Use ??? Smoking status: Never ??? Smokeless tobacco: Never Vaping Use ??? Vaping Use: Never used Substance Use Topics ??? Alcohol use: Never ??? Drug use: Never Family History Problem Relation Name Age of Onset ??? No Known Problems Mother ??? No Known Problems Father ??? No Known Problems Brother Family Status Relation Name Status ??? Mother Alive ??? Father Alive ??? Brother Alive Filed Vitals: 12/08/22 1544 BP: 94/57 Pulse: 95 Resp: 18 Temp: 98.6 ??F (37 ??C) TempSrc: Temporal SpO2: 98% Weight: 71 kg (156 lb 9.6 oz) Height: 5' 9.5 (1.765 m) Physical Exam Vitals and nursing note reviewed. Constitutional: Appearance: He is well-developed. HENT: Head: Normocephalic and atraumatic. Cardiovascular: Rate and Rhythm: Normal rate and regular rhythm. Heart sounds: Normal heart sounds. Pulmonary: Effort: Pulmonary effort is normal. Breath sounds: Normal breath sounds. Abdominal: General: Bowel sounds are normal. Palpations: Abdomen is soft. Skin: General: Skin is warm and dry. Neurological: Mental Status: He is alert and oriented to person, place, and time. Psychiatric: Mood and Affect: Mood normal. Behavior: Behavior normal. Diagnoses/Impression: 1. Dizziness Recommendations and Plan: 1. Dizziness Likely multifactorial. Bps are low at rest, trying to cut weigh, goes long periods between eating, only getting about 6 hours sleep nightly. Discussed options, continue monitor. Discussed importance of sleep, water intake, eating regular. Consider labs to start if persists. Fu as needed. No orders of the defined types were placed in this encounter. MCKENZIE WILLIAMSON Referring Provider: No ref. provider found PCP: MCKENZIE WILLIAMSON MD documented in this encounter Plan of Treatment Upcoming Encounters Date Type Department Care Team (Latest Contact Info) Description 09/24/2024 7:30 PM MACHINE DYER Appointment [facility] Lab [address] [place] [address] Nelly Guerrero, FINANCIAL INSTITUTION PRESIDENT [address] [place] [address] 09/25/2024 7:00 AM MACHINE DYER Appointment [facility] Lab [address] [place] [address] Nelly Guerrero, FINANCIAL INSTITUTION PRESIDENT [address] [place] [address] 11/01/2024 9:10 AM MACHINE DYER Hospital Encounter [facility] [address] [place] [address] Chin Carcamo MD 3 [facility] [address] [place] [address] 11/01/2024 9:10 AM MACHINE DYER - 11/01/2024 9:40 AM MACHINE DYER Surgery [facility] [address] [place] [address] Cihn Carcamo MD 3 [facility] 5000 [place] [address] COLONOSCOPY DIAGNOSTIC WITH/WITHOUT SPECIMEN BRUSH/WASH Scheduled Procedures Name Priority Associated Diagnoses Date/Ti me COLONOSCOPY DIAGNOSTIC WITH/WITHOUT SPECIMEN BRUSH/WASH Hematochezia Chronic diarrhea 11/01/2024 9:10 AM MACHINE DYER documented as of this encounter Visit Diagnoses Diagnosis Dizziness- Primary Dizziness and giddiness Hematochezia Blood in stool Chronic diarrhea Diarrhea documented in this encounter Care Teams Lead Generator Relationship Specialty [place] [address] [place] [address] PCP - General FAMILY PRACTICE 08/21/22 documented as of this encounter
--- OUTSIDE RECORDS SUMMARY | 2024-09-23 12:25 | XMS_ITS | Encounter Summary ---
Author Organization [facility] Address [address] [place] [address]. [place], [place] [address] [place] [address] Care Team Providers Care Devops Architect Name Role Phone Esa Williamson MD Primary Care Provider [phone] Encounter Details Date Type Department Care Team (Latest Contact Info) Description 08/24/2022 Travel Social History Tobacco Use Types Packs/Day [...] Coronavirus/COVID-19? No / Unsure 08/24/2022 4:16 PM RISK MANAGEMENT INTERNSHIP documented as of this encounter Plan of Treatment Upcoming Encounters Date Type Department Care Team (Latest Contact Info) Description 09/24/2024 7:30 PM RISK MANAGEMENT INTERNSHIP Appointment [facility] [address] [place], [place] [phone] Nelly Guerrero TALENT ACQUISITION MANAGER [address] [place] [address] 09/25/2024 7:00 AM RISK MANAGEMENT INTERNSHIP Appointment [facility] Lab [address] [place] [address] Nelly Guerrero, TALENT ACQUISITION MANAGER [address] [place] [address] 11/01/2024 9:10 AM RISK MANAGEMENT INTERNSHIP Hospital Encounter [facility] Surgery [address] [place] [address] Chin Carcamo MD 3 [facility] [address] [place] [address] 11/01/2024 9:10 AM RISK MANAGEMENT INTERNSHIP - 11/01/2024 9:40 AM RISK MANAGEMENT INTERNSHIP Surgery [facility] Surgery [address] [place] [address] Chin Carcamo MD 3 [facility] [address] [place] [address] COLONOSCOPY DIAGNOSTIC WITH/WITHOUT SPECIMEN BRUSH/WASH Scheduled Procedures Name Priority Associated Diagnoses Date/Ti me COLONOSCOPY DIAGNOSTIC WITH/WITHOUT SPECIMEN BRUSH/WASH Hematochezia Chronic diarrhea 11/01/2024 9:10 AM RISK MANAGEMENT INTERNSHIP documented as of this encounter Visit Diagnoses Not on filedocumented in this encounter Care Teams Devops Architect Relationship Specialty [place] [address] [place] [address] PCP - General FAMILY PRACTICE 08/21/22 documented as of this encounter
--- OUTSIDE RECORDS SUMMARY | 2024-09-23 12:25 | XMS_ITS | Encounter Summary ---
Author Organization [facility] Address [address] [place] [address]. [place], [place] [address] [place] [address] Care Team Providers Care Human Resources Support Specialist Name Role Phone Esa Williamson MD Primary Care Provider [phone] Encounter Details Date Type Department Care Team (Latest Contact Info) Description 09/11/2021 Scan [facility] INFO SRVCS Scanned, Documents Social History [...] COVID-19? No / Unsure 09/11/2021 3:19 PM CERAMIC SPRAYER documented as of this encounter Plan of Treatment Upcoming Encounters Date Type Department Care Team (Latest Contact Info) Description 09/24/2024 7:30 PM CERAMIC SPRAYER Appointment [facility] Lab [address] [place] [address] Nelly Guerrero, FIELD GAUGER [address] [place], [place] [phone] 09/25/2024 7:00 AM CERAMIC SPRAYER Appointment [facility] Lab [address] [place] [address] Nelly Guerrero, FIELD GAUGER [address] [facility] [place] [address] 11/01/2024 9:10 AM CERAMIC SPRAYER Hospital Encounter [facility] [address] [place] [address] Chin Carcamo MD 3 [facility] [address] [place] [address] 11/01/2024 9:10 AM CERAMIC SPRAYER - 11/01/2024 9:40 AM CERAMIC SPRAYER Surgery [facility] [address] [place] [address] Chin Carcamo MD 3 [facility] [address] [place] [address] COLONOSCOPY DIAGNOSTIC WITH/WITHOUT SPECIMEN BRUSH/WASH Scheduled Procedures Name Priority Associated Diagnoses Date/Ti me COLONOSCOPY DIAGNOSTIC WITH/WITHOUT SPECIMEN BRUSH/WASH Hematochezia Chronic diarrhea 11/01/2024 9:10 AM CERAMIC SPRAYER documented as of this encounter Visit Diagnoses Not on filedocumented in this encounter Care Teams Human Resources Support Specialist Relationship Specialty [place] [address] [place] [address] PCP - General FAMILY PRACTICE 02/17/21 08/09/22 documented as of this encounter
--- OUTSIDE RECORDS SUMMARY | 2024-09-23 12:25 | XMS_ITS | Encounter Summary ---
Author Organization [facility] Address [address] [place] [address]. [place], [place] [address] [place] [address] Care Team Providers Care Pot Pusher Name Role Phone Esa Williamson MD Primary Care Provider [phone] Encounter Details Date Type Department Care Team (Latest Contact Info) Description 09/02/2021 Scan HEALTH INFO SRVCS Scanned, Documents Social [...] (Latest Contact Info) Description 09/24/2024 7:30 PM COMMERCIAL LOAN PROCESSOR Appointment [facility] [address] [place] [address] Nelly Guerrero SENIOR PRINCIPAL PROCESS ENGINEER [address] [place], [place] [id number] 09/25/2024 7:00 AM COMMERCIAL LOAN PROCESSOR Appointment [facility] Lab [address] [place] [address] Nelly Guerrero SENIOR PRINCIPAL PROCESS ENGINEER [address] [place] [address] 11/01/2024 9:10 AM COMMERCIAL LOAN PROCESSOR Hospital Encounter [facility] [address] [place] [address] Chin Carcamo MD 3 [place] [address] [place] [address] 11/01/2024 9:10 AM COMMERCIAL LOAN PROCESSOR - 11/01/2024 9:40 AM COMMERCIAL LOAN PROCESSOR Surgery [facility] [address] [place] [address] Chin Carcamo MD 3 [facility] [address] [place] [address] COLONOSCOPY DIAGNOSTIC WITH/WITHOUT SPECIMEN BRUSH/WASH Scheduled Procedures Name Priority Associated Diagnoses Date/Ti me COLONOSCOPY DIAGNOSTIC WITH/WITHOUT SPECIMEN BRUSH/WASH Hematochezia Chronic diarrhea 11/01/2024 9:10 AM COMMERCIAL LOAN PROCESSOR documented as of this encounter Visit Diagnoses Not on filedocumented in this encounter Care Teams Pot Pusher Relationship Specialty [place] [address] [place] [address] PCP - General FAMILY PRACTICE 02/17/21 08/09/22 documented as of this encounter
--- OUTSIDE RECORDS SUMMARY | 2024-09-23 12:25 | XMS_ITS | Encounter Summary ---
Author Organization [facility] Address [address] [place] [address]. [place], [place] [address] [place] [address] Care Team Providers Care Clip Loading Machine Feeder Name Role Phone Esa Williamson MD Primary Care Provider [phone] Encounter Details Date Type Department Care Team (Latest Contact Info) Description 09/11/2021 3:19 PM REGIONAL ACCOUNT EXECUTIVE - 09/11/2021 11:59 PM REGIONAL ACCOUNT EXECUTIVE Hospital Encounter [facility] [address] [place] [address] Genia Mccarthy MD [address] [place] [id number] Discharge Disposition: Home or Self Care (Routine [...] COVID-19? No / Unsure 09/11/2021 3:19 PM REGIONAL ACCOUNT EXECUTIVE documented as of this encounter Medications at Time of Discharge albuterol sulfate HFA 108 (90 Base) MCG/ACT inhaler Inhale 1-2 puffs into the lungs every 4 (four) hours as needed. 05/14/2017 documented as of this encounter Plan of Treatment Upcoming Encounters Date Type Department Care Team (Latest Contact Info) Description 09/24/2024 7:30 PM REGIONAL ACCOUNT EXECUTIVE Appointment [facility] Sleep Lab [address] [place] [address] Nelly Guerrero, LAP MAKER [address] [place] [address] 09/25/2024 7:00 AM REGIONAL ACCOUNT EXECUTIVE Appointment [facility] Sleep Lab [address] [place] [address] Nelly Guerrero, LAP MAKER [address] [place] [address] 11/01/2024 9:10 AM REGIONAL ACCOUNT EXECUTIVE Hospital Encounter [facility] Surgery [address] [place] [address] Chin Carcamo MD [address] [address] 11/01/2024 9:10 AM REGIONAL ACCOUNT EXECUTIVE - 11/01/2024 9:40 AM REGIONAL ACCOUNT EXECUTIVE Surgery [facility] Surgery [address] [place] [address] Chin Carcamo MD [address] [address] COLONOSCOPY DIAGNOSTIC WITH/WITHOUT SPECIMEN BRUSH/WASH Scheduled Procedures Name Priority Associated Diagnoses Date/Ti me COLONOSCOPY DIAGNOSTIC WITH/WITHOUT SPECIMEN BRUSH/WASH Hematochezia Chronic diarrhea 11/01/2024 9:10 AM REGIONAL ACCOUNT EXECUTIVE documented as of this encounter Procedures Procedure Name Priority Date/Time Associated Diagnosis Comments CALPROTECTIN FECAL Routine 09/11/2021 3: 37 PM REGIONAL ACCOUNT EXECUTIVE Diarrhea, unspecified TISSUE TRANSGLUTAMINASE IGA AB Routine 09/11/2021 3:28 PM REGIONAL ACCOUNT EXECUTIVE Diarrhea, unspecified IMMUNOGLOBULIN A Routine 09/11/2021 3:28 PM REGIONAL ACCOUNT EXECUTIVE Diarrhea, unspecified SED RATE, ERYTHROCYTE (ESR) Routine 09/11/2021 3:28 PM REGIONAL ACCOUNT EXECUTIVE Diarrhea, unspecified COMPREHENSIVE METABOLIC PANEL Routine 09/11/2021 3:28 PM REGIONAL ACCOUNT EXECUTIVE Diarrhea, unspecified C-REACTIVE PROTEIN Routine 09/11/2021 3: 28 PM REGIONAL ACCOUNT EXECUTIVE Diarrhea, unspecified CBC W/DIFF AUTOMATED Routine 09/11/2021 3:28 PM REGIONAL ACCOUNT EXECUTIVE Diarrhea, unspecified documented in this encounter Results * CALPROTECTIN FECAL (09/11/2021 3:37 PM REGIONAL ACCOUNT EXECUTIVE) Pathologist [facility] CALPROTECTIN (STOOL) 9 mcg/g 09/19/2021 6:46 PM REGIONAL ACCOUNT EXECUTIVE [facility] BABITA SINGH Comment: ? Reference Range: ? <50 [...] suggested for borderline values. Test performed by [facility] ? [id number], ? [place] [address] ? Data Management Manager: Michaelle Lee MD,PHD,ZOHREH Test Reported by TutumMarco Antonio, [employer], [address] [place], [place] Migel Vaz M.D., Ph.D., Director of Laboratories , CLIA [id number] STOOL SPECIMEN / Unknown 09/11/2021 3:37 PM REGIONAL ACCOUNT EXECUTIVE Genia Mccarthy MD BODY FLUIDS AND STOOLS ORDERAB LES Final Result Performing Organization Address [facility]/ZIP Co de Phone Number [facility] [address] [place], [place] , * TISSUE TRANSGLUTAMINASE IGA AB (09/11/2021 3:28 PM REGIONAL ACCOUNT EXECUTIVE) TISSUE TRANSGLUTAMINASE IGA AB <1.0 <15.0 U/mL 09/16/2021 9:21 PM REGIONAL ACCOUNT EXECUTIVE [facility] CORRIGANBRANDY MANOLO Comment: ? Value ?Interpretation ? <15.0 ?Antibody not detected > or = 15.0 ?Antibody detected Test Performed by Marco Antonio Alcantara, [employer], [address] [place], [place] Migel Vaz M.D., Ph.D., Director of Laboratories , CLIA [id number] 09/11/2021 3:28 PM REGIONAL ACCOUNT EXECUTIVE Genia Mccarthy MD LABORATORY Final Result Performing Organization Address [facility]/ZIP Co de Phone Number [facility] [address] [place], [place] , [place] [phone] * IMMUNOGLOBULIN A (09/11/2021 3:28 PM REGIONAL ACCOUNT EXECUTIVE) Pathologist [facility] IGA 80 47 - 310 mg/dL 09/16/2021 7:15 PM REGIONAL ACCOUNT EXECUTIVE [facility] BABITA SINGH Comment: Test Performed by Marco Antonio Alcantara, [facility], [address] [place] [address] Migel Vaz M.D., Ph.D., Director of Laboratories , [place] [id number] 09/11/2021 3:28 PM REGIONAL ACCOUNT EXECUTIVE us Genia Mccarthy MD LABORATORY Final Result [facility] [address] , [place] [phone] * SED RATE, ERYTHROCYTE (ESR) (09/11/2021 3:28 PM REGIONAL ACCOUNT EXECUTIVE) Pathologist [facility] ESR 4 0 - 15 MM/HR 09/11/2021 4:32 PM REGIONAL ACCOUNT EXECUTIVE [facility] 09/11/2021 3:28 PM REGIONAL ACCOUNT EXECUTIVE us Genia Mccarthy MD LABORATORY Final Result [facility] [address] [place] [address], [place] [phone] * C-REACTIVE PROTEIN (09/11/2021 3:28 PM REGIONAL ACCOUNT EXECUTIVE) Pathologist [facility] C-REACTIVE PROTEIN <0.20 <0.9 mg/dL 09/11/2021 4:28 PM REGIONAL ACCOUNT EXECUTIVE [facility] 09/11/2021 3:28 PM REGIONAL ACCOUNT EXECUTIVE us Genia Mccarthy MD LABORATORY Final Result [facility] [address] [place] [address], [place] [phone] * (ABNORMAL) COMPREHENSIVE METABOLIC PANEL (09/11/2021 3:28 PM REGIONAL ACCOUNT EXECUTIVE) [facility] GLUCOSE 89 70 - 99 MG/DL 09/11/2021 4:28 PM [facility] BUN 21(H) 7 - 18 MG/DL 09/11/2021 4:28 PM [facility] CREATININE S/P/B 1.02 0.7 - 1.3 MG/DL 09/11/2021 4:28 PM [facility] SODIUM S/P/B 144 136 - 145 MMOL/L 09/11/2021 4:28 PM [facility] POTASSIUM S/P/B 4.0 3.5 - 5.1 MMOL/L 09/11/2021 4:28 PM [facility] CHLORIDE S/P/B 108 100 - 108 MMOL/L 09/11/2021 4:28 PM [facility] CO2 25.1 21 - 32 MMOL/L 09/11/2021 4:28 PM [facility] CALCIUM S/P/B 8.8 8.5 - 10.1 MG/DL 09/11/2021 4:28 PM [facility] BILIRUBIN TOTAL S/P/B 0.5 0.2 - 1.1 MG/DL 09/11/2021 4:28 PM [facility] TOTAL PROTEIN S/P/B 6.8 6.4 - 8.2 G/DL 09/11/2021 4:28 PM [facility] ALBUMIN S/P/B 4.2 3.4 - 5.0 G/DL 09/11/2021 4:28 PM [facility] AST 32 15 - 37 U/L 09/11/2021 4:28 PM [facility] ALT 47 16 - 60 U/L 09/11/2021 4:28 PM [facility] ALKALINE PHOSPHATASE S/P/B 181 65 - 260 U/L 09/11/2021 4:28 PM [facility] ANION GAP 10.9 5 - 15 MMOL/L 09/11/2021 4:28 PM [facility] BUN CREATININE RATIO 20.6 6 - 26 09/11/2021 4:28 PM [facility] A/G RATIO 1.6 1.0 - 2.0 RATIO 09/11/2021 4:28 PM [facility] EGFR NON-AFR. AMER. NOT CALCULATED ML/MIN/1. 73 M2 09/11/2021 4:28 PM [facility] EGFR AFR. AMER. NOT CALCULATED ML/MIN/1. 73 M2 09/11/2021 4:28 PM [facility] Comment: NOTE: eGFR is not calculated for patients <18 years of age. This is an estimated GFR (CKD EPI) and should not be used for calculating drug doses. 09/11/2021 3:28 PM REGIONAL ACCOUNT EXECUTIVE us Genia Mccarthy MD LABORATORY Final Result [facility] [address] [place] [address], * (ABNORMAL) CBC W/DIFF AUTOMATED (09/11/2021 3:28 PM REGIONAL ACCOUNT EXECUTIVE) WBC 7.0 3.8 - 9.8 x10'3/uL 09/11/2021 4:11 PM [facility] RBC 4.89 3.96 - 5.03 x10'6/uL 09/11/2021 4:11 PM [facility] HGB 14.3 11.0 - 14.5 G/DL 09/11/2021 4:11 PM [facility] HCT 42.5(H) 32.2 - 39.8 % 09/11/2021 4:11 PM [facility] MCV 86.9 76.7 - 89.2 FL 09/11/2021 4:11 PM [facility] MCH 29.2 24.9 - 29.2 PG 09/11/2021 4:11 PM [facility] MCHC 33.6 32.2 - 34.9 G/DL 09/11/2021 4:11 PM [facility] RDW 12.2(L) 12.5 - 14.9 % 09/11/2021 4:11 PM [facility] PLT 349 202 - 403 x10'3/uL 09/11/2021 4:11 PM [facility] MPV 9.3(L) 9.6 - 11.8 FL 09/11/2021 4:11 PM [facility] RBC MORPHOLOGY NORMAL 09/11/2021 4:11 PM [facility] PLT MORPH. NORMAL 09/11/2021 4:11 PM [facility] WBC MORPHOLOGY NORMAL 09/11/2021 4:11 PM [facility] LYMPHOCYTES % 37.9 15.8 - 45.0 % 09/11/2021 4:11 PM [facility] NEUTROPHILS % 48.2 42.1 - 71.9 % 09/11/2021 4:11 PM [facility] MONOCYTES % 10.0 5.7 - 12.5 % 09/11/2021 4:11 PM REGIONAL ACCOUNT EXECUTIVE [facility] EOSINOPHILS 2.7 0.0 - 5.6 % 09/11/2021 4:11 PM REGIONAL ACCOUNT EXECUTIVE [facility] BASOPHILS 0.9 0.0 - 1.3 % 09/11/2021 4:11 PM REGIONAL ACCOUNT EXECUTIVE [facility] ABS. NEUTROPHILS 3.36 1.40 - 6.00 x10'3/uL 09/11/2021 4:11 PM REGIONAL ACCOUNT EXECUTIVE [facility] IMMATURE GRANS % 0.3 0.0 - 0.5 % 09/11/2021 4:11 PM REGIONAL ACCOUNT EXECUTIVE [facility] ABS. LYMPHOCYTES 2.64 0.80 - 4.70 x10'3/uL 09/11/2021 4:11 PM [facility] 09/11/2021 3:28 PM REGIONAL ACCOUNT EXECUTIVE us Genia Mccarthy MD LABORATORY Final Result [facility] [address] [place] [address], documented in this encounter Visit Diagnoses Diagnosis Diarrhea, unspecified Hematochezia Blood in stool Chronic diarrhea Diarrhea documented in this encounter Care Teams Clip Loading Machine Feeder Relationship Specialty [place] [address] [place] [address] PCP - General FAMILY PRACTICE 02/17/21 08/09/22 documented as of this encounter
--- OUTSIDE RECORDS SUMMARY | 2024-09-23 12:25 | XMS_ITS | Encounter Summary ---
Author Organization [facility] Address [address] [place] [address]. [place], [place] [address] [place] [address] Care Team Providers Care Timber Girdler Name Role Phone Esa Williamson MD Primary Care Provider [phone] Encounter Details Date Type Department Care Team [...] COVID-19? No / Unsure 09/11/2021 3:19 PM MINE SAFETY ENGINEER documented as of this encounter Plan of Treatment Upcoming Encounters Date Type Department Care Team (Latest Contact Info) Description 09/24/2024 7:30 PM MINE SAFETY ENGINEER Appointment [facility] [address] [place] [phone] Nelly Guerrero SEARCH ENGINE MARKETING SPECIALIST [address] [place] [address] 09/25/2024 7:00 AM MINE SAFETY ENGINEER Appointment [facility] [address] [place] [address] Nelly Guerrero, SEARCH ENGINE MARKETING SPECIALIST [address] [place] [address] 11/01/2024 9:10 AM MINE SAFETY ENGINEER Hospital Encounter [facility] [address] [place] [address] Chin Carcamo MD [address] [address] 11/01/2024 9:10 AM MINE SAFETY ENGINEER - 11/01/2024 9:40 AM MINE SAFETY ENGINEER Surgery [facility] [address] [place] [address] Chin Carcamo MD [address] [address] COLONOSCOPY DIAGNOSTIC WITH/WITHOUT SPECIMEN BRUSH/WASH Scheduled Procedures Name Priority Associated Diagnoses Date/Ti me COLONOSCOPY DIAGNOSTIC WITH/WITHOUT SPECIMEN BRUSH/WASH Hematochezia Chronic diarrhea 11/01/2024 9:10 AM MINE SAFETY ENGINEER documented as of this encounter Visit Diagnoses Not on filedocumented in this encounter Care Teams Timber Girdler Relationship Specialty [place] [address] [place] [address] PCP - General FAMILY PRACTICE 02/17/21 08/09/22 documented as of this encounter
--- OUTSIDE RECORDS SUMMARY | 2024-09-23 12:25 | XMS_ITS | Encounter Summary ---
Author Organization [facility] Address [address] [place] [address]. [place], [place] [address] [place] [address] Care Team Providers Care Right Of Way Maintenance Supervisor Name Role Phone Mckenzie Williamson MD Primary Care Provider [phone] Reason for Visit * Reason Comments URI/ENT Symptoms scratchy throat, fev er , headache, fatigue-x4 days Encounter Details Date Type Department Care Team (Late st Contact Info) Description 02/02/2022 4:55 PM CDT Office Visit [address] [address] Nichelle Perez, CONTRACT NEGOTIATOR [address] [facility] [address] [place] [address] URI/ENT Symptoms (scratchy throat, fever , headache, fatigue-x4 days) Social History Tobacco Use Types Packs/Day Years [...] Sign Reading Time Taken Comments Blood Pressure 100/66 02/02/2022 4:10 PM CDT Pulse 89 02/02/2022 4:10 PM CDT Temperature 37.4 ??C (99.3 ??F) 02/02/2022 4:10 PM CD T Respiratory Rate - - Oxygen Saturation 99% 02/02/2022 4:10 PM CDT Inhaled Oxygen Concentration - - Weight 70.2 kg (154 lb 12.8 oz) 02/02/2022 4:10 PM CDT Height 175.3 cm (5' 9 ) 02/02/2022 4:10 PM CDT Body Mass Index 22.86 02/02/2022 4:10 PM CDT Body Mass Index Percentile 66.68% 02/02/2022 4:1 0 PM CDT Growth Chart: [facility] (Boys, 2-2 0 Years) documented in this encounter Progress Notes * Nichelle Perez NP - 02/02/2022 4:55 PM CDT Reason for Visit: URI/ENT Symptoms (scratchy throat, fever , headache, fatigue-x4 days) History of Present Illness: Willi Nelson is a 16-year-old male presenting today to [facility] in [place] complaining of headache, rhinorrhea, sore throat, fatigue and fever up to 100 degrees for the past 4 days. Pt has been taking OTC medications without relief for symptoms. Pt notes PMH as below. Pt continues to eat and drink well with adequate output. Pt admits to sick contacts via his friend. Pt denies other shortness of breath, nausea, vomiting, diarrhea and abdominal pain. Pt is vaccinated against COVID. ROS: Review of Systems Constitutional: Positive for fatigue and fever. HENT: Positive for rhinorrhea and sore throat. Neurological: Positive for headaches. All other systems reviewed and are negative. Medications: Current Outpatient Medications: ??? albuterol sulfate HFA (PROAIR HFA) 108 (90 Base) MCG/ACT inhaler, Inhale 1-2 [...] History Socioeconomic History ??? Marital status: Single Spouse name: Not on file ??? Number of children: Not on file ??? Years of education: Not on file ??? Highest education level: Not on file Occupational History ??? Not on file Tobacco Use ??? Smoking status: Never Smoker ??? Smokeless tobacco: Never Used Vaping Use ??? Vaping Use: Never used Substance and Sexual Activity ??? Alcohol use: Never ??? Drug use: Never ??? Sexual activity: Never Other Topics Concern ??? Not on file Social History Narrative Lives with mother and older brother Social Determinants of Health Financial Resource Strain: Not on file Food Insecurity: Not on file Transportation Needs: Not on file Physical Activity: Not on file Stress: Not on file Social Connections: Not on file Intimate Partner Violence: Not on file E-Cigarettes Questions Responses E-Cigarette Use Never User Family History Problem Relation Name Age of Onset ??? No Known Problems Mother ??? No Known Problems Father ??? No Known Problems Brother Family Status Relation Name Status ??? Mother Alive ??? Father Alive ??? Brother Alive Physical Exam Vitals reviewed. Constitutional: General: He is not in acute distress. Appearance: He is well-developed. HENT: Right Ear: Tympanic membrane normal. Left Ear: Tympanic membrane normal. Nose: Mucosal edema and rhinorrhea present. Mouth/Throat: Uvula is midline. Mucous membranes are moist. Oropharyngeal exudate (PND) present. Eyes: Pupils: Pupils are equal, round, and reactive to light. Cardiovascular: Rate and Rhythm: Normal rate and regular rhythm. Heart sounds: Normal heart sounds. Pulmonary: Effort: Pulmonary effort is normal. No respiratory distress. Breath sounds: Normal breath sounds. Musculoskeletal: Cervical back: Normal range of motion. Skin: General: Skin is warm and dry. Neurological: Mental Status: He is alert. Filed Vitals: 02/02/22 1610 BP: (!) 100/66 Pulse: 89 Temp: 99.3 ??F (37.4 ??C) SpO2: 99% Weight: 70.2 kg (154 lb 12.8 oz) Height: 5' 9 (1.753 m) Diagnoses/Impression: 1. Suspected COVID-19 virus infection CORONAVIRUS (COVID 19) PCR Recommendations and Plan: COVID PCR testing performed. Discussed differentials and etiologies. Reviewed supportive care as well. Encouraged good hand washing, temperature monitoring, cough hygiene and isolation of illness if fever begins. Discussed signs and symptoms of worsening and when to report to the ED vs. PCP for follow. Pt demonstrated understanding. Reviewed guidelines from CDC with pending testing: Guidelines for staying home and self isolation due to illness. - If you test positive for COVID-19, you must isolate, regardless of vaccination status. ??? Stay home for 5 days. ??? If you have no symptoms or your symptoms are resolving after 5 days, you can leave your house. ??? Continue to wear a mask around others for 5 additional days. ??? If you have a fever, continue to stay home until your fever resolves. Information on quarantining if you were exposed to someone with COVID-19: ??? If you have been boosted OR completed the primary series of Pfizer or Moderna vaccine within the last 6 months OR completed the primary series of J&J vaccine within the last 2 months: Wear a mask around others for 10 days. If you develop symptoms get a test and stay home. ??? If you completed the primary series of Pfizer or Moderna vaccine over 6 months ago and are NOT boosted OR completed the primary series of J&J over 2 months ago and are NOT booster OR are unvaccinated ? Stay home for 5 days. After that continue to wear a mask around others for 5 additional days. o If you cannot quarantine, you must wear a mask for 10 days. ? If you develop symptoms get a test and stay home. NICHELLE PEREZ NP Referring Provider: No ref. provider found PCP: MCKENZIE WILLIAMSON MD Cosigned by Pedro Lion MD at 02/03/2022 11:32 AM CDT documented in this encounter Plan of Treatment Upcoming Encounters Date Type Department Care Team (Latest Contact Info) Description 09/24/2024 7:30 PM OPERATING ROOM SURGICAL TECHNICIAN Appointment [facility] [address] [place] [address] Nelly Guerrero, CONTRACT NEGOTIATOR [address] [place] [address] 09/25/2024 7:00 AM OPERATING ROOM SURGICAL TECHNICIAN Appointment [facility] [address] [place] [address] Nelly Guerrero, CONTRACT NEGOTIATOR [address] [place] [address] 11/01/2024 9:10 AM OPERATING ROOM SURGICAL TECHNICIAN Hospital Encounter [facility] Surgery [address] [place] [address] Chin Carcamo MD [address] [address] 11/01/2024 9:10 AM OPERATING ROOM SURGICAL TECHNICIAN - 11/01/2024 9:40 AM OPERATING ROOM SURGICAL TECHNICIAN Surgery [facility] [address] [place] [address] Chin Carcamo MD [address] [place] [address] [place] [address] COLONOSCOPY DIAGNOSTIC WITH/WITHOUT SPECIMEN BRUSH/WASH Scheduled Procedures Name Priority Associated Diagnoses Date/Ti me COLONOSCOPY DIAGNOSTIC WITH/WITHOUT SPECIMEN BRUSH/WASH Hematochezia Chronic diarrhea 11/01/2024 9:10 AM OPERATING ROOM SURGICAL TECHNICIAN documented as of this encounter Results * CORONAVIRUS (COVID 19) PCR (02/02/2022 4:11 PM CDT) SPEC DESCRIPTION NASAL 02/04/20 2:31 PM CDT [facility] CORONAVIRUS SARS COV 2 PCR (RESP) NEGATIVE NEGATIVE 02/03/2022 6:39 PM CDT [facility] Comment: THE SARS-CoV-2 TEST HAS BEEN AUTHORIZED BY THE FDA UNDER AN EUA FOR USE BY AUTHORIZED LABORATORIES. PERFORMED BY NUCLEIC ACID AMPLIFICATION PCR FIRST TEST NO 02/03/2022 2:31 PM CDT [facility] EMPLOYED IN HEALTHCARE NO 02/03/2022 2:31 PM CDT [facility] SYMPTOMATIC DEFINED BY CDC YES 02/03/2022 2:31 PM CDT [facility] DATE OF SYMPTOM ONSET [id number]/03/2022 2:31 PM CDT [facility] HOSPITALIZATION STATUS NO 02/03/2022 2:31 PM CDT [facility] PATIENT IN ICU NO 02/03/2022 2:31 PM CDT [facility] RESIDENT OF [facility] CARE NO 02/03/2022 2:31 PM CDT [facility] NASOPHARYNGEAL SWAB / Unknown 02/02/2022 4:11 PM CDT Nichelle Perez CONTRACT NEGOTIATOR MICROBIOLOGY - GENERAL ORDERA BLES Final Result Performing Organization Address City/State/[facility] Co de Phone Number [facility] [address] [place] [address], documented in this encounter Visit Diagnoses Diagnosis Suspected COVID-19 virus infection- Primary Hematochezia Blood in stool Chronic diarrhea Diarrhea documented in this encounter Care Teams Right Of Way Maintenance Supervisor Relationship Specialty [place] [address] [place] [address] PCP - General FAMILY PRACTICE 02/17/21 08/09/22 documented as of this encounter
--- OUTSIDE RECORDS SUMMARY | 2024-09-23 12:25 | XMS_ITS | Encounter Summary ---
Author Organization [facility] Address [address] [place] [address]. [place], [place] [address] [place] [address] Care Team Providers Care Business Office Representative Name Role Phone Esa Williamson MD Primary Care Provider [phone] Reason for Visit * Reason Comments Imm/Inj Flu vaccine Encounter Details Date Type Department Care Team (Latest Contact Info) Description 07/20/2022 3:20 PM CDT Allied Health/Nurse Visit [facility] Family & Internal Medicine [address] [address] Esa Williamson MD [address] [place] [address] Imm/Inj (Flu vaccine) Social History Tobacco Use Types Packs/Day Years [...] (Latest Contact Info) Description 09/24/2024 7:30 PM OIL HEATER OPERATOR Appointment [facility] [address] [place] [address] Nelly Guerrero, ANALYSIS REPORTING DEVELOPER [address] [place] [address] 09/25/2024 7:00 AM OIL HEATER OPERATOR Appointment [facility] [address] [place] [address] Nelly Guerrero, ANALYSIS REPORTING DEVELOPER [address] [place] [address] 11/01/2024 9:10 AM OIL HEATER OPERATOR Hospital Encounter [facility] [address] [place] [address] Chin Carcamo MD [address] [address] 11/01/2024 9:10 AM OIL HEATER OPERATOR - 11/01/2024 9:40 AM OIL HEATER OPERATOR Surgery [facility] [address] [place] [address] Chin Carcamo MD [address] [address] COLONOSCOPY DIAGNOSTIC WITH/WITHOUT SPECIMEN BRUSH/WASH Scheduled Procedures Name Priority Associated Diagnoses Date/Ti me COLONOSCOPY DIAGNOSTIC WITH/WITHOUT SPECIMEN BRUSH/WASH Hematochezia Chronic diarrhea 11/01/2024 9:10 AM OIL HEATER OPERATOR documented as of this encounter Visit Diagnoses Diagnosis Need for immunization against influenza- Primary Need for prophylactic vaccination and inoculation against influenza Hematochezia Blood in stool Chronic diarrhea Diarrhea documented in this encounter Care Teams Business Office Representative Relationship Specialty [place] [address] [place] [address] PCP - General FAMILY PRACTICE 02/17/21 08/09/22 documented as of this encounter
--- OUTSIDE RECORDS SUMMARY | 2024-09-23 12:25 | XMS_ITS | Encounter Summary ---
Author Organization [facility] Address [address] [place] [address]. [place], [place] [address] [place] [address] Care Team Providers Care Continuum Of Care Manager Name Role Phone Esa Williamson MD Primary Care Provider [phone] Encounter Details Date Type Department Care Team (Latest Contact Info) Description 12/08/2022 Travel Social History Tobacco Use Types Packs/Day [...] (Latest Contact Info) Description 09/24/2024 7:30 PM MINIATURE TRAIN DRIVER Appointment [facility] [address] [place] [address] Nelly Guerrero CHIEF OF POLICE [address] [place] [address] 09/25/2024 7:00 AM MINIATURE TRAIN DRIVER Appointment [facility] [address] [place] [address] Nelly Guerrero, CHIEF OF POLICE [address] [place] [address] 11/01/2024 9:10 AM MINIATURE TRAIN DRIVER Hospital Encounter [facility] [address] [place] [address] Chin Carcamo MD 3 [facility] [address] [place] [address] 11/01/2024 9:10 AM MINIATURE TRAIN DRIVER - 11/01/2024 9:40 AM MINIATURE TRAIN DRIVER Surgery [facility] [address] [place] [address] Chin Carcamo MD 3 [facility] [address] [place] [address] COLONOSCOPY DIAGNOSTIC WITH/WITHOUT SPECIMEN BRUSH/WASH Scheduled Procedures Name Priority Associated Diagnoses Date/Ti me COLONOSCOPY DIAGNOSTIC WITH/WITHOUT SPECIMEN BRUSH/WASH Hematochezia Chronic diarrhea 11/01/2024 9:10 AM MINIATURE TRAIN DRIVER documented as of this encounter Visit Diagnoses Not on filedocumented in this encounter Care Teams Continuum Of Care Manager Relationship Specialty [place] [address] [place] [address] PCP - General FAMILY PRACTICE 08/21/22 documented as of this encounter
--- OUTSIDE RECORDS SUMMARY | 2024-09-23 12:25 | XMS_ITS | Encounter Summary ---
Author Organization [facility] Address [address] [place] [address]. [place], [place] [address] [place] [address] Care Team Providers Care Commodities Clerk Name Role Phone Esa Williamson MD Primary Care Provider [phone] Reason for Visit * Reason Comments Lab (SCAN) Encounter Details Date Type Department Care Team (Latest Contact Info) Description 05/16/2022 Scan HEALTH INFO SRVCS Scanned, Documents Lab (SCAN) Social History Tobacco Use Types Packs/Day Years [...] (Latest Contact Info) Description 09/24/2024 7:30 PM CHOPPING MACHINE OPERATOR Appointment [facility] [address] [place] [address] Nelly Guerrero, CRYPTOLOGIC SUPPORT SPECIALIST [address] [place], [place] [id number] 09/25/2024 7:00 AM CHOPPING MACHINE OPERATOR Appointment [facility] [address] [place] [address] Nelly Guerrero, CRYPTOLOGIC SUPPORT SPECIALIST [address] [place] [address] 11/01/2024 9:10 AM CHOPPING MACHINE OPERATOR Hospital Encounter [facility] Surgery [address] [place] [address] Chin Carcamo MD 3 [facility] [address] [place] [address] 11/01/2024 9:10 AM CHOPPING MACHINE OPERATOR - 11/01/2024 9:40 AM CHOPPING MACHINE OPERATOR Surgery [facility] Surgery [address] [place] [address] Chin Carcamo MD 3 [facility] [address] [place], [place] [address] COLONOSCOPY DIAGNOSTIC WITH/WITHOUT SPECIMEN BRUSH/WASH Scheduled Procedures Name Priority Associated Diagnoses Date/Ti me COLONOSCOPY DIAGNOSTIC WITH/WITHOUT SPECIMEN BRUSH/WASH Hematochezia Chronic diarrhea 11/01/2024 9:10 AM CHOPPING MACHINE OPERATOR documented as of this encounter Procedures Procedure Name Priority Date/Time Associated Diagnosis Comments OUTSIDE LAB (SCAN ORDER) 05/16/2022 documented in this encounter Results * OUTSIDE LAB (SCAN) (05/16/2022) 05/16/2022 Narrative 05/16/2022 Ordered by an unspecified provider. us Documents Scanned SCANNING Final Result documented in this encounter Visit Diagnoses Not on filedocumented in this encounter Care Teams Commodities Clerk Relationship Specialty [place] [address] [place] [address] PCP - General FAMILY PRACTICE 02/17/21 08/09/22 documented as of this encounter
--- OUTSIDE RECORDS SUMMARY | 2024-09-23 12:25 | XMS_ITS | Encounter Summary ---
Author Organization [facility] Address [address] [place] [address]. [place], [place] [address] [place] [address] Care Team Providers Care Wheel Buffer Name Role Phone Esa Williamson MD Primary Care Provider [phone] Encounter Details Date Type Department Care Team (Latest Contact Info) Description 09/30/2022 Scan [facility] HEALTH INFO SRVCS Scanned, Doc [...] (Latest Contact Info) Description 09/24/2024 7:30 PM ANIMAL SCIENCE PROFESSOR Appointment [facility] [address] [place] [address] Nelly Guerrero NP [address] [place], [place] [id number] 09/25/2024 7:00 AM ANIMAL SCIENCE PROFESSOR Appointment [facility] [address] [place] [address] Nelly Guerrero NP [address] [place] [address] 11/01/2024 9:10 AM ANIMAL SCIENCE PROFESSOR Hospital Encounter [facility] [address] [place] [address] Chin Carcamo MD 3 [facility] [address] [place] [address] 11/01/2024 9:10 AM ANIMAL SCIENCE PROFESSOR - 11/01/2024 9:40 AM ANIMAL SCIENCE PROFESSOR Surgery [facility] [address] [place] [address] Chin Carcamo MD 3 [facility] [address] [place] [address] COLONOSCOPY DIAGNOSTIC WITH/WITHOUT SPECIMEN BRUSH/WASH Scheduled Procedures Name Priority Associated Diagnoses Date/Ti me COLONOSCOPY DIAGNOSTIC WITH/WITHOUT SPECIMEN BRUSH/WASH Hematochezia Chronic diarrhea 11/01/2024 9:10 AM ANIMAL SCIENCE PROFESSOR documented as of this encounter Visit Diagnoses Not on filedocumented in this encounter Care Teams Wheel Buffer Relationship Specialty [place] [address] [place] [address] PCP - General FAMILY PRACTICE 08/21/22 documented as of this encounter
--- OUTSIDE RECORDS SUMMARY | 2024-09-23 12:25 | XMS_ITS | Encounter Summary ---
Author Organization [facility] Address [address] [place] [address]. [place], [place] [address] [place] [address] Care Team Providers Care Squash Centre Manager Name Role Phone Esa Williamson MD Primary Care Provider [phone] Reason for Referral * Consultation (Routine) - Closed Specialty Diagnoses / Procedures Referred By Jeb gilliam Referred To Contact GASTROENTEROLOGY Diagnoses Irritable bowel syndrome with diarrhea Procedures OFFICE/OUTPT VISIT,NEW,LEVL III OFFICE/OUTPT VISIT,NEW,LEVL IV OFFICE/OUTPT VISIT,NEW,LEVL V OFFICE/OUTPT VISIT,EST,LEVL III OFFICE/OUTPT VISIT,EST,LEVL IV OFFICE/OUTPT VISIT,EST,LEVL V Juan R Terry MD Kim, Peter S, MD [address] [place] [address] Phone: tel: fax: Referral ID Status Reason Start Date Expiration Date Visits Re quested Visits Authorized [id number] Closed 08/24/2022 08/24/2023 99 99 Scheduling Instructions Long history of irritable bowel syndrome at this time he would like to have a GI consultation with an adult GI he tried an antispasmodic medication before with side effects S FABRICATOR * Consultation (Routine) - Closed Specialty Diagnoses / Procedures Referred By Jeb gilliam Referred To Contact UROLOGY Diagnoses Penile abnormality Procedures OFFICE/OUTPT VISIT,NEW,LEVL III OFFICE/OUTPT VISIT,NEW,LEVL IV OFFICE/OUTPT VISIT,NEW,LEVL V OFFICE/OUTPT VISIT,EST,LEVL III OFFICE/OUTPT VISIT,EST,LEVL IV OFFICE/OUTPT VISIT,EST,LEVL V Juan R Terry MD Islam, Majdee M, MD 3 [facility] [address] [place] [address] Phone: tel: fax: Referral ID Status Reason Start Date Expiration Date V isits Requested Visits Authorized [id number] Closed Specialty Services 08/24/2022 08/24/2023 99 99 Scheduling Instructions After years of abnormal masturbation now his penis is bended during erection S FABRICATOR Reason for Visit * Reason Comments Gi Problem Dicyclomine was feliberto ng him nauseous and not as hungry. Ear Problem Pain, poss clogged o r infected. Toenail Pt asking if he need s referred for an ingrown toenail. Hair/Scalp Problem Pt asking if there i s a test to see if he is going to go bald fast. Erectile Dysfunction Pt wanting to talk to you about a penis problem. Encounter Details Date Type Department Care Team (Late st Contact Info) Description 08/24/2022 4:20 PM PARTS FABRICATOR Office Visit [facility] Family & Internal Medicine [address] [address] Juan R Terry MD Gi Problem (Dicyclomine was making him nauseous and not as hungry. ); Ear Problem (Pain, poss clogged or infected. ); Toenail (Pt asking if he needs referred for an ingrown toenail. ); Hair/Scalp Problem (Pt asking if there is a test to see if he is going to go bald fast. ); Erectile Dysfunction (Pt wanting to talk to you about a penis problem. ) Social History Tobacco Use Types Packs/Day [...] Coronavirus/COVID-19? No / Unsure 08/24/2022 4:16 PM PARTS FABRICATOR documented as of this encounter Last Filed Vital Signs Vital Sign Reading Time Taken Comments Blood Pressure 131/61 08/24/2022 4:32 PM PARTS FABRICATOR Pulse 95 08/24/2022 4:20 PM PARTS FABRICATOR Temperature 37.2 ??C (98.9 ??F) 08/24/2022 4:20 PM CS T Respiratory Rate 18 08/24/2022 4:20 PM PARTS FABRICATOR Oxygen Saturation 98% 08/24/2022 4:20 PM PARTS FABRICATOR Inhaled Oxygen Concentration - - Weight 71.7 kg (158 lb) 08/24/2022 4:20 PM PARTS FABRICATOR Height 176.5 cm (5' 9.5 ) 08/24/2022 4:20 PM PARTS FABRICATOR Body Mass Index 23 08/24/2022 4:20 PM PARTS FABRICATOR Body Mass Index Percentile 64.12% 08/24/2022 4:2 0 PM PARTS FABRICATOR Growth Chart: [facility] (Boys, 2-2 0 Years) documented in this encounter Progress Notes * Juan R Terry MD - 08/24/2022 4:20 PM CST Reason for Visit: Gi Problem (Dicyclomine was making him nauseous and not as hungry. ), Ear Problem (Pain, poss clogged or infected. ), Toenail (Pt asking if he needs referred for an ingrown toenail. ), Hair/Scalp Problem (Pt asking if there is a test to see if he is going to go bald fast. ), and Erectile Dysfunction (Pt wanting to talk to you about a penis problem. ) Filed Vitals: 08/24/22 1620 08/24/22 1630 08/24/22 1632 BP: (!) 140/67 98/66 131/61 Pulse: 95 Resp: 18 Temp: 98.9 ??F (37.2 ??C) TempSrc: Temporal SpO2: 98% Weight: 71.7 kg (158 lb) Height: 5' 9.5 (1.765 m) Body mass index is 23 kg/m??. History of Present Illness: HPI good afternoon office visit with this young man Mr. Willi nelson comes today to discuss couple issues first 1 is that he has a history of irritable bowel syndrome predominantly diarrhea has been going on for many years and he was a youngster he has seen a rn employee health that put him in [place] but he had side effects so he did not take it now that he is older he would like to see a rn employee health and see what else can be done so I going to refer him to see a rn employee health and gofrom there. Another issue is that he has been masturbating he for many years and he has practice something that he call pro masturbation honestly that he is aware that I never heard but he explained to me that he use other means of satisfying and self hitting his organ against different other things like this sofa or a post something like that. So the issue is that now he is not practicing that anymore he still masturbating himself twice a day. He tells me that when he gets an erection his penis is not completely directed bended in the middle. So he is concerned that somehow he damaged his organ. Time I going to refer him to see urologist for further evaluation. He also has concern to the fact that his father's bowel and that he may be wondering if there is a test that can be done to findout if he is going to be borderline I told him that there is not really a good test that trim much looking at the situation is a genetic issue so it is possible that his father is small that he may or may not be home tomorrow time will tell. Also he is concerned that he potentially someday will have an ingrown toenail so for that I thole him and I taught him how to cut the big toenails to avoid an ingrown toenail ROS: Review of Systems Constitutional: Negative. Respiratory: Negative. Cardiovascular: Negative. Gastrointestinal: Positive for diarrhea. Genitourinary: He also tells me that he has ED Musculoskeletal: Negative. Neurological: Negative. Psychiatric/Behavioral: The patient is nervous/anxious. Medications: Current Outpatient Medications: ??? albuterol sulfate [...] History Socioeconomic History ??? Marital status: Single Tobacco Use ??? Smoking status: Never ??? Smokeless tobacco: Never Vaping Use ??? Vaping Use: Never used Substance and Sexual Activity ??? Alcohol use: Never ??? Drug use: Never ??? Sexual activity: Never Social History Narrative Lives with mother and older brother Family History Problem Relation Name Age of Onset ??? No Known Problems Mother ??? No Known Problems Father ??? No Known Problems Brother Family Status Relation Name Status ??? Mother Alive ??? Father Alive ??? Brother Alive Physical Exam Constitutional: Appearance: Normal appearance. Cardiovascular: Rate and Rhythm: Normal rate and regular rhythm. Pulses: Normal pulses. Heart sounds: Normal heart sounds. Pulmonary: Effort: Pulmonary effort is normal. Breath sounds: Normal breath sounds. Musculoskeletal: Cervical back: Normal range of motion and neck supple. Neurological: Mental Status: He is alert. Psychiatric: Attention and Perception: Attention and perception normal. Mood and Affect: Mood and affect normal. Speech: Speech normal. Behavior: Behavior normal. Thought Content: Thought content normal. Cognition and Memory: Cognition and memory normal. Judgment: Judgment normal. Assessment Encounter Diagnose(s) ICD-10-CM ICD-9-CM SNOMED CT(R) 1. Penile abnormality N48.9 607.9 DISORDER OF PENIS Ambulatory referral to Urology 2. Irritable bowel syndrome with diarrhea K58.0 564.1 IRRITABLE BOWEL SYNDROME WITH DIARRHEA Ambulatory referral to Gastroenterology Plan 1. Penile abnormality At this time I going to refer him to a urologist for further evaluation - Ambulatory referral to Urology 2. Irritable bowel syndrome with diarrhea Referral to GI doctor for further care of his irritable bowel syndrome patient would like to see somebody soon before the end of the year - Ambulatory referral to Gastroenterology Orders Placed This Encounter ??? Ambulatory referral to Urology We had a long conversation regarding the different issues I going to refer him to the specialist Also advise him to try to focus on other important things in life as compared to the sexual things eventually he will grow up into that encouraged him to spend more energy in things that we will build him up and prepare him for the future he seems to understand what I was telling him and I going torefer him to a specialist to deal with the issues that of his concern Follow up FU PRN JUAN R TERRY MD 08/24/2022 5:12 PM S FABRICATOR documented in this encounter Plan of Treatment Upcoming Encounters Date Type Department Care Team (Latest Contact Info) Description 09/24/2024 7:30 PM PARTS FABRICATOR Appointment [facility] [address] [place] [address] Nelly Guerrero, SPECIAL EVENTS DRIVER [address] [place] [address] 09/25/2024 7:00 AM PARTS FABRICATOR Appointment [facility] [address] [place] [address] Nelly Guerrero SPECIAL EVENTS DRIVER [address] [place] [address] 11/01/2024 9:10 AM PARTS FABRICATOR Hospital Encounter [facility] [address] [place] [address] Chin Carcamo MD [address] [address] 11/01/2024 9:10 AM PARTS FABRICATOR - 11/01/2024 9:40 AM PARTS FABRICATOR Surgery [facility] [address] [place] [address] Chin Carcamo MD [address] [place] [address] COLONOSCOPY DIAGNOSTIC WITH/WITHOUT SPECIMEN BRUSH/WASH Scheduled Procedures Name Priority Associated Diagnoses Date/Ti me COLONOSCOPY DIAGNOSTIC WITH/WITHOUT SPECIMEN BRUSH/WASH Hematochezia Chronic diarrhea 11/01/2024 9:10 AM PARTS FABRICATOR Scheduled Referrals Name Type Priority Associated Diagnoses Orde r Schedule Ambulatory referral to Urology Referral Routine Penile abnormality Ordered: 08/24/2022 Ambulatory referral to Gastroenterology Referral Routine Irritable bowel syndrome with diarrhea Ordered: 08/24/2022 documented as of this encounter Visit Diagnoses Diagnosis Penile abnormality- Primary Unspecified disorder of penis Irritable bowel syndrome with diarrhea Irritable bowel syndrome Hematochezia Blood in stool Chronic diarrhea Diarrhea documented in this encounter Care Teams Squash Centre Manager Relationship Specialty [place] [address] [place] [address] PCP - General FAMILY PRACTICE 08/21/22 documented as of this encounter
--- OUTSIDE RECORDS SUMMARY | 2024-09-23 12:25 | XMS_ITS | Encounter Summary ---
Author Organization [facility] Address [address] [place] [address]. [place], [place] [address] [place] [address] Care Team Providers Care Profile Saw Operator Name Role Phone Mckenzie Williamson MD Primary Care Provider [phone] Reason for Visit * Reason Comments Physical Forms to be filled o ut for school for asthma Encounter Details Date Type Department Care Team (Late st Contact Info) Description 04/16/2022 2:40 PM CDT Office Visit [facility] Family & Internal Medicine [address] [address] Mckenzie Williamson MD [address] [place] [address] Physical (Forms to be filled out for school for asthma) Social History Tobacco Use Types Packs/Day Years [...] Sign Reading Time Taken Comments Blood Pressure 92/64 04/16/2022 2:41 PM CDT Pulse 77 04/16/2022 2:41 PM CDT Temperature 37 ??C (98.6 ??F) 04/16/2022 2:41 PM CDT Respiratory Rate 18 04/16/2022 2:41 PM CDT Oxygen Saturation 97% 04/16/2022 2:41 PM CDT Inhaled Oxygen Concentration - - Weight 68 kg (150 lb) 04/16/2022 2:41 PM CDT Height 176.5 cm (5' 9.5 ) 04/16/2022 2:41 PM CDT Body Mass Index 21.83 04/16/2022 2:41 PM CDT Body Mass Index Percentile 52.51% 04/16/2022 2:4 1 PM CDT Growth Chart: [facility] (Boys, 2-2 0 Years) documented in this encounter Progress Notes * Mckenzie Williamson MD - 04/16/2022 2:40 PM CDT Reason for Visit: Physical (Forms to be filled out for school for asthma) History of Present Illness: 16yo male for wellness. No significant complaints today. No concerns per mother Mild intermittent asthma, using rescue inhaler 1-2 times monthly. No other significant PMH. Will be senior at [employer] Denies CP, NAVA, SOB. ROS: Review of Systems Constitutional: Negative for [...] History Tobacco Use ??? Smoking status: Never Smoker [...] Father Alive ??? Brother Alive Filed Vitals: 04/16/22 1441 BP: (!) 92/64 Pulse: 77 Resp: 18 Temp: 98.6 ??F (37 ??C) TempSrc: Temporal SpO2: 97% Weight: 68 kg (150 lb) Height: 5' 9.5 (1.765 m) Physical Exam Vitals and nursing note reviewed. Constitutional: Appearance: He is well-developed. HENT: Head: Normocephalic and atraumatic. Right Ear: External ear normal. Left Ear: External ear normal. Nose: Nose normal. Mouth/Throat: Oropharynx is clear and moist. Eyes: Pupils: Pupils are equal, round, and reactive to light. Cardiovascular: Rate and Rhythm: Normal rate and regular rhythm. Heart sounds: Normal heart sounds. No murmur heard. Pulmonary: Effort: Pulmonary effort is normal. Breath sounds: Normal breath sounds. Abdominal: General: Bowel sounds are normal. Palpations: Abdomen is soft. Tenderness: There is no abdominal tenderness. Musculoskeletal: General: Normal range of motion. Cervical back: Normal range of motion and neck supple. Lymphadenopathy: Cervical: No cervical adenopathy. Skin: General: Skin is warm and dry. Neurological: Mental Status: He is alert and oriented to person, place, and time. Deep Tendon Reflexes: Reflexes are normal and symmetric. Diagnoses/Impression: 1. Encounter for routine child health examination without abnormal findings Recommendations and Plan: 1. Encounter for routine child health examination without abnormal findings No complaints. Asthma controlled.Exam today unremarkable. Immunizations UTD. Discussed anticipatoryguidance.Forms completed. Fu 1 yr. No orders of the defined types were placed in this encounter. MCKENZIE WILLIAMSON Referring Provider: No ref. provider found PCP: MCKENZIE WILLIAMSON MD documented in this encounter Plan of Treatment Upcoming Encounters Date Type Department Care Team (Latest Contact Info) Description 09/24/2024 7:30 PM MARKETING OUTREACH COORDINATOR Appointment [facility] [address] [place] [address] Nelly Guerrero, B2B APPOINTMENT SETTER [address] [place] [address] 09/25/2024 7:00 AM MARKETING OUTREACH COORDINATOR Appointment [facility] [address] [place] [address] Nelly Guerrero, B2B APPOINTMENT SETTER [address] [place] [address] 11/01/2024 9:10 AM MARKETING OUTREACH COORDINATOR Hospital Encounter [facility] [address] [place] [address] Chin Carcamo MD [address] [address] 11/01/2024 9:10 AM MARKETING OUTREACH COORDINATOR - 11/01/2024 9:40 AM MARKETING OUTREACH COORDINATOR Surgery [facility] [address] [place] [address] Chin Carcamo MD [address] [address] COLONOSCOPY DIAGNOSTIC WITH/WITHOUT SPECIMEN BRUSH/WASH Scheduled Procedures Name Priority Associated Diagnoses Date/Ti me COLONOSCOPY DIAGNOSTIC WITH/WITHOUT SPECIMEN BRUSH/WASH Hematochezia Chronic diarrhea 11/01/2024 9:10 AM MARKETING OUTREACH COORDINATOR documented as of this encounter Visit Diagnoses Diagnosis Encounter for routine child health examination without abnormal findings- Primary Routine or child health check Hematochezia Blood in stool Chronic diarrhea Diarrhea documented in this encounter Care Teams Profile Saw Operator Relationship Specialty [place] [address] [place] [address] PCP - General FAMILY PRACTICE 02/17/21 08/09/22 documented as of this encounter
--- OUTSIDE RECORDS SUMMARY | 2024-09-23 12:25 | XMS_ITS | Encounter Summary ---
Author Organization [facility] Address [address] [place] [address]. [place], [place] [address] [place] [address] Care Team Providers Care Butcher Name Role Phone Esa Williamson MD Primary Care Provider [phone] Encounter Details Date Type Department Care Team (Late st Contact Info) Description 07/11/2021 Orders Only [facility] Family & Internal Medicine [facility] [address] [place] [address] Esa Williamson MD [address] [place] [address] Social History Tobacco Use Types Packs/Day Years [...] (Latest Contact Info) Description 09/24/2024 7:30 PM CARPET LAYER Appointment [facility] [address] [place] [address] Nelly Guerrero, GOVERNMENT INSTRUCTOR [address] [place] [address] 09/25/2024 7:00 AM CARPET LAYER Appointment [facility] [address] [place] [address] Nelly Guerrero, GOVERNMENT INSTRUCTOR [address] [place] [address] 11/01/2024 9:10 AM CARPET LAYER Hospital Encounter [facility] [address] [place] [address] Chin Carcamo MD 3 [facility] [address] [place] [address] 11/01/2024 9:10 AM CARPET LAYER - 11/01/2024 9:40 AM CARPET LAYER Surgery [facility] [address] [place] [address] Chin Carcamo MD 3 [facility] [address] [place] [address] COLONOSCOPY DIAGNOSTIC WITH/WITHOUT SPECIMEN BRUSH/WASH Scheduled Procedures Name Priority Associated Diagnoses Date/Ti me COLONOSCOPY DIAGNOSTIC WITH/WITHOUT SPECIMEN BRUSH/WASH Hematochezia Chronic diarrhea 11/01/2024 9:10 AM CARPET LAYER documented as of this encounter Visit Diagnoses Not on filedocumented in this encounter Care Teams Butcher Relationship Specialty [place] [address] [place] [address] PCP - General FAMILY PRACTICE 02/17/21 08/09/22 documented as of this encounter
--- OUTSIDE RECORDS SUMMARY | 2024-09-23 12:26 | XMS_ITS | Encounter Summary ---
Author Organization [facility] Address [address] [place] [address]. [place], [place] [address] [place] [address] Care Team Providers Care Registered Nurse Surgical Services Name Role Phone Unavailable Primary Care Provider Unavailabl e Encounter Details Date Type Department Care Team (Latest Contact Info) Description 05/06/2017 Abstract [facility] Medical Group Social History Tobacco Use Types Packs/Day [...] (Latest Contact Info) Description 09/24/2024 7:30 PM DISPOSAL PLANT OPERATOR Appointment [facility] Lab [address] [place] [address] Nelly Guerrero WHIP OPERATOR [address] [place] [address] 09/25/2024 7:00 AM DISPOSAL PLANT OPERATOR Appointment [facility] Sleep Lab [address] [place] [address] Nelly Guerrero NP [address] [place] [address] 11/01/2024 9:10 AM DISPOSAL PLANT OPERATOR Hospital Encounter [facility] [address] [place] [address] Chin Carcamo MD 3 [facility] [address] [place] [address] 11/01/2024 9:10 AM DISPOSAL PLANT OPERATOR - 11/01/2024 9:40 AM DISPOSAL PLANT OPERATOR Surgery [facility] Surgery [address] [place] [address] Chin Carcamo MD 3 [facility] [address] [place] [address] COLONOSCOPY DIAGNOSTIC WITH/WITHOUT SPECIMEN BRUSH/WASH Scheduled Procedures Name Priority Associated Diagnoses Date/Ti me COLONOSCOPY DIAGNOSTIC WITH/WITHOUT SPECIMEN BRUSH/WASH Hematochezia Chronic diarrhea 11/01/2024 9:10 AM DISPOSAL PLANT OPERATOR documented as of this encounter Visit Diagnoses Not on filedocumented in this encounter
--- OUTSIDE RECORDS SUMMARY | 2024-09-23 12:26 | XMS_ITS | Encounter Summary ---
Author Organization [facility] Address [address] [place] [address]. [place], [place] [address] [place] [address] Care Team Providers Care Plug Sorter Name Role Phone Mckenzie Williamson MD Primary Care Provider [phone] Reason for Referral * Consultation (Routine) - Closed Specialty Diagnoses / Procedures Referred By Contact Referred To Contact PEDIATRIC GASTROENTEROLOGY Diagnoses Diarrhea, unspecified type Mckenzie Williamson MD [address] [place] [address] Phone: tel:[phone] fax:[phone] [facility] [address] [facility] [address] [place] [address] Phone: tel: fax: Referral ID Status Reason Start Date Expiration Date Visits Re quested Visits Authorized [id number] Closed 07/10/2021 08/10/2022 99 99 Scheduling Instructions [facility] Reason for Visit * Reason Comments Gi Problem gas, irregular BM's, stomach pain, diarrhea today Imm/Inj Flu Encounter Details Date Type Department Care Team (Late st Contact Info) Description 07/10/2021 3:20 PM CDT Office Visit [facility] Medical Group Family & Internal Medicine [address] [phone] Mckenzie Williamson MD [address] [place] [address] Gi Problem (gas, irregular BM's, stomach pain, diarrhea today); Imm/Inj (Flu ) Social History Tobacco Use Types Packs/Day [...] Sign Reading Time Taken Comments Blood Pressure 116/68 07/10/2021 3:45 PM CDT Pulse 98 07/10/2021 3:45 PM CDT Temperature 36.7 ??C (98 ??F) 07/10/2021 3:45 PM CDT Respiratory Rate 18 07/10/2021 3:45 PM CDT Oxygen Saturation 98% 07/10/2021 3:45 PM CDT Inhaled Oxygen Concentration - - Weight 69.4 kg (153 lb) 07/10/2021 3:45 PM CDT Height 173.5 cm (5' 8.3 ) 07/10/2021 3:45 PM CDT Body Mass Index 23.06 07/10/2021 3:45 PM CDT Body Mass Index Percentile 72.59% 07/10/2021 3:4 5 PM CDT Growth Chart: CDC (Boys, 2-2 0 Years) documented in this encounter Progress Notes * Mckenzie Williamson MD - 07/10/2021 3:20 PM CDT Reason for Visit: Gi Problem (gas, irregular BM's, stomach pain, diarrhea today) and Imm/Inj (Flu ) History of Present Illness: 15yo male for evaluation. GI complaints. Ongoing going back years.Reports ongoing GI upset, gas, bloating, primarily with diarrhea with occasional constipation. No blood in stool. No fever/chills. No weight loss. Taking nothing currently for symptoms. Denies food triggers. Frequently skips breakfast, school lunch, eats homecooked meal for dinner. No family GI history. No previous GI testing. ROS: Review of Systems Constitutional: Negative for chills and fever. Respiratory: Negative for cough and shortness of breath. Cardiovascular: Negative for chest pain. Gastrointestinal: Positive for diarrhea. Medications: Current Outpatient Medications: ??? albuterol sulfate [...] ??? Highest education level: Not on file Social History Narrative Lives with mother and older brother Social History Tobacco Use ??? Smoking status: Never Smoker ??? Smokeless tobacco: Never Used Substance Use Topics ??? Alcohol use: Never ??? Drug use: Never Family History Problem Relation Name Age of Onset ??? No Known Problems Mother ??? No Known Problems Father ??? No Known Problems Brother Family Status Relation Name Status ??? Mother Alive ??? Father Alive ??? Brother Alive Filed Vitals: 07/10/21 1545 BP: (!) 116/68 Pulse: 98 Resp: 18 Temp: 98 ??F (36.7 ??C) TempSrc: Temporal SpO2: 98% Weight: 69.4 kg (153 lb) Height: 5' 8.3 (1.735 m) Physical Exam Vitals and nursing note reviewed. Constitutional: General: He is not in acute distress. Appearance: He is not toxic-appearing. HENT: Head: Normocephalic and atraumatic. Cardiovascular: Rate and Rhythm: Normal rate and regular rhythm. Heart sounds: Normal heart sounds. Pulmonary: Effort: Pulmonary effort is normal. Breath sounds: Normal breath sounds. Abdominal: General: Bowel sounds are normal. There is no distension. Palpations: Abdomen is soft. Tenderness: There is no abdominal tenderness. There is no rebound. Diagnoses/Impression: 1. Diarrhea, unspecified type Ambulatory referral to Pediatric Gastroenterology 2. Need for immunization against influenza [[id number]] FLU VACC QUAD 6 MONTHS+ 0.5 ML (SINGLE DOSE SYRINGE FLUZONE, FLUARIX, FLULAVAL OR SINGLE DOSE VIAL FLUZONE) Recommendations and Plan: 1. Diarrhea. Ongoing in nature. With occasional constipation. Exam today unremarkable. History mostconsistent with functional abdominal complaints. Discussed options, start food diary, improved mealoptions, refer to GI for evaluation. Discussed warning signs. Fu as needed. Orders Placed This Encounter ??? Ambulatory referral to Pediatric Gastroenterology ??? [[id number]] FLU VACC QUAD 6 MONTHS+ 0.5 ML (SINGLE DOSE SYRINGE FLUZONE, FLUARIX, FLULAVAL OR SINGLE DOSE VIAL FLUZONE) MCKENZIE WILLIAMSON Referring Provider: No ref. provider found PCP: MCKENZIE WILLIAMSON MD documented in this encounter Plan of Treatment Upcoming Encounters Date Type Department Care Team (Latest Contact Info) Description 09/24/2024 7:30 PM GROUND EQUIPMENT MECHANIC Appointment [facility] Sleep Lab [address] [place] [address] Nelly Guerrero NP [address] [place] [address] 09/25/2024 7:00 AM GROUND EQUIPMENT MECHANIC Appointment [facility] Lab [address] [place] [address] Nelly Guerrero NP [address] [place] [address] 11/01/2024 9:10 AM GROUND EQUIPMENT MECHANIC Hospital Encounter [facility] [address] [place] [address] Chin Carcamo MD [address] [address] 11/01/2024 9:10 AM GROUND EQUIPMENT MECHANIC - 11/01/2024 9:40 AM GROUND EQUIPMENT MECHANIC Surgery [facility] [address] [place] [address] Chin Carcamo MD [address] [address] COLONOSCOPY DIAGNOSTIC WITH/WITHOUT SPECIMEN BRUSH/WASH Scheduled Procedures Name Priority Associated Diagnoses Date/Ti me COLONOSCOPY DIAGNOSTIC WITH/WITHOUT SPECIMEN BRUSH/WASH Hematochezia Chronic diarrhea 11/01/2024 9:10 AM GROUND EQUIPMENT MECHANIC Scheduled Referrals Name Type Priority Associated Diagnoses Orde r Schedule Ambulatory referral to Pediatric Gastroenterology Referral Routine Diarrhea, unspecified type Ordered: 07/10/2021 documented as of this encounter Visit Diagnoses Diagnosis Diarrhea, unspecified type- Primary Need for immunization against influenza Need for prophylactic vaccination and inoculation against influenza Hematochezia Blood in stool Chronic diarrhea Diarrhea documented in this encounter Care Teams Plug Sorter Relationship Specialty [place] [address] [place] [address] PCP - General FAMILY PRACTICE 02/17/21 08/09/22 documented as of this encounter
--- OUTSIDE RECORDS SUMMARY | 2024-09-23 12:26 | XMS_ITS | Encounter Summary ---
Author Organization [facility] Address [address] [place] [address]. [place], [place] [address] [place] [address] Care Team Providers Care Manual Arts Therapist Name Role Phone Unavailable Primary Care Provider Unavailabl e Encounter Details Date Type Department Care Team (Latest Contact Info) Description 05/18/2017 Abstract [facility] Medical Group Social History Tobacco Use Types [...] (Latest Contact Info) Description 09/24/2024 7:30 PM ECOMMERCE MARKETING SPECIALIST Appointment [facility] Sleep Lab [address] [place] [address] Nelly Guerrero QUALITY TECHNICIAN [address] [place] [address] 09/25/2024 7:00 AM ECOMMERCE MARKETING SPECIALIST Appointment [facility] Lab [address] [place] [address] Nelly Guerrero NP [address] [place] [address] 11/01/2024 9:10 AM ECOMMERCE MARKETING SPECIALIST Hospital Encounter [facility] [address] [place] [address] Chin Carcamo MD 3 [facility] 5000 [place] [address] 11/01/2024 9:10 AM ECOMMERCE MARKETING SPECIALIST - 11/01/2024 9:40 AM ECOMMERCE MARKETING SPECIALIST Surgery [facility] Surgery [address] [place] [address] Chin Carcamo MD 3 [facility] [address] [place] [address] COLONOSCOPY DIAGNOSTIC WITH/WITHOUT SPECIMEN BRUSH/WASH Scheduled Procedures Name Priority Associated Diagnoses Date/Ti me COLONOSCOPY DIAGNOSTIC WITH/WITHOUT SPECIMEN BRUSH/WASH Hematochezia Chronic diarrhea 11/01/2024 9:10 AM ECOMMERCE MARKETING SPECIALIST documented as of this encounter Visit Diagnoses Not on filedocumented in this encounter
--- OUTSIDE RECORDS SUMMARY | 2024-09-23 12:26 | XMS_ITS | Encounter Summary ---
Author Organization [facility] Address [address] [place] [address]. [place], [place] [address] [place] [address] Care Team Providers Care Ax Survey Worker Name Role Phone Esa Williamson MD Primary Care Provider [phone] Encounter Details Date Type Department Care Team (Latest Contact Info) Description 04/03/2021 Travel Social History Tobacco Use Types Packs/Day [...] have Coronavirus / COVID-19? No / Unsure 04/03/2021 3:04 PM CDT documented as of this encounter Plan of Treatment Upcoming Encounters Date Type Department Care Team (Latest Contact Info) Description 09/24/2024 7:30 PM THERAPEUTIC SPECIALIST Appointment [facility] [address] [place] [address] Nelly Guerrero FINANCIAL INSTITUTION VICE PRESIDENT [address] [place] [address] 09/25/2024 7:00 AM THERAPEUTIC SPECIALIST Appointment [facility] [address] [place] [address] Nelly Guerrero, FINANCIAL INSTITUTION VICE PRESIDENT [address] [place] [address] 11/01/2024 9:10 AM THERAPEUTIC SPECIALIST Hospital Encounter [facility] Surgery [address] [place] [address] Chin Carcamo MD 3 [facility] 5000 [place] [address] 11/01/2024 9:10 AM THERAPEUTIC SPECIALIST - 11/01/2024 9:40 AM THERAPEUTIC SPECIALIST Surgery [facility] Surgery [address] [place] [address] Chin Carcamo MD [address] [address] COLONOSCOPY DIAGNOSTIC WITH/WITHOUT SPECIMEN BRUSH/WASH Scheduled Procedures Name Priority Associated Diagnoses Date/Ti me COLONOSCOPY DIAGNOSTIC WITH/WITHOUT SPECIMEN BRUSH/WASH Hematochezia Chronic diarrhea 11/01/2024 9:10 AM THERAPEUTIC SPECIALIST documented as of this encounter Visit Diagnoses Not on filedocumented in this encounter Care Teams Ax Survey Worker Relationship Specialty [place] [address] [place] [address] PCP - General FAMILY PRACTICE 02/17/21 08/09/22 documented as of this encounter
--- OUTSIDE RECORDS SUMMARY | 2024-09-23 12:26 | XMS_ITS | Encounter Summary ---
Author Organization [facility] Address [address] [place] [address]. [place] [address] [place] [address] Care Team Providers Care General Pediatrician Name Role Phone Unavailable Primary Care Provider Unavailabl e Encounter Details Date Type Department Care Team (Late st Contact Info) Description 11/16/2012 Abstract [facility] [address] [place] [address] Katelynn Asher MD Social History Tobacco Use Types Packs/Day Years [...] (Latest Contact Info) Description 09/24/2024 7:30 PM GLUTEN SETTLING TENDER Appointment [facility] Sleep Lab [address] [place] [address] Nelly Guerrero NP [address] [place] [address] 09/25/2024 7:00 AM GLUTEN SETTLING TENDER Appointment [facility] Lab [address] [place] [address] Nelly Guerrero NP [address] [place] [address] 11/01/2024 9:10 AM GLUTEN SETTLING TENDER Hospital Encounter [facility] [address] [place] [address] Chin Carcamo MD [address] [address] 11/01/2024 9:10 AM GLUTEN SETTLING TENDER - 11/01/2024 9:40 AM GLUTEN SETTLING TENDER Surgery [facility] [address] [place] [address] Chin Carcamo MD [address] [address] COLONOSCOPY DIAGNOSTIC WITH/WITHOUT SPECIMEN BRUSH/WASH Scheduled Procedures Name Priority Associated Diagnoses Date/Ti me COLONOSCOPY DIAGNOSTIC WITH/WITHOUT SPECIMEN BRUSH/WASH Hematochezia Chronic diarrhea 11/01/2024 9:10 AM GLUTEN SETTLING TENDER documented as of this encounter Visit Diagnoses Diagnosis Urticaria Urticaria, unspecified Hematochezia Blood in stool Chronic diarrhea Diarrhea documented in this encounter
--- OUTSIDE RECORDS SUMMARY | 2024-09-23 12:26 | XMS_ITS | Encounter Summary ---
Author Organization [facility] Address [address] [place] [address]. [place], [place] [address] [place] [address] Care Team Providers Care High School Science Tutor Name Role Phone Esa Williamson MD Primary Care Provider [phone] Encounter Details Date Type Department Care Team (Latest Contact Info) Description 07/10/2021 Travel Social History Tobacco Use Types Packs/Day [...] (Latest Contact Info) Description 09/24/2024 7:[address] [facility] [address] [place] [address] Nelly Guerrero GLASS LAMINATING OPERATOR [address] [place] [address] 09/25/2024 7:[address] [facility] [address] [place] [address] Nelly Guererro, GLASS LAMINATING OPERATOR [address] [place] [address] 11/01/2024 9:10 AM COPYHOLDER Hospital Encounter [facility] Surgery [address] [place] [address] Chin Carcamo MD 3 [facility] 5000 [place] [address] 11/01/2024 9:10 AM COPYHOLDER - 11/01/2024 9:40 AM COPYHOLDER Surgery [facility] Surgery [address] [place] [address] Chin Carcamo MD [address] [address] COLONOSCOPY DIAGNOSTIC WITH/WITHOUT SPECIMEN BRUSH/WASH Scheduled Procedures Name Priority Associated Diagnoses Date/Ti me COLONOSCOPY DIAGNOSTIC WITH/WITHOUT SPECIMEN BRUSH/WASH Hematochezia Chronic diarrhea 11/01/2024 9:10 AM COPYHOLDER documented as of this encounter Visit Diagnoses Not on filedocumented in this encounter Care Teams High School Science Tutor Relationship Specialty [place] [address] [place] [address] PCP - General FAMILY PRACTICE 02/17/21 08/09/22 documented as of this encounter
--- OUTSIDE RECORDS SUMMARY | 2024-09-23 12:26 | XMS_ITS | Encounter Summary ---
Author Organization [facility] Address [address] [place] [address]. 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 sleeping, SOB, c/o ear issues, sore in ear (urgent care a week ago) Encounter Details Date Type Department Care Team (Late st Contact Info) Description 02/20/2021 2:20 PM CDT Office Visit [facility] Medical Group Family & Internal Medicine [facility] [id number] [place] [phone] Mckenzie Williamson MD [address] [place] [address] 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 No / Unsure 02/20/2021 2:16 PM CDT documented as of this encounter Last Filed Vital Signs Vital Sign Reading Time Taken Comments Blood Pressure 122/64 02/20/2021 2:28 PM CDT Pulse 100 02/20/2021 2:28 PM CDT Temperature 36.5 ??C (97.7 ??F) 02/20/2021 2:28 PM CD T Respiratory Rate 16 02/20/2021 2:28 PM CDT Oxygen Saturation 98% 02/20/2021 2:28 PM CDT Inhaled Oxygen Concentration - - Weight 75.5 kg (166 lb 6.4 oz) 02/20/2021 2:28 P M CDT Height 172.7 cm (5' 8 ) 02/20/2021 2:28 PM CDT Body Mass Index 25.3 02/20/2021 2:28 PM CDT Body Mass Index Percentile 88.38% 02/20/2021 2:2 8 PM CDT Growth Chart: 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 Reports some ongoing ear complaints. Was in UC few days ago, left sided canal irritation and some ongoing right ear impaction. Was started on abx drops for left ear, and debrox for right ear. Occasional irriation of the left ear. Right ear is full. Asthma. Cough variant. Long standing, using rare albuterol. Reports occasional night time symptoms,however, notices mostly with starting to fall asleep. Maybe 1-2 times weekly. No increase in daytime symptoms. Occasionally using albuterol. ROS: Review of Systems Constitutional: Negative for chills and fever. HENT: Positive for ear discharge. Respiratory: Negative for cough and shortness of breath. Cardiovascular: Negative for chest pain. Medications: Current Outpatient Medications: ??? albuterol sulfate HFA (PROAIR HFA) 108 (90 Base) MCG/ACT inhaler, Inhale 1-2 puffs into the lungs every 4 (four) hours as needed., Disp: , Rfl: ??? fluticasone propionate 50 MCG/ACT nasal spray, 1 spray by Nasal route daily as needed., Disp: ,Rfl: Allergies Allergen Reactions ??? Penicillins Rash ??? Sulfa Antibiotics Vomiting History reviewed. No pertinent past medical history. Past Surgical History: Procedure Laterality Date ??? [...] Father Alive ??? Brother Alive Filed Vitals: 02/20/21 1428 BP: (!) 122/64 Pulse: 100 Resp: 16 Temp: 97.7 ??F (36.5 ??C) TempSrc: Temporal SpO2: 98% Weight: 75.5 kg (166 lb 6.4 oz) Height: 5' 8 (1.727 m) Physical Exam Vitals and nursing note reviewed. Constitutional: General: He is not in acute distress. Appearance: He is not toxic-appearing. HENT: Head: Normocephalic and atraumatic. Right Ear: Patient is experiencing impacted cerumen right. Left Ear: External ear and ear canal normal. Cardiovascular: Rate and Rhythm: Normal rate and regular rhythm. Pulmonary: Effort: Pulmonary effort is normal. Breath sounds: Normal breath sounds. Abdominal: General: Abdomen is flat. Palpations: Abdomen is soft. Diagnoses/Impression: 1. Impacted cerumen of right ear 2. Cough variant asthma Recommendations and Plan: 1. Impacted cerumen. Right ear, has been using OTC treatments.Discussed options, proceed with cleaning here in office, discussed proper home care. Monitor. 2. Cough variant asthma. Occasional nighttime symptoms. No increase in day concerns. Does have albuterol. Discussed possible addition of daily inhaled steroid. Monitor. Discussed warning signs and symptoms. FU 3 months. Orders Placed This Encounter ??? fluticasone propionate 50 MCG/ACT nasal spray ??? albuterol sulfate HFA (PROAIR HFA) 108 (90 Base) MCG/ACT inhaler MCKENZIE WILLIAMSON Referring Provider: No ref. provider found PCP: MCKENZIE WILLIAMSON MD documented in this encounter Procedure Notes * Mckenzie Williamson MD - 02/20/2021 2:20 PM CDTAssociated Order(s): REMOVE IMPACTED EAR WAX Procedure note Risks and benefits discussed, verbal consent obtained. right ear visualized. Ear cleansed with irrigation and curette by myself. Tolerated well. moderate amount of wax removed, ear clean after. Discussed aftercare. FU prn. documented in this encounter Plan of Treatment Upcoming Encounters Date Type Department Care Team (Latest Contact Info) Description 09/24/2024 7:30 PM SUPERVISOR RECLAMATION Appointment [facility] Sleep Lab [address] [place] [address] Nelly Guerrero NP [address] [place] [address] 09/25/2024 7:00 AM SUPERVISOR RECLAMATION Appointment [facility] Sleep Lab [address] [place] [address] Nelly Guerrero NP [address] [place] [address] 11/01/2024 9:10 AM SUPERVISOR RECLAMATION Hospital Encounter [facility] Surgery [address] [place] [address] Chin Carcamo MD [address] [address] 11/01/2024 9:10 AM SUPERVISOR RECLAMATION - 11/01/2024 9:40 AM SUPERVISOR RECLAMATION Surgery [facility] Surgery [address] [place] [address] Chin Carcamo MD 3 [facility] [address] [place] [address] COLONOSCOPY DIAGNOSTIC WITH/WITHOUT SPECIMEN BRUSH/WASH Scheduled Procedures Name Priority Associated Diagnoses Date/Ti me COLONOSCOPY DIAGNOSTIC WITH/WITHOUT SPECIMEN BRUSH/WASH Hematochezia Chronic diarrhea 11/01/2024 9:10 AM SUPERVISOR RECLAMATION documented as of this encounter Procedures Procedure Name Priority Date/Time Associated Diagnosis Comments REMOVE IMPACTED CERUMEN INSTRUMENTATION UNILAT Routine 02/20/2021 2:20 PM CDT Impacted cerumen of right ear documented in this encounter Results * REMOVE IMPACTED EAR WAX (02/20/2021 2:20 PM CDT) Narrative Mckenzie Williamson MD - 02/20/2021 2:20 PM CDT Mckenzie Williamson MD ? 02/20/2021 ??3:12 PM Procedure note Risks and benefits discussed, verbal consent obtained. right ear visualized. Ear cleansed with irrigation and curette by myself. Tolerated well. moderate amount of wax removed, ear clean after. Discussed aftercare. FU prn. us Mckenzie Williamson MD PROCEDURES-UNRESULTED Final Result documented in this encounter Visit Diagnoses Diagnosis Impacted cerumen of right ear- Primary Impacted cerumen Cough variant asthma (HHS/HCC) Cough variant asthma Hematochezia Blood in stool Chronic diarrhea Diarrhea documented in this encounter Care Teams Compressed Yeast Supervisor Relationship Specialty Start [place] [address] [place] [address] PCP - General FAMILY PRACTICE 02/17/21 08/09/22 documented as of this encounter
--- OUTSIDE RECORDS SUMMARY | 2024-09-23 12:26 | XMS_ITS | Encounter Summary ---
Author Organization [facility] Address [address] [place] [address]. [place], [place] [address] [place] [address] Care Team Providers Care Squirrel Man Name Role Phone Unavailable Primary Care Provider Unavailabl e Encounter Details Date Type Department Care Team (Late st Contact Info) Description 12/29/2016 Abstract [facility] Laboratory [address] [place] [address] Corby Mclaughlin NP Social History Tobacco Use Types Packs/Day Years [...] (Latest Contact Info) Description 09/24/2024 7:30 PM RUBBER SPLICER Appointment [facility] Sleep Lab [address] [place] [address] Nelly Guerrero NP 1179 [place] [address] 09/25/2024 7:00 AM RUBBER SPLICER Appointment [facility] Sleep Lab [address] [place] [address] Nelly Guerrero NP 1179 [place] [address] 11/01/2024 9:10 AM RUBBER SPLICER Hospital Encounter [facility] [address] [place] [address] Chin Carcamo MD [address] [address] 11/01/2024 9:10 AM RUBBER SPLICER - 11/01/2024 9:40 AM RUBBER SPLICER Surgery [facility] Surgery [address] [place] [address] Chin Carcamo MD [address] [id number] COLONOSCOPY DIAGNOSTIC WITH/WITHOUT SPECIMEN BRUSH/WASH Scheduled Procedures Name Priority Associated Diagnoses Date/Ti me COLONOSCOPY DIAGNOSTIC WITH/WITHOUT SPECIMEN BRUSH/WASH Hematochezia Chronic diarrhea 11/01/2024 9:10 AM RUBBER SPLICER documented as of this encounter Visit Diagnoses Diagnosis Acute pharyngitis Hematochezia Blood in stool Chronic diarrhea Diarrhea documented in this encounter
--- OUTSIDE RECORDS SUMMARY | 2024-09-23 12:26 | XMS_ITS | Encounter Summary ---
Author Organization [facility] Address [address] [place] [address]. [place], [place] [address] [place] [address] Care Team Providers Care Rn Gynecology Name Role Phone Unavailable Primary Care Provider Unavailabl e Encounter Details Date Type Department Care Team (Latest Contact Info) Description 12/28/2016 Abstract [facility] Social History Tobacco Use Types [...] (Latest Contact Info) Description 09/24/2024 7:30 PM MOBILE DESIGNER Appointment [facility] Sleep Lab [address] [place] [address] Nelly Guerrero MEDICAL SECRETARY RECEPTIONIST 117[address] [place] [address] 09/25/2024 7:00 AM MOBILE DESIGNER Appointment [facility] Sleep Lab [address] [place] [address] Nelly Guerrero NP [address]9 [place] [address] 11/01/2024 9:10 AM MOBILE DESIGNER Hospital Encounter [facility] [address] [place] [address] Chin Carcamo MD 3 [facility] 5000 [place] [address] 11/01/2024 9:10 AM MOBILE DESIGNER - 11/01/2024 9:40 AM MOBILE DESIGNER Surgery [facility] Surgery [address] [place] [address] Chin Carcamo MD 3 [facility] [address] [place] [address] COLONOSCOPY DIAGNOSTIC WITH/WITHOUT SPECIMEN BRUSH/WASH Scheduled Procedures Name Priority Associated Diagnoses Date/Ti me COLONOSCOPY DIAGNOSTIC WITH/WITHOUT SPECIMEN BRUSH/WASH Hematochezia Chronic diarrhea 11/01/2024 9:10 AM MOBILE DESIGNER documented as of this encounter Visit Diagnoses Not on filedocumented in this encounter
--- OUTSIDE RECORDS SUMMARY | 2024-09-23 12:26 | XMS_ITS | Encounter Summary ---
Author Organization [facility] Address [address] [place] [address]. [place], [place] [address] [place] [address] Care Team Providers Care Linotypist Name Role Phone Unavailable Primary Care Provider Unavailabl e Encounter Details Date Type Department Care Team (Latest Contact Info) Description 05/04/2017 Abstract [facility] Social History Tobacco Use Types [...] (Latest Contact Info) Description 09/24/2024 7:30 PM SCRATCH POLISHER Appointment [facility] Sleep Lab [address] [place] [address] Nelly Guerrero SUPERVISOR CYTOLOGY 1179 [place] [address] 09/25/2024 7:00 AM SCRATCH POLISHER Appointment [facility] Sleep Lab [address] [place] [address] Nelly Guerrero NP 1179 [place] [address] 11/01/2024 9:10 AM SCRATCH POLISHER Hospital Encounter [facility] [address] [place] [address] Chin Carcamo MD 3 [facility] 5000 [place] [address] 11/01/2024 9:10 AM SCRATCH POLISHER - 11/01/2024 9:40 AM SCRATCH POLISHER Surgery [facility] Surgery [address] [place] [address] Chin Carcamo MD 3 [facility] [address] [place] [address] COLONOSCOPY DIAGNOSTIC WITH/WITHOUT SPECIMEN BRUSH/WASH Scheduled Procedures Name Priority Associated Diagnoses Date/Ti me COLONOSCOPY DIAGNOSTIC WITH/WITHOUT SPECIMEN BRUSH/WASH Hematochezia Chronic diarrhea 11/01/2024 9:10 AM SCRATCH POLISHER documented as of this encounter Visit Diagnoses Not on filedocumented in this encounter
--- OUTSIDE RECORDS SUMMARY | 2024-09-23 12:26 | XMS_ITS | Encounter Summary ---
Author Organization [facility] Address [address] [place] [address]. [place] [address] [place] [address] Care Team Providers Care Refinery Operator Polymerization Plant Name Role Phone Unavailable Primary Care Provider Unavailabl e Encounter Details Date Type Department Care Team (Latest Contact Info) Description 04/30/2017 Abstract [facility] Medical [facility] Social History Tobacco Use Types Packs/Day Years Used Date Smoking Tobacco: Never Assessed Sex and Gender Information Value Date Recorded Sex Assigned at Not on file Legal Sex Male 7:45 PM CDT Gender Identity Not on file Sexual Orientation Not on file documented as of this encounter Progress Notes * Generic Conversion MD Tamara - 04/30/2017 2:03 PM CDT Message Recorded as Task Date: 04/23/2017 03:48 PM, Created By: Tasha Almaraz Task Name: Referral Assigned To: Claudia Nursing Team Regarding Patient: Willi Nelson, Status: Active Comment: Tasha Almaraz - 23 Apr 2017 3:48 PM TASK CREATED Due to sleep study Dr. Singh wants to referred pt to a ENT Dr. pts mother wants to know if Dr. Lal can refer him instead. call back #[phone] Agnes Toney 28 Apr 2017 2:43 PM TASK EDITED Ok per Dr. Lal, need to see if pt mother has preference. Agnes Toney 28 Apr 2017 2:47 PM TASK EDITED LMOM for pt mother to call back to let us know if she has a preference on what ENT to see or if shewants first available. Agnes Toney 28 Apr 2017 2:47 PM TASK IN PROGRESS Wanda Schaefer - 30 Apr 2017 9:53 AM TASK EDITED pt's mother doesn't have a preference, whichever ENT Dr. Lal recommends is fine. Zuleima Leblanc - 30 Apr 2017 2:03 PM TASK EDITED first available appt is fine per Dr Lal. Zuleima Leblanc - 30 Apr 2017 2:14 PM TASK EDITED referral order placed. Plan 1. Otolaryngology Referral Outpatient evaluate and treat per sleep study doctor. first appt available, no preferance on provider. Status: Need Information - Financial Authorization Requested for: [id number] Ordered; For: Parasomnia, Sleep apnea; Ordered By: Sharath Lal Performed: Due: [id number]; Last Updated By: Zuleima Leblanc; 04/30/2017 2:12:38 PM Signatures Electronically signed by : Zlueima Leblanc MA; Apr 30 2017 2:15PM SIGN ARTIST (Author) documented in this encounter Plan of Treatment Upcoming Encounters Date Type Department Care Team (Latest Contact Info) Description 09/24/2024 7:30 PM SIGN ARTIST Appointment [facility] Sleep Lab [address] [place] [address] Nelly Guerrero, FIRER PORTABLE BOILER [address]9 [place], [place] [id number] 09/25/2024 7:00 AM SIGN ARTIST Appointment [facility] Sleep Lab [address] [place] [address] Nelly Guerrero FIRER PORTABLE BOILER 1179 [place], [place] [address] 11/01/2024 9:10 AM SIGN ARTIST Hospital Encounter [facility] Surgery [address] [place] [address] Chin Carcamo MD [address] [address] 11/01/2024 9:10 AM SIGN ARTIST - 11/01/2024 9:40 AM SIGN ARTIST Surgery [facility] [address] [place] [address] Chin Carcamo MD [address] [place] [address] COLONOSCOPY DIAGNOSTIC WITH/WITHOUT SPECIMEN BRUSH/WASH Scheduled Procedures Name Priority Associated Diagnoses Date/Ti ct COLONOSCOPY DIAGNOSTIC WITH/WITHOUT SPECIMEN BRUSH/WASH Hematochezia Chronic diarrhea 11/01/2024 9:10 AM SIGN ARTIST documented as of this encounter Visit Diagnoses Not on filedocumented in this encounter
--- OUTSIDE RECORDS SUMMARY | 2024-09-23 12:26 | XMS_ITS | Encounter Summary ---
Author Organization [facility] Address [address] [place] [address]. [place], [place] [address] [place] [address] Care Team Providers Care Cash Register Repairer Name Role Phone Unavailable Primary Care Provider Unavailabl e Encounter Details Date Type Department Care Team (Latest Contact Info) Description 05/20/2017 Abstract [facility] Social History Tobacco [...] (Latest Contact Info) Description 09/24/2024 7:30 PM EMERGENCY REGISTRAR Appointment [facility] Sleep Lab [address] [place] [address] Nelly Guerrero WAFER FABRICATION TECHNICIAN 1179 [place] [address] 09/25/2024 7:00 AM EMERGENCY REGISTRAR Appointment [facility] Sleep Lab [address] [place] [address] Nelly Guerrero NP 1179 [place] [address] 11/01/2024 9:10 AM EMERGENCY REGISTRAR Hospital Encounter [facility] [address] [place] [address] Chin Carcamo MD 3 [facility] 5000 [place] [address] 11/01/2024 9:10 AM EMERGENCY REGISTRAR - 11/01/2024 9:40 AM EMERGENCY REGISTRAR Surgery [facility] Surgery [address] [place] [address] Chin Carcamo MD 3 [facility] [address] [place] [address] COLONOSCOPY DIAGNOSTIC WITH/WITHOUT SPECIMEN BRUSH/WASH Scheduled Procedures Name Priority Associated Diagnoses Date/Ti me COLONOSCOPY DIAGNOSTIC WITH/WITHOUT SPECIMEN BRUSH/WASH Hematochezia Chronic diarrhea 11/01/2024 9:10 AM EMERGENCY REGISTRAR documented as of this encounter Visit Diagnoses Not on filedocumented in this encounter
--- OUTSIDE RECORDS SUMMARY | 2024-09-23 12:26 | XMS_ITS | Encounter Summary ---
Author Organization [facility] Address [address] [place] [address]. [place], [place] [address] [place] [address] Care Team Providers Care Air Route Traffic Controller Name Role Phone Unavailable Primary Care Provider Unavailabl e Encounter Details Date Type Department Care Team (Late st Contact Info) Description 03/04/2017 Abstract [facility] Medical Group Family & Internal Medicine [facility] [address] [place] [address] Sharath Hernandez MD [address] [place] [phone] Social History Tobacco Use Types Packs/Day Years Used Date Smoking Tobacco: Never Assessed Sex and Gender Information Value Date Recorded Sex Assigned at Not on file Legal Sex Male 7:45 PM CDT Gender Identity Not on file Sexual Orientation Not on file documented as of this encounter Last Filed Vital Signs Vital Sign Reading Time Taken Comments Blood Pressure 110/58 03/04/2017 11:32 AM CDT Pulse 71 03/04/2017 11:32 AM CDT Temperature - - Respiratory Rate - - Oxygen Saturation - - Inhaled Oxygen Concentration - - Weight 30.8 kg (68 lb) 03/04/2017 11:32 AM CDT Height - - Body Mass Index - - documented in this encounter Progress Notes * Sharath Hernandez MD - 03/04/2017 11:40 AM CDT Message mailed copy to patient Verified Results XR CHEST 2 VIEW ( Routine ) 04Mar2017 12:57PM Sharath Hernandez Test Name Result Flag Reference XR CHEST 2 VIEW (Report) WILLI NELSON ADMIT/SERVICE DATE: 03/04/17 ACCT: [id number] DISCHARGE DATE: : 2005 SEX: M ORD SITE: [facility] PT TYPE: REG CLI ORDERING MD: SHARATH HERNANDEZ MD STUDY DATE REPORT # ORDER # EXT ORDER ID 03/04/17 [id number] PROC CODE: CXR2V PROCEDURE DESCRIPTION: XR CHEST 2 VIEW IMAGING STUDIES: XR CHEST 2 VIEW DATE: 03/04/2017 12:27 PM HISTORY: OTHER - COUGH 11-YEAR-OLD MALE WITH COUGH AND FEVER FOR 5 DAYS. HISTORY OF TONSILLECTOMY AND ADENOIDECTOMY. COMPARISON: NO COMPARISONS. DISCUSSION: UPRIGHT PA AND LATERAL VIEWS. PATIENT SHIELDED. HEART SIZE AND PULMONARY VESSELS WITHIN NORMAL LIMITS. INFILTRATE IN THE RIGHT LOWER LOBE. NO EFFUSION OR PNEUMOTHORAX. NO ACUTE SKELETAL ABNORMALITY. IMPRESSION: RIGHT LOWER LOBE PULMONARY INFILTRATE SUGGESTING PNEUMONIA. CORRELATE CLINICALLY. EXAM REVIEWED AND FINDINGS CONVEYED TO REFERRING SERVICE AT 1244 HOURS. ELECTRONICALLY SIGNED BY JUAQUIN SILVA MD Plan Fever, Nonproductive cough ?? Follow-up PRN Outpatient Follow-up Status: Complete Done: 04Mar2017 ?? XR CHEST 2 VIEW ( Routine ); Status:Complete; Done: 04Mar2017 12:57PM Nonproductive cough ?? Cheratussin AC 100-10 MG/5ML Oral Syrup; TAKE 5 ML DAILY AT BEDTIME NEEDED FOR COUGH Right lower lobe pneumonia ?? Amoxicillin 400 MG/5ML Oral Suspension Reconstituted; 17 ML Twice daily by mouth x 5 days ?? Azithromycin 200 MG/5ML Oral Suspension Reconstituted; 8 ML BY MOUTH ON DAY 1, THEN 4 ML BY MOUTH DAILY X 4 DAYS * Sharath Hernandez MD - 03/04/2017 11:40 AM CDT Chief Complaint non productive cough fever for last 5 days History of Present Illness HISTORY of PRESENT ILLNESS: Willi presents with his mother, with a 5 day history of cough, with daily fevers up to high 103degFyesterday. Substernal chest pain with cough only. Slight decreased appetite. No dyspnea, ear pain, rhinorrhea, sore throat. No gastrointestinal symptoms. Mom alternating ibuprofen and acetaminophen for symptom-relief. Tried mcdk-usy-avqrpcu cough medication once, without significant relief. REVIEW of SYSTEMS: All systems reviewed and negative except as noted in HPI. VITAL SIGNS: Reviewed. Temperature 100degF. Normotensive. SpO2 97%. PHYSICAL EXAMINATION: GENERAL: Well-developed and well-nourished, cooperative. Well-appearing, in no acute distress. SKIN: Normal color, warm & dry. No lesions. HEAD: Normocephalic, without trauma. EENT: Extraocular movements intact, pupils equal, round, and reactive to light. Sclerae anicteric, conjunctivae non-injected and without discharge. Nasopharynx clear, posterior oropharynx clear, oralmucosa moist, without lesions; good dentition. NECK: Supple. RESPIRATORY: Airway patent. No respiratory distress. Clear to auscultation bilaterally. No wheezes or rhonchi. Slight rales noted to left lung base. Semi- frequent non-productive cough. CARDIOVASCULAR: Peripheral pulses palpable. Regular in rhythm, without murmur. No gallops, clicks or rubs. MUSCULOSKELETAL: Normal range of motion. EXTREMITIES: Warm, without clubbing, cyanosis, or edema. NEUROLOGIC: Alert & oriented x 3. Cranial nerves normal as tested. No gross motor deficits. PSYCHOLOGIC: Normal affect. GENITOURINARY: Deferred. ADDITIONAL DATA: None. MEDICAL DECISION MAKING: MODERATE COMPLEXITY ASSESSMENT/PLAN: See enumerated lists in the appropriate sections below. DISCUSSION: 1. COUGH WITH FEVER. Symptoms consistent with acute bronchitis, but for rales to the left lung base. Will obtain chest radiograph, encourage fluids, ibuprofen/ acetaminophen, vepp-ilk-csejvqd cough medications if needed for congestion. Cheratussin-AC at bedtime only. Will contact with results and adjust treatment based on those findings. FOLLOWUP: as needed. Active Problems 1. Asthma, cough variant (493.82) (J45.991) 2. Chronic GERD (530.81) (K21.9) 3. Low weight (783.22) (R63.6) 4. Parasomnia (307.47) (G47.50) Past Medical History 1. History of urinary frequency (V13.09) (Z87.898) Surgical History 1. History of Tonsillectomy Family History Mother 1. No pertinent family history Social History ?? Lives with mother (single parent) ?? No secondhand smoke exposure (V49.89) (Z78.9) ?? Student Immunizations DTP/DTaP --- Series1: 69Geu5409 (2M); Series2: 2004 (4M); Series3: 25Feb2005 (6M); Series4: 09Dec2005 (15M); Series5: 79Fob2394 (4Y) Hepatitis A --- Series1: 97Jio6060 (18M); Series2: 24Avz8242 (2Y) Hepatitis B --- Series1: 84Kzn2118 (2M); Series2: 2004 (4M); Series3: 09Dec2005 (15M) HIB --- Series1: 22Llr3002 (2M); Series2: 2004 (4M); Series3: 09Dec2005 (15M) Influenza --- Series1: 61Jbl9363 (9Y) Meningococcal --- Series1: 21Jly7116 (11Y) MMR --- Series1: 02Csp7087 (13M); Series2: 18Djd7393 (4Y) Pneumococcal --- Series1: 29Enr6256 (2M); Series2: 2004 (4M); Series3: 25Feb2005 (6M); Series4: 60Qsb9883 (15M) Polio --- Series1: 03Njn0461 (3M); Series2: 29Vqx8718 (6M); Series3: 75Lgo2933 (9M); Series4: 01Xkq2469 (4Y) Tdap --- Series1: 65Iny4777 (11Y) Varicella --- Series1: 60Onw8927 (18M); Series2: 24Khm5157 (4Y) Current Meds 1. ProAir HFA 108 (90 Base) MCG/ACT Inhalation Aerosol Solution; INHALE 1 TO 2 PUFFS BY MOUTH EVERY 4 HOURS NEEDED Requested for: 04Dec2016; Last Rx:04Dec2016 Ordered Rx By: Sharath Hernandez; Dispense: 16 Days ; #:8.5 GM; Refill: 0; For: Asthma, cough variant; KAYA= N; Verified Transmission to [facility]; Last Updated By: [employer]; 12/04/2016 11:10:39 AM 2. RaNITidine HCl - 15 MG/ML Oral Syrup; TAKE 10 ML DAILY AT HS; Therapy: 22Dec2016 to (Last Rx:22Dec2016) Requested for: 22Dec2016 Ordered Rx By: Sharath Hernandez; Dispense: 0 Days ; #:1 X 473 ML Bottle; Refill: 2; For: Chronic GERD, ; KAYA = N; Verified Transmission to [facility]; Last Updated By: [employer]; 12/22/2016 4:21:46 PM Allergies 1. sulfa Recorded By: Cosmo Su; 04/10/2016 9:35:19 AM Vitals Recorded: 04Mar2017 11:32AM Temperature 100 F Heart Rate 71 Respiration 18 Systolic 110 Diastolic 58 O2 Saturation 97 Weight 68 lb 2-20 Weight Percentile 2 % Assessment 1. Nonproductive cough (786.2) (R05) 2. Fever (780.60) (R50.9) Plan Fever, Nonproductive cough 1. Follow-up PRN Outpatient Follow-up Status: Complete Done: 04Mar2017 Ordered; For: Fever, Nonproductive cough; Ordered By: Sharath Hernandez Performed: Due: 18Mar2017 2. XR CHEST 2 VIEW ( Routine ); Status:Active; Requested for:04Mar2017; Perform:[facility] Radiology; Order Comments:PLEASE CONTACT DR. HERNANDEZ WITH RESULTS - [id number]; Due:04Mar2017;Ordered; Stat; For:Fever, Nonproductive cough; Ordered By:Sharath Hernandez; Nonproductive cough 3. Cheratussin AC 100-10 MG/5ML Oral Syrup; TAKE 5 ML DAILY AT BEDTIME NEEDED FOR COUGH Rx By: Sharath Hernandez; Dispense: 0 Days ; #:60 ML; Refill: 0; For: Nonproductive cough; KAYA = N; Print Rx - THANKS FOR YOUR VISIT - HAVE RADIOGRAPHS DONE BEFORE YOU LEAVE - I WILL CALL YOU WITH RESULTS AND ADDITIONAL RECOMMENDATIONS EARLY THIS AFTERNOON - ENCOURAGE PLENTY OF FLUIDS. - CHILDREN?S MUCINEX STUFFY NOSE & COLD FOR CONGESTION, OR SIMILAR - DON'T USE WITHIN 4 H OURS OF BEDTIME. - CONTINUE IBUPROFEN/ ACETAMINOPHEN FOR FEVER, COMFORT. Signatures Electronically signed by : Sharath Hernandez M.D.; Mar 04 2017 12:16PM DIRECTOR WEIGHTS AND MEASURES (Author) documented in this encounter Plan of Treatment Upcoming Encounters Date Type Department Care Team (Latest Contact Info) Description 09/24/2024 7:30 PM DIRECTOR WEIGHTS AND MEASURES Appointment [facility] Sleep Lab [address] [place] [address] Nelly Guerrero, INTEGRATED CIRCUITS INSPECTOR [address] [place] [address] 09/25/2024 7:00 AM DIRECTOR WEIGHTS AND MEASURES Appointment [facility] Sleep Lab [address] [place] [address] Nelly Guerrero, INTEGRATED CIRCUITS INSPECTOR [address] [place] [address] 11/01/2024 9:10 AM DIRECTOR WEIGHTS AND MEASURES Hospital Encounter [facility] [address] [place] [address] Chin Carcamo MD [address] [address] 11/01/2024 9:10 AM DIRECTOR WEIGHTS AND MEASURES - 11/01/2024 9:40 AM DIRECTOR WEIGHTS AND MEASURES Surgery [facility] [address] [place] [address] Chin Carcamo MD 3 [facility] [address] [place], [place] [address] COLONOSCOPY DIAGNOSTIC WITH/WITHOUT SPECIMEN BRUSH/WASH Scheduled Procedures Name Priority Associated Diagnoses Date/Ti me COLONOSCOPY DIAGNOSTIC WITH/WITHOUT SPECIMEN BRUSH/WASH Hematochezia Chronic diarrhea 11/01/2024 9:10 AM DIRECTOR WEIGHTS AND MEASURES documented as of this encounter Procedures Procedure Name Priority Date/Time Associated Diagnosis Comments XR CHEST 2V+NIPPLE MARKER Routine 03/04/2017 12:57 PM CDT documented in this encounter Results * XR CHEST 2V+NIPPLE MARKER (03/04/2017 12:57 PM CDT) Anatomical Region Laterality Modality Chest Radiographic Dilcia ging 03/04/2017 12:5 7 PM CDT 03/04/2017 12:57 PM CDT Narrative 03/04/2017 1:04 PM CDT WILLI NELSON ? ADMIT/SERVICE DATE: 03/04/17 ?? ACCT: [id number] ?DISCHARGE DATE: ?? : 2005 ??SEX: M ?ORD SITE: [facility] ?? PT TYPE: REG CLI ? ORDERING MD: SHARATH HERNANDEZ MD ? STUDY DATE ? REPORT # ?ORDER # ? EXT ORDER ID ?? 03/04/17 ? [id number] ? [id number] ?[id number] ? PROC CODE: ? CXR2V ? PROCEDURE DESCRIPTION: ?? XR CHEST 2 VIEW ? IMAGING STUDIES: ??XR CHEST 2 VIEW ?DATE: ?? 03/04/2017 12:27 PM ? HISTORY: ??OTHER - COUGH ?11-YEAR-OLD MALE WITH COUGH AND FEVER FOR 5 DAYS. HISTORY OF TONSILLECTOMY AND ADENOIDECTOMY. ? COMPARISON: ??NO COMPARISONS. ? DISCUSSION: ?? UPRIGHT PA AND LATERAL VIEWS. PATIENT SHIELDED. ? HEART SIZE AND PULMONARY VESSELS WITHIN NORMAL LIMITS. ? INFILTRATE IN THE RIGHT LOWER LOBE. ?? NO EFFUSION OR PNEUMOTHORAX. ? NO ACUTE SKELETAL ABNORMALITY. ? IMPRESSION: ? RIGHT LOWER LOBE PULMONARY INFILTRATE SUGGESTING PNEUMONIA. CORRELATE CLINICALLY. ? EXAM REVIEWED AND FINDINGS CONVEYED TO REFERRING SERVICE AT 1244 HOURS. ? ELECTRONICALLY SIGNED BY JUAQUIN SILVA MD ? Procedure Note Sharath Hernandez MD - 07/20/2018 WILLI NELSON ADMIT/SERVICE DATE:03/04/17 ACCT: [id number] DISCHARGE DATE: : 2005 SEX: M ORD SITE: [facility] PT TYPE: REG CLI ORDERING MD:SHARATH HERNANDEZ MD STUDY DATE REPORT # ORDER # EXT ORDER ID 03/04/17 [id number] PROC CODE: CXR2V PROCEDURE DESCRIPTION: XR CHEST 2 VIEW IMAGING STUDIES: XR CHEST 2 VIEWDATE: 03/04/2017 12:27 PM HISTORY: OTHER - COUGH 11-YEAR-OLD MALE WITH COUGH AND FEVER FOR 5DAYS. HISTORY OF TONSILLECTOMY AND ADENOIDECTOMY. COMPARISON: NO COMPARISONS. DISCUSSION: UPRIGHT PA AND LATERAL VIEWS. PATIENT SHIELDED. HEART SIZE AND PULMONARY VESSELS WITHIN NORMAL LIMITS. INFILTRATE IN THE RIGHT LOWER LOBE. NO EFFUSION OR PNEUMOTHORAX. NO ACUTE SKELETAL ABNORMALITY. IMPRESSION: RIGHT LOWER LOBE PULMONARY INFILTRATE SUGGESTING PNEUMONIA. CORRELATECLINICALLY. EXAM REVIEWED AND FINDINGS CONVEYED TO REFERRING SERVICE AT 1244 HOURS. ELECTRONICALLY SIGNED BY JUAQUIN SILVA MD us Sharath Hernandez MD GENERAL IMAGING Final Res ult documented in this encounter Visit Diagnoses Not on filedocumented in this encounter
--- OUTSIDE RECORDS SUMMARY | 2024-09-23 12:26 | XMS_ITS | Encounter Summary ---
Author Organization [facility] Address [address] [place] [address]. [place], [place] [address] [place] [address] Care Team Providers Care Site Lead Name Role Phone Unavailable Primary Care Provider Unavailabl e Encounter Details Date Type Department Care Team (Latest Contact Info) Description 01/24/2017 Abstract [facility] Medical Group Social History Tobacco Use [...] (Latest Contact Info) Description 09/24/2024 7:30 PM MUSHROOM CUTTER Appointment [facility] [address] [place] [address] Nelly Guerrero FIRE ALARM DISPATCHER [address] [place] [address] 09/25/2024 7:00 AM MUSHROOM CUTTER Appointment [facility] [address] [place] [address] Nelly Guerrero NP [address] [place] [address] 11/01/2024 9:10 AM MUSHROOM CUTTER Hospital Encounter [facility] [address] [place] [address] Chin Carcamo MD 3 [facility] 5000 [place] [address] 11/01/2024 9:10 AM MUSHROOM CUTTER - 11/01/2024 9:40 AM MUSHROOM CUTTER Surgery [facility] [address] [place] [address] Chin Carcamo MD 3 [facility] [address] [place] [address] COLONOSCOPY DIAGNOSTIC WITH/WITHOUT SPECIMEN BRUSH/WASH Scheduled Procedures Name Priority Associated Diagnoses Date/Ti me COLONOSCOPY DIAGNOSTIC WITH/WITHOUT SPECIMEN BRUSH/WASH Hematochezia Chronic diarrhea 11/01/2024 9:10 AM MUSHROOM CUTTER documented as of this encounter Visit Diagnoses Not on filedocumented in this encounter
--- OUTSIDE RECORDS SUMMARY | 2024-09-23 12:26 | XMS_ITS | Encounter Summary ---
Author Organization [facility] Address [address] [place] [address]. [place], [place] [address] [place] [address] Care Team Providers Care Differential Repairer Name Role Phone Mckenzie Williamson MD Primary Care Provider [phone] Reason for Visit * Reason Comments Physical Patient is here for a school physical. Encounter Details Date Type Department Care Team (Late st Contact Info) Description 04/03/2021 3:40 PM CDT Office Visit [facility] Medical Group Family & Internal Medicine [address] [address] Mckenzie Williamson MD [address] [place] [address] Physical (Patient is here for a school physical.) Social History Tobacco Use Types Packs/Day Years [...] Sign Reading Time Taken Comments Blood Pressure 110/72 04/03/2021 3:14 PM CDT Pulse 81 04/03/2021 3:14 PM CDT Temperature 36.3 ??C (97.3 ??F) 04/03/2021 3:14 PM CD T Respiratory Rate 20 04/03/2021 3:14 PM CDT Oxygen Saturation 97% 04/03/2021 3:14 PM CDT Inhaled Oxygen Concentration - - Weight 69.8 kg (153 lb 12.8 oz) 04/03/2021 3:14 PM CDT Height 173.5 cm (5' 8.3 ) 04/03/2021 3:14 PM CDT Body Mass Index 23.18 04/03/2021 3:14 PM CDT Body Mass Index Percentile 75.32% 04/03/2021 3:1 4 PM CDT Growth Chart: [facility] (Boys, 2-2 0 Years) documented in this encounter Progress Notes * Mckenzie Williamson MD - 04/03/2021 3:40 PM CDT Reason for Visit: Physical (Patient is here for a school physical.) History of Present Illness: 15yo male for establishing care. Wellness. No concerns today. Does report occasional dull soreness in testicles. Did have increase in pain about 1 week ago. Resolved after 10 mins. No similar complaints prior or after. No significant PMH. Does use nasal steroid for allergic rhinitis Well be [facility] at [employer] Denies CP, NAVA, SOB. ROS: Review of Systems Constitutional: Negative for chills and fever. HENT: Negative. Eyes: Negative. Respiratory: Negative for cough, shortness of breath and wheezing. Cardiovascular: Negative for chest pain. Gastrointestinal: Negative for abdominal pain. Musculoskeletal: Negative. Skin: Negative. Neurological: Negative for headaches. Medications: Current Outpatient Medications: ??? albuterol sulfate [...] Father Alive ??? Brother Alive Filed Vitals: 04/03/21 1514 BP: 110/72 Pulse: 81 Resp: (!) 20 Temp: 97.3 ??F (36.3 ??C) TempSrc: Temporal SpO2: 97% Weight: 69.8 kg (153 lb 12.8 oz) Height: 5' 8.3 (1.735 m) Physical Exam Vitals and nursing note reviewed. Constitutional: Appearance: He is well-developed. HENT: Head: Normocephalic and atraumatic. Cardiovascular: Rate and Rhythm: Normal rate and regular rhythm. Heart sounds: Normal heart sounds. Pulmonary: Effort: Pulmonary effort is normal. Breath sounds: Normal breath sounds. Abdominal: General: Bowel sounds are normal. Palpations: Abdomen is soft. Genitourinary: Testes: Normal. Right: Tenderness or swelling not present. Left: Tenderness or swelling not present. Skin: General: Skin is warm and dry. Neurological: Mental Status: He is alert. Diagnoses/Impression: 1. Encounter for routine child health examination without abnormal findings 2. Need for prophylactic vaccination and inoculation against meningococcus [[id number]] Menactra (Meningococcal) Recommendations and Plan: 1. Wellness. Discussed testicular concerns. Exam today was unremarkable. Discussed signs/sypmtoms torsion. Discussed immunizations, MCV today. Discussed anticipatory guidance. Forms completed. Fu 1 yr. Orders Placed This Encounter ??? [[id number]] Menactra (Meningococcal) MCKENZIE WILLIAMSON Referring Provider: No ref. provider found PCP: MCKENZIE WILLIAMSON MD documented in this encounter Plan of Treatment Upcoming Encounters Date Type Department Care Team (Latest Contact Info) Description 09/24/2024 7:30 PM INFORMATION TECHNOLOGY INTERN Appointment [facility] [address] [place] [address] Nelly Guerrero, CONTROL AND RECOVERY SPECIAL TACTICS [address] [place] [address] 09/25/2024 7:00 AM INFORMATION TECHNOLOGY INTERN Appointment [facility] [address] [place] [address] Nelly Guerrero, [employer] [address] [place] [address] 11/01/2024 9:10 AM INFORMATION TECHNOLOGY INTERN Hospital Encounter [facility] [address] [place] [address] Chin Carcamo MD [address] [address] 11/01/2024 9:10 AM INFORMATION TECHNOLOGY INTERN - 11/01/2024 9:40 AM INFORMATION TECHNOLOGY INTERN Surgery [facility] [address] [place] [address] Chin Carcamo MD [address] [address] [place], [place] [address] COLONOSCOPY DIAGNOSTIC WITH/WITHOUT SPECIMEN BRUSH/WASH Scheduled Procedures Name Priority Associated Diagnoses Date/Ti me COLONOSCOPY DIAGNOSTIC WITH/WITHOUT SPECIMEN BRUSH/WASH Hematochezia Chronic diarrhea 11/01/2024 9:10 AM INFORMATION TECHNOLOGY INTERN documented as of this encounter Visit Diagnoses Diagnosis Encounter for routine child health examination without abnormal findings- Primary Routine or child health check Need for prophylactic vaccination and inoculation against meningococcus Need for other specified prophylactic vaccination against single bacterial disease Hematochezia Blood in stool Chronic diarrhea Diarrhea documented in this encounter Care Teams Differential Repairer Relationship Specialty [place] [address] [place] [address] PCP - General FAMILY PRACTICE 02/17/21 08/09/22 documented as of this encounter
--- OUTSIDE RECORDS SUMMARY | 2024-09-23 12:26 | XMS_ITS | Encounter Summary ---
Author Organization [facility] Address [address] [place] [address]. [place] [address] [place] [address] Care Team Providers Care Dishing Machine Operator Name Role Phone Unavailable Primary Care Provider Unavailabl e Encounter Details Date Type Department Care Team (Late st Contact Info) Description 03/04/2017 Abstract [facility] [address] [place] [address] Sharath Lal MD [address] [phone] Social History Tobacco Use Types Packs/Day Years [...] (Latest Contact Info) Description 09/24/2024 7:30 PM ASSEMBLER DC FIELD YOKE Appointment [facility] Lab [address] [place] [address] Nelly Guerrero SUPERVISOR CRACK OFF [address] [place], [place] [phone] 09/25/2024 7:00 AM ASSEMBLER DC FIELD YOKE Appointment [facility] Lab [address] [place] [address] Nelly Guerrero SUPERVISOR CRACK OFF [address] [place] [address] 11/01/2024 9:10 AM ASSEMBLER DC FIELD YOKE Hospital Encounter [facility] Surgery [address] [place] [address] Chin Carcamo MD [address] [address] 11/01/2024 9:10 AM ASSEMBLER DC FIELD YOKE - 11/01/2024 9:40 AM ASSEMBLER DC FIELD YOKE Surgery [address] [address] Chin Carcamo MD [address] [address] COLONOSCOPY DIAGNOSTIC WITH/WITHOUT SPECIMEN BRUSH/WASH Scheduled Procedures Name Priority Associated Diagnoses Date/Ti me COLONOSCOPY DIAGNOSTIC WITH/WITHOUT SPECIMEN BRUSH/WASH Hematochezia Chronic diarrhea 11/01/2024 9:10 AM ASSEMBLER DC FIELD YOKE documented as of this encounter Visit Diagnoses Diagnosis Fever Fever, unspecified Hematochezia Blood in stool Chronic diarrhea Diarrhea documented in this encounter
--- OUTSIDE RECORDS SUMMARY | 2024-09-23 12:26 | XMS_ITS | Encounter Summary ---
Author Organization [facility] Address [address] [place] [address]. [place], [place] [address] [place] [address] Care Team Providers Care Party Plan Sales Host/Hostess Name Role Phone Unavailable Primary Care Provider Unavailabl e Encounter Details Date Type Department Care Team (Latest Contact Info) Description 04/13/2016 Abstract [facility] Medical Group Social History Tobacco Use [...] (Latest Contact Info) Description 09/24/2024 7:30 PM MANAGER WIRELESS Appointment [facility] Lab [address] [place] [address] Nelly Guerrero COKE BURNER [address] [place] [address] 09/25/2024 7:00 AM MANAGER WIRELESS Appointment [facility] Sleep Lab [address] [place] [address] Nelly Guerrero NP [address] [place] [address] 11/01/2024 9:10 AM MANAGER WIRELESS Hospital Encounter [facility] [address] [place] [address] Chin Carcamo MD 3 [facility] 5000 [place] [address] 11/01/2024 9:10 AM MANAGER WIRELESS - 11/01/2024 9:40 AM MANAGER WIRELESS Surgery [facility] Surgery [address] [place] [address] Chin Carcamo MD 3 [facility] [address] [place] [address] COLONOSCOPY DIAGNOSTIC WITH/WITHOUT SPECIMEN BRUSH/WASH Scheduled Procedures Name Priority Associated Diagnoses Date/Ti me COLONOSCOPY DIAGNOSTIC WITH/WITHOUT SPECIMEN BRUSH/WASH Hematochezia Chronic diarrhea 11/01/2024 9:10 AM MANAGER WIRELESS documented as of this encounter Visit Diagnoses Not on filedocumented in this encounter
--- OUTSIDE RECORDS SUMMARY | 2024-09-23 12:26 | XMS_ITS | Encounter Summary ---
Author Organization [facility] Address [address] [place] [address]. [place], [place] [address] [place] [address] Care Team Providers Care Absence Management Consultant Name Role Phone Unavailable Primary Care Provider Unavailabl e Encounter Details Date Type Department Care Team (Latest Contact Info) Description 02/16/2018 Abstract [facility] Medical Group Social History [...] (Latest Contact Info) Description 09/24/2024 7:30 PM ELEVATOR CONSTRUCTOR HYDRAULIC Appointment [facility] Sleep Lab [address] [place] [address] Nelly Guerrero HOSTESS [address] [place] [address] 09/25/2024 7:00 AM ELEVATOR CONSTRUCTOR HYDRAULIC Appointment [facility] Sleep Lab [address] [place] [address] Nelly Guerrero NP [address] [place], [place] [address] 11/01/2024 9:10 AM ELEVATOR CONSTRUCTOR HYDRAULIC Hospital Encounter [facility] [address] [place] [address] Chin Carcamo MD 3 [facility] [address] [place] [address] 11/01/2024 9:10 AM ELEVATOR CONSTRUCTOR HYDRAULIC - 11/01/2024 9:40 AM ELEVATOR CONSTRUCTOR HYDRAULIC Surgery [facility] [address] [place] [address] Chin Carcamo MD 3 [facility] [address] [place] [address] COLONOSCOPY DIAGNOSTIC WITH/WITHOUT SPECIMEN BRUSH/WASH Scheduled Procedures Name Priority Associated Diagnoses Date/Ti me COLONOSCOPY DIAGNOSTIC WITH/WITHOUT SPECIMEN BRUSH/WASH Hematochezia Chronic diarrhea 11/01/2024 9:10 AM ELEVATOR CONSTRUCTOR HYDRAULIC documented as of this encounter Visit Diagnoses Not on filedocumented in this encounter
--- OUTSIDE RECORDS SUMMARY | 2024-09-23 12:26 | XMS_ITS | Encounter Summary ---
Author Organization [facility] Address [address] [place] [address]. [place] [address] [place] [address] Care Team Providers Care Bushel Girl Name Role Phone Unavailable Primary Care Provider Unavailabl e Encounter Details Date Type Department Care Team (Latest Contact Info) Description 05/19/2016 Abstract [facility] Medical Group Eas Williamson MD [address] [facility] [address] [place] [address] Social History Tobacco Use Types Packs/Day Years [...] (Latest Contact Info) Description 09/24/2024 7:30 PM SYSTEM ADMINISTRATION MANAGER Appointment [facility] Lab [address] [place] [address] Nelly Guerrero SHAREHOLDER [address] [place] [address] 09/25/2024 7:00 AM SYSTEM ADMINISTRATION MANAGER Appointment [facility] Lab [address] [place] [address] Nelly Guerrero SHAREHOLDER [address] [place] [address] 11/01/2024 9:10 AM SYSTEM ADMINISTRATION MANAGER Hospital Encounter [facility] [address] [place] [address] Chin Carcamo MD 3 [facility] 5000 [place] [address] 11/01/2024 9:10 AM SYSTEM ADMINISTRATION MANAGER - 11/01/2024 9:40 AM SYSTEM ADMINISTRATION MANAGER Surgery [facility] [address] [place] [address] Chin Carcamo MD 3 [facility] [address] [place], [place] [address] COLONOSCOPY DIAGNOSTIC WITH/WITHOUT SPECIMEN BRUSH/WASH Scheduled Procedures Name Priority Associated Diagnoses Date/Ti me COLONOSCOPY DIAGNOSTIC WITH/WITHOUT SPECIMEN BRUSH/WASH Hematochezia Chronic diarrhea 11/01/2024 9:10 AM SYSTEM ADMINISTRATION MANAGER documented as of this encounter Procedures Procedure Name Priority Date/Time Associated Diagnosis Comments CULTURE, WOUND, W/GRAM STAIN Routine 05/19/2016 6:59 PM CDT documented in this encounter Results * CULTURE, WOUND, W/GRAM STAIN (05/19/2016 6:59 PM CDT) CULTURE RESULT SPECIMEN DESCRIPTION ? - WOUND SPECIAL REQUESTS ? - BACK GRAM SMEAR ? - NO WHITE BLOOD CELLS SEEN GRAM SMEAR ? - NO ORGANISMS SEEN CULTURE ?- LIGHT GROWTH OF STAPHYLOCOCCUS AUREUS CULTURE ?- NOTE: WOUND AND TISSUE CULTURES ARE ROUTINELY SCREENED FOR AEROBIC ORGANISMS CULTURE ?- ??ONLY. CULTURE ?- TESTING PERFORMED AT [facility], [address] [place] [address], CULTURE ?- ??[place], [place] ??[id number] REPORT STATUS ?- FINAL 05/23/2016 ORGANISM ? - LIGHT GROWTH OF STAPHYLOCOCCUS AUREUS METHOD ? - GILBERT CLINDAMYCIN ?- <=0.25 SUSCEPTIBLE ERYTHROMYCIN ? - >=8 RESISTANT LEVOFLOXACIN ? - <=0.12 SUSCEPTIBLE OXACILLIN ?- <=0.25 SUSCEPTIBLE PENICILLIN G ? - >=0.5 RESISTANT TRIMETH-SULFAMETH OXAZOLE - <=10 SUSCEPTIBLE TETRACYCLINE ? - <=1 SUSCEPTIBLE [facility] TO EPIC CONVERSION 05/19/2016 6:59 PM CDT 05/19/2016 6:59 PM CDT Narrative [facility] TO EPIC CONVERSION - 05/23/2016 9:47 AM CDT [id number] 12:56PM by Esa Williamson: ??symptoms much improved. no further treatment needed Result Communication: No patient communication needed at this time Esa Williamson MD MICROBIOLOGY - [facility] Final Result [facility] TO EPIC CONVERSION documented in this encounter Visit Diagnoses Not on filedocumented in this encounter
--- OUTSIDE RECORDS SUMMARY | 2024-09-23 12:26 | XMS_ITS | Encounter Summary ---
Author Organization [facility] Address [address] [place] [address]. [place] [address] [place] [address] Care Team Providers Care Work Adjustment Instructor Name Role Phone Unavailable Primary Care Provider Unavailabl e Encounter Details Date Type Department Care Team (Late st Contact Info) Description 12/29/2016 Abstract [facility] Family & Internal Medicine - [place] [address] [place] [address] [place] [address] [place], [place] [id number] Social History Tobacco Use Types Packs/Day Years Used Date Smoking Tobacco: Never Assessed Sex and Gender Information Value Date Recorded Sex Assigned at Not on file Legal Sex Male 7:45 PM CDT Gender Identity Not on file Sexual Orientation Not on file documented as of this encounter Last Filed Vital Signs Vital Sign Reading Time Taken Comments Blood Pressure 112/66 12/29/2016 3:11 PM CDT Pulse 62 12/29/2016 3:11 PM CDT Temperature - - Respiratory Rate - - Oxygen Saturation - - Inhaled Oxygen Concentration - - Weight 30.8 kg (68 lb) 12/29/2016 3:11 PM CDT Height 135.9 cm (4' 5.5 ) 12/29/2016 3:11 PM CDT Body Mass Index 16.7 12/29/2016 3:11 PM CDT Body Mass Index Percentile 26.44% 12/29/2016 3:1 1 PM CDT Growth Chart: CDC (Boys, 2-2 0 Years) documented in this encounter Progress Notes * Corby Mclaughlin NP - 12/29/2016 3:15 PM CDT Reason For Visit Reason For Visit: Acute Visit Chief Complaint pt here w/mother c/o sore throat, cough and runny nose History of Present Illness HPI Free Text: 11 y/o male here with mother with c/o sore throat for 3 days which is a little better today. had touse his inhaler last 2 days as sore throat made him feel SOB. no fever has been noted. has had strep since T&A Sore Throat: Willi Nelson presents with complaints of sore throat. Associated symptoms include odynophagia, postnasal drainage, headache, cough and fatigue, but no dysphagia, no nasal congestion, no swollen glands, no myalgias, no fever, no chills, no hoarseness, noear pain, no abdominal pain, no nausea, no vomiting, no rash and no anorexia. Review of Systems See HPI for pertinent positives. Active Problems 1. Asthma, cough variant (493.82) (J45.991) 2. Chronic GERD (530.81) (K21.9) 3. Parasomnia (307.47) (G47.50) Past Medical History Patient indicats no significant past medical history. Surgical History 1. History of Tonsillectomy Family History Mother 1. No pertinent family history Social History ?? Lives with mother (single parent) ?? No secondhand smoke exposure (V49.89) (Z78.9) ?? Student Immunizations DTP/DTaP --- Series1: 2004 (2M); Series2: 2004 (4M); Series3: 25Feb2005 (6M); Series4: 09Dec2005 (15M); Series5: 19Knu6824 (4Y) Hepatitis A --- Series1: 80Fyl4382 (18M); Series2: 91Fjz0077 (2Y) Hepatitis B --- Series1: 2004 (2M); Series2: 2004 (4M); Series3: 09Dec2005 (15M) HIB --- Series1: 2004 (2M); Series2: 2004 (4M); Series3: 09Dec2005 (15M) Influenza --- Series1: 19Lxv3524 (9Y) Meningococcal --- Series1: 38Fke2646 (11Y) MMR --- Series1: 90Yzz8895 (13M); Series2: 94Ogt6553 (4Y) Pneumococcal --- Series1: 63Reu3015 (2M); Series2: 30Cei5754 (4M); Series3: 46Fds0166 (6M); Series4: 97Yzy5234 (15M) Polio --- Series1: 45Ejl1627 (3M); Series2: 92Wqm2827 (6M); Series3: 01Fyb4187 (9M); Series4: 29Dhx0207 (4Y) Tdap --- Series1: 29Izc3334 (11Y) Varicella --- Series1: 70Mng9330 (18M); Series2: 75Dxh4705 (4Y) Current Meds 1. HydrOXYzine HCl - 10 MG Oral Tablet; take 1-2 tablets at bedtime; Therapy: 22Dec2016 to (Last Rx:22Dec2016) Requested for: 22Dec2016 Ordered Rx By: Sharath Lal; Dispense: 0 Days ; #:40 Tablet; Refill: 1; For: Parasomnia; KAYA = N; Verified Transmission to [facility] #6926; Last Updated By: SCRM; 12/22/2016 4:14:23 PM 2. ProAir HFA 108 (90 Base) MCG/ACT Inhalation Aerosol Solution; INHALE 1 TO 2 PUFFS BY MOUTH EVERY 4 HOURS NEEDED Requested for: 04Dec2016; Last Rx:04Dec2016 Ordered Rx By: Sharath Lal; Dispense: 16 Days ; #:8.5 GM; Refill: 0; For: Asthma, cough variant; KAYA= N; Verified Transmission to [facility] #6926; Last Updated By: SCRM; 12/04/2016 11:10:39 AM 3. RaNITidine HCl - 15 MG/ML Oral Syrup; TAKE 10 ML DAILY AT HS; Therapy: 22Dec2016 to (Last Rx:22Dec2016) Requested for: 22Dec2016 Ordered Rx By: Sharath Lal; Dispense: 0 Days ; #:1 X 473 ML Bottle; Refill: 2; For: Chronic GERD, ; KAYA = N; Verified Transmission to [facility] #2551; Last Updated By: Tatiana Bradley; 12/22/2016 4:21:46 PM Allergies 1. sulfa Recorded By: Cosmo Su; 04/10/2016 9:35:19 AM Vitals Recorded: 29Dec2016 03:11PM Temperature 98.6 F Heart Rate 62 Systolic 112 Diastolic 66 O2 Saturation 98 Height 4 ft 5.5 in 2-20 Stature Percentile 1 % Weight 68 lb 2-20 Weight Percentile 3 % BMI Calculated 16.7 BMI Percentile 26 % BSA Calculated 1.09 Physical Exam Constitutional - General appearance: No acute distress, well appearing and well nourished. Eyes - Conjunctiva and lids: No injection, edema or discharge. Pupils and irises: Equal, round, reactive to light bilaterally. Ears, Nose, Mouth, and Throat - External inspection of ears and nose: Normal without deformities ordischarge. Otoscopic examination: Tympanic membranes meneses, translucent with good bony landmarks andlight reflex. Canals patent without erythema. Oropharynx: Moist mucosa, normal tongue and tonsils without lesions. Neck - Neck: Supple, symmetric, no masses. Pulmonary - Respiratory effort: Normal respiratory rate and rhythm, no increased work of breathing.Auscultation of lungs: Clear bilaterally. Cardiovascular - Auscultation of heart: Regular rate and rhythm, normal S1 and S2, no murmur. Lymphatic - Palpation of lymph nodes in neck: No anterior or posterior cervical lymphadenopathy. Skin - Skin and subcutaneous tissue: Normal. Psychiatric - Orientation to person, place, and time: Normal. Mood and affect: Normal. Results/Data *Rapid Strep Test In Office 29Dec2016 03:51PM Corby Mclaughlin Test Name Result Flag Reference *Rapid Strep In Office Presumptive Negative Internal QC Verified Yes Assessment 1. Sore throat (462) (J02.9) Plan Sore throat 1. *Rapid Strep Test In Office; Status:Resulted - Requires Verification; Done: 29Dec2016 03:51PM Performed:In Office; Due:45Kvb6713; Last Updated By:Tri Collins; 12/29/2016 3:51:51 PM;Ordered;For:Sore throat; Ordered By:Corby Mclaughlin; 2. Group A Streptococcus Culture; Status:In Progress - Specimen/Data Collected; Done: 11Ish1432 Perform:[facility]; Due:94Tcq9662; Last Updated By:Tri Collins; 12/29/2016 3:52:48 PM;Ordered; For:Sore throat; Ordered By:Corby Mclaughlin; Source: : Throat lozenges and ibuprofen f/u prn Signatures Electronically signed by : Corby Mclaughlin NP; Dec 29 2016 6:50PM TOOTH CUTTER SPUR (Author) documented in this encounter Plan of Treatment Upcoming Encounters Date Type Department Care Team (Latest Contact Info) Description 09/24/2024 7:30 PM TOOTH CUTTER SPUR Appointment [facility] [address] [place] [address] Nelly Guerrero NP [address] [place] [address] 09/25/2024 7:00 AM TOOTH CUTTER SPUR Appointment [facility] [address] [place] [address] Nelly Guerrero NP [address] [place] [address] 11/01/2024 9:10 AM TOOTH CUTTER SPUR Hospital Encounter [facility] [address] [place] [address] Chin Carcamo MD [address] [address] [place] [address] 11/01/2024 9:10 AM TOOTH CUTTER SPUR - 11/01/2024 9:40 AM TOOTH CUTTER SPUR Surgery [facility] [address] [place] [address] Chin Carcamo MD 3 [facility] [address] [place] [address] COLONOSCOPY DIAGNOSTIC WITH/WITHOUT SPECIMEN BRUSH/WASH Scheduled Procedures Name Priority Associated Diagnoses Date/Ti me COLONOSCOPY DIAGNOSTIC WITH/WITHOUT SPECIMEN BRUSH/WASH Hematochezia Chronic diarrhea 11/01/2024 9:10 AM TOOTH CUTTER SPUR documented as of this encounter Procedures Procedure Name Priority Date/Time Associated Diagnosis Comments CULTURE STREP A Routine 12/29/2016 3:52 PM CDT STREP A RAPID Routine 12/29/2016 3:51 PM CDT documented in this encounter Results * CULTURE STREP A (12/29/2016 3:52 PM CDT) THROAT CULTURE STREP A ONLY SPECIMEN DESCRIPTION ? - THROAT SPECIAL REQUESTS ? - NO SPECIAL REQUEST CULTURE ?- NO STREPTOCOCCUS PYOGENES (GROUP A) ISOLATED CULTURE ?- TESTING PERFORMED AT [facility], [address] [place] [address], CULTURE ?- ??[place], [place] ??[address] REPORT STATUS ?- FINAL 01/01/2017 [facility] TO [facility]IC CONVERSION 12/29/2016 3:52 PM CDT 12/29/2016 3:52 PM CDT Narrative [facility] TO [facility] CONVERSION - 01/01/2017 1:30 PM CDT Result Communication: No patient communication needed at this time us Corby Mclaughlin NP MICROBIOLOGY - GENERAL ORDERAB LES Final Result [facility] TO [facility]IC CONVERSION * STREP A RAPID (12/29/2016 3:51 PM CDT) RAPID STREP TEST Presumptive Negative [facility] TO EPIC CONVERSION Internal Control: Yes [facility] TO EPIC CONVERSION 12/29/2016 3:51 PM CDT 12/29/2016 3:51 PM CDT Narrative [facility] TO [facility] CONVERSION - 12/29/2016 3:51 PM CDT Result Communication: No patient communication needed at this time us Corby Mclaughlin NP MICROBIOLOGY - GENERAL ORDERAB LES Final Result [facility] TO EPIC CONVERSION documented in this encounter Visit Diagnoses Not on filedocumented in this encounter
--- OUTSIDE RECORDS SUMMARY | 2024-09-23 12:26 | XMS_ITS | Encounter Summary ---
Author Organization [facility] Address [address] [place] [address]. [place], [place] [address] [place] [address] Care Team Providers Care Public Relations Representative Name Role Phone Esa Williamson MD Primary Care Provider [phone] Encounter Details Date Type Department Care Team (Latest Contact Info) Description 05/05/2021 Scan [facility] Scanned, Documents [...] (Latest Contact Info) Description 09/24/2024 7:30 PM ELIGIBILITY EXAMINER Appointment [facility] [address] [place] [address] Nelly Guerrero COMPUTER ENGINEERING TECHNICIAN [address] [place], [place] [address] 09/25/2024 7:00 AM ELIGIBILITY EXAMINER Appointment [facility] [address] [place] [address] Nelly Guerrero COMPUTER ENGINEERING TECHNICIAN [address] [place] [address] 11/01/2024 9:10 AM ELIGIBILITY EXAMINER Hospital Encounter [facility] [address] [place] [address] Chin Carcamo MD [address] [address] [place] [address] 11/01/2024 9:10 AM ELIGIBILITY EXAMINER - 11/01/2024 9:40 AM ELIGIBILITY EXAMINER Surgery [facility] [address] [place] [address] Chin Carcamo MD 3 [facility] [address] [place] [address] COLONOSCOPY DIAGNOSTIC WITH/WITHOUT SPECIMEN BRUSH/WASH Scheduled Procedures Name Priority Associated Diagnoses Date/Ti me COLONOSCOPY DIAGNOSTIC WITH/WITHOUT SPECIMEN BRUSH/WASH Hematochezia Chronic diarrhea 11/01/2024 9:10 AM ELIGIBILITY EXAMINER documented as of this encounter Visit Diagnoses Not on filedocumented in this encounter Care Teams Public Relations Representative Relationship Specialty [place] [address] [place] [address] PCP - General FAMILY PRACTICE 02/17/21 08/09/22 documented as of this encounter
--- OUTSIDE RECORDS SUMMARY | 2024-09-23 12:26 | XMS_ITS | Encounter Summary ---
Author Organization [facility] Address [address] [place] [address]. [place], [place] [address] [place] [address] Care Team Providers Care Field Supervisor Seed Production Name Role Phone Unavailable Primary Care Provider Unavailabl e Encounter Details Date Type Department Care Team (Late st Contact Info) Description 12/22/2016 Abstract [facility] Family & Internal Medicine [facility] [address] [place] [address] Sharath Lal MD [address] [address] Social History Tobacco Use Types Packs/Day Years Used Date Smoking Tobacco: Never Assessed Sex and Gender Information Value Date Recorded Sex Assigned at Not on file Legal Sex Male 7:45 PM CDT Gender Identity Not on file Sexual Orientation Not on file documented as of this encounter Last Filed Vital Signs Vital Sign Reading Time Taken Comments Blood Pressure 108/56 12/22/2016 3:42 PM CDT Pulse 87 12/22/2016 3:42 PM CDT Temperature - - Respiratory Rate - - Oxygen Saturation - - Inhaled Oxygen Concentration - - Weight 31.8 kg (70 lb) 12/22/2016 3:42 PM CDT Height - - Body Mass Index - - documented in this encounter Progress Notes * Sharath Lal MD - 12/22/2016 3:40 PM CDT Chief Complaint pt here having trouble sleeping at night, yelling in his room in the middle of night going on past few months History of Present Illness HISTORY of PRESENT ILLNESS: Willi presents with his mother for ongoing concerns regarding his sleep. He has a long history of parasomnias, primarily sleep walking and occasionally sleeptalking, but these for some reason have increased over the past several weeks. Mom intermittently uses melatonin 2 to 3 times per week for help with falling asleep, as Willi currently reports that he may lay in bed awake for 1 to 2 hours after bedtime trying to fall asleep. With respect to his overnight activities, mom has noted times when he has been up in his room yelling at times, as well as walking through the house with sheets and linens and other assorted objects. No aggressive behaviors, no contact with furniture or dangerous interactions. Aside from those symptoms, they deny any other current problems. Willi does have a history of chronic gastroesophageal reflux, but he does not take any medications at this time, treating only symptomatically. 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 Presently, Willi feels well though he did note some slight increased dyspnea with exertion today while in PE. He denies any chest pain, headache, vision change, weakness. No fevers, chills or night sweats. No nausea, vomiting or diarrhea. REVIEW of SYSTEMS: As per HPI. VITAL SIGNS: Afebrile, normotensive, SpO2 98% on room air. PHYSICAL EXAM: GENERAL: Well-developed and well-nourished, cooperative. Well-appearing, in no acute distress. SKIN: Normal color, warm & dry. Without lesions. HEAD: Normocephalic, without trauma. EYES: Extraocular movements intact, sclerae anicteric, conjunctivae non-injected and without discharge. EARS: External auditory canals clear, tympanic membranes clear with normal light reflex, in normal position. NOSE/THROAT: Oronasopharynx clear. Oral mucosa moist, without lesions. NECK: Supple, without mass. RESPIRATORY: No distress. Lungs clear to auscultation bilaterally. No wheezes, crackles, or rhonchi. CARDIOVASCULAR: Heart regular in rhythm, without murmur. Peripheral pulses normal to palpation. GASTROINTESTINAL: Abdomen soft, non-tender, non-distended, with normoactive bowel sounds. EXTREMITIES: Warm; without edema; capillary refill <2 sec. NEUROLOGIC: Alert & oriented. Cranial nerves II through XII grossly intact, without focal deficits. PSYCHOLOGIC: Affect appropriate. ADDITIONAL DATA: None. MEDICAL DECISION-MAKING: LOW COMPLEXITY. ASSESSMENT/PLAN: See enumerated lists in the appropriate sections below. DISCUSSION: 1. PARASOMNIAS. Currently, patient is not engaged in any dangerous activities while sleepwalking/sleeptalking. No medications other than melatonin have been trialed for his symptoms. I am offering hydroxyzine as a possible treatment presently. We will consult a sleep specialist as well. 2. INSOMNIA. Patient with initial insomnia of 1 to 2 hours nightly. Mom reports less effective melatonin recently. She could consider increasing melatonin to nightly use. Conversely, we will trial hydroxyzine in place of this and see if that manages his symptoms better. I am leery to continue that as a long-term treatment but that is a possibility, we will refer to Dr. Latisha Singh for additional evaluation and consideration for treatment or possible sleep study. Patient does have a history of chronic gastroesophageal reflux. I have encouraged them to renew use of ranitidine at bedtime, as that may be triggering his parasomnias. Certainly, a very low-dose benzodiazepine is a consideration, butI would prefer that they consult a sleep specialist prior to initiating that medication. Parent andpatient voiced understanding and agreement with plan. FOLLOWUP: Pending medication trial and perhaps referral. Call with any concerns. Active Problems 1. Asthma, cough variant (493.82) (J45.991) Past Medical History Patient indicats no significant past medical history. Surgical History 1. History of Tonsillectomy Family History Mother 1. No pertinent family history Social History ?? Lives with mother (single parent) ?? No secondhand smoke exposure (V49.89) (Z78.9) ?? Student Immunizations DTP/DTaP --- Series1: 16Hqe4418 (2M); Series2: 96Kbh8081 (4M); Series3: 90Vjw8534 (6M); Series4: 62Hku7473 (15M); Series5: 47Vje5872 (4Y) Hepatitis A --- Series1: 54Fok6971 (18M); Series2: 12Xxu3342 (2Y) Hepatitis B --- Series1: 37Mvi6902 (2M); Series2: 64Ybf1862 (4M); Series3: 09Dec2005 (15M) HIB --- Series1: 84Efz5037 (2M); Series2: 2004 (4M); Series3: 09Dec2005 (15M) Influenza --- Series1: 05Jop6339 (9Y) Meningococcal --- Series1: 73Wwu6692 (11Y) MMR --- Series1: 25Myt9605 (13M); Series2: 64Iqx3501 (4Y) Pneumococcal --- Series1: 07Fhk3675 (2M); Series2: 94Oqv4545 (4M); Series3: 90Jmf4066 (6M); Series4: 09Dec2005 (15M) Polio --- Series1: 38Sen7928 (3M); Series2: 09Ahy3714 (6M); Series3: 16Rrg1576 (9M); Series4: 77Ruz3494 (4Y) Tdap --- Series1: 84Qaz8964 (11Y) Varicella --- Series1: 74Xxd5491 (18M); Series2: 60Ayq5854 (4Y) Current Meds 1. ProAir HFA 108 (90 Base) MCG/ACT Inhalation Aerosol Solution; INHALE 1 TO 2 PUFFS BY MOUTH EVERY 4 HOURS NEEDED Requested for: 04Dec2016; Last Rx:04Dec2016 Ordered Rx By: Sharath Lal; Dispense: 16 Days ; #:8.5 GM; Refill: 0; For: Asthma, cough variant; KAYA= N; Verified Transmission to [facility] #4955; Last Updated By: Tatiana Bradley; 12/04/2016 11:10:39 AM Allergies 1. sulfa Recorded By: Cosmo Su; 04/10/2016 9:35:19 AM Vitals Recorded: 22Dec2016 03:42PM Temperature 98.6 F Heart Rate 87 Respiration 18 Systolic 108 Diastolic 56 O2 Saturation 98 Weight 70 lb 2-20 Weight Percentile 5 % Assessment 1. Parasomnia (307.47) (G47.50) 2. Asthma, cough variant (493.82) (J45.991) 3. Chronic GERD (530.81) (K21.9) Plan Chronic GERD, 1. RaNITidine HCl - 15 MG/ML Oral Syrup; TAKE 10 ML DAILY AT HS Rx By: Sharath Lal; Dispense: 0 Days ; #:1 X 473 ML Bottle; Refill: 2; For: Chronic GERD, ; KAYA = N; Verified Transmission to [facility] #6926; Last Updated By: Oculeve; 12/22/2016 4:21:46 PM Parasomnia 2. HydrOXYzine HCl - 10 MG Oral Tablet; take 1-2 tablets at bedtime Rx By: Sharath Lal; Dispense: 0 Days ; #:40 Tablet; Refill: 1; For: Parasomnia; KAYA = N; Verified Transmission to [facility] #6926; Last Updated By: Oculeve; 12/22/2016 4:14:23 PM Signatures Electronically signed by : Sharath Lal M.D.; Dec 25 2016 5:57AM DIGITAL PRODUCTION MANAGER (Author) documented in this encounter Plan of Treatment Upcoming Encounters Date Type Department Care Team (Latest Contact Info) Description 09/24/2024 7:30 PM DIGITAL PRODUCTION MANAGER Appointment [facility] [address] [place] [address] Nelly Guerrero, SELF PROPELLED HOT MIX ROLLER OPERATOR [address] [place] [address] 09/25/2024 7:00 AM DIGITAL PRODUCTION MANAGER Appointment [facility] [address] [place] [address] Nelly Guerrero SELF PROPELLED HOT MIX ROLLER OPERATOR [address] [place] [address] 11/01/2024 9:10 AM DIGITAL PRODUCTION MANAGER Hospital Encounter [facility] [address] [place] [address] Cihn Carcamo MD [address] [address] 11/01/2024 9:10 AM DIGITAL PRODUCTION MANAGER - 11/01/2024 9:40 AM DIGITAL PRODUCTION MANAGER Surgery [facility] [address] [place] [address] Chin Carcamo MD [address] [place] [address] COLONOSCOPY DIAGNOSTIC WITH/WITHOUT SPECIMEN BRUSH/WASH Scheduled Procedures Name Priority Associated Diagnoses Date/Ti ri COLONOSCOPY DIAGNOSTIC WITH/WITHOUT SPECIMEN BRUSH/WASH Hematochezia Chronic diarrhea 11/01/2024 9:10 AM DIGITAL PRODUCTION MANAGER documented as of this encounter Visit Diagnoses Not on filedocumented in this encounter
--- OUTSIDE RECORDS SUMMARY | 2024-09-23 12:26 | XMS_ITS | Encounter Summary ---
Author Organization [facility] Address [address] [place] [address]. [place], [place] [address] [place] [address] Care Team Providers Care Flag Car Driver Name Role Phone None, Provider Primary Care Provider Gertrudis byrnes Encounter Details Date Type Department Care Team (Latest Contact Info) Description 05/20/2019 5:44 PM CDT - 05/20/2019 11:59 PM CDT Hospital Encounter [facility] [address] [place] [address] Raina Calhoun, APNP [address] [place] [address] Discharge Disposition: Home or Self Care (Routine [...] every 4 (four) hours as needed. 05/14/2017 fluticasone propionate 50 MCG/ACT nasal spray 1 spray by Nasal route daily as needed. 02/11/2018 07/10/2021 documented as of this encounter Plan of Treatment Upcoming Encounters Date Type Department Care Team (Latest Contact Info) Description 09/24/2024 7:30 PM ENROUTE CONTROLLER Appointment [facility] [address] [place] [address] Nelly Guerrero, MARINE MACHINIST [address] [place] [address] 09/25/2024 7:00 AM ENROUTE CONTROLLER Appointment [facility] [address] [place] [address] Nelly Guerrero, MARINE MACHINIST [address] [place] [address] 11/01/2024 9:10 AM ENROUTE CONTROLLER Hospital Encounter [facility] Surgery [address] [place] [address] Chin Carcamo MD [address] [address] 11/01/2024 9:10 AM ENROUTE CONTROLLER - 11/01/2024 9:40 AM ENROUTE CONTROLLER Surgery [facility] Surgery [address] [place] [address] Chin Carcamo MD [address] [address] COLONOSCOPY DIAGNOSTIC WITH/WITHOUT SPECIMEN BRUSH/WASH Scheduled Procedures Name Priority Associated Diagnoses Date/Ti me COLONOSCOPY DIAGNOSTIC WITH/WITHOUT SPECIMEN BRUSH/WASH Hematochezia Chronic diarrhea 11/01/2024 9:10 AM ENROUTE CONTROLLER documented as of this encounter Procedures Procedure Name Priority Date/Time Associated Diagnosis Comments XR LUMB SPINE 3V Routine 05/20/2019 6:20 PM CDT Acute low back pain without sciatica, unspecified back pain laterality documented in this encounter Results * XR LUMB SPINE 3V (05/20/2019 6:20 PM CDT) Anatomical Region Laterality Modality Spine Radiographic Dilcia ging 05/21/2019 10:5 6 PM CDT Impressions 05/21/2019 11:00 PM CDT IMPRESSION: 5 lumbar vertebrae. Vertebral heights appear normally maintained. There appears to be mild grade I/IV spondylolisthesis of L3 anterior relative to L2 with vertebral alignment otherwise unremarkable. No gross neural arch defects or fractures identified. Moderately large amount of retained stool in colon which does partially interfere with evaluation. Clinical correlation for constipation suggested. Interpreted By: Keegan Moore, 05/21/2019 10:56 PM Narrative 05/21/2019 11:00 PM CDT LUMBAR SPINE 3 VIEWS 05/20/2019 HISTORY: Intermittent low back pain for the past 2 years. Increased pain with activity. 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 Procedure Note Keegan Moore MD - 05/21/2019 LUMBAR SPINE 3 VIEWS 05/20/2019 HISTORY: Intermittent low back pain for the past 2 years. Increased pain with activity. 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 IMPRESSION: 5 lumbar vertebrae. Vertebral heights appear normally maintained. There appears to be mild grade I/IV spondylolisthesis of L3 anterior relative to L2 with vertebral alignment otherwise unremarkable.No gross neural arch defects or fractures identified. Moderately large amount of retained stool in colon which does partially interfere with evaluation. Clinical correlation for constipationsuggested. Interpreted By: Keegan Moore, 05/21/2019 10:56 PM [facility] Final Res ult documented in this encounter Visit Diagnoses Diagnosis Acute low back pain without sciatica, unspecified back pain laterality Hematochezia Blood in stool Chronic diarrhea Diarrhea documented in this encounter Care Teams Flag Car Driver Relationship Specialty Start Date End Date None, Provider, PCP - General 05/20/19 02/16/21 documented as of this encounter
--- OUTSIDE RECORDS SUMMARY | 2024-09-23 12:26 | XMS_ITS | Encounter Summary ---
Author Organization [facility] Address [address] [place] [address]. [place], [place] [address] [place] [address] Care Team Providers Care Member Service Representative Name Role Phone Unavailable Primary Care Provider Unavailabl e Encounter Details Date Type Department Care Team (Latest Contact Info) Description 05/22/2016 Abstract [facility] Medical Group Social History Tobacco Use Types Packs/Day Years Used Date Smoking Tobacco: Never Assessed Sex and Gender Information Value Date Recorded Sex Assigned at Not on file Legal Sex Male 7:45 PM CDT Gender Identity Not on file Sexual Orientation Not on file documented as of this encounter Progress Notes * Esa Williamson MD - 05/22/2016 12:59 PM CDT Message call to see if symptoms are improving. Verified Results Wound Culture / Stain [id number] 06:59PM Esa Williamson Test Name Result Flag Reference Wound Culture / Stain (Report) SPECIMEN DESCRIPTION - WOUND SPECIAL REQUESTS - BACK GRAM SMEAR - NO WHITE BLOOD CELLS SEEN GRAM SMEAR - NO ORGANISMS SEEN CULTURE - LIGHT GROWTH OF STAPHYLOCOCCUS AUREUS ORGANISM - LIGHT GROWTH OF STAPHYLOCOCCUS AUREUS METHOD - GILBERT CLINDAMYCIN - <=0.25 SUSCEPTIBLE ERYTHROMYCIN - >=8 RESISTANT LEVOFLOXACIN - <=0.12 SUSCEPTIBLE OXACILLIN - <=0.25 SUSCEPTIBLE PENICILLIN G - >=0.5 RESISTANT TRIMETH-SULFAMETHOXAZOLE - <=10 SUSCEPTIBLE TETRACYCLINE - <=1 SUSCEPTIBLE documented in this encounter Plan of Treatment Upcoming Encounters Date Type Department Care Team (Latest Contact Info) Description 09/24/2024 7:30 PM STONE LAYER Appointment [facility] [address] [place] [address] Nelly Guerrero, SUPERVISORY IT SPECIALIST [address] [place] [address] 09/25/2024 7:00 AM STONE LAYER Appointment [facility] [address] [place] [address] Nelly Guerrero, SUPERVISORY IT SPECIALIST [address] [place] [address] 11/01/2024 9:10 AM STONE LAYER Hospital Encounter [facility] Surgery [address] [place] [address] Chin Carcamo MD 3 [facility] [address] [place] [address] 11/01/2024 9:10 AM STONE LAYER - 11/01/2024 9:40 AM STONE LAYER Surgery [facility] Surgery [address] [place] [address] Chin Carcamo MD 3 [facility] [address] [place] [address] COLONOSCOPY DIAGNOSTIC WITH/WITHOUT SPECIMEN BRUSH/WASH Scheduled Procedures Name Priority Associated Diagnoses Date/Ti me COLONOSCOPY DIAGNOSTIC WITH/WITHOUT SPECIMEN BRUSH/WASH Hematochezia Chronic diarrhea 11/01/2024 9:10 AM STONE LAYER documented as of this encounter Visit Diagnoses Not on filedocumented in this encounter
--- OUTSIDE RECORDS SUMMARY | 2024-09-23 12:26 | XMS_ITS | Encounter Summary ---
Author Organization [facility] Address [address] [place] [address]. [place], [place] [address] [place] [address] Care Team Providers Care Rn Allergy Name Role Phone Esa Williamson MD Primary Care Provider [phone] Encounter Details Date Type Department Care Team (Latest Contact Info) Description 05/02/2021 Scan [facility] Scanned, Documents [...] (Latest Contact Info) Description 09/24/2024 7:30 PM PHONE ENGINEER Appointment [facility] Lab [address] [place] [phone] Nelly Guerrero, CRAFT COORDINATOR [address] [place], [place] [id number] 09/25/2024 7:00 AM PHONE ENGINEER Appointment [facility] [address] [place] [address] Nelly Guerrero, CRAFT COORDINATOR [address] [facility] [place] [address] 11/01/2024 9:10 AM PHONE ENGINEER Hospital Encounter [facility] [address] [place] [address] Chin Carcamo MD 3 [facility] [address] [place] [address] 11/01/2024 9:10 AM PHONE ENGINEER - 11/01/2024 9:40 AM PHONE ENGINEER Surgery [facility] [address] [place] [address] Chin Carcamo MD 3 [facility] [address] [place] [address] COLONOSCOPY DIAGNOSTIC WITH/WITHOUT SPECIMEN BRUSH/WASH Scheduled Procedures Name Priority Associated Diagnoses Date/Ti me COLONOSCOPY DIAGNOSTIC WITH/WITHOUT SPECIMEN BRUSH/WASH Hematochezia Chronic diarrhea 11/01/2024 9:10 AM PHONE ENGINEER documented as of this encounter Visit Diagnoses Not on filedocumented in this encounter Care Teams Rn Allergy Relationship Specialty [place] [address] [place] [address] PCP - General FAMILY PRACTICE 02/17/21 08/09/22 documented as of this encounter
--- OUTSIDE RECORDS SUMMARY | 2024-09-23 12:26 | XMS_ITS | Encounter Summary ---
Author Organization [facility] Address [address] [place] [address]. [place], [place] [address] [place] [address] Care Team Providers Care Line Assembly Utility Worker Name Role Phone Unavailable Primary Care Provider Unavailabl e Encounter Details Date Type Department Care Team (Latest Contact Info) Description 10/21/2016 Abstract [facility] Medical Group Sharath Lal MD [address] [facility] [address] [address] Social History Tobacco Use Types Packs/Day Years Used Date Smoking Tobacco: Never Assessed Sex and Gender Information Value Date Recorded Sex Assigned at Not on file Legal Sex Male 7:45 PM CDT Gender Identity Not on file Sexual Orientation Not on file documented as of this encounter Progress Notes * Generic Conversion MD Tamara - 10/21/2016 4:54 PM CST Message Recorded as Task Date: 10/21/2016 04:27 PM, Created By: Patricia Darden Task Name: Renew Medication Assigned To: Patricia Darden Regarding Patient: Willi Nelson, Status: Active Comment: Patricia Dadren - 21 Oct 2016 4:27 PM TASK CREATED mother called back patient cant swallow pills needs liquid medication sent out to [facility] Sharath Lal - 21 Oct 2016 4:30 PM TASK REPLIED TO: Previously Assigned To Sharath Lal done. Patricia Darden - 21 Oct 2016 4:54 PM TASK EDITED called mother aware liquid sent out to [facility]. Signatures Electronically signed by : Patricia Darden, L.P.N.; Oct 21 2016 4:54PM COMMUNITY CENTER DIRECTOR (Author) documented in this encounter Plan of Treatment Upcoming Encounters Date Type Department Care Team (Latest Contact Info) Description 09/24/2024 7:30 PM COMMUNITY CENTER DIRECTOR Appointment [facility] [address] [place] [address] Nelly Guerrero, LAUNDRY TECH [address] [place] [address] 09/25/2024 7:00 AM COMMUNITY CENTER DIRECTOR Appointment [facility] [address] [place] [address] Nelly Guerrero, LAUNDRY TECH [address] [place] [address] 11/01/2024 9:10 AM COMMUNITY CENTER DIRECTOR Hospital Encounter [facility] [address] [place] [address] Chin Carcamo MD [address] [address] 11/01/2024 9:10 AM COMMUNITY CENTER DIRECTOR - 11/01/2024 9:40 AM COMMUNITY CENTER DIRECTOR Surgery [facility] [address] [place] [address] Chin Carcamo MD [address] [address] COLONOSCOPY DIAGNOSTIC WITH/WITHOUT SPECIMEN BRUSH/WASH Scheduled Procedures Name Priority Associated Diagnoses Date/Ti me COLONOSCOPY DIAGNOSTIC WITH/WITHOUT SPECIMEN BRUSH/WASH Hematochezia Chronic diarrhea 11/01/2024 9:10 AM COMMUNITY CENTER DIRECTOR documented as of this encounter Visit Diagnoses Not on filedocumented in this encounter
--- OUTSIDE RECORDS SUMMARY | 2024-09-23 12:26 | XMS_ITS | Encounter Summary ---
Author Organization [facility] Address [address] [place] [address]. [place] [address] [place] [address] Care Team Providers Care Sole Sewer Hand Name Role Phone Unavailable Primary Care Provider Unavailabl e Encounter Details Date Type Department Care Team (Late st Contact Info) Description 10/20/2012 Abstract [facility] [address] [place], [place] [id number] Brunilda Ewing MD [address] [place] [address] Social History Tobacco Use Types Packs/Day Years [...] (Latest Contact Info) Description 09/24/2024 7:30 PM NETWORK SERVICES PROJECT MANAGER Appointment [facility] Lab [address] [place] [address] Nelly Guerrero, FORCER MAKER [address] [place] [address] 09/25/2024 7:00 AM NETWORK SERVICES PROJECT MANAGER Appointment [facility] Lab [address] [place] [address] Nelly Guerrero, FORCER MAKER [address] [place] [address] 11/01/2024 9:10 AM NETWORK SERVICES PROJECT MANAGER Hospital Encounter [facility] [address] [place] [address] Chin Carcamo MD [address] [address] 11/01/2024 9:10 AM NETWORK SERVICES PROJECT MANAGER - 11/01/2024 9:40 AM NETWORK SERVICES PROJECT MANAGER Surgery [facility] [address] [place] [address] Chin Carcamo MD [address] [address] COLONOSCOPY DIAGNOSTIC WITH/WITHOUT SPECIMEN BRUSH/WASH Scheduled Procedures Name Priority Associated Diagnoses Date/Ti me COLONOSCOPY DIAGNOSTIC WITH/WITHOUT SPECIMEN BRUSH/WASH Hematochezia Chronic diarrhea 11/01/2024 9:10 AM NETWORK SERVICES PROJECT MANAGER documented as of this encounter Visit Diagnoses Diagnosis Hemorrhage of rectum and anus Hematochezia Blood in stool Chronic diarrhea Diarrhea documented in this encounter
--- OUTSIDE RECORDS SUMMARY | 2024-09-23 12:26 | XMS_ITS | Encounter Summary ---
Author Organization [facility] Address [address] [place] [address]. [place], [place] [address] [place] [address] Care Team Providers Care Chip Mixer Name Role Phone Esa Williamson MD Primary Care Provider [phone] Encounter Details Date Type Department Care Team (Latest Contact Info) Description 02/20/2021 Travel Social History Tobacco Use Types Packs/Day [...] (Latest Contact Info) Description 09/24/2024 7:30 PM INVESTMENT DIRECTOR Appointment [facility] [address] [place] [address] Nelly Guerrero LAND RECLAMATION SPECIALIST [address] [place] [address] 09/25/2024 7:00 AM INVESTMENT DIRECTOR Appointment [facility] [address] [place] [address] Nelly Guerrero, LAND RECLAMATION SPECIALIST [address] [place] [address] 11/01/2024 9:10 AM INVESTMENT DIRECTOR Hospital Encounter [facility] Surgery [address] [place] [address] Chin Carcamo MD 3 [facility] [address] [place] [address] 11/01/2024 9:10 AM INVESTMENT DIRECTOR - 11/01/2024 9:40 AM INVESTMENT DIRECTOR Surgery [facility] Surgery [address] [place] [address] Chin Carcamo MD [address] [address] COLONOSCOPY DIAGNOSTIC WITH/WITHOUT SPECIMEN BRUSH/WASH Scheduled Procedures Name Priority Associated Diagnoses Date/Ti me COLONOSCOPY DIAGNOSTIC WITH/WITHOUT SPECIMEN BRUSH/WASH Hematochezia Chronic diarrhea 11/01/2024 9:10 AM INVESTMENT DIRECTOR documented as of this encounter Visit Diagnoses Not on filedocumented in this encounter Care Teams Chip Mixer Relationship Specialty [place] [address] [place] [address] PCP - General FAMILY PRACTICE 02/17/21 08/09/22 documented as of this encounter
--- OUTSIDE RECORDS SUMMARY | 2024-09-23 12:26 | XMS_ITS | Encounter Summary ---
Author Organization [facility] Address [address] [place] [address]. [place], [place] [address] [place] [address] Care Team Providers Care Security Operations Engineer Name Role Phone Unavailable Primary Care Provider Unavailabl e Encounter Details Date Type Department Care Team (Latest Contact Info) Description 05/26/2016 Abstract [facility] Medical Group Social History Tobacco Use Types Packs/Day Years Used Date Smoking Tobacco: Never Assessed Sex and Gender Information Value Date Recorded Sex Assigned at Not on file Legal Sex Male 7:45 PM CDT Gender Identity Not on file Sexual Orientation Not on file documented as of this encounter Progress Notes * Esa Williamson MD - 05/26/2016 12:56 PM CDT Verified Results Wound Culture / Stain [id number] 06:59PM Esa Williamson Test Name Result Flag Reference Wound Culture / Stain (Report) SPECIMEN DESCRIPTION - WOUND SPECIAL REQUESTS - BACK GRAM SMEAR - NO WHITE BLOOD CELLS SEEN GRAM SMEAR - NO ORGANISMS SEEN CULTURE - LIGHT GROWTH OF STAPHYLOCOCCUS AUREUS CULTURE - NOTE: WOUND AND TISSUE CULTURES ARE ROUTINELY SCREENED FOR AEROBIC ORGANISMS CULTURE - ONLY. CULTURE - TESTING PERFORMED AT [facility], [address] [place] [address], [place] [address] REPORT STATUS - FINAL 05/23/2016 ORGANISM - LIGHT GROWTH OF STAPHYLOCOCCUS AUREUS METHOD - GILBERT CLINDAMYCIN - <=0.25 SUSCEPTIBLE ERYTHROMYCIN - >=8 RESISTANT LEVOFLOXACIN - <=0.12 SUSCEPTIBLE OXACILLIN - <=0.25 SUSCEPTIBLE PENICILLIN G - >=0.5 RESISTANT TRIMETH-SULFAMETHOXAZOLE - <=10 SUSCEPTIBLE TETRACYCLINE - <=1 SUSCEPTIBLE Signatures Electronically signed by : Esa Williamson M.D.; May 26 2016 12:56PM GRADES 9 THROUGH 12 TEACHER (Author) documented in this encounter Plan of Treatment Upcoming Encounters Date Type Department Care Team (Latest Contact Info) Description 09/24/2024 7:30 PM GRADES 9 THROUGH 12 TEACHER Appointment [facility] Lab [address] [place] [address] Nelly Guerrero, PRODUCTION SUPPORT SUPERVISOR [address] [place] [address] 09/25/2024 7:00 AM GRADES 9 THROUGH 12 TEACHER Appointment [facility] Lab [address] [place] [address] Nelly Guerrero, PRODUCTION SUPPORT SUPERVISOR [address] [place] [address] 11/01/2024 9:10 AM GRADES 9 THROUGH 12 TEACHER Hospital Encounter [facility] [address] [place] [address] Chin Carcamo MD [address] [address] 11/01/2024 9:10 AM GRADES 9 THROUGH 12 TEACHER - 11/01/2024 9:40 AM GRADES 9 THROUGH 12 TEACHER Surgery [facility] [address] [place] [address] Chin Carcamo MD [address] [facility] [address] [place] [address] COLONOSCOPY DIAGNOSTIC WITH/WITHOUT SPECIMEN BRUSH/WASH Scheduled Procedures Name Priority Associated Diagnoses Date/Ti me COLONOSCOPY DIAGNOSTIC WITH/WITHOUT SPECIMEN BRUSH/WASH Hematochezia Chronic diarrhea 11/01/2024 9:10 AM GRADES 9 THROUGH 12 TEACHER documented as of this encounter Visit Diagnoses Not on filedocumented in this encounter
--- OUTSIDE RECORDS SUMMARY | 2024-09-23 12:26 | XMS_ITS | Encounter Summary ---
Author Organization [facility] Address [address] [place] [address]. [place], [place] [address] [place] [address] Care Team Providers Care Button Pusher Name Role Phone Unavailable Primary Care Provider Unavailabl e Encounter Details Date Type Department Care Team (Latest Contact Info) Description 12/31/2016 Abstract [facility] Medical Group Social History Tobacco [...] Contact Info) Description 09/24/2024 7:30 PM MARKETING SYSTEMS ANALYST Appointment [facility] [address] [place] [address] Nelly Guerrero GENERAL COUNSEL [address] [place] [address] 09/25/2024 7:00 AM MARKETING SYSTEMS ANALYST [facility] [address] [place] [address] Nelly Guerrero NP [address] [place] [address] 11/01/2024 9:10 AM MARKETING SYSTEMS ANALYST Hospital Encounter [facility] [address] [place] [address] Chin Carcamo MD 3 [facility] 5000 [place] [address] 11/01/2024 9:10 AM MARKETING SYSTEMS ANALYST - 11/01/2024 9:40 AM MARKETING SYSTEMS ANALYST Surgery [facility] [address] [place] [address] Chin Carcamo MD 3 [facility] [address] [place] [address] COLONOSCOPY DIAGNOSTIC WITH/WITHOUT SPECIMEN BRUSH/WASH Scheduled Procedures Name Priority Associated Diagnoses Date/Ti me COLONOSCOPY DIAGNOSTIC WITH/WITHOUT SPECIMEN BRUSH/WASH Hematochezia Chronic diarrhea 11/01/2024 9:10 AM MARKETING SYSTEMS ANALYST documented as of this encounter Visit Diagnoses Not on filedocumented in this encounter
--- OUTSIDE RECORDS SUMMARY | 2024-09-23 12:26 | XMS_ITS | Encounter Summary ---
Author Organization [facility] Address [address] [place] [address]. [place], [place] [address] [place] [address] Care Team Providers Care Woodwinds Teacher Name Role Phone Unavailable Primary Care Provider Unavailabl e Encounter Details Date Type Department Care Team (Late st Contact Info) Description 04/10/2016 Abstract [facility] Medical Group Family & Internal Medicine [facility] [address] [place] [address] Sharath Lal MD [address] [phone] Social History Tobacco Use Types Packs/Day Years Used Date Smoking Tobacco: Never Assessed Sex and Gender Information Value Date Recorded Sex Assigned at Not on file Legal Sex Male 7:45 PM CDT Gender Identity Not on file Sexual Orientation Not on file documented as of this encounter Last Filed Vital Signs Vital Sign Reading Time Taken Comments Blood Pressure 80/50 04/10/2016 9:26 AM CDT Pulse 88 04/10/2016 9:26 AM CDT Temperature - - Respiratory Rate - - Oxygen Saturation - - Inhaled Oxygen Concentration - - Weight 26.3 kg (58 lb) 04/10/2016 9:26 AM CDT Height 135.9 cm (4' 5.5 ) 04/10/2016 9:26 AM CDT Body Mass Index 14.25 04/10/2016 9:26 AM CDT Body Mass Index Percentile 1.72% 04/10/2016 9:2 6 AM CDT Growth Chart: CDC (Boys, 2-2 0 Years) documented in this encounter Progress Notes * Sharath Lal MD - 04/10/2016 9:40 AM CDT Chief Complaint Pt is here to establish care and need school physical. History of Present Illness HPI Free Text: Willi is a pleasant 10 year-old male, here to establish with me. He presents with his mother, having recently relocated from [place], [place]. HISTORY of PRESENT ILLNESS Willi has a history of chronic cough, treated apparently as cough-variant asthma by mom's report. As an he had significant gastroesophageal reflux, but has not been on medications for a long time. He takes an albuterol inhaler as needed, using it approximately 4 times in the past school year, and was sent with forms for inhaler use at school, as well as an school-driven asthma action plan.She reports little else has been done to workup his cough. He was at one time using QVAR, but this did not seem to change matters. He has also been on montelukast, without significant improvement. Hehas always been small for his age, but proportionate. He's had no significant for respiratory illnesses, including recurrent pneumonias or bronchitis, no sinus infections or recurrent otitis media. Currently, aside from his cough, he has been well and they have no acute concerns at this time. He isin need of a school physical for entering the 6th grade in the [employer]. He is involved in sports activities, with plans to wrestle this school year. By verbal confirmation (records areen route) he is in need of Tdap and meningococcal immunizations. As noted below, Willi's past medical history is significant for tonsillectomy. He's had no other hospitalizations. REVIEW of SYSTEMS: All systems reviewed and negative except as noted in HPI. VITAL SIGNS: Reviewed. Normotensive. PHYSICAL EXAMINATION: GENERAL: Well-developed and well-nourished, cooperative. Well-appearing, in no acute distress. SKIN: Normal color, warm & dry. Without lesions. HEENT: Normocephalic, without trauma; extraocular movements intact, pupils equal, round, and reactive to light, sclerae anicteric, conjunctivae non- injected and without discharge; tympanic membranes clear with normal light reflex, in normal position; nasopharynx clear; oropharynx clear, oral mucosa moist, without lesions; good dentition. NECK: Supple, without lymphadenopathy or masses. RESPIRATORY: No distress. Lungs clear to auscultation bilaterally; no wheezes, rales, or rhonchi. CARDIOVASCULAR: Regular in rhythm, without murmur; no gallops, clicks, or rubs. Peripheral pulses normal and symmetric to palpation. GASTROINTESTINAL: Abdomen soft, non-tender, non-distended, with normoactive bowel sounds; no organomegaly or masses. BACK: Normal curvature; no vertebral, paraspinal, or costovertebral angle tenderness. EXTREMITIES: Warm, without clubbing, cyanosis, or edema. NEUROLOGIC: Alert & oriented x 3; cranial nerves II through XII grossly intact, without focal deficits; no sensory or motor deficits; negative Romberg, gait normal, including tandem gait. MUSCULOSKELETAL: Normal range of motion. Joints normal to palpation. Strength 5/5, symmetric in upper and lower extremities. PSYCHOLOGIC: Affect appropriate. GENITOURINARY: Circumcised penis without lesions. Scrotum normal to appearance, palpation, with dependent testicles, nontender, and without other masses. No hernia appreciated on Valsalva maneuver. SMR II. ADDITIONAL DATA: Urinalysis normal. (see Results/Data Section below). ASSESSMENT/PLAN: See enumerated lists in the appropriate sections below. MEDICAL DECISION MAKING: LOW COMPLEXITY 1. WELL PREADOLESCENT MALE. [facility] Certificate of Child Health Examination Form reviewed, including immunizations, health history, risk evaluation. Physical exam portion completed and signed, with approval for physical education and interscholastic sports for the next year. . Immunization counseling provided. . Tdap, Menactra #1 provided. 2. CHRONIC COUGH/ASTHMA. Continue current intermittent treatment with albuterol. Forms completed for school administration. Consider additional workup after receiving records. FOLLOWUP: 1 year, or as needed. Active Problems 1. School physical exam (V70.5) (Z02.0) 2. Screening for hematuria or proteinuria (V82.9) (Z13.89) Surgical History 1. History of Tonsillectomy Family History Mother 1. No pertinent family history Current Meds 1. Albuterol Sulfate HFA 108 MCG/ACT AERS; Therapy: (Recorded:[id number]) to Recorded Dispense: 0 Days ; #: Sufficient AERS; Refill: 0; KAYA = N; Record; Last Updated By: Cosmo Su;04/10/2016 9:35:19 AM Allergies 1. sulfa Recorded By: Cosmo Su; 04/10/2016 9:35:19 AM Vitals Recorded: 10Apr2016 09:26AM Heart Rate 88 Respiration 18 Systolic 80 Diastolic 50 O2 Saturation 98 Height 4 ft 5.5 in 2-20 Stature Percentile 6 % Weight 58 lb 2-20 Weight Percentile 1 % BMI Calculated 14.25 BMI Percentile 1 % BSA Calculated 1.01 Results/Data *Urine dip auto In Office 10Apr2016 09:40AM Sharath Lal Test Name Result Flag Reference Color Yellow Clarity Clear Glucose Negative Bilirubin Negative Ketones Negative Specific [place] 1.030 Blood Negative pH 5.5 5.0 - 7.0 Protein Negative Urobilinogen 0.2 E.U./dL Nitrites Negative Leukocytes Negative Assessment 1. School physical exam (V70.5) (Z02.0) 2. Asthma, cough variant (493.82) (J45.991) 3. Screening for hematuria or proteinuria (V82.9) (Z13.89) 4. Need for vkgyqhopsm-bgsnana-nafhizgzo (Tdap) vaccine (V06.1) (Z23) 5. Need for meningococcal vaccination (V03.89) (Z23) Plan School physical exam 1. Follow-up visit in 1 year Outpatient Follow-up Status: Complete Done: 10Apr2016 Ordered; For: School physical exam; Ordered By: Sharath Lal Performed: Due: 24Apr2016; Last Updated By: Massiel Pinedo; 04/10/2016 11:33:24 AM 2. Menactra Intramuscular Injectable For: School physical exam; Ordered By:Sharath Lal; Effective Date:10Apr2016; Administered by: Cosmo Su: 04/10/2016 10:53:00 AM; Last Updated By: Cosmo Su; 04/10/2016 10:56:02 AM 3. Tdap For: School physical exam; Ordered By:Sharath Lal; Effective Date:10Apr2016; Administered by: Cosmo Su: 04/10/2016 10:52:00 AM; Last Updated By: Comso Su; 04/10/2016 10:56:02 AM Screening for hematuria or proteinuria 4. *Urine dip auto In Office; Status:Resulted - Requires Verification; Done: [id number] 09:40AM Performed:In Office; Last Updated By:Tri Collins; 04/10/2016 9:41:00 AM;Ordered; For:Screeningfor hematuria or proteinuria; Ordered By:Sharath Lal; Signatures Electronically signed by : Sharath Lal M.D.; Apr 11 2016 6:28AM FIELD SERVICE TECH (Author) D SERVICE TECH documented in this encounter Plan of Treatment Upcoming Encounters Date Type Department Care Team (Latest Contact Info) Description 09/24/2024 7:30 PM FIELD SERVICE TECH Appointment [facility] Lab [address] [place] [address] Nelly Guerrero, DEMAND EQUIPMENT REPAIRER [address] [place] [address] 09/25/2024 7:00 AM FIELD SERVICE TECH Appointment [facility] [address] [place] [address] Nelly Guerrero DEMAND EQUIPMENT REPAIRER [address] [place] [id number] 11/01/2024 9:10 AM FIELD SERVICE TECH Hospital Encounter [facility] [address] [place] [address] Chin Carcamo MD 3 [facility] [place] [address] 11/01/2024 9:10 AM FIELD SERVICE TECH - 11/01/2024 9:40 AM FIELD SERVICE TECH Surgery [facility] [address] [place] [address] Chin Carcamo MD [address] [facility] [address] [address] COLONOSCOPY DIAGNOSTIC WITH/WITHOUT SPECIMEN BRUSH/WASH Scheduled Procedures Name Priority Associated Diagnoses Date/Ti vt COLONOSCOPY DIAGNOSTIC WITH/WITHOUT SPECIMEN BRUSH/WASH Hematochezia Chronic diarrhea 11/01/2024 9:10 AM FIELD SERVICE TECH documented as of this encounter Procedures Procedure Name Priority Date/Time Associated Diagnosis Comments URINALYSIS AUTO DIP Routine 04/10/2016 9 :40 AM CDT documented in this encounter Results * URINALYSIS AUTO DIP (04/10/2016 9:40 AM CDT) COLOR (U) Yellow [facility] T O EPIC CONVERSION TRANSPARENCY Clear [facility] P TO EPIC CONVERSION GLUCOSE Negative [facility] T O EPIC CONVERSION BILIRUBIN (U) Negative [facility] UP TO EPIC CONVERSION KETONE (U) Negative [facility] TO EPIC CONVERSION SPECIFIC GRAVITY (U) 1.030 [facility] TO EPIC CONVERSION BLOOD (U) Negative [facility] T O EPIC CONVERSION PH (U) 5.5 5.0 - 7.0 [facility] T O EPIC CONVERSION PROTEIN (ELP) (U) Negative [facility] TO EPIC CONVERSION UROBILINOGEN 0.2 E.U./dL [facility] OUP TO EPIC CONVERSION NITRITES Negative [facility] T O EPIC CONVERSION LEUKOCYTES (U) Negative [facility] OUP TO EPIC CONVERSION 04/10/2016 9:40 AM CDT 04/10/2016 9:40 AM CDT Narrative [facility] TO EPIC CONVERSION - 04/10/2016 9:40 AM CDT Result Communication: No patient communication needed at this time us Sharath Lal MD URINE ORDERABLES Final Re sult [facility] TO EPIC CONVERSION documented in this encounter Visit Diagnoses Not on filedocumented in this encounter
--- OUTSIDE RECORDS SUMMARY | 2024-09-23 12:26 | XMS_ITS | Encounter Summary ---
Author Organization [facility] Address [address] [place] [address]. [place] [address] [place] [address] Care Team Providers Care Claims Manager Name Role Phone Unavailable Primary Care Provider Unavailabl e Encounter Details Date Type Department Care Team (Late st Contact Info) Description 05/19/2016 Abstract [facility] [address] [place] [address] Esa Williamson MD [address] [address] Social History Tobacco Use Types Packs/Day Years [...] (Latest Contact Info) Description 09/24/2024 7:30 PM GRAIN MILLER HELPER Appointment [facility] [address] [place] [address] Nelly Guerrero, PRODUCTION DESIGNER [address] [place] [address] 09/25/2024 7:00 AM GRAIN MILLER HELPER Appointment [facility] Lab [address] [place] [address] Nelly Guerrero PRODUCTION DESIGNER [address] [place] [address] 11/01/2024 9:10 AM GRAIN MILLER HELPER Hospital Encounter [facility] [address] [place] [address] Chin Carcamo MD [address] [address] 11/01/2024 9:10 AM GRAIN MILLER HELPER - 11/01/2024 9:40 AM GRAIN MILLER HELPER Surgery [facility] [address] [place] [address] Chin Carcamo MD [address] [address] COLONOSCOPY DIAGNOSTIC WITH/WITHOUT SPECIMEN BRUSH/WASH Scheduled Procedures Name Priority Associated Diagnoses Date/Ti me COLONOSCOPY DIAGNOSTIC WITH/WITHOUT SPECIMEN BRUSH/WASH Hematochezia Chronic diarrhea 11/01/2024 9:10 AM GRAIN MILLER HELPER documented as of this encounter Visit Diagnoses Diagnosis Furuncle of back, except buttock Carbuncle and furuncle of trunk Hematochezia Blood in stool Chronic diarrhea Diarrhea documented in this encounter
--- OUTSIDE RECORDS SUMMARY | 2024-09-23 12:26 | XMS_ITS | Encounter Summary ---
Author Organization [facility] Address [address] [place] [address]. [place], [place] [address] [place] [address] Care Team Providers Care Mechanical Spreader Operator Name Role Phone Unavailable Primary Care Provider Unavailabl e Encounter Details Date Type Department Care Team (Late st Contact Info) Description 01/29/2017 Abstract [facility] Medical Group Family & Internal Medicine [facility] [address] [place] [address] Sharath Lal MD [address] [place] [phone] Social History Tobacco Use Types Packs/Day Years Used Date Smoking Tobacco: Never Assessed Sex and Gender Information Value Date Recorded Sex Assigned at Not on file Legal Sex Male 7:45 PM CDT Gender Identity Not on file Sexual Orientation Not on file documented as of this encounter Last Filed Vital Signs Vital Sign Reading Time Taken Comments Blood Pressure 108/56 01/29/2017 3:38 PM CDT Pulse 68 01/29/2017 3:38 PM CDT Temperature - - Respiratory Rate - - Oxygen Saturation - - Inhaled Oxygen Concentration - - Weight 31.8 kg (70 lb 2.1 oz) 01/29/2017 3:38 PM CDT Height - - Body Mass Index - - documented in this encounter Progress Notes * Sharath Lal MD - 01/29/2017 5:21 PM CDT Message These labs are normal. Glucose is only elevated because Willi ate in the 2-3 hours prior to that test. Hemoglobin A1c indicates normal blood sugar level over the past 3 months. Verified Results *A1C In Office [id number] 04:16PM Sharath Lal Test Name Result Flag Reference A1C 5.2 4.2 - 6.5 % HbA1C *Glucose, Whole Blood In Office [id number] 04:16PM Sharath Lal Test Name Result Flag Reference Glucose Finger Stick 120 mg/dl A 70 - 110 mg/dl * Sharath Lal MD - 01/29/2017 3:40 PM CDT Chief Complaint pt here to be checked for dm History of Present Illness HISTORY of PRESENT ILLNESS: Willi presents with his mother for evaluation for possible diabetes. Since our last visit, he has been seen by sleep specialist, including obtaining a polysomnogram indicating mild sleep apnea. That workup and treatment is still pending. Given his history, as reported to her, of lifelong frequent urination, there was a suggestion that perhaps he should be screened for diabetes. Currently he has no other concerns, problems, or recent illnesses. REVIEW of SYSTEMS: All systems reviewed and negative except as noted in HPI. VITAL SIGNS: Reviewed. Afebrile. Normotensive. PHYSICAL EXAMINATION: GENERAL: Well-developed and well-nourished, cooperative to exam, but severely resistant to lab draw. Well-appearing, mildly anxious. SKIN: Normal color, warm & dry. Without [...] focal deficits. PSYCHOLOGIC: Affect appropriate. ADDITIONAL DATA: Hemoglobin A1c 5.2, fingerstick blood glucose 120. (see Results/Data Section below). MEDICAL DECISION MAKING: MODERATE COMPLEXITY ASSESSMENT/PLAN: See enumerated lists in the appropriate sections below. DISCUSSION: 1. FREQUENT URINATION/SLOW WEIGHT GAIN. Patient with a normal urinalysis one year ago showing excellent concentrating ability. With difficulty, hemoglobin A1c and fingerstick glucose obtained today with no indication of diabetes mellitus. FOLLOWUP: as needed. Recommend no in-office laboratory blood draws in the future secondary to severe lack of cooperation and bordering on danger to office personnel. Recommend cognitive behavioral therapy for anxiety related to office procedures including lab and immunizations. Active Problems 1. Asthma, cough variant (493.82) (J45.991) 2. Chronic GERD (530.81) (K21.9) 3. Parasomnia (307.47) (G47.50) Past Medical History 1. History of Sore throat (462) (J02.9) Surgical History 1. History of Tonsillectomy Family History Mother 1. No pertinent family history Social History ?? Lives with mother (single parent) ?? No secondhand smoke exposure (V49.89) (Z78.9) ?? Student Immunizations DTP/DTaP --- Series1: 90Vje7860 (2M); Series2: 31Mfv7473 (4M); Series3: 86Chh6154 (6M); Series4: 09Dec2005 (15M); Series5: 01Ids5406 (4Y) Hepatitis A --- Series1: 87Tdq0314 (18M); Series2: 47Dhg7121 (2Y) Hepatitis B --- Series1: 10Bpb4673 (2M); Series2: 25Btz9097 (4M); Series3: 40Bvg7487 (15M) HIB --- Series1: 31Ebc0257 (2M); Series2: 76Cwp9039 (4M); Series3: 87Sth6149 (15M) Influenza --- Series1: 98Tgr3601 (9Y) Meningococcal --- Series1: 37Mbq1013 (11Y) MMR --- Series1: 85Eyr9237 (13M); Series2: 01Ozj7698 (4Y) Pneumococcal --- Series1: 64Gwk5033 (2M); Series2: 35Yrh3961 (4M); Series3: 82Ssm6825 (6M); Series4: 09Dec2005 (15M) Polio --- Series1: 62Vrn0388 (3M); Series2: 37Wbi9319 (6M); Series3: 60Ugd6498 (9M); Series4: 35Gxp2034 (4Y) Tdap --- Series1: 32Dzc4926 (11Y) Varicella --- Series1: 62Sxk9829 (18M); Series2: 51Duu0441 (4Y) Current Meds 1. ProAir HFA 108 (90 Base) MCG/ACT Inhalation Aerosol Solution; INHALE 1 TO 2 PUFFS BY MOUTH EVERY 4 HOURS NEEDED Requested for: 04Dec2016; Last Rx:04Dec2016 Ordered Rx By: Sharath Lal; Dispense: 16 Days ; #:8.5 GM; Refill: 0; For: Asthma, cough variant; KAYA= N; Verified Transmission to [id number]; Last Updated By: Zinch; 12/04/2016 11:10:39 AM 2. RaNITidine HCl - 15 MG/ML Oral Syrup; TAKE 10 ML DAILY AT HS; Therapy: 22Dec2016 to (Last Rx:22Dec2016) Requested for: 22Dec2016 Ordered Rx By: Sharath Lal; Dispense: 0 Days ; #:1 X 473 ML Bottle; Refill: 2; For: Chronic GERD, ; KAYA = N; Verified Transmission to [id number]; Last Updated By: Zinch; 12/22/2016 4:21:46 PM Allergies 1. sulfa Recorded By: Cosmo Su; 04/10/2016 9:35:19 AM Vitals Recorded: 29Jan2017 03:38PM Temperature 98.6 F Heart Rate 68 Respiration 18 Systolic 108 Diastolic 56 O2 Saturation 99 Weight 70 lb 2 oz 2-20 Weight Percentile 5 % Assessment 1. Screening for diabetes mellitus (V77.1) (Z13.1) 2. Urinary frequency (788.41) (R35.0) 3. Low weight (783.22) (R63.6) Signatures Electronically signed by : Sharath Lal M.D.; Feb 06 2017 10:13AM CORE ANALYSIS OPERATOR (Author) documented in this encounter Plan of Treatment Upcoming Encounters Date Type Department Care Team (Latest Contact Info) Description 09/24/2024 7:30 PM CORE ANALYSIS OPERATOR Appointment [facility] [address] [place] [address] Nelly Guerrero, SPOT WELDER BODY ASSEMBLY [address] [place] [address] 09/25/2024 7:00 AM CORE ANALYSIS OPERATOR Appointment [facility] [address] [place] [address] Nelly Guerrero, SPOT WELDER BODY ASSEMBLY [address] [place] [address] 11/01/2024 9:10 AM CORE ANALYSIS OPERATOR Hospital Encounter [facility] [address] [place] [address] Chin Carcamo MD [address] [address] 11/01/2024 9:10 AM CORE ANALYSIS OPERATOR - 11/01/2024 9:40 AM CORE ANALYSIS OPERATOR Surgery [facility] [address] [place] [address] Chin Carcamo MD [address] [phone] COLONOSCOPY DIAGNOSTIC WITH/WITHOUT SPECIMEN BRUSH/WASH Scheduled Procedures Name Priority Associated Diagnoses Date/Ti me COLONOSCOPY DIAGNOSTIC WITH/WITHOUT SPECIMEN BRUSH/WASH Hematochezia Chronic diarrhea 11/01/2024 9:10 AM CORE ANALYSIS OPERATOR documented as of this encounter Procedures Procedure Name Priority Date/Time Associated Diagnosis Comments HEMOGLOBIN, GLYCOSYLATED Routine 01/29/2017 4:16 PM CDT GLUCOSE BLOOD, MONITOR DEVICE Routine 01/29/2017 4:16 PM CDT documented in this encounter Results * (ABNORMAL) GLUCOSE BLOOD, MONITOR DEVICE (01/29/2017 4:16 PM CDT) GLUCOSE 120(A) 70 - 110 mg/dl milligrams per deciliter [facility] TO EPIC CONVERSION 01/29/2017 4:16 PM CDT 01/29/2017 4:16 PM CDT Narrative [facility] TO EPIC CONVERSION - 01/29/2017 4:16 PM CDT Result Communication: Mail Results to Patient us Sharath Lal MD LABORATORY Final Res ult Performing Organization Address [facility] Co de Phone Number [facility] TO EPIC CONVERSION * HEMOGLOBIN, GLYCOSYLATED (01/29/2017 4:16 PM CDT) HGB A1C 5.2 4.2 - 6.5 % HbA1C [facility] TO EPIC CONVERSION 01/29/2017 4:16 PM CDT 01/29/2017 4:16 PM CDT Narrative [facility] TO EPIC CONVERSION - 01/29/2017 4:16 PM CDT Result Communication: Mail Results to Patient us Sharath Lal MD LABORATORY Final Res ult [facility] TO EPIC CONVERSION documented in this encounter Visit Diagnoses Not on filedocumented in this encounter
--- OUTSIDE RECORDS SUMMARY | 2024-09-23 12:26 | XMS_ITS | Encounter Summary ---
Author Organization [facility] Address [address] [place] [address]. [place], [place] [address] [place] [address] Care Team Providers Care English Language Learner Tutor Name Role Phone Unavailable Primary Care Provider Unavailabl e Encounter Details Date Type Department Care Team (Latest Contact Info) Description 08/02/2018 Scan [facility] Medical Group , Matt Loya MD Social History Tobacco Use Types Packs/Day [...] Contact Info) Description 09/24/2024 7:30 PM LINE PULLER Appointment [facility] Lab [address] [place] [address] Nelly Guerrero, PHARMACEUTICAL SCIENTIST [address] [place] [address] 09/25/2024 7:00 AM LINE PULLER Appointment [facility] Lab [address] [place] [address] Nelly Guerrero PHARMACEUTICAL SCIENTIST [address] [place] [address] 11/01/2024 9:10 AM LINE PULLER Hospital Encounter [facility] [address] [place] [address] Chin Carcamo MD [address] [phone] 11/01/2024 9:10 AM LINE PULLER - 11/01/2024 9:40 AM LINE PULLER Surgery [facility] [address] [place] [address] Chin Carcamo MD [address] [address] COLONOSCOPY DIAGNOSTIC WITH/WITHOUT SPECIMEN BRUSH/WASH Scheduled Procedures Name Priority Associated Diagnoses Date/Ti ar COLONOSCOPY DIAGNOSTIC WITH/WITHOUT SPECIMEN BRUSH/WASH Hematochezia Chronic diarrhea 11/01/2024 9:10 AM LINE PULLER documented as of this encounter Visit Diagnoses Not on filedocumented in this encounter
--- OUTSIDE RECORDS SUMMARY | 2024-09-23 12:26 | XMS_ITS | Encounter Summary ---
Author Organization [facility] Address [address] [place] [address]. [place], [place] [address] [place] [address] Care Team Providers Care Clinical Microbiologist Name Role Phone Unavailable Primary Care Provider Unavailabl e Encounter Details Date Type Department Care Team (Latest Contact Info) Description 04/28/2016 Abstract [facility] Medical Group Sharath Lal MD [address] [phone] Social History Tobacco Use Types [...] (Latest Contact Info) Description 09/24/2024 7:30 PM SALES SUPERVISOR Appointment [facility] Lab [address] [place] [address] Nelly Guerrero TIME MOTION ANALYST [address] [place] [address] 09/25/2024 7:00 AM SALES SUPERVISOR Appointment [facility] Lab [address] [place] [address] Nelly Guerrero TIME MOTION ANALYST [address] [place] [address] 11/01/2024 9:10 AM SALES SUPERVISOR Hospital Encounter [facility] [address] [place] [address] Chin Carcamo MD [address] [address] 11/01/2024 9:10 AM SALES SUPERVISOR - 11/01/2024 9:40 AM SALES SUPERVISOR Surgery [facility] [address] [place] [address] Chin Carcamo MD [address] [id number] COLONOSCOPY DIAGNOSTIC WITH/WITHOUT SPECIMEN BRUSH/WASH Scheduled Procedures Name Priority Associated Diagnoses Date/Ti me COLONOSCOPY DIAGNOSTIC WITH/WITHOUT SPECIMEN BRUSH/WASH Hematochezia Chronic diarrhea 11/01/2024 9:10 AM SALES SUPERVISOR documented as of this encounter Visit Diagnoses Not on filedocumented in this encounter
--- OUTSIDE RECORDS SUMMARY | 2024-09-23 12:26 | XMS_ITS | Encounter Summary ---
Author Organization [facility] Address [address] [place] [address]. [place], [place] [address] [place] [address] Care Team Providers Care Commercial Intelligence Manager Name Role Phone Unavailable Primary Care Provider Unavailabl e Encounter Details Date Type Department Care Team (Latest Contact Info) Description 04/08/2017 Abstract [facility] Medical Group Social History Tobacco [...] (Latest Contact Info) Description 09/24/2024 7:30 PM TRUST VAULT CLERK Appointment [facility] Sleep Lab [address] [place] [address] Nelly Guerrero BOBBIN DUMPER [address] [place] [address] 09/25/2024 7:00 AM TRUST VAULT CLERK Appointment [facility] Sleep Lab [address] [place] [address] Nelly Guerrero NP [address] [place] [address] 11/01/2024 9:10 AM TRUST VAULT CLERK Hospital Encounter [facility] [address] [place] [address] Chin Carcamo MD 3 Health system [address] [place] [address] 11/01/2024 9:10 AM TRUST VAULT CLERK - 11/01/2024 9:40 AM TRUST VAULT CLERK Surgery [facility] Surgery [address] [place] [address] Chin Carcamo MD 3 Health system [address] [place] [address] COLONOSCOPY DIAGNOSTIC WITH/WITHOUT SPECIMEN BRUSH/WASH Scheduled Procedures Name Priority Associated Diagnoses Date/Ti me COLONOSCOPY DIAGNOSTIC WITH/WITHOUT SPECIMEN BRUSH/WASH Hematochezia Chronic diarrhea 11/01/2024 9:10 AM TRUST VAULT CLERK documented as of this encounter Visit Diagnoses Not on filedocumented in this encounter
--- OUTSIDE RECORDS SUMMARY | 2024-09-23 12:26 | XMS_ITS | Encounter Summary ---
Author Organization [facility] Address [address] [place] [address]. [place], [place] [address] [place] [address] Care Team Providers Care Accredited Pharmacy Technician Name Role Phone Unavailable Primary Care Provider Unavailabl e Encounter Details Date Type Department Care Team (Late st Contact Info) Description 02/11/2018 Abstract [facility] Family & Internal Medicine [facility] [address] [place] [address] Sharath Lal MD [address] [address] Social History Tobacco Use Types Packs/Day Years Used Date Smoking Tobacco: Never Assessed Sex and Gender Information Value Date Recorded Sex Assigned at Not on file Legal Sex Male 7:45 PM CDT Gender Identity Not on file Sexual Orientation Not on file documented as of this encounter Last Filed Vital Signs Vital Sign Reading Time Taken Comments Blood Pressure 98/52 02/11/2018 4:42 PM CDT Pulse 80 02/11/2018 4:42 PM CDT Temperature - - Respiratory Rate - - Oxygen Saturation - - Inhaled Oxygen Concentration - - Weight 38.6 kg (85 lb 2.1 oz) 02/11/2018 4:42 PM CDT Height - - Body Mass Index - - documented in this encounter Progress Notes * Sharath Lal MD - 02/11/2018 4:20 PM CDT Chief Complaint Pt presents today with mother for hives. Pt was seen at [facility] on Wednesday for R ear infection. Pt was given Amoxicillin and woke up this morning with hives on both arms and legs. History of Present Illness HPI Free Text: HISTORY of PRESENT ILLNESS: Willi presents with his mother in follow-up from a visit to [facility] 3 days ago with right ear pain, diagnosed with right acute otitis media, treated with amoxicillin. He awoke with scattered patches of hives this a.m., primarily to his extremities. His mother treated him with topical hydrocortisone prior to school, with some improvement. He has had some additional treatment since retu rning home. No respiratory symptoms. No facial swelling. No other systemic symptoms. No oral antihistamines. REVIEW of SYSTEMS: Pertinent positives and negatives noted in HPI. All other systems reviewed and are negative. VITAL SIGNS: Reviewed. Afebrile. Normotensive. SpO2 98% PHYSICAL EXAMINATION: GENERAL: Well-developed and well-nourished, cooperative. Well-appearing, in no acute distress. SKIN: Normal color, warm & dry. Without lesions. HEAD: Normocephalic, without trauma. EYES: Extraocular movements intact, sclerae anicteric, conjunctivae non-injected and without discharge. EARS: EACs patent, left tympanic membrane normal to appearance. Right opaque, erythematous with mild bulge. NOSE/THROAT: Oronasopharynx clear. Oral mucosa moist, without [...] PSYCHOLOGIC: Affect appropriate. ADDITIONAL DATA: None. MEDICAL DECISION MAKING: LOW COMPLEXITY ASSESSMENT/PLAN: See enumerated lists in the appropriate sections below. DISCUSSION: 1. ACUTE URTICARIA. Normal examination at this time. However, given recurrence, will treat with a short course of prednisolone and discontinue amoxicillin. Maybe a sensitivity or other reaction. No anaphylactic symptoms. Consider oral antihistamines as needed. 2. RIGHT ACUTE OTITIS MEDIA. Change to cefdinir for coverage. Continue decongestant/mucolytic. Please call if not improving in 7-10 days. 3. ANXIETY. Although he is not due at this time, mom expresses concern regarding immunizations whenTyler is due. Secondary to behaviors endangering fellow colleagues, I have encouraged his mother topursue counseling with respect to treating his underlying situational anxiety. Another consideration might be obtaining them through the health department. I expressed my opinion providing him a medication for anxiety (such as benzodiazepine) is inappropriate in a pediatric outpatient clinic. FOLLOW-UP: as needed. This dictation was performed using [employer] dictation. There may be some pets salesperson variances thatare not appreciated or corrected in this note. Sharath Lal MD. Active Problems 1. Asthma, cough variant (493.82) (J45.991) 2. Chronic GERD (530.81) (K21.9) 3. Low weight (783.22) (R63.6) 4. Parasomnia (307.47) (G47.50) 5. Sleep apnea (780.57) (G47.30) Past Medical History 1. History of urinary frequency (V13.09) (Z87.898) 2. History of Nonproductive cough (786.2) (R05) 3. History of Right lower lobe pneumonia (486) (J18.1) Surgical History 1. History of Tonsillectomy Family History Mother 1. No pertinent family history Social History ?? Lives with mother (single parent) ?? No secondhand smoke exposure (V49.89) (Z78.9) ?? Student Immunizations DTP/DTaP --- Series1: 2004; Series2: 2004; Series3: 25-Feb-2005; Series4: 09-Dec-2005; Series5: 06-Nov-2008 Hepatitis A --- Series1: 17-Feb-2006; Series2: 24-Aug-2006 Hepatitis B --- Series1: 2004; Series2: 2004; Series3: 09-Dec-2005 HIB --- Series1: 2004; Series2: 2004; Series3: 09-Dec-2005 Influenza --- Series1: 01-Aug-2014 Meningococcal --- Series1: 10-Apr-2016 MMR --- Series1: 30-Sep-2005; Series2: 06-Nov-2008 PCV --- Series1: 2004; Series2: 2004; Series3: 25-Feb-2005; Series4: 09-Dec-2005 Polio --- Series1: 2004; Series2: 25-Feb-2005; Series3: 03-Jun-2005; Series4: 06-Nov-2008 Tdap --- Series1: 10-Apr-2016 Varicella --- Series1: 17-Feb-2006; Series2: 06-Nov-2008 Current Meds 1. Amoxicillin-Pot Clavulanate 600-42.9 MG/5ML Oral Suspension Reconstituted; TAKE 7.1 ML Twice daily; Therapy: 54Qhf9452 to (Evaluate:03Bnn6678) Recorded Dispense: 0 Days ; #: Sufficient X 75 ML Bottle; Refill: 0; KAYA = N; Record; Last Updated By: Essie Soto; 02/11/2018 4:46:30 PM 2. Fluticasone Propionate 50 MCG/ACT Nasal Suspension; USE 1 SPRAY IN EACH NOSTRIL TWICE DAILY; Therapy: 52Mbz3407 to (Evaluate:24Pvb6508) Recorded Dispense: 90 Days ; #:1 X 16 GM Bottle; Refill: 0; KAYA = N; Record; Last Updated By: Essie Soto; 02/11/2018 4:46:30 PM 3. ProAir HFA 108 (90 Base) MCG/ACT Inhalation Aerosol Solution; INHALE 1 TO 2 PUFFS BY MOUTH EVERY 4 HOURS NEEDED; Therapy: 97Teg4087 to (Evaluate:47Akr2351) Requested for: 78Gyp1480; Last Rx:[id number] Ordered Rx By: Sharath Lal; Dispense: 16 Days ; #:8.5 Inhaler; Refill: 0; For: Asthma, cough variant; KAYA = N; Verified Transmission to [id number]; Last Updated By: Tatiana Bradley; 05/14/2017 8:58:23 AM 4. RaNITidine HCl - 75 MG/5ML Oral Syrup; GIVE 10 MLS BY MOUTH AT BEDTIME; Therapy: 05Jul2017 to (Evaluate:22Amz8501) Requested for: 50Llt9686; Last Rx:05Jul2017 Ordered Rx By: Sharath Lal; Dispense: 47 Days ; #:473 Milliliter; Refill: 2; For: Chronic GERD; KAYA = N; Verified Transmission to [facility] #6926; Last Updated By: [employer]; 07/05/2017 12:16:46 PM Allergies 1. sulfa Vomiting; Updated By: Essie Soto; 02/11/2018 4:46:30 PM Vitals Recorded: 54Kuu9017 04:42PM Temperature 97.8 F Heart Rate 80 Respiration 20 Systolic 98 Diastolic 52 O2 Saturation 98 Weight 85 lb 2 oz 2-20 Weight Percentile 11 % Assessment 1. Drug reaction (995.20) (T88.7XXA) 2. Right acute otitis media (382.9) (H66.91) 3. Situational anxiety (300.09) (F41.8) Plan Drug reaction, Right acute otitis media 1. PrednisoLONE Sodium Phosphate 15 MG/5ML Oral Solution; 10 ml po every morning x6 days Rx By: Sharath Lal; Dispense: 0 Days ; #:60 Milliliter; Refill: 0; For: Drug reaction, Rightacute otitis media; KAYA = N; Verified Transmission to [facility] #6926; Last Updated By: [employer]; 02/11/2018 5:09:08 PM Right acute otitis media 2. Cefdinir 250 MG/5ML Oral Suspension Reconstituted; GIVE 10.75 ML DAILY X 7 DAYS Rx By: Sharath Lal; Dispense: 0 Days ; #:80 Milliliter; Refill: 0; For: Right acute otitis media; KAYA = N; Verified Transmission to [facility] #6926; Last Updated By: [employer]; 02/11/2018 5:09:10 PM THANK YOU FOR YOUR VISIT USE MEDICATIONS DIRECTED. YOU MAY USE DIPHENHYDRAMINE, ORAL OR TOPICAL FOR COMFORT CALL WITH ANY CONCERNS. Signatures Electronically signed by : Sharath Lal M.D.; Feb 13 2018 4:36PM CONTROL PANEL OPERATOR (Author) documented in this encounter Plan of Treatment Upcoming Encounters Date Type Department Care Team (Latest Contact Info) Description 09/24/2024 7:30 PM CONTROL PANEL OPERATOR Appointment [facility] Sleep Lab [address] [place] [address] Nelly Guerrero, FURNACE CHARGER [address] [place] [address] 09/25/2024 7:00 AM CONTROL PANEL OPERATOR Appointment [facility] Sleep Lab [address] [place] [address] Nelly Guerrero, FURNACE CHARGER [address] [place] [address] 11/01/2024 9:10 AM CONTROL PANEL OPERATOR Hospital Encounter [facility] Surgery [address] [place] [address] Chin Carcamo MD [address] [address] 11/01/2024 9:10 AM CONTROL PANEL OPERATOR - 11/01/2024 9:40 AM CONTROL PANEL OPERATOR Surgery [facility] Surgery [address] [place] [address] Chin Carcamo MD 3 [facility] [address] [place] [address] COLONOSCOPY DIAGNOSTIC WITH/WITHOUT SPECIMEN BRUSH/WASH Scheduled Procedures Name Priority Associated Diagnoses Date/Ti me COLONOSCOPY DIAGNOSTIC WITH/WITHOUT SPECIMEN BRUSH/WASH Hematochezia Chronic diarrhea 11/01/2024 9:10 AM CONTROL PANEL OPERATOR documented as of this encounter Visit Diagnoses Not on filedocumented in this encounter
--- OUTSIDE RECORDS SUMMARY | 2024-09-23 12:26 | XMS_ITS | Encounter Summary ---
Author Organization [facility] Address [address] [place] [address]. [place] [address] [place] [address] Care Team Providers Care Planer Operator / Grader Name Role Phone Unavailable Primary Care Provider Unavailabl e Encounter Details Date Type Department Care Team (Late st Contact Info) Description 05/19/2016 Abstract [facility] Medical Group Family & Internal Medicine [facility] [address] [place] [address] Esa Williamson MD [address] [place] [address] Social History Tobacco Use Types Packs/Day Years Used Date Smoking Tobacco: Never Assessed Sex and Gender Information Value Date Recorded Sex Assigned at Not on file Legal Sex Male 7:45 PM CDT Gender Identity Not on file Sexual Orientation Not on file documented as of this encounter Last Filed Vital Signs Vital Sign Reading Time Taken Comments Blood Pressure 96/60 05/19/2016 3:18 PM CDT Pulse 76 05/19/2016 3:18 PM CDT Temperature - - Respiratory Rate - - Oxygen Saturation - - Inhaled Oxygen Concentration - - Weight 27.2 kg (60 lb) 05/19/2016 3:18 PM CDT Height 135.9 cm (4' 5.5 ) 05/19/2016 3:18 PM CDT Body Mass Index 14.74 05/19/2016 3:18 PM CDT Body Mass Index Percentile 4.18% 05/19/2016 3:1 8 PM CDT Growth Chart: CDC (Boys, 2-2 0 Years) documented in this encounter Progress Notes * Esa Williamson MD - 05/19/2016 3:30 PM CDT Reason For Visit Reason For Visit: Acute Visit Chief Complaint 1. Cough 2. Skin Lesions A few weeks ago noticed a red raised area to left upper back. Now area is more red and raised. Slight drainage once. Also has a harsh non-productive cough. Fever last evening. History of Present Illness Skin Lesions: Willi Nelson presents with complaints of gradual onset of mild skin lesions, described as painful, raised and red. Associated symptoms include single skin lesion and fever, but no chills, no nausea, no bleeding, nonumbness, no shortness of breath, no vomiting and no wheezing. Cough, 3-19 years: Willi Nelson presents with complaints of cough. Associated symptoms include fever and stuffy nose, but no wheezing, no vomiting, no dyspnea and no sore throat. Review of Systems Constitutional: fever and chills, but not feeling poorly and not feeling tired. ENT: nasal discharge. Cardiovascular: no chest pain and no palpitations. Respiratory: cough. Gastrointestinal: no abdominal pain. Active Problems 1. Asthma, cough variant (493.82) (J45.991) Past Medical History 1. History of Need for amnvuupueg-brpseyi-inztfxzux (Tdap) vaccine (V06.1) (Z23) 2. History of Need for meningococcal vaccination (V03.89) (Z23) 3. History of School physical exam (V70.5) (Z02.0) 4. History of Screening for hematuria or proteinuria (V82.9) (Z13.89) Surgical History 1. History of Tonsillectomy Family History Mother 1. No pertinent family history Social History No social history was elicited today. Immunizations Meningococcal --- Series1: 15Sbs5116 (11Y) Tdap --- Series1: 98Ucr1527 (11Y) Current Meds 1. Albuterol Sulfate HFA 108 MCG/ACT AERS; Therapy: (Recorded:17Fpk7660) to Recorded Dispense: 0 Days ; #: Sufficient AERS; Refill: 0; KAYA = N; Record; Last Updated By: Cosmo Su;04/10/2016 9:35:19 AM Allergies 1. sulfa Recorded By: Cosmo Su; 04/10/2016 9:35:19 AM Vitals Recorded: 19May2016 03:18PM Temperature 98.2 F Heart Rate 76 Respiration 16 Systolic 96 Diastolic 60 O2 Saturation 98 Height 4 ft 5.5 in 2-20 Stature Percentile 5 % Weight 60 lb 2-20 Weight Percentile 1 % BMI Calculated 14.74 BMI Percentile 4 % BSA Calculated 1.03 Physical Exam Constitutional - General appearance: No acute distress, well appearing and well nourished. Ears, Nose, Mouth, and Throat - Otoscopic examination: Tympanic membranes meneses, translucent with good bony landmarks and light reflex. Canals patent without erythema. Oropharynx: Moist mucosa, normaltongue and tonsils without lesions. The tonsils were absent. Pulmonary - Respiratory effort: Normal respiratory rate and rhythm, no increased work of breathing.Auscultation of lungs: Clear bilaterally. Cardiovascular - Auscultation of heart: Regular rate and rhythm, normal S1 and S2, no murmur. Examination of extremities for edema and/or varicosities: Normal. Abdomen - Abdomen: Normal bowel sounds, soft, non-tender, no masses. Skin - solitary raised lesion left mid back. about 2-3mm head, about 1-2cm in surrounding erythema. Assessment 1. Furuncle of back [any part, except buttock] (680.2) (L02.222) 2. Acute upper respiratory infection (465.9) (J06.9) Plan Acute upper respiratory infection 1. Follow-up PRN Outpatient Follow-up Status: Complete Done: 19May2016 04:00PM Ordered; For: Acute upper respiratory infection; Ordered By: Esa Williamson Performed: Due: 44Twq2047 Furuncle of back [any part, except buttock] 2. Cephalexin 250 MG/5ML Oral Suspension Reconstituted; TAKE 5 ML 4 TIMES DAILY Rx By: Esa Williamson; Dispense: 10 Days ; #:1 X 200 ML Bottle; Refill: 0; For: Furuncle of back [any part, except buttock]; KAYA = N; Verified Transmission to [id number]; Msg to Pharmacy:SIG calculated with weight: 27.22 kg and a target dose of 50 mg/kg/day; Last Updated By: Tatiana Bradley; 05/19/2016 3:53:19 PM 3. Wound Culture / Stain; Status:In Progress - Specimen/Data Collected; Done: 99Cdi9755 [facility]: [facility]; Due:46Exk8726; Last Updated By:Tri Collins; 05/19/2016 3:55:59 PM;Ordered; For:Furuncle of back [any part, except buttock]; Ordered By:Esa Williamson; Source: : Wound Discussion/Summary 1. Furuncle. Present on back, some worsening in symptoms recently, mild drainage previously. Discussed options, able to unroof, some discharge sent for culture. With mild nature of lesion, no risk for MRSA, will start Keflex today. Discussed warm compress, keep clean and dry, covered. Discussed natural course and warning signs. Fu prn. 2. URI. Lungs clear, tonsils absent, afebrile with normal vitals today. Likely viral in nature. Continue to monitor. Discussed natural course and warning signs. FU prn. Signatures Electronically signed by : Esa Williamson M.D.; May 19 2016 4:00PM POWER ELECTRONICS ENGINEER (Author) documented in this encounter Plan of Treatment Upcoming Encounters Date Type Department Care Team (Latest Contact Info) Description 09/24/2024 7:30 PM POWER ELECTRONICS ENGINEER Appointment [facility] Sleep Lab [address] [place] [address] Nelly Guerrero NP [address] [place] [address] 09/25/2024 7:00 AM POWER ELECTRONICS ENGINEER Appointment [facility] Sleep Lab [address] [place] [address] Nelly Guerrero NP [address] [place] [address] 11/01/2024 9:10 AM POWER ELECTRONICS ENGINEER Hospital Encounter [facility] Surgery [address] [place] [address] Chin Carcamo MD [address] [address] 11/01/2024 9:10 AM POWER ELECTRONICS ENGINEER - 11/01/2024 9:40 AM POWER ELECTRONICS ENGINEER Surgery [facility] Surgery [address] [place] [address] Chin Carcamo MD [address] [address] COLONOSCOPY DIAGNOSTIC WITH/WITHOUT SPECIMEN BRUSH/WASH Scheduled Procedures Name Priority Associated Diagnoses Date/Ti mt COLONOSCOPY DIAGNOSTIC WITH/WITHOUT SPECIMEN BRUSH/WASH Hematochezia Chronic diarrhea 11/01/2024 9:10 AM POWER ELECTRONICS ENGINEER documented as of this encounter Visit Diagnoses Not on filedocumented in this encounter
--- OUTSIDE RECORDS SUMMARY | 2024-09-23 12:27 | XMS_ITS | Encounter Summary ---
Author Organization [facility] Address [address] [place] [address]. [place] [address] [place] [address] Care Team Providers Care Certified Nurse Name Role Phone Unavailable Primary Care Provider Unavailabl e Encounter Details Date Type Department Care Team (Late st Contact Info) Description 05/29/2008 Abstract [facility] [address] [place] [address] Aleah Adames MD [address] FLO[address]-CLINIC [address] [place] [address] Social History Tobacco Use Types Packs/Day Years [...] Contact Info) Description 09/24/2024 7:30 PM FINANCIAL COORDINATOR Appointment [facility] Sleep Lab [address] [place] [address] Nelly Guerrero, CREATIVE LEAD [address] [place], [place] [phone] 09/25/2024 7:00 AM FINANCIAL COORDINATOR Appointment [facility] Sleep Lab [address] [place] [address] Nelly Guerrero, CREATIVE LEAD [address] [place], [place] [phone] 11/01/2024 9:10 AM FINANCIAL COORDINATOR Hospital Encounter [facility] [address] [place] [address] Chin Carcamo MD [address] [place] [address] [place] [address] 11/01/2024 9:10 AM FINANCIAL COORDINATOR - 11/01/2024 9:40 AM FINANCIAL COORDINATOR Surgery [facility] [address] [place] [address] Chin Carcamo MD [address] [address] COLONOSCOPY DIAGNOSTIC WITH/WITHOUT SPECIMEN BRUSH/WASH Scheduled Procedures Name Priority Associated Diagnoses Date/Ti me COLONOSCOPY DIAGNOSTIC WITH/WITHOUT SPECIMEN BRUSH/WASH Hematochezia Chronic diarrhea 11/01/2024 9:10 AM FINANCIAL COORDINATOR documented as of this encounter Visit Diagnoses Not on filedocumented in this encounter
--- OUTSIDE RECORDS SUMMARY | 2024-09-23 12:27 | XMS_ITS | Encounter Summary ---
Author Organization [facility] Address [address] [place] [address]. [place] [address] [place] [address] Care Team Providers Care Paratransit Driver Name Role Phone Unavailable Primary Care Provider Unavailabl e Encounter Details Date Type Department Care Team (Late st Contact Info) Description 01/31/2009 Abstract [facility] [address] [place] [address] Aleah Adames MD [address] F[address]-CLINIC [address] [place] [address] Social History Tobacco Use Types Packs/Day Years [...] (Latest Contact Info) Description 09/24/2024 7:30 PM TITLE COORDINATOR Appointment [facility] Sleep Lab [address] [place] [address] Nelly Guerrero, WINDOWS SYSTEMS ENGINEER [address] [place], [place] [address] 09/25/2024 7:00 AM TITLE COORDINATOR Appointment [facility] Sleep Lab [address] [place] [address] Nelly Guerrero, WINDOWS SYSTEMS ENGINEER [address] [place], [place] [phone] 11/01/2024 9:10 AM TITLE COORDINATOR Hospital Encounter [facility] [address] [place] [address] Chin Carcamo MD [address] [address] 11/01/2024 9:10 AM TITLE COORDINATOR - 11/01/2024 9:40 AM TITLE COORDINATOR Surgery [facility] [address] [place] [address] Chin Carcamo MD [address] [address] COLONOSCOPY DIAGNOSTIC WITH/WITHOUT SPECIMEN BRUSH/WASH Scheduled Procedures Name Priority Associated Diagnoses Date/Ti me COLONOSCOPY DIAGNOSTIC WITH/WITHOUT SPECIMEN BRUSH/WASH Hematochezia Chronic diarrhea 11/01/2024 9:10 AM TITLE COORDINATOR documented as of this encounter Visit Diagnoses Diagnosis Streptococcal sore throat Hematochezia Blood in stool Chronic diarrhea Diarrhea documented in this encounter
--- OUTSIDE RECORDS SUMMARY | 2024-09-23 12:27 | XMS_ITS | Encounter Summary ---
Author Organization [facility] Address [address] [place] [address]. [place] [address] [place] [address] Care Team Providers Care Asbestos Siding Installer Name Role Phone Unavailable Primary Care Provider Unavailabl e Encounter Details Date Type Department Care Team (Late st Contact Info) Description 05/31/2009 Abstract [facility] [address] [place], [place] [phone] Shena Logan MD Social History Tobacco Use Types Packs/Day [...] (Latest Contact Info) Description 09/24/2024 7:30 PM CONVEX GRINDER OPERATOR Appointment [facility] Sleep Lab [address] [place] [address] Nelly Guerrero NP [address] [place] [address] 09/25/2024 7:00 AM CONVEX GRINDER OPERATOR Appointment [facility] Sleep Lab [address] [place] [address] Nelly Guerrero NP [address] [place] [address] 11/01/2024 9:10 AM CONVEX GRINDER OPERATOR Hospital Encounter [facility] Surgery [address] [place] [address] Chin Carcamo MD [address] [address] 11/01/2024 9:10 AM CONVEX GRINDER OPERATOR - 11/01/2024 9:40 AM CONVEX GRINDER OPERATOR Surgery [facility] Surgery [address] [place] [address] Chin Carcamo MD [address] [address] COLONOSCOPY DIAGNOSTIC WITH/WITHOUT SPECIMEN BRUSH/WASH Scheduled Procedures Name Priority Associated Diagnoses Date/Ti me COLONOSCOPY DIAGNOSTIC WITH/WITHOUT SPECIMEN BRUSH/WASH Hematochezia Chronic diarrhea 11/01/2024 9:10 AM CONVEX GRINDER OPERATOR documented as of this encounter Visit Diagnoses Diagnosis Hypertrophy of tonsils alone Hematochezia Blood in stool Chronic diarrhea Diarrhea documented in this encounter
--- OUTSIDE RECORDS SUMMARY | 2024-09-23 12:27 | XMS_ITS | Encounter Summary ---
Author Organization [facility] Address [address] [place] [address]. [place], [place] [address] [place] [address] Care Team Providers Care Certified Flex Endoscope Reprocessor Name Role Phone Unavailable Primary Care Provider Unavailabl e Encounter Details Date Type Department Care Team (Late st Contact Info) Description 02/24/2010 Emergency [facility] [address] [facility] [place] [address] Social History Tobacco Use Types Packs/Day Years [...] (Latest Contact Info) Description 09/24/2024 7:30 PM VALUE ANALYSIS COORDINATOR Appointment [facility] Lab [address] [place] [address] Nelly Guerrero SPIRAL WINDER [address] [place] [address] 09/25/2024 7:00 AM VALUE ANALYSIS COORDINATOR Appointment [facility] Sleep Lab [address] [place] [address] Nelly Guerrero NP [address] [place] [address] 11/01/2024 9:10 AM VALUE ANALYSIS COORDINATOR Hospital Encounter [facility] [address] [place] [address] Chin Carcamo MD [address] [address] 11/01/2024 9:10 AM VALUE ANALYSIS COORDINATOR - 11/01/2024 9:40 AM VALUE ANALYSIS COORDINATOR Surgery [facility] Surgery [address] [place] [address] Chin Carcamo MD [address] [address] COLONOSCOPY DIAGNOSTIC WITH/WITHOUT SPECIMEN BRUSH/WASH Scheduled Procedures Name Priority Associated Diagnoses Date/Ti me COLONOSCOPY DIAGNOSTIC WITH/WITHOUT SPECIMEN BRUSH/WASH Hematochezia Chronic diarrhea 11/01/2024 9:10 AM VALUE ANALYSIS COORDINATOR documented as of this encounter Visit Diagnoses Diagnosis Otitis media Unspecified otitis media Hematochezia Blood in stool Chronic diarrhea Diarrhea documented in this encounter
--- OUTSIDE RECORDS SUMMARY | 2024-09-23 12:27 | XMS_ITS | Encounter Summary ---
Author Organization [facility] Address [address] [place] [address]. [place] [address] [place] [address] Care Team Providers Care Block Mason Name Role Phone Unavailable Primary Care Provider Unavailabl e Encounter Details Date Type Department Care Team (Late st Contact Info) Description 07/02/2009 Abstract [facility] [address] [place], [place] [id number] Social History Tobacco Use Types Packs/Day Years [...] (Latest Contact Info) Description 09/24/2024 7:30 PM TRANSIT DRIVER Appointment [facility] Lab [address] [place] [address] Nelly Guerrero BUSINESS EDITOR 117[address] [place] [address] 09/25/2024 7:00 AM TRANSIT DRIVER Appointment [facility] Lab [address] [place] [address] Nelly Guerrero NP 1179 [place] [address] 11/01/2024 9:10 AM TRANSIT DRIVER Hospital Encounter [facility] [address] [place] [address] Chin Carcamo MD [address] [address] 11/01/2024 9:10 AM TRANSIT DRIVER - 11/01/2024 9:40 AM TRANSIT DRIVER Surgery [facility] [address] [place] [address] Chin Carcamo MD [address] [address] COLONOSCOPY DIAGNOSTIC WITH/WITHOUT SPECIMEN BRUSH/WASH Scheduled Procedures Name Priority Associated Diagnoses Date/Ti me COLONOSCOPY DIAGNOSTIC WITH/WITHOUT SPECIMEN BRUSH/WASH Hematochezia Chronic diarrhea 11/01/2024 9:10 AM TRANSIT DRIVER documented as of this encounter Visit Diagnoses Diagnosis Abdominal pain Abdominal pain, unspecified site Hematochezia Blood in stool Chronic diarrhea Diarrhea documented in this encounter
--- OUTSIDE RECORDS SUMMARY | 2024-09-23 12:27 | XMS_ITS | Encounter Summary ---
Author Organization [facility] Address [address] [place] [address]. [place] [address] [place] [address] Care Team Providers Care Actuarial Assistant Name Role Phone Unavailable Primary Care Provider Unavailabl e Encounter Details Date Type Department Care Team (Late st Contact Info) Description 07/10/2009 Abstract [facility] [address] [place] [address] Social History Tobacco Use Types Packs/Day Years [...] (Latest Contact Info) Description 09/24/2024 7:30 PM VARNISH SUPERVISOR Appointment [facility] Sleep Lab [address] [place] [address] Nelly Guerrero FRIEND OF THE COURT [address] [place] [address] 09/25/2024 7:00 AM VARNISH SUPERVISOR Appointment [facility] Sleep Lab [address] [place] [address] Nelly Guerrero NP 1179 [place] [address] 11/01/2024 9:10 AM VARNISH SUPERVISOR Hospital Encounter [facility] [address] [place] [address] Chin Carcamo MD [address] [address] 11/01/2024 9:10 AM VARNISH SUPERVISOR - 11/01/2024 9:40 AM VARNISH SUPERVISOR Surgery [facility] Surgery [address] [place] [address] Chin Carcamo MD [address] [address] COLONOSCOPY DIAGNOSTIC WITH/WITHOUT SPECIMEN BRUSH/WASH Scheduled Procedures Name Priority Associated Diagnoses Date/Ti me COLONOSCOPY DIAGNOSTIC WITH/WITHOUT SPECIMEN BRUSH/WASH Hematochezia Chronic diarrhea 11/01/2024 9:10 AM VARNISH SUPERVISOR documented as of this encounter Visit Diagnoses Diagnosis Abdominal pain Abdominal pain, unspecified site Hematochezia Blood in stool Chronic diarrhea Diarrhea documented in this encounter
--- OUTSIDE RECORDS SUMMARY | 2024-09-23 12:27 | XMS_ITS | Encounter Summary ---
Author Organization [facility] Address [address] [place] [address]. [place] [address] [place] [address] Care Team Providers Care Health And Safety Director Name Role Phone Unavailable Primary Care Provider Unavailabl e Encounter Details Date Type Department Care Team (Late st Contact Info) Description 06/07/2009 Abstract [facility] [address] [facility] [place] [address] Shena Logan MD Social History Tobacco Use [...] (Latest Contact Info) Description 09/24/2024 7:30 PM TELEGRAPH MESSENGER Appointment [facility] Sleep Lab [address] [place] [address] Nelly Guerrero NP 1179 [place] [address] 09/25/2024 7:00 AM TELEGRAPH MESSENGER Appointment [facility] Sleep Lab [address] [place] [address] Nelly Guerrero NP [address] [place] [address] 11/01/2024 9:10 AM TELEGRAPH MESSENGER Hospital Encounter [facility] Surgery [address] [place] [address] Chin Carcamo MD [address] [address] 11/01/2024 9:10 AM TELEGRAPH MESSENGER - 11/01/2024 9:40 AM TELEGRAPH MESSENGER Surgery [facility] Surgery [address] [place] [address] Chin Carcamo MD [address] [address] COLONOSCOPY DIAGNOSTIC WITH/WITHOUT SPECIMEN BRUSH/WASH Scheduled Procedures Name Priority Associated Diagnoses Date/Ti me COLONOSCOPY DIAGNOSTIC WITH/WITHOUT SPECIMEN BRUSH/WASH Hematochezia Chronic diarrhea 11/01/2024 9:10 AM TELEGRAPH MESSENGER documented as of this encounter Visit Diagnoses Diagnosis Hypertrophy of tonsils alone Hematochezia Blood in stool Chronic diarrhea Diarrhea documented in this encounter
--- OUTSIDE RECORDS SUMMARY | 2024-09-23 12:27 | XMS_ITS | Encounter Summary ---
Author Organization [facility] Address [address] [place] [address]. [place] [address] [place] [address] Care Team Providers Care Refrigeration Houseman Name Role Phone Unavailable Primary Care Provider Unavailabl e Encounter Details Date Type Department Care Team (Late st Contact Info) Description 05/05/2008 Abstract [facility] [address] [place] [address] Aleah Adames MD [address] F[address]-CLINIC [address] [place] [address] Social History Tobacco Use Types Packs/Day Years [...] (Latest Contact Info) Description 09/24/2024 7:30 PM FRUIT CHECKER Appointment [facility] Sleep Lab [address] [place] [address] Nelly Guerrero, SEWER SEPARATION DESIGNER 1179 [place], [place] [phone] 09/25/2024 7:00 AM FRUIT CHECKER Appointment [facility] Sleep Lab [address] [place] [address] Nelly Guerrero, SEWER SEPARATION DESIGNER 117[address] [place], [place] [phone] 11/01/2024 9:10 AM FRUIT CHECKER Hospital Encounter [facility] [address] [place] [address] Chin Carcamo MD [address] [place] [address] [place] [address] 11/01/2024 9:10 AM FRUIT CHECKER - 11/01/2024 9:40 AM FRUIT CHECKER Surgery [facility] [address] [place] [address] Chin Carcamo MD [address] [address] COLONOSCOPY DIAGNOSTIC WITH/WITHOUT SPECIMEN BRUSH/WASH Scheduled Procedures Name Priority Associated Diagnoses Date/Ti me COLONOSCOPY DIAGNOSTIC WITH/WITHOUT SPECIMEN BRUSH/WASH Hematochezia Chronic diarrhea 11/01/2024 9:10 AM FRUIT CHECKER documented as of this encounter Visit Diagnoses Not on filedocumented in this encounter
--- OUTSIDE RECORDS SUMMARY | 2024-09-23 12:27 | XMS_ITS | Encounter Summary ---
Author Organization [facility] Address [address] [place] [address]. [place] [address] [place] [address] Care Team Providers Care Apparel Manufacture Instructor Name Role Phone Unavailable Primary Care Provider Unavailabl e Encounter Details Date Type Department Care Team (Late st Contact Info) Description 09/20/2007 Emergency [facility] [address] [facility] [address] , Matt Loya MD Social History Tobacco [...] (Latest Contact Info) Description 09/24/2024 7:30 PM DESIGNER WRITER Appointment [facility] Sleep Lab [address] [place] [address] Nelly Guerrero NP 1179 [place] [address] 09/25/2024 7:00 AM DESIGNER WRITER Appointment [facility] Lab [address] [place] [address] Nelly Guerrero NP 1179 [place] [address] 11/01/2024 9:10 AM DESIGNER WRITER Hospital Encounter [facility] [address] [place] [address] Chin Carcamo MD [address] [address] 11/01/2024 9:10 AM DESIGNER WRITER - 11/01/2024 9:40 AM DESIGNER WRITER Surgery [facility] [address] [place] [address] Chin Carcamo MD [address] 47[address] COLONOSCOPY DIAGNOSTIC WITH/WITHOUT SPECIMEN BRUSH/WASH Scheduled Procedures Name Priority Associated Diagnoses Date/Ti me COLONOSCOPY DIAGNOSTIC WITH/WITHOUT SPECIMEN BRUSH/WASH Hematochezia Chronic diarrhea 11/01/2024 9:10 AM DESIGNER WRITER documented as of this encounter Visit Diagnoses Not on filedocumented in this encounter
--- OUTSIDE RECORDS SUMMARY | 2024-09-23 12:27 | XMS_ITS | Encounter Summary ---
Author Organization [facility] Address [address] [place] [address]. [place] [address] [place] [address] Care Team Providers Care Black Top Paver Operator Name Role Phone Unavailable Primary Care Provider Unavailabl e Encounter Details Date Type Department Care Team (Late st Contact Info) Description 11/06/2008 Abstract [facility] [address] [place] [address] Aleah Adames MD [address] F[address]-CLINIC [address] [place] [address] Social History Tobacco Use Types Packs/Day Years [...] (Latest Contact Info) Description 09/24/2024 7:30 PM BUSINESS OWNER/ENGINEER Appointment [facility] Sleep Lab [address] [place] [address] Nelly Guerrero, COKE INSPECTOR 1179 [place], [place] [phone] 09/25/2024 7:00 AM BUSINESS OWNER/ENGINEER Appointment [facility] Sleep Lab [address] [place] [address] Nelly Guerrero, COKE INSPECTOR 1175 [place], [place] [phone] 11/01/2024 9:10 AM BUSINESS OWNER/ENGINEER Hospital Encounter [facility] [address] [place] [address] Chin Carcamo MD [address] [address] 11/01/2024 9:10 AM BUSINESS OWNER/ENGINEER - 11/01/2024 9:40 AM BUSINESS OWNER/ENGINEER Surgery [facility] [address] [place] [address] Chin Carcamo MD [address] [address] COLONOSCOPY DIAGNOSTIC WITH/WITHOUT SPECIMEN BRUSH/WASH Scheduled Procedures Name Priority Associated Diagnoses Date/Ti me COLONOSCOPY DIAGNOSTIC WITH/WITHOUT SPECIMEN BRUSH/WASH Hematochezia Chronic diarrhea 11/01/2024 9:10 AM BUSINESS OWNER/ENGINEER documented as of this encounter Visit Diagnoses Diagnosis Laboratory examination Laboratory examination, unspecified Hematochezia Blood in stool Chronic diarrhea Diarrhea documented in this encounter
--- OUTSIDE RECORDS SUMMARY | 2024-09-23 12:27 | XMS_ITS | Encounter Summary ---
Author Organization [facility] Address [address] [place] [address]. [place] [address] [place] [address] Care Team Providers Care Mold Cooler Name Role Phone Unavailable Primary Care Provider Unavailabl e Encounter Details Date Type Department Care Team (Late st Contact Info) Description 05/13/2009 Abstract [facility] [address] [facility] [place] [address] Shena Logan MD Social History Tobacco [...] (Latest Contact Info) Description 09/24/2024 7:30 PM OPERATOR ASSISTANT I CEMENTING Appointment [facility] Sleep Lab [address] [place] [address] Nelly Guerrero NP 1179 [place] [address] 09/25/2024 7:00 AM OPERATOR ASSISTANT I CEMENTING Appointment [facility] Lab [address] [place] [address] Nelly Guerrero NP 1179 [place] [address] 11/01/2024 9:10 AM OPERATOR ASSISTANT I CEMENTING Hospital Encounter [facility] Surgery [address] [place] [address] Chin Carcamo MD [address] [address] 11/01/2024 9:10 AM OPERATOR ASSISTANT I CEMENTING - 11/01/2024 9:40 AM OPERATOR ASSISTANT I CEMENTING Surgery [facility] Surgery [address] [place] [address] Chin Carcamo MD [address] [address] COLONOSCOPY DIAGNOSTIC WITH/WITHOUT SPECIMEN BRUSH/WASH Scheduled Procedures Name Priority Associated Diagnoses Date/Ti me COLONOSCOPY DIAGNOSTIC WITH/WITHOUT SPECIMEN BRUSH/WASH Hematochezia Chronic diarrhea 11/01/2024 9:10 AM OPERATOR ASSISTANT I CEMENTING documented as of this encounter Visit Diagnoses Diagnosis Otitis media Unspecified otitis media Hematochezia Blood in stool Chronic diarrhea Diarrhea documented in this encounter
--- OUTSIDE RECORDS SUMMARY | 2024-09-23 12:27 | XMS_ITS | Encounter Summary ---
Author Organization [facility] Address [address] [place] [address]. [place], [place] [address] [place] [address] Care Team Providers Care Ultrasound Applications Specialist Name Role Phone Unavailable Primary Care Provider Unavailabl e Encounter Details Date Type Department Care Team (Late st Contact Info) Description 11/16/2006 Abstract [facility] [address] [facility] [place] [address] Social History Tobacco Use Types Packs/Day [...] Contact Info) Description 09/24/2024 7:30 PM MANAGER MEMBERSHIP Appointment [facility] Sleep Lab [address] [place] [address] Nelly Guerrero PREVENTIVE MEDICINE OFFICER 1179 [place] [address] 09/25/2024 7:00 AM MANAGER MEMBERSHIP Appointment [facility] Sleep Lab [address] [place] [address] Nelly Guerrero NP 1179 [place] [address] 11/01/2024 9:10 AM MANAGER MEMBERSHIP Hospital Encounter [facility] [address] [place] [address] Chin Carcamo MD [address] [address] 11/01/2024 9:10 AM MANAGER MEMBERSHIP - 11/01/2024 9:40 AM MANAGER MEMBERSHIP Surgery [facility] Surgery [address] [place] [address] Chin Carcamo MD [address] [address] COLONOSCOPY DIAGNOSTIC WITH/WITHOUT SPECIMEN BRUSH/WASH Scheduled Procedures Name Priority Associated Diagnoses Date/Ti me COLONOSCOPY DIAGNOSTIC WITH/WITHOUT SPECIMEN BRUSH/WASH Hematochezia Chronic diarrhea 11/01/2024 9:10 AM MANAGER MEMBERSHIP documented as of this encounter Visit Diagnoses Not on filedocumented in this encounter
--- OUTSIDE RECORDS SUMMARY | 2024-09-23 12:27 | XMS_ITS | Encounter Summary ---
Author Organization [facility] Address [address] [place] [address]. [place], [place] [address] [place] [address] Care Team Providers Care X Ray Tech Name Role Phone Unavailable Primary Care Provider Unavailabl e Encounter Details Date Type Department Care Team (Late st Contact Info) Description 03/19/2008 Abstract [facility] [address] [facility] [place] [place] [address] , Matt Loya MD Social History [...] (Latest Contact Info) Description 09/24/2024 7:30 PM ARCHITECTURE INTERN Appointment [facility] Sleep Lab [address] [place] [address] Nelly Guerrero NP 1179 [place] [address] 09/25/2024 7:00 AM ARCHITECTURE INTERN Appointment [facility] Sleep Lab [address] [place] [address] Nelly Guerrero NP 1179 [place] [address] 11/01/2024 9:10 AM ARCHITECTURE INTERN Hospital Encounter [facility] [address] [place] [address] Chin Carcamo MD [address] [address] 11/01/2024 9:10 AM ARCHITECTURE INTERN - 11/01/2024 9:40 AM ARCHITECTURE INTERN Surgery [facility] [address] [place] [address] Chin Carcamo MD [address] [address] COLONOSCOPY DIAGNOSTIC WITH/WITHOUT SPECIMEN BRUSH/WASH Scheduled Procedures Name Priority Associated Diagnoses Date/Ti me COLONOSCOPY DIAGNOSTIC WITH/WITHOUT SPECIMEN BRUSH/WASH Hematochezia Chronic diarrhea 11/01/2024 9:10 AM ARCHITECTURE INTERN documented as of this encounter Visit Diagnoses Not on filedocumented in this encounter
--- OUTSIDE RECORDS SUMMARY | 2024-09-23 12:27 | XMS_ITS | Encounter Summary ---
Author Organization [facility] Address [address] [place] [address]. [place] [address] [place] [address] Care Team Providers Care Deputy Director Of Public Works Name Role Phone Unavailable Primary Care Provider Unavailabl e Encounter Details Date Type Department Care Team (Late st Contact Info) Description 09/24/2008 Abstract [facility] [address] [place] [address] Katelynn Asher MD Social History Tobacco Use [...] (Latest Contact Info) Description 09/24/2024 7:30 PM MARINE ELECTRONICS TECHNICIAN Appointment [facility] Sleep Lab [address] [place] [address] Nelly Guerrero NP 1179 [place] [address] 09/25/2024 7:00 AM MARINE ELECTRONICS TECHNICIAN Appointment [facility] Sleep Lab [address] [place] [address] Nelly Guerrero NP 1179 [place] [address] 11/01/2024 9:10 AM MARINE ELECTRONICS TECHNICIAN Hospital Encounter [facility] [address] [place] [address] Chin Carcamo MD [address] [address] 11/01/2024 9:10 AM MARINE ELECTRONICS TECHNICIAN - 11/01/2024 9:40 AM MARINE ELECTRONICS TECHNICIAN Surgery [facility] [address] [place] [address] Chni Carcamo MD [address] [address] COLONOSCOPY DIAGNOSTIC WITH/WITHOUT SPECIMEN BRUSH/WASH Scheduled Procedures Name Priority Associated Diagnoses Date/Ti me COLONOSCOPY DIAGNOSTIC WITH/WITHOUT SPECIMEN BRUSH/WASH Hematochezia Chronic diarrhea 11/01/2024 9:10 AM MARINE ELECTRONICS TECHNICIAN documented as of this encounter Visit Diagnoses Diagnosis Streptococcal sore throat Hematochezia Blood in stool Chronic diarrhea Diarrhea documented in this encounter
--- OUTSIDE RECORDS SUMMARY | 2024-09-23 12:27 | XMS_ITS | Encounter Summary ---
Author Organization [facility] Address [address] [place] [address]. [place] [address] [place] [address] Care Team Providers Care National Recruiter Name Role Phone Unavailable Primary Care Provider Unavailabl e Encounter Details Date Type Department Care Team (Late st Contact Info) Description 02/13/2009 Emergency [facility] [address] [place], [place] [address] Glenna Hoang MD [address] [place] [address] Social History Tobacco Use Types Packs/Day Years [...] (Latest Contact Info) Description 09/24/2024 7:30 PM WELT SEWER Appointment [facility] Sleep Lab [address] [place] [address] Nelly Guerrero MECHANIC AND WELDER 1179 [place], [place] [phone] 09/25/2024 7:00 AM WELT SEWER Appointment [facility] Sleep Lab [address] [place] [address] Nelly Guerrero, MECHANIC AND WELDER 117[address] [place], [place] [phone] 11/01/2024 9:10 AM WELT SEWER Hospital Encounter [facility] [address] [place] [address] Chin Carcamo MD [address] [address] 11/01/2024 9:10 AM WELT SEWER - 11/01/2024 9:40 AM WELT SEWER Surgery [facility] [address] [place] [address] Chin Carcamo MD [address] [phone] COLONOSCOPY DIAGNOSTIC WITH/WITHOUT SPECIMEN BRUSH/WASH Scheduled Procedures Name Priority Associated Diagnoses Date/Ti me COLONOSCOPY DIAGNOSTIC WITH/WITHOUT SPECIMEN BRUSH/WASH Hematochezia Chronic diarrhea 11/01/2024 9:10 AM WELT SEWER documented as of this encounter Visit Diagnoses Diagnosis Injury of face and neck Hematochezia Blood in stool Chronic diarrhea Diarrhea documented in this encounter
--- OUTSIDE RECORDS SUMMARY | 2024-09-23 12:27 | XMS_ITS | Encounter Summary ---
Author Organization [facility] Address [address] [place] [address]. [place] [address] [place] [address] Care Team Providers Care Home Theater Experience Expert Name Role Phone Unavailable Primary Care Provider Unavailabl e Encounter Details Date Type Department Care Team (Late st Contact Info) Description 11/06/2008 Abstract [facility] [address] [place] [address] Aleah Adames MD [address]-CLINIC [address] [place] [address] Social History Tobacco Use Types Packs/Day Years [...] Contact Info) Description 09/24/2024 7:30 PM FISH EGG PACKER Appointment [facility] Sleep Lab [address] [place] [address] Nelly Guerrero, CARRIAGE OPERATOR 1179 [place], [place] [phone] 09/25/2024 7:00 AM FISH EGG PACKER Appointment [facility] Sleep Lab [address] [place] [address] Nelly Guerrero, CARRIAGE OPERATOR 1178 [place], [place] [phone] 11/01/2024 9:10 AM FISH EGG PACKER Hospital Encounter [facility] [address] [place] [address] Chin Carcamo MD [address] [address] 11/01/2024 9:10 AM FISH EGG PACKER - 11/01/2024 9:40 AM FISH EGG PACKER Surgery [facility] [address] [place] [address] Chin Carcamo MD [address] [address] COLONOSCOPY DIAGNOSTIC WITH/WITHOUT SPECIMEN BRUSH/WASH Scheduled Procedures Name Priority Associated Diagnoses Date/Ti me COLONOSCOPY DIAGNOSTIC WITH/WITHOUT SPECIMEN BRUSH/WASH Hematochezia Chronic diarrhea 11/01/2024 9:10 AM FISH EGG PACKER documented as of this encounter Visit Diagnoses Diagnosis Diarrhea Hematochezia Blood in stool Chronic diarrhea Diarrhea documented in this encounter
--- OUTSIDE RECORDS SUMMARY | 2024-09-23 12:27 | XMS_ITS | Encounter Summary ---
Author Organization [facility] Address [address] [place] [address]. [place], [place] [address] [place] [address] Care Team Providers Care Photoengraver Name Role Phone Unavailable Primary Care Provider Unavailabl e Encounter Details Date Type Department Care Team (Late st Contact Info) Description 01/05/2008 Abstract [facility] [address] [place] [facility] [place] [address] , Matt Loya MD Social History [...] Contact Info) Description 09/24/2024 7:30 PM FRUIT VENDOR Appointment [facility] Sleep Lab [address] [place] [address] Nelly Guerrero NP 1179 [place] [address] 09/25/2024 7:00 AM FRUIT VENDOR Appointment [facility] Sleep Lab [address] [place] [address] Nelly Guerrero NP 1179 [place] [address] 11/01/2024 9:10 AM FRUIT VENDOR Hospital Encounter [facility] [address] [place] [address] Chin Carcamo MD [address] [address] 11/01/2024 9:10 AM FRUIT VENDOR - 11/01/2024 9:40 AM FRUIT VENDOR Surgery [facility] [address] [place] [address] Chin Carcamo MD [address] 07[address] COLONOSCOPY DIAGNOSTIC WITH/WITHOUT SPECIMEN BRUSH/WASH Scheduled Procedures Name Priority Associated Diagnoses Date/Ti me COLONOSCOPY DIAGNOSTIC WITH/WITHOUT SPECIMEN BRUSH/WASH Hematochezia Chronic diarrhea 11/01/2024 9:10 AM FRUIT VENDOR documented as of this encounter Visit Diagnoses Not on filedocumented in this encounter
--- OUTSIDE RECORDS SUMMARY | 2024-09-23 12:27 | XMS_ITS | Encounter Summary ---
Author Organization [facility] Address [address] [place] [address]. [place], [place] [address] [place] [address] Care Team Providers Care Snuff Packing Machine Operator Name Role Phone Unavailable Primary Care Provider Unavailabl e Encounter Details Date Type Department Care Team (Late st Contact Info) Description 11/22/2006 Abstract [facility] [address] [facility] [address] Social History Tobacco Use Types Packs/Day [...] Contact Info) Description 09/24/2024 7:30 PM MANAGER OF NETWORK Appointment [facility] [address] [place] [address] Nelly Guerrero CENTRAL MELT SPECIALIST [address] [place] [address] 09/25/2024 7:00 AM MANAGER OF NETWORK Appointment [facility] [address] [place] [address] Nelly Guerrero NP [address] [place] [address] 11/01/2024 9:10 AM MANAGER OF NETWORK Hospital Encounter [facility] [address] [place] [address] Chin Carcamo MD [address] [address] 11/01/2024 9:10 AM MANAGER OF NETWORK - 11/01/2024 9:40 AM MANAGER OF NETWORK Surgery [facility] [id number] [place] [address] Chin Carcamo MD [address] [address] COLONOSCOPY DIAGNOSTIC WITH/WITHOUT SPECIMEN BRUSH/WASH Scheduled Procedures Name Priority Associated Diagnoses Date/Ti me COLONOSCOPY DIAGNOSTIC WITH/WITHOUT SPECIMEN BRUSH/WASH Hematochezia Chronic diarrhea 11/01/2024 9:10 AM MANAGER OF NETWORK documented as of this encounter Visit Diagnoses Not on filedocumented in this encounter
--- OUTSIDE RECORDS SUMMARY | 2024-09-23 12:27 | XMS_ITS | Encounter Summary ---
Author Organization [facility] Address [address] [place] [address]. [place] [address] [place] [address] Care Team Providers Care Enterprise Application Administrator Name Role Phone Unavailable Primary Care Provider Unavailabl e Encounter Details Date Type Department Care Team (Late st Contact Info) Description 07/20/2008 Abstract [facility] [address] [place] [address] Francisco Cabrera MD [address] [place] [address] Social History Tobacco Use Types Packs/Day Years [...] Contact Info) Description 09/24/2024 7:30 PM BUSINESS EXCELLENCE MANAGER Appointment [facility] Sleep Lab [address] [place] [address] Nelly Guerrero ORDER PACKER [address] [facility] [address] 09/25/2024 7:00 AM BUSINESS EXCELLENCE MANAGER Appointment [facility] Lab [address] [place] [address] Nelly Guerrero ORDER PACKER [address] [place], [place] [address] 11/01/2024 9:10 AM BUSINESS EXCELLENCE MANAGER Hospital Encounter [address] [address] Chin Carcamo MD [address] [address] 11/01/2024 9:10 AM BUSINESS EXCELLENCE MANAGER - 11/01/2024 9:40 AM BUSINESS EXCELLENCE MANAGER Surgery [facility] [address] [address] Chin Carcamo MD [address] [id number] COLONOSCOPY DIAGNOSTIC WITH/WITHOUT SPECIMEN BRUSH/WASH Scheduled Procedures Name Priority Associated Diagnoses Date/Ti me COLONOSCOPY DIAGNOSTIC WITH/WITHOUT SPECIMEN BRUSH/WASH Hematochezia Chronic diarrhea 11/01/2024 9:10 AM BUSINESS EXCELLENCE MANAGER documented as of this encounter Visit Diagnoses Not on filedocumented in this encounter
--- OUTSIDE RECORDS SUMMARY | 2024-09-23 12:31 | XMS_ITS | Continuity of Care Document ---
Author Organization [facility] Address [address] [place] [address] Phone Care Team Providers Care Clay Preparation Supervisor Name Role Phone Unavailable Unavailable Unavailable Allergies, [...] Diagnoses Date Provider Providers Copied on Encounter [facility], [facility], [address], [place], [id number], [place] tel:[phone] [facility] no problems with V/A and no complaints (chief complaint) Examination of eyes and vision 4-201 4 No Information Family History Family Member Type [...] Disease Payers Payer name Insurance type Covered green party ID Javier KINNEY (s) [id number] Social History Type Description Quantity Date Captured Comments Alcohol Use Details Unknown Caffeine Use Details Unknown Tobacco Use Status No Information Smoking Status Never smoker Non-Smoking Tobacco Use Details : No Details Available : No Details Available Sex Male Chief Complaint And Reason For Visit From encounter dated '01/08/2014 11:00'. no problems with V/A and no complaints (chief complaint) Reason For Referral Reason For Referral No [...]
--- OUTSIDE RECORDS SUMMARY | 2024-09-23 12:32 | XMS_ITS | Continuity of Care Document ---
Author Organization [facility] Address [address] [place] [address] Phone Care Team Providers Care Physical Therapy Nurse Name Role Phone Unavailable Unavailable Unavailable Allergies, [...] Diagnoses Date Provider Providers Copied on Encounter [facility], [facility], [address] [place], [place], [id number], [place] tel:[phone] [facility] no problems with V/A and no complaints [...] Disease Payers Payer name Insurance type Covered alliance party ID Javier KINNEY (s) [id number] Social History Type Description Quantity Date Captured [...]
== END 2024-09-16 11:15 | disposition home or self-care (01) ==
PROVIDERS: Emergency Provider Nurse Practitioner Family; PCP Family Medicine Sports Medicine
DX: H66.002 Acute suppurative otitis media without spontaneous rupture of ear drum, left ear (principal); J45.909 Unspecified asthma, uncomplicated
CPT/HCPCS: 99213; G0463

== ENCOUNTER 2024-12-26 01:56 | Emergency (ER) | payer OTHER, SELFPAY ==
[2024-12-26 14:13] VITALS: BP 112/53; PULSE 100; RESP 17; TEMP 36.8; O2SAT 99
--- NOTE | 2024-12-26 14:29 | ED_ITS ---
HPI - Ear Problem General Chief complaint: Ear Stated complaint: Bilateral Ear Pain Time Seen by Provider: 12/26/24 14:32 Source: patient, RN notes reviewed and old records reviewed Mode of arrival: ambulatory Limitations: no limitations History of Present Illness HPI Narrative: 19-year-old male presents to the [facility] to his bilateral ears. States he has a history of multiple ear infections. Did see his ENT 01 December, was prescribed azithromycin. Is scheduled for ENT surgery in March. Reports a dull ache. Denies any congestion, fever. Related Data Home Medications ?Medication ?Instructions ?Recorded ?Confirmed ?Last Taken ?Type finasteride 1 mg tablet 1 mg PO DAILY 07/24/24 07/31/24 Unknown History fluticasone propionate 50 1 spray intranasal BID 07/31/24 07/31/24 Unknown History mcg/actuation nasal spray,suspension methylphenidate HCl 20 mg biphasic mg PO 12/26/24 Unknown History 50-50 capsule,extended release methylphenidate HCl 20 mg tablet mg 12/26/24 Unknown History Allergies Allergy/AdvReac Type Severity Reaction Status Date / Time Penicillins Allergy Mild Rash Verified 12/26/24 14:16 Sulfa (Sulfonamide AdvReac Intermediate Nausea and Verified 12/26/24 14:16 Antibiotics) Vomiting Review of Systems Review of Systems: All systems reviewed & are unremarkable except as noted in HPI and below Constitutional: Constitutional: Reports no additional constitutional complaints ENT: Reports as per HPI Cardiovascular: Cardiovascular: Reports no additional cardiovascular complaints, Denies chest pain and Denies dyspnea Respiratory: Respiratory: Reports no additional respiratory complaints, Denies chest congestion, Denies cough and Denies dyspnea Musculoskeletal: Musculoskeletal: Reports no additional musculoskeletal complaints Integumentary/Breasts: Skin/Breast: Reports system reviewed and no additional complaints, except as docu PMFSH Past Medical History Medical History Strep throat Asthma Surgical History Surgical History History of tympanoplasty History of myringotomy History of adenoidectomy History of tonsillectomy Social History Social History Smoking status: Never smoker Living arrangements: with family Occupation/Education: student Gender identity (if verbalized by the patient): Male Comments At the time of my signature, I reviewed and agree with the nursing past medical, surgical, social, and family history. There is no relevant family history pertinent to the patient complaint. Exam Const: General: cooperative, healthy appearing, comfortable, no acute distress, well developed, alert and well nourished Nutritional Appearance: well nourished Orientation/consciousness: patient oriented x3 Limitations: no limitations HENMT: Head: normal to inspection Ears: hearing grossly normal bilaterally, external ears normal, TM normal on the right, EAC's normal, mastoids normal, no periauricular adenopathy and TM abnormal with fluid behind the TM on the left Mouth: Yes Normal oral and palatal mucosa present, Yes lip normal, Yes tongue normal and Yes moist mucous membranes Throat: posterior oropharynx normal, uvula midline and no uvular edema Eyes: General: appearance normal, both eyes and all related structures Alignment and Position: alignment normal Neck: Neck: normal visual inspection, full ROM, no lymphadenopathy and no meningeal signs Chest: Chest palpation & inspection: normal inspection of the chest Resp: Effort & Inspection: normal respiratory effort and able to speak in complete sentences Auscultation: clear to auscultation bilaterally, no crackles, no rales, no rhonchi and no wheezes Cardio: Rate: regular rate Skin: General skin exam: normal color and no rashes or lesions noted Neuro: General: patient oriented x3, gait normal, moves all extremities and no meningeal signs Cognition (Neuro): normal cognition Speech: normal speech Gait exam (Neuro): Normal gait present Extrem: General: normal to inspection, full ROM, capillary refill normal and normal gait Psych: Appearance: grossly normal and well kempt Mental Status: mental status grossly normal Speech and movement: Normal speech and movement present and Clear speech present Affect: normal affect Attitude: cooperative Course Course Level of Care: Express Care Visit Vital Signs Vital signs: Vital Signs Temperature 98.3 F 12/26/24 14:13 Pulse Rate 100 12/26/24 14:13 Respiratory Rate 17 12/26/24 14:13 Blood Pressure 112/53 L 12/26/24 14:13 Pulse Oximetry 99 12/26/24 14:13 Oxygen Delivery Room Air 12/26/24 14:13 Temperature 98.3 F 12/26/24 14:13 Pulse Rate 100 12/26/24 14:13 Respiratory Rate 17 12/26/24 14:13 Blood Pressure 112/53 L 12/26/24 14:13 Pulse Oximetry 99 12/26/24 14:13 Oxygen Delivery Room Air 12/26/24 14:13 Reviewed Medical Decision Making MDM Narrative Medical decision making narrative: Patient sitting comfortably in exam room. Nontoxic, vitals stable. Patient in no acute distress Patient presents for Ear discomfort. Clear fluid noted to left ear. Right ear within normal limits. Patient appropriate for outpatient treatment with close follow-up. Already has established ENT Discharge instructions reviewed with patient, as well as provided in writing per nursing staff. The instructions also include specific and strict return/GO TO THE ER as well as f/u information. All questions have been answered, and the patient deny any further questions with discharge and discharge plan. Some parts of this dictation were generated by voice recognition software and may contain typographical and/or grammatical inaccuracies. Differential Diagnosis Differential Diagnosis: otitis media, serous otitis, otitis externa, earache Medical Records Medical records reviewed: Yes I reviewed the external patient's medical records. Vital Signs Vital Signs: Vital Signs Temperature 98.3 F 12/26/24 14:13 Pulse Rate 100 12/26/24 14:13 Respiratory Rate 17 12/26/24 14:13 Blood Pressure 112/53 L 12/26/24 14:13 Pulse Oximetry 99 12/26/24 14:13 Oxygen Delivery Room Air 12/26/24 14:13 Temperature 98.3 F 12/26/24 14:13 Pulse Rate 100 12/26/24 14:13 Respiratory Rate 17 12/26/24 14:13 Blood Pressure 112/53 L 12/26/24 14:13 Pulse Oximetry 99 12/26/24 14:13 Oxygen Delivery Room Air 12/26/24 14:13 Reviewed Lab Data Lab results reviewed: Yes I reviewed the patient's lab results. Labs: Reviewed Critical Care Time Critical Care Time Critical Care Time: No Discharge Plan Discharge Clinical Impression: Earache symptoms in both ears Patient Disposition: Home, Self-Care Condition: Stable Instructions: Antibiotic Form, Earache (ED), Fluid In The Ear (Serous Otitis Media) (ED) Additional Instructions: continue taking Claritin daily. Increase the Flonase to twice a day for 5 days and then back to daily. Follow-up with ENT Patient Language: Occitan Prescriptions: No Action fluticasone propionate [Flonase] 50 mcg/actuation [place],Suspension 1 spray INTRANASAL BID Rx Instructions: administer into each nostril loratadine [Claritin] 10 mg tablet 10 mg PO DAILY Qty: 30 0RF finasteride 1 mg Tablet 1 mg PO DAILY methylphenidate HCl 20 mg tablet methylphenidate HCl 20 mg capsule,ER biphasic 50-50 PO Follow-up/Referrals: Clay,Esa Kasper MD [Primary Care Provider] - 2 Weeks ([facility] care follow up ) Stand Alone Forms: Work/School Release IP Time of Disposition: 14:42
--- OUTSIDE RECORDS SUMMARY | 2024-12-26 15:28 | XMS_ITS | Encounter Summary ---
Author Organization [facility] Address [address] [place] [address] Care Team Providers Care Sewer Name Role Phone Esa Williamson MD Primary Care Provider Encounter Details Date Type Department Care Team (Late st Contact Info) Description 03/24/2023 MyChart Message Enc [facility] Group - [facility] [address] [place], [place] [address] [facility] Provider Air Quality Message Social History Tobacco [...] on filedocumented in this encounter Care Teams Sewer Relationship Specialty [place] [address] [place] [address] PCP - General FAMILY PRACTICE 08/21/22 documented as of this encounter
--- OUTSIDE RECORDS SUMMARY | 2024-12-26 15:28 | XMS_ITS | Encounter Summary ---
Author Organization [facility] Address [address] [place] [address] Care Team Providers Care Supervisor Compounding And Finishing Name Role Phone Esa Williamson MD Primary Care Provider [phone] Idania Schwab Primary Care Provider [phone] Esa Williamson MD Primary Care Provider [phone] Encounter Details Date Type Department Care Team (Late st Contact Info) Description 06/22/2022 [facility] Message Enc [facility] Family & Internal Medicine [address] [address] Esa Williamson MD [address] [place] [address] Supplements Social History Tobacco Use Types Packs/Day [...] filedocumented in this encounter Care Teams Supervisor Compounding And Finishing Relationship Specialty [place] [address] [place] [address] PCP - General FAMILY PRACTICE 02/17/21 08/09/22 Idania Schwab APNP [address] [address] PCP - General Nurse Practitioner Family 08/10/22 [place] [address] [place] [address] PCP - General FAMILY PRACTICE 08/21/22 documented as of this encounter
--- OUTSIDE RECORDS SUMMARY | 2024-12-26 15:28 | XMS_ITS | Encounter Summary ---
Author Organization [facility] Address [address] [place] [address] Care Team Providers Care Control Systems Technician Name Role Phone Esa Williamson MD Primary Care Provider [phone] Encounter Details Date Type Department Care Team (Late st Contact Info) Description 09/30/2024 [employer] Message Enc [facility] Medical Group Family & Internal Medicine [facility] [address] [place] [address] Esa Williamson MD [address] [place] [address] ENT Referral Social History Tobacco Use Types Packs/Day [...] Progress Notes * Tiffany Orellana RN - 10/03/2024 8:06 AM CST Ok for ENT referral? Thanks! ROAD WATCHMAN * Janell Cross RN - 10/02/2024 1:05 PM CST [place] patient. ROAD WATCHMAN documented in this encounter Plan of Treatment Not on file documented as of this encounter Visit Diagnoses Not on filedocumented in this encounter Care Teams Control Systems Technician Relationship Specialty [place] [address] [place] [address] PCP - General FAMILY PRACTICE 08/21/22 documented as of this encounter
--- OUTSIDE RECORDS SUMMARY | 2024-12-26 15:28 | XMS_ITS | Encounter Summary ---
Author Organization [facility] Address [address] [place] [address] Care Team Providers Care Admitting Interviewer Name Role Phone Esa Williamson MD Primary Care Provider [phone] Encounter Details Date Type Department Care Team (Late st Contact Info) Description 10/18/2022 [employer] Message Enc [facility] Medical Group Family & Internal Medicine [facility] [address] [place] [address] Esa Williamson MD [address] [address] Diagnosis Question Social History Tobacco [...] on filedocumented in this encounter Care Teams Admitting Interviewer Relationship Specialty Start [place] [id number] [place] [address] PCP - General FAMILY PRACTICE 08/21/22 documented as of this encounter
--- OUTSIDE RECORDS SUMMARY | 2024-12-26 15:28 | XMS_ITS | Clinical Summary ---
Author Organization [facility] Address [address] [place] [address] Care Team Providers Care Rug Hooker Name Role Phone Esa Williamson MD Primary Care Provider Allergies Active [...] as needed. 120 capsule 2 4 Active finasteride (PROSCAR) 5 MG tablet Take 1 tablet (5 mg total) by mouth daily. Active doxycycline hyclate (VIBRAMYCIN) 100 MG capsuleIndicati ons:Need for malaria prophylaxis Take 1 capsule by mouth several days before leaving for out of country, continue taking this daily until medication is gone. 30 capsule 5 Active Active Problems Problem Noted Date Diagnosed Date Hematochezia 06/29/2024 Chronic diarrhea 06/29/2024 Spondylolisthesis of lumbar region 10/19/2022 Penile abnormality 08/24/2022 Irritable bowel syndrome with diarrhea 2 Cough variant asthma (HHS/HCC) 08/02/2014 Overview (02/20/2021): Transitioned From: History of asthma Encounters Date Type Department Care Team Description 12/01/2024 Scan [facility] Scanned, Doc Med Group 11/29/2024 MyChart Message Enc [facility] Family & Internal Medicine [address] [address] Esa Williamson MD Preventative Medicine for [id number] Travel 11/06/2024 Telephone [facility] [place] [facility] - [address], [address] [place] [phone] Carlton Carcamo MD Results 11/01/2024 8:40 AM STEREOTYPER APPRENTICE - 11/01/2024 9:10 AM STEREOTYPER APPRENTICE Surgery [facility] [address] [place] [address] Carlton Carcamo MD COLONOSCOPY DIAGNOSTIC WITH BIOPSY 11/01/2024 7:51 AM STEREOTYPER APPRENTICE Anesthesia Event [facility] [address] [place] [address] Aleah Duggan, JU 11/01/2024 7:05 AM STEREOTYPER APPRENTICE - 11/01/2024 9:12 AM STEREOTYPER APPRENTICE Hospital Encounter [facility] [address] [place] [address] Carlton Carcamo MD Discharge Disposition: Home or Self Care (Routine Discharge) 11/01/2024 Travel 10/31/2024 Scan [facility] Scanned, Doc Med Group 10/13/2024 Scan [facility] INFO [facility] Scanned, Doc Med Group 10/11/2024 Telephone [facility] - [address], [address] [place] [phone] Carlton Carcamo MD Prior Authorization (Colonoscopy-[id number]) 09/30/2024 MyChart Message Enc [facility] Medical Group Family & Internal Medicine [address] [address] Esa Williamson MD ENT Referral from Last 3 Months Immunizations Name Administration Dates Next Due DTaP (Daptacel) 11/06/2008 Dtap 12/09/2005, 5,2004,09/28 Dtap (Acel-Immune) 11/06/2008 Dtap (Generic) 11/06/2008 Fluzone 6 Months+ Quad (0.5 mL Prefilled Syringe) 07/20/2022,07/10/2021 HPV GARDASIL 9-VALENT 11/04/2020,07/02/2020,02/2020 Hepatitis A Vaccine - 2 Dose 08/24/2006,02/18/20 [...] MCG/0.3 ML DOSE 09/16/2021,01/14/2021,12/23/2020 Pneumococcal (Prevnar 7) 12/09/2005,09/2004,2004,09/28 Polio IPV (Ipol) 11/06/2008, 5,02/25/2005,10/29 Polio Ipv [...] Given: No Alcohol Use Standard Drinks/Week Comments Not Currently 0 (1 standard drink = 0.6 oz pur e alcohol) rarely PHQ-2 Answer Date Recorded Patient Health Questionnaire-2 Score 0 06/28/2024 Sex and Gender Information Value Date Recorded Sex Assigned at Not on file Legal Sex Male 7:45 PM CDT Gender Identity Not on file Sexual Orientation Not on file Last Filed Vital Signs Vital Sign Reading Time Taken Comments Blood Pressure 96/47 11/01/2024 8:55 AM STEREOTYPER APPRENTICE Pulse 79 11/01/2024 8:33 AM STEREOTYPER APPRENTICE Temperature 36.4 C (97.5 F) 11/01/2024 8:17 AM STEREOTYPER APPRENTICE Respiratory Rate 18 11/01/2024 8:33 AM STEREOTYPER APPRENTICE Oxygen Saturation 99% 11/01/2024 8:55 AM STEREOTYPER APPRENTICE Inhaled Oxygen Concentration - - Weight 74.8 kg (165 lb) 11/01/2024 7:17 AM STEREOTYPER APPRENTICE Height 177.8 cm (5' 10 ) 11/01/2024 7:17 AM STEREOTYPER APPRENTICE Body Mass Index 23.68 11/01/2024 7:17 AM STEREOTYPER APPRENTICE Plan of Treatment Health Maintenance Due Date Last Done Comments Pneumococcal Vaccine: Pediatrics (0 to 5 Years) and At-Risk Patients (6 to 64 Years) (1 of 2 - PCV) 2010 12/09/2005, 02/25/2005, 2004, Additional history exists Meningococcal B Vaccine (1 of 2 - Standard) 2020 Hepatitis C 2022 Annual Physical 04/16/2023 04/16/2022, 04/03/2021 COVID-19 Vaccine ( season) 2024 07/02/2022, 09/16/2021, 01/14/2021, Additional history exists PHQ-2 (Physician [place]) 09/27/2024 06/28/2024 DTaP, Tdap and Td Vaccines (7 - [...] Procedure Name Priority Date/Time Associated Diagnosis Comments COLONOSCOPY FLX DX W/COLLJ SPEC WHEN PFRMD 11/01/2024 7:52 AM STEREOTYPER APPRENTICE Hematochezia Chronic diarrhea Case Notes C PATHOLOGY Routine 11/01/2024 12:00 AM STEREOTYPER APPRENTICE from Last 3 Months Results * Pathology (11/01/2024 12:00 AM STEREOTYPER APPRENTICE) PATHOLOGY [facility] Department of Laboratory Medicine [address] [place] [address] , extension [phone] Pathology Report Surgical Pathology Report Name: WILLI NELSON Specimen #: [id number] Age: 11 2005 (Age: 19) Location: [facility] Sex: M Procedure Date: 11/01/2024 Hospital #: [id number] Date Received: 11/02/2024 Date Reported: 11/05/2024 Provider: CARLTON CARCAMO MD Source: Colon, left, random, biopsies Clinical History: Chronic diarrhea and hematochezia over the past year. FINAL DIAGNOSIS: Colon, left, random biopsies: -No significant histopathologic abnormality. Gross Description: Received in formalin, labeled with a patient label and as random left colon biopsy are 3 pieces of [place] tissue ranging from 0.1 to 0.2 cm. The specimen is entirely submitted in cassette 1. Gross examination (when applicable), interpretation, and sign out were performed at [facility], [address] [place] [address], [place] [address]. Electronically Signed Out SAEID MEDRANO MD [facility] TISSUE COLON STRUCTURE / Unknown 11/01/2024 8:07 AM STEREOTYPER APPRENTICE us Carlton Carcamo MD PATHOLOGY/CYTOLOGY ORDERABLES Fi nal Result [facility] [address] [place] [address], [phone] from Last 3 Months Insurance [employer] [facility] [employer] [facility] Care Teams Rug Hooker Relationship Specialty [place] [address] [facility] [place] [address] PCP - General FAMILY PRACTICE 08/21/22
--- OUTSIDE RECORDS SUMMARY | 2024-12-26 15:28 | XMS_ITS | Encounter Summary ---
Author Organization [facility] Address [address] [place] [address] Care Team Providers Care Brand Inspector Name Role Phone Esa Williamson MD Primary Care Provider [phone] Encounter Details Date Type Department Care Team (Late st Contact Info) Description 01/06/2023 N42 Message Enc [facility] Medical Group Multispecialty Care - [address], [address] [place] [address] Decisiv, [facility] Provider Lab order Social History Tobacco [...] filedocumented in this encounter Care Teams Brand Inspector Relationship Specialty [place] [address] [place] [address] PCP - General FAMILY PRACTICE 08/21/22 documented as of this encounter
--- OUTSIDE RECORDS SUMMARY | 2024-12-26 15:28 | XMS_ITS | Encounter Summary ---
Author Organization [facility] Address [address] [place] [address] Care Team Providers Care Chef Saucier Name Role Phone Esa Williamson MD Primary Care Provider [phone]- [phone] Encounter Details Date Type Department Care Team (Late st Contact Info) Description 01/01/2023 Sahareyt Message Enc [facility] Medical Group Family & Internal Medicine [facility] [address] [place] [address] Esa Williamson MD [address] [address] Bloodwork Social History Tobacco Use Types Packs/Day [...] on filedocumented in this encounter Care Teams Chef Saucier Relationship Specialty [place] [address] [place] [address] PCP - General FAMILY PRACTICE 08/21/22 documented as of this encounter
--- OUTSIDE RECORDS SUMMARY | 2024-12-26 15:28 | XMS_ITS | Clinical Summary ---
Author Organization [facility] [employer] Address [address] [place] [address] Care Team Providers Care Rotoformer Backtender Name Role Phone Nafisa Juarez MD Unavailable [phone] Esa Williamson MD Primary Care Provider [phone] Source Comments [facility] [employer],non-owned Affiliates and Associated Physician Practices is amultiple site organization consisting of ambulatory clinics and hospital sitesin [place], [place], [place] and [place]. This disclosure is being madepursuant to the Care Everywhere program and may not contain all information available regarding this patient. Last updated 18.[facility] [employer] Allergies Active Allergy Reactions Criticality Noted Date Comments Penicillins Rash Medium 03/22/2018 Sulfa Drugs 05/16/2014 Medications * Be aware that medications may not be up to date on this document. Alwaysverify current medications with the patient. Medication Sig Dispensed Refills Start Date End Date Status fluticasone propionate (FLONASE) 50 MCG/ACT nasal spray [place] 1 spray into each nostril once daily [...] Papilloma Virus Nineva lent Vaccine 11/04/2020,07/02/2020,05/02/2020 INFLUENZA VACCINE 07/20/2012, 1,10/13/2010,2006,07/15/2006,07/24/2005,06/23/2005 INFLUENZA VACCINE, QUADR. (F LUZONE; [...] 100 05/02/2019 3:37 PM CDT Temperature 36.2 C (97.2 F) 11/04/2020 3:57 PM SOCIAL STUDIES TEACHER Respiratory Rate 20 11/25/2015 7:13 PM SOCIAL STUDIES TEACHER Oxygen Saturation 100% 12/05/2018 11:00 AM CDT Inhaled Oxygen Concentration - - Weight 70.4 kg (155 lb 3.3 oz) 09/11/2021 10:38 AM SOCIAL STUDIES TEACHER Height 178.2 cm (5' 10.16 ) 09/11/2021 10:38 AM SOCIAL STUDIES TEACHER Body Mass Index 22.17 09/11/2021 10:38 AM SOCIAL STUDIES TEACHER Plan of Treatment Health Maintenance Due Date Last Done Comments HIV SCREENING 2019 MENINGOCOCCAL (Group B) VACCINE SHARED DECISION-MAKING (1 of 2 - Standard) 2020 HEPATITIS C SCREENING 08/16/2022 COVID-19 VACCINE ( season) 2024 01/14/2021, 12/23/2020 INFLUENZA VACCINE (#1) 2024 , 08/01/2020, 08/01/2014, Additional history exists DEPRESSION SCREENING 09/27/2024 05/02/2020 DTAP/TDAP/TD VACCINES (7 - Td or Tdap) 04/10/2026 04/10/2016, 11/06/2008, 12/09/2005, Additional history exists ZOSTER VACCINE (1 of 2) 2054 HEPATITIS B VACCINE Completed 12/09/2005, 12/09/2005, 2004, Additional history exists HIB VACCINE Completed 12/09/2005, 11/25, 2004, Additional history exists PNEUMOCOCCAL VACCINE Completed 12/09/2005, 02/25/2005, 2004, Additional history exists MENINGOCOCCAL GROUPS A/C/Y/W VACCINE Aged Out 04/10/2016 No longer eligible based on patient's age to complete this topic HPV VACCINE Completed 11/04/2020, 02/2020, 05/02/2020 Goals Goal Patient Goal Type Associated Problems Recent Progress Patient-Stated? Author Use safety retraint in car Lifestyle On track( 020 3:14 PM CDT) Massiel Schulte MA Care Teams Rotoformer Backtender Relationship Specialty [place] [address] [place] [address] PCP - General Family Medicine 09/11/21 Nafisa Juarez MD Orthopedic Surgery 06/28/19
--- OUTSIDE RECORDS SUMMARY | 2024-12-26 15:28 | XMS_ITS | Continuity of Care Document ---
Author Organization [facility] Address [address] [place] [address] Phone Care Team Providers Care Wardrobe Mistress Name Role Phone Unavailable Unavailable Unavailable Allergies, [...] Diagnoses Date Provider Providers Copied on Encounter [facility], [facility], [address] [place], [place], [id number], [place] tel:[phone] [facility] no problems with V/A and no complaints [...] rabismus Payers Payer name Insurance type Covered green party ID Javier KINNEY (s) [id number] Social History Type Description Quantity Date Captured [...]
--- OUTSIDE RECORDS SUMMARY | 2024-12-26 15:28 | XMS_ITS | Encounter Summary ---
Author Organization [facility] Address [address] [place] [address] Care Team Providers Care Hop Picker Name Role Phone Esa Williamson MD Primary Care Provider [phone] Encounter Details Date Type Department Care Team (Late st Contact Info) Description 12/30/2022 [place]t Message Enc [facility] Medical Group Family & Internal Medicine [facility] [address] [place] [address] Esa Williamson MD [address] [place] [address] Hearing Social History Tobacco Use Types Packs/Day [...] on filedocumented in this encounter Care Teams Hop Picker Relationship Specialty [place] [address] [place] [address] PCP - General FAMILY PRACTICE 08/21/22 documented as of this encounter
--- OUTSIDE RECORDS SUMMARY | 2024-12-26 15:28 | XMS_ITS | Encounter Summary ---
Author Organization [facility] Address [address] [place] [address] Care Team Providers Care Printed Circuit Board Panels Developer Name Role Phone Esa Williamson MD Primary Care Provider [phone] Encounter Details Date Type Department Care Team (Late st Contact Info) Description 03/26/2024 [employer] Message Enc [facility] Medical Group Family & Internal Medicine [facility] [address] [place] [address] Esa Williamson MD [address] [place] [phone] Sleep Referral & an Unrelated Vaccine Social [...] on filedocumented in this encounter Care Teams Printed Circuit Board Panels Developer Relationship Specialty Start Date End Date Eas Williamson MD [address] [place], [place] [id number] PCP - General FAMILY PRACTICE 08/21/22 documented as of this encounter
--- OUTSIDE RECORDS SUMMARY | 2024-12-26 15:28 | XMS_ITS | Encounter Summary ---
Author Organization [facility] Address [address] [place] [address] Care Team Providers Care Commercial Technician Name Role Phone Esa Williamson MD Primary Care Provider [phone] Encounter Details Date Type Department Care Team (Late st Contact Info) Description 01/05/2023 Strandst Message Enc [facility] Medical [facility] [address] [address] Chin Carcamo MD [address] [place] [address] Bloodwork Social History Tobacco Use Types [...] on filedocumented in this encounter Care Teams Commercial Technician Relationship Specialty Start Date End Date Esa Williamson MD [address] [place] [address] PCP - General FAMILY PRACTICE 08/21/22 documented as of this encounter
--- OUTSIDE RECORDS SUMMARY | 2024-12-26 15:29 | XMS_ITS | Continuity of Care Document ---
Author Organization [facility] Address [address] [place] [address] Phone Care Team Providers Care Yarn Texturing Machine Operator Name Role Phone Unavailable Unavailable Unavailable Allergies, [...] Diagnoses Date Provider Providers Copied on Encounter [facility], [facility], [address], [place], [id number], [place] tel:[phone] [facility] no problems with V/A and no complaints [...] Disease Payers Payer name Insurance type Covered republican ID Javier KINNEY (s) [id number] Social History Type Description Quantity Date Captured [...]
== END 2024-12-26 14:47 | disposition home or self-care (01) ==
PROVIDERS: Emergency Provider Nurse Practitioner; PCP Family Medicine Sports Medicine
DX: H92.03 Otalgia, bilateral (principal); J45.909 Unspecified asthma, uncomplicated
CPT/HCPCS: 99211; G0463

== ENCOUNTER 2025-05-31 15:11 | Emergency (ER) | payer OTHER, SELFPAY ==
--- OUTSIDE RECORDS SUMMARY | 2014-01-08 06:00 | XMS_ITS | Continuity of Care Document ---
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, [address], [place], [id number], [place] tel:[phone] [facility] Examination of eyes and vision No [...] Covered democrat ID Javier gonzalez(s) Edd CI [id number] Social History Type Description Quantity Date Captured [...]
--- OUTSIDE RECORDS SUMMARY | 2025-05-31 15:14 | XMS_ITS | Encounter Summary ---
Author Organization [facility] Address [address] [place] [address] Care Team Providers Care Fare Register Repairer Name Role Phone Esa Williamson MD Primary Care Provider [phone] Encounter Details Date Type Department Care Team (Late st Contact Info) Description 01/01/2023 Solegear Bioplasticst Message Enc [facility] Medical Group Family & Internal Medicine [facility] [address] [place] [address] Esa Williamson MD [address] [place] [address] Bloodwork Social History Tobacco Use Types Packs/Day [...] on filedocumented in this encounter Care Teams Fare Register Repairer Relationship Specialty Start Date End Date Esa Williamson MD [address] [place] [address] PCP - General FAMILY PRACTICE 08/21/22 documented as of this encounter
--- OUTSIDE RECORDS SUMMARY | 2025-05-31 15:14 | XMS_ITS | Encounter Summary ---
Author Organization [facility] Address [address] [place] [address] Care Team Providers Care Computer Systems Designer Name Role Phone Esa Williamson MD Primary Care Provider [phone] Encounter Details Date Type Department Care Team (Late st Contact Info) Description 10/18/2022 Peechot Message Enc [facility] Medical Group Family & Internal Medicine [address] [address] Esa Williamson MD [address] [place] [address] Diagnosis Question Social History Tobacco Use Types [...] on filedocumented in this encounter Care Teams Computer Systems Designer Relationship Specialty Start Date End Date Esa Williamson MD [address] [place] [address] PCP - General FAMILY PRACTICE 08/21/22 documented as of this encounter
--- OUTSIDE RECORDS SUMMARY | 2025-05-31 15:14 | XMS_ITS | Encounter Summary ---
Author Organization [facility] Address [address] [place] [address] Care Team Providers Care Linen Manager Name Role Phone Esa Williamson MD Primary Care Provider [phone] Encounter Details Date Type Department Care Team (Late st Contact Info) Description 03/26/2024 Voodle - Memories in Motiont Message Enc [facility] Medical Group Family & Internal Medicine [address] [address] Esa Williamson MD [address] [place] [address] Sleep Referral & an Unrelated Vaccine Social [...] on filedocumented in this encounter Care Teams Linen Manager Relationship Specialty [place] [address] [place] [address] PCP - General FAMILY PRACTICE 08/21/22 documented as of this encounter
--- OUTSIDE RECORDS SUMMARY | 2025-05-31 15:14 | XMS_ITS | Encounter Summary ---
Author Organization [facility] Address [address] [place] [address] Care Team Providers Care Tele Rn Name Role Phone Esa Williamson MD Primary Care Provider [phone] Encounter Details Date Type Department Care Team (Late st Contact Info) Description 01/05/2023 My Ad Box Message Enc [facility] Medical Group G[facility] Clinic [address] [address] Chin Carcamo MD [address] [place] [address] Bloodwork Social History Tobacco Use Types [...] on filedocumented in this encounter Care Teams Tele Rn Relationship Specialty Start Date End Date Esa Williamson MD [address] [place] [address] PCP - General FAMILY PRACTICE 08/21/22 documented as of this encounter
--- OUTSIDE RECORDS SUMMARY | 2025-05-31 15:14 | XMS_ITS | Encounter Summary ---
Author Organization [facility] Address [facility], [facility] [place] [address] Care Team Providers Care Splitter Hand Name Role Phone Esa Williamson MD Primary Care Provider [phone] Encounter Details Date Type Department Care Team (Late st Contact Info) Description 03/24/2023 MyChart Message Enc [facility] Medical [facility] - [facility] [address] [place], [place] [address] Mychart, [facility] Provider Air Quality Message Social History Tobacco [...] on filedocumented in this encounter Care Teams Splitter Hand Relationship Specialty [place] [address] [place] [address] PCP - General FAMILY PRACTICE 08/21/22 documented as of this encounter
--- OUTSIDE RECORDS SUMMARY | 2025-05-31 15:14 | XMS_ITS | Encounter Summary ---
Author Organization [facility] Address [address] [place] [address] Care Team Providers Care Aviation Mechanic Name Role Phone Esa Williamson MD Primary Care Provider [phone] Encounter Details Date Type Department Care Team (Late st Contact Info) Description 12/30/2022 CreativeLivet Message Enc [facility] Medical Group Family & Internal Medicine [address] [address] Esa Williamson MD [address] [place] [address] Hearing Social History Tobacco Use Types Packs/Day [...] on filedocumented in this encounter Care Teams Aviation Mechanic Relationship Specialty [place] [address] [place] [address] PCP - General FAMILY PRACTICE 08/21/22 documented as of this encounter
--- OUTSIDE RECORDS SUMMARY | 2025-05-31 15:14 | XMS_ITS | Encounter Summary ---
Author Organization [facility] Address [address] [place] [address] Care Team Providers Care Blue Crabber Name Role Phone Esa Williamson MD Primary Care Provider [phone] Idania Schwab Primary Care Provider [phone] Esa Williamson MD Primary Care Provider [phone] Encounter Details Date Type Department Care Team (Late st Contact Info) Description 06/22/2022 Primavista Message Enc [facility] Medical Group Family & Internal Medicine [address] [address] Esa Williamson MD [address] [place] [address] Supplements Social History Tobacco Use Types Packs/Day [...] on filedocumented in this encounter Care Teams Blue Crabber Relationship Specialty [place] [address] [place] [address] PCP - General FAMILY PRACTICE 02/17/21 08/09/22 Idania Schwab APNP [address] [address] PCP - General Nurse Practitioner [facility] 08/10/22 [place] [address] [place] [address] PCP - General FAMILY PRACTICE 08/21/22 documented as of this encounter
--- OUTSIDE RECORDS SUMMARY | 2025-05-31 15:14 | XMS_ITS | Encounter Summary ---
Author Organization [facility] Address [address] [place] [address] Care Team Providers Care Ocean Fishing Guide Name Role Phone Esa Williamson MD Primary Care Provider [phone] Encounter Details Date Type Department Care Team (Late st Contact Info) Description 09/30/2024 Dovetailt Message Enc [facility] Medical Group Family & Internal Medicine [address] [address] Esa Williamson MD [address] [place] [address] ENT Referral Social History Tobacco Use Types [...] AM CST Ok for ENT referral? Thanks! SCENER * Janell Cross RN - 10/02/2024 1:05 PM CST [place] patient. SCENER documented in this encounter Plan of Treatment Not on file documented as of this encounter Visit Diagnoses Not on filedocumented in this encounter Care Teams Ocean Fishing Guide Relationship Specialty [place] [address] [place] [address] PCP - General FAMILY PRACTICE 08/21/22 documented as of this encounter
--- OUTSIDE RECORDS SUMMARY | 2025-05-31 15:14 | XMS_ITS | Clinical Summary ---
Author Organization [facility] Address [address] [place] [address] Care Team Providers Care Strategic Account Manager Name Role Phone Nafisa Juarez MD Unavailable [phone] Esa Williamson MD Primary Care Provider [phone] Source Comments [facility],non-owned Affiliates and Associated Physician Practices is amultiple site organization consisting of ambulatory clinics and hospital sitesin [place], [place], [place] and [place]. This disclosure is being madepursuant to the Care Everywhere program and may not contain all information available regarding this patient. Last updated 18.[facility] Allergies Active Allergy Reactions Criticality Noted Date Comments Penicillins Rash Medium 03/22/2018 Sulfa Drugs 05/16/2014 Medications * Be aware that medications may not be up to date on this document. Alwaysverify current medications with the patient. fluticasone propionate (FLONASE) 50 MCG/ACT nasal spray [place] 1 spray into each nostril once daily Active albuterol HFA (PROVENTIL;DARRON IMER;PROAIR) 108 (90 Base) MCG/ACT inhalerIndicatio ns:Cough variant asthma (HCC) Inhale 2 puffs by mouth every 4 hours as needed 17 Inhaler 2 06/21/2020 Active dicyclomine (BENTYL) 20 MG tabletIndication s:Diarrhea, unspecified type Take 1 (one) tablet by mouth 4 times daily as needed 120 tablet 3 09/11/2021 Active Active Problems Problem Noted Date Diagnosed Date Influenza A 12/06/2018 Overview (12/06/2018): 12/05/18 Tamiflu Encounter for routine child health examination without abnormal findings 03/24/2018 Fear of vaccinations 03/24/2018 Cough variant asthma 08/02/2014 Immunizations Immunization Administration Dates Next Due INFLUENZA VACCINE, TRIV. [...] at Not on file Legal Sex Male 2:26 PM CDT Gender Identity Not on file Sexual Orientation Not on file Last Filed Vital Signs Vital Sign Reading Time Taken Comments Blood Pressure 110/70 05/02/2020 3:13 PM CDT Pulse 100 05/02/2019 3:37 PM CDT Temperature 36.2 C (97.2 F) 11/04/2020 3:57 PM RN PICU Respiratory Rate 20 11/25/2015 7:13 PM RN PICU Oxygen Saturation 100% 12/05/2018 11:00 AM CDT Inhaled Oxygen Concentration - - Weight 70.4 kg (155 lb 3.3 oz) 09/11/2021 10:38 AM RN PICU Height 178.2 cm (5' 10.16) 09/11/2021 10:38 AM RN PICU Body Mass Index 22.17 09/11/2021 10:38 AM RN PICU Plan of Treatment Health Maintenance Due Date Last Done Comments HIV SCREENING 2019 MENINGOCOCCAL (Group B) VACCINE SHARED DECISION-MAKING (1 of 2 - Standard) 2020 HEPATITIS C SCREENING 08/16/2022 DEPRESSION SCREENING 09/27/2024 05/02/2020 COVID-19 VACCINE ( season) 2025 01/14/2021, 12/23/2020 INFLUENZA VACCINE (#1) 2025 , 08/01/2020, 08/01/2014, Additional history exists DTAP/TDAP/TD [...] 3:14 PM CDT) No Massiel Delgado [place] [address] Care Teams Strategic Account Manager Relationship Specialty [place] [address] [place] [address] PCP - General Family Medicine 09/11/21 Nafisa Juarez MD Orthopedic Surgery 06/28/19
--- OUTSIDE RECORDS SUMMARY | 2025-05-31 15:14 | XMS_ITS | Encounter Summary ---
Author Organization [facility] Address [address] [place] [address] Care Team Providers Care Charge Hand Name Role Phone Esa Williamson MD Primary Care Provider [phone] Encounter Details Date Type Department Care Team (Late st Contact Info) Description 01/06/2023 Lotame Message Enc [facility] Medical Group Multispecialty Care - [address], [address] [place] [address] [address], [facility] Provider Lab order Social History Tobacco Use [...] filedocumented in this encounter Care Teams Charge Hand Relationship Specialty [place] [address] [place] [address] PCP - General FAMILY PRACTICE 08/21/22 documented as of this encounter
--- OUTSIDE RECORDS SUMMARY | 2025-05-31 15:14 | XMS_ITS | Clinical Summary ---
Author Organization [facility] Address [address] [place] [address] Care Team Providers Care Wastewater Treatment Plant Supervisor Name Role Phone Esa Williamson MD Primary Care Provider [phone] Allergies Active Allergy Reactions Criticality Noted Date Comments Penicillins Rash Low 03/22/2018 Sulfa Antibiotics Vomiting Low 05/16/2014 Medications albuterol sulfate HFA 108 (90 Base) MCG/ACT inhaler Inhale 1-2 puffs into the lungs every 4 (four) hours as needed. 05/14/2017 Active dicyclomine (BENTYL) 10 MG capsuleIndicati ons:Chronic diarrhea Take 1 capsule (10 mg total) by mouth 4 (four) times daily as needed. 120 capsule 2 06/29/2024 Active methylphenidate (RITALIN) 10 MG tablet Take 1 tablet (10 mg total) by mouth. 10/13/2024 Active solriamfetol (SUNOSI) 150 MG tablet Take 1 tablet (150 mg total) by mouth daily. Active Finasteride (PROSCAR OR) Take 1 mg by mouth nightly. Active HYDROcodone-tyrone taminophen (NORCO) 5-325 MG tabletIndicatio ns:Acute Pain < 7 Day Supply Take 1 tablet by mouth every 4 (four) hours as needed for Pain. Indications: Acute Pain < 7 Day Supply 20 tablet 04/02/2025 Active Active Problems Problem Noted Date Diagnosed Date Hematochezia 06/29/2024 Chronic diarrhea 06/29/2024 Spondylolisthesis of lumbar region 10/19/2022 Penile abnormality 08/24/2022 Irritable bowel syndrome with diarrhea Cough variant asthma (HHS/HCC) 08/02/2014 Overview (02/20/2021): Transitioned From: History of asthma Encounters Date Type Department Care Team Description 05/11/2025 Scan [facility] Scanned, [facility] 04/10/2025 Scan [facility] Scanned, [facility] 04/02/2025 12:40 PM CDT Anesthesia Event [facility] [place] [address] [place] [address] Solo Garcia CRNA Ruiz, Eloy A, MD 04/02/2025 12:40 PM CDT - 04/02/2025 2:25 PM CDT Surgery [facility] [address] [place] [address] Rob Peñaloza MD SEPTOPLASTY 04/02/2025 11:06 AM CDT - 04/02/2025 3:55 PM CDT Hospital Encounter [facility] [place] [address] [place] [address] Rob Peñaloza MD Discharge Disposition: Home or Self Care (Routine Discharge) 04/02/2025 Travel 03/21/2025 Travel from Last 3 Months Immunizations Immunization Administration Dates Next Due DTaP (Daptacel) 11/06/2008 [...] Sign Reading Time Taken Comments Blood Pressure 124/78 04/02/2025 3:00 PM CDT Pulse 60 04/02/2025 2:25 PM CDT Temperature 36.7 C (98 F) 04/02/2025 2:25 PM CDT Respiratory Rate 18 04/02/2025 2:35 PM CDT Oxygen Saturation 97% 04/02/2025 3:00 PM CDT Inhaled Oxygen Concentration - - Weight 72.6 kg (160 lb) 04/02/2025 11:32 AM CDT Height 177.8 cm (5' 10) 04/02/2025 11:32 AM CDT Body Mass Index 22.96 04/02/2025 11:32 AM CDT Plan of Treatment Health Maintenance Due Date Last Done Comments Meningococcal B Vaccine (1 of 2 - Standard) 2020 Hepatitis C 2022 Annual Physical 04/16/2023 04/16/2022, 04/03/2021 Pneumococcal Vaccine: Pediatrics (0 to 5 Years) and At-Risk Patients (6 to 49 Years) (1 of 2 - PCV) 2023 12/09/2005, 02/25/2005, 2004, Additional history exists COVID-19 Vaccine ( - 2023- season) 2024 07/02/2022, 09/16/2021, 01/14/2021, Additional history exists PHQ-2 (Physician [place]) 09/27/2024 06/28/2024 DTaP, Tdap and Td Vaccines [...] Procedure Name Priority Date/Time Associated Diagnosis Comments REMOVAL ADENOIDS,PRIMARY,12+ Y/O 04/02/2025 12:40 PM CDT deviated septum, HYPERTUBINATE, ADENOIDITIS EXCISION TURBINATE,SUBMUCOUS 04/02/2025 12:40 PM CDT deviated septum, HYPERTUBINATE, ADENOIDITIS REPAIR OF NASAL SEPTUM 12:40 PM CDT deviated septum, HYPERTUBINATE, ADENOIDITIS from Last 3 Months Insurance [employer] [place] [employer] [place] [employer] Care Teams Wastewater Treatment Plant Supervisor Relationship Specialty [place] [address] [address] [place] [address] PCP - General FAMILY PRACTICE 08/21/22
--- NOTE | 2025-05-31 15:16 | ED.URI ---
HPI - URI/Sore Throat General Chief Complaint: Upper Respiratory Infection Stated Complaint: sore throat Time Seen by Provider: 05/31/25 15:17 Source: patient Mode of arrival: ambulatory Limitations: no limitations History of Present Illness HPI Narrative: Willi is a 19-year-old male patient presenting to the clinic today with complaints of a feeling feverish, nausea, sore throat, and nasal congestion x 1 day. He reports symptoms started last night. Has slight cough with clear phlegm. Has not taken any medications for his symptoms. No chest pain or shortness of breath. Related Data Home Medications ?Medication ?Instructions ?Recorded ?Confirmed ?Last Taken ?Type finasteride 1 mg tablet 1 mg PO DAILY 07/24/24 07/31/24 Unknown History methylphenidate HCl 10 mg tablet mg 05/31/25 Unknown History solriamfetol 150 mg tablet (Sunosi) mg 05/31/25 Unknown History Allergies Allergy/AdvReac Type Severity Reaction Status Date / Time Penicillins Allergy Mild Rash Verified 05/31/25 15:16 Sulfa (Sulfonamide AdvReac Intermediate Nausea and Verified 05/31/25 15:16 Antibiotics) Vomiting Review of Systems Review of Systems: Pertinent positives per HPI. Patient denies any fever, chills, rash, headache, visual changes, dizziness, cough, shortness of breath, chest pain, palpitations, nausea, vomiting, diarrhea, constipation, abdominal pain, or any urinary issues. PMFSH Past Medical History Medical History Strep throat Asthma Surgical History Surgical History History of tympanoplasty History of myringotomy History of adenoidectomy History of tonsillectomy Social History Social History Smoking status: Never smoker Living arrangements: with family Occupation/Education: student Gender identity (if verbalized by the patient): Male Comments At the time of my signature, I reviewed and agree with the nursing past medical, surgical, social, and family history. There is no relevant family history pertinent to the patient complaint. Exam Narrative: General: Well-developed, well nourished, in no apparent distress Head: Normocephalic, atraumatic Eyes: Pupils equally round and reactive to light bilaterally, EOM intact, sclera and conjunctive clear, no discharge, lids normal Ears: TMs intact and clear, ear canals clear, no drainage, grossly hearing normal. Nose: Nares patent, clear nasal discharge, mild inflammation, no sinus tenderness. Mouth: Oral pharynx red without lesions or masses, good dentition, MMM. Postnasal drip. Tonsils surgically absent Neck: Supple, trachea midline, no enlargement of anterior or posterior cervical nodes, no thyroid masses or goiter palpable. Cardio: Regular rate and rhythm, s1 and s2 normal, no murmur appreciated. Resp: Clear to auscultation bilaterally, no rhonchi, rales, wheezing or rubs Course Course Emergency Course: Portions of this record may have been created with voice recognition software. Level of Care: Express Care Visit Vital Signs Vital signs: Vital Signs Temperature 36.7 C 05/31/25 15:17 Pulse Rate 86 05/31/25 15:17 Respiratory Rate 16 05/31/25 15:17 Blood Pressure 121/68 05/31/25 15:17 Pulse Oximetry 100 05/31/25 15:17 Temperature 36.7 C 05/31/25 15:17 Pulse Rate 86 05/31/25 15:17 Respiratory Rate 16 05/31/25 15:17 Blood Pressure 121/68 05/31/25 15:17 Pulse Oximetry 100 05/31/25 15:17 Vital signs reviewed MDM - URI/Sore Throat MDM Narrative Medical decision making narrative: At the time of visit patient is resting comfortably on the exam table. Patient appears to be nontoxic. Complaints of a feeling feverish, nausea, sore throat, and nasal congestion x 1 day. He reports symptoms started last night. Has slight cough with clear phlegm. Has not taken any medications for his symptoms. No chest pain or shortness of breath. On exam patient has clear nasal drainage, postnasal drip, and oropharynx red. COVID, flu, and strep test were ordered. Labs: COVID, flu, and strep test were all negative. We will send strep for culture. Plan: I suspect patient has URI/pharyngitis. Work note was given. Supportive measures were discussed with the patient and they voiced understanding discharge instructions and agrees to treatment plan. Return precautions reviewed Differential Diagnosis Differential diagnosis: Likely upper respiratory infection, otitis media, sinusitis, viral infection, bronchitis, influenza, pharyngitis and other (COVID) Lab Data Labs: Lab Results 05/31/25 05/31/25 Range/Units 15:40 15:50 POC Influenza A Ag Negative (Negative) POC Influenza B Ag Negative (Negative) POC SARS CoV-2 Ag Negative (Negative) POC Grp A Strep Screen Negative (Negative) Discharge Plan Discharge Clinical Impression: Pharyngitis Qualifiers: Pharyngitis/tonsillitis etiology: unspecified etiology Qualified Code(s): J02.9 - Acute pharyngitis, unspecified Upper respiratory infection Qualifiers: URI type: unspecified URI Qualified Code(s): J06.9 - Acute upper respiratory infection, unspecified Patient Disposition: Home Condition: Stable Instructions: Antibiotic Form, Pharyngitis (ED), Cold Symptoms (ED) Additional Instructions: COVID, flu, and strep test were all negative in the clinic today. We will send strep for culture if this comes back positive we will contact you and place you on antibiotics at that time. Take prescription medications only as prescribed Increase fluids and stay well hydrated May take Tylenol or motrin as directed on bottle for pain/fever May use Flonase 1 spray in each nare daily May take OTC antihistamines such as Zyrtec or Claritin daily as directed on bottle May apply Vicks vapor rub to chest to open sinuses Sinus rinses for congestion Cepacol spray, cough drops, throat lozenges, warm tea with honey/lemon, gargle salt water to soothe throat BRAT diet for diarrhea Clear liquids x 24 hours then advance as tolerated for nausea/vomiting Go to the ED if you develop a worsening in your condition- high fever not controlled by Tylenol or Motrin, dehydration, weakness, lethargy, shortness of breath, or chest pain. Follow up with your PCP in 3-5 days if symptoms persist. Patient Language: Mongolian Prescriptions: No Action loratadine [Claritin] 10 mg tablet 10 mg PO DAILY Qty: 30 0RF methylphenidate HCl 10 mg tablet Sunosi 150 mg tablet finasteride 1 mg Tablet 1 mg PO DAILY Follow-up/Referrals: Clay,Esa Kasper MD [Primary Care Provider, Unknown] Stand Alone Forms: Work/School Release IP Time of Disposition: 15:56 Quality NIHSS Nursing Documentation ED NIHSS nursing documentation: reviewed/agree
[2025-05-31 15:17] VITALS: BP 121/68; PULSE 86; RESP 16; TEMP 36.7; O2SAT 100
[2025-05-31 15:43] LABS: EDSTREPNEGPOS1 Negative (Negative)
[2025-05-31 15:53] LABS: EDCOVIDSCREEN Negative (Negative); EDINFLUASCREEN Negative (Negative); EDINFLUBSCREEN Negative (Negative)
== END 2025-05-31 16:00 | disposition home or self-care (01) ==
PROVIDERS: Emergency Provider Nurse Practitioner Family; PCP Family Medicine Sports Medicine
DX: J06.9 Acute upper respiratory infection, unspecified (principal); Z20.822 Contact with and (suspected) exposure to COVID-19; Z79.899 Other long term (current) drug therapy
CPT/HCPCS: 87081; 87426; 87804; 87880; 99213; G0463

== ENCOUNTER 2025-08-29 16:24 | Emergency (ER) | payer OTHER, SELFPAY ==
--- OUTSIDE RECORDS SUMMARY | 2014-01-08 05:00 | XMS_ITS | Continuity of Care Document ---
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 Name Role Phone Unavailable Unavailable Unavailable Allergies, Adverse Reactions, Alerts Substance Reaction Status Criticality Sulfa (Sulfonamide Antibiotics) Active No Information Medications Medication Instructions Dosage Effective Dates (start - stop) Status Comments ADVAIR DISKUS (unknown strength) Not Available - Active LANSOPRAZOLE (unknown strength) Not Available - Active Procedures Procedure Date EYE EXAM, NEW PATIENT VISION REFRACTION NO UPDATE Advance Directives Directive Yes / No Effective Date File Name No Information Encounters Encounter Description Practice Location Reason(s) For Visit Diagnoses Date Provider Providers Copied on Encounter [facility], [facility], [address], [place], [id number], [place] tel:[phone] [facility] Examination of eyes and vision No Information Family History Family Member Type Diagnosis Age At Onset Problem (finding) No Family history of St rabismus Problem (finding) No Family history of Ar thritis Problem (finding) No Family history of As thma Problem (finding) No Family history of Ca taracts Problem (finding) No Family history of Re tinal Disorders Problem (finding) No Family history of St roke Problem (finding) Problem (finding) No Family history of He art Disease Problem (finding) No Family history of HB P Problem (finding) No Family hist ory of Macular Degeneration Problem (finding) No Family history of Gl aucoma Problem (finding) No Family history of Di abetes mellitus Problem (finding) No Family history of Re spiratory Disease Payers Payer name Insurance type Covered democrat ID Javier gonzalez(s) Edd CI [id number] Social History Type Description Quantity Date Captured Comments Alcohol Use Details Unknown Caffeine Use Details Unknown Tobacco Use Status No Information Smoking Status Never smoker Non-Smoking Tobacco Use Details : No Details Available : No Details Available Sex Male Chief Complaint And Reason For Visit No Information Reason For Referral Reason For Referral No Information History Of Present Illness Encounter Date Complaint History Of Prese nt Illness No Information Functional Status Date Functional Assessmen t No Information Instructions Date Instruction Additional Infor mation - Return in 1-2 years with BSG f or Ref T & D. Related to Healthy Eyes Healthy Eyes OU. Con dition: established, stable. - Eyes look healthy today OU. 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 Vision looks perfect OU; no glasses needed at this time. Pt to follow up every 1-2 years. Pt TCI for any questions/concerns. Educational materials provided:none needed. Related to Healthy Eyes Assessments Type Assessment Date No Information Patient Care Teams Name Effective Dates (start - stop) Status Members No Information
--- OUTSIDE RECORDS SUMMARY | 2014-01-08 05:00 | XMS_ITS | Continuity of Care Document ---
Author Organization [facility], TD Address [address] [place] [address] Phone Care Team Providers Care Sandblaster Glass Name Role Phone Unavailable Unavailable Unavailable Allergies, Adverse Reactions, Alerts Substance Reaction Status Criticality Sulfa (Sulfonamide Antibiotics) Active No Information Medications Medication Instructions Dosage Effective Dates (start - stop) Status Comments LANSOPRAZOLE (unknown strength) Not Available - Active ADVAIR DISKUS (unknown strength) Not Available - Active Procedures Procedure Date EYE EXAM, NEW PATIENT VISION REFRACTION NO UPDATE Advance Directives Directive Yes / No Effective Date File Name No Information Encounters Encounter Description Practice Location Reason(s) For Visit Diagnoses Date Provider Providers Copied on Encounter [facility], [facility], [address], [place], [id number], [place] tel:[phone] [facility] Examination of eyes and vision No Information Family History Family Member Type Diagnosis Age At Onset Problem (finding) No Family history of Re spiratory Disease Problem (finding) No Family history of Di abetes mellitus Problem (finding) No Family history of Gl aucoma Problem (finding) No Family hist ory of Macular Degeneration Problem (finding) No Family history of HB P Problem (finding) No Family history of He art Disease Problem (finding) Problem (finding) No Family history of St roke Problem (finding) No Family history of Re tinal Disorders Problem (finding) No Family history of Ca taracts Problem (finding) No Family history of As thma Problem (finding) No Family history of Ar thritis Problem (finding) No Family history of St rabismus Payers Payer name Insurance type Covered democrat ID Javier gonzalez(s) Edd CI [id number] Social History Type Description Quantity Date Captured [...]
--- NOTE | 2025-08-29 16:26 | ED.URI ---
HPI - URI/Sore Throat General Chief Complaint: Upper Respiratory Infection Stated Complaint: Sinus Infection Time Seen by Provider: 08/29/25 16:27 Source: patient and RN notes reviewed Mode of arrival: ambulatory Limitations: no limitations History of Present Illness HPI Narrative: 20-year-old male presents with concern for one-week history of nasal congestion, sinus drainage, sinus pain, cough, dry throat. He denies fever, body aches, chills, sweats. Reports he is taking [id number] medication without relief MD elicited complaint: nasal congestion and sinus pain Related Data Home Medications ?Medication ?Instructions ?Recorded ?Confirmed ?Last Taken ?Type finasteride 1 mg tablet 1 mg PO DAILY 07/24/24 07/31/24 Unknown History methylphenidate HCl 10 mg tablet mg 05/31/25 Unknown History solriamfetol 150 mg tablet (Sunosi) mg 05/31/25 Unknown History Allergies Allergy/AdvReac Type Severity Reaction Status Date / Time Penicillins Allergy Mild Rash Verified 08/29/25 16:26 Sulfa (Sulfonamide AdvReac Intermediate Nausea and Verified 08/29/25 16:26 Antibiotics) Vomiting Review of Systems Review of Systems: CONSTITUTIONAL: Denies malaise, chills, sweats, or fever. EYES: Denies visual changes, redness, or discharge. ENT: Reports rhinorrhea, congestion, sinus pain, otalgia and sore throat. CARDIOVASCULAR: Denies chest pain, palpitations, or edema. RESPIRATORY: Reports cough. Denies dyspnea. GASTROINTESTINAL: Denies abdominal pain, nausea, vomiting, diarrhea SKIN: Denies rash or itching. MUSCULOSKELETAL: Denies myalgia. NEUROLOGIC: Denies headache. All systems reviewed & are unremarkable except as noted in HPI and below [facility] Past Medical History Medical History (Updated 08/29/25 @ 16:42 by Sharita Rowe APRN) Strep throat Asthma Surgical History Surgical History History of tympanoplasty History of myringotomy History of adenoidectomy History of tonsillectomy Social History Social History Smoking status: Never smoker Living arrangements: with family Occupation/Education: student Gender identity (if verbalized by the patient): Male Comments At time of signature, agree with nursing past medical, surgical, social and family history. There is no relevant family history pertinent to the presenting complaint Exam Narrative: GENERAL: Well-appearing, well-nourished, and in no acute distress. HEAD: Normocephalic EYES: PERRLA, conjunctivae clear ENT: Nares clear, turbinates edematous and erythematous. Mucous membranes moist. TM pearly meneses with dull light reflex bilaterally; no tragal tenderness. Oropharynx not erythematous without lesions. Tonsils not enlarged and without exudate, no drooling, no hoarseness, no trismus, uvula midline. NECK: Supple. No lymphadenopathy CHEST: Clear to auscultation, breath sounds equal. No wheezing, rhonchi, rales, or stridor. No respiratory distress, speaks in full sentences. HEART: Regular rate and rhythm. No murmur heard. SKIN: Warm, dry, no rash. NEURO: Alert and oriented x3. PSYCH: Normal mood and affect Course Course Level of Care: Express Care Visit MDM Differential Diagnosis Differential Diagnosis: I evaluated this patient in the express care. History is obtained from patient who is an independent historian and physical exam was performed.? Available medical records were reviewed. ? Exam findings and relevant testing show no acute concerns or changes; patient is non-toxic appearing and is in no distress. ? Differential diagnosis considered: Cramer virus, strep pharyngitis, allergic rhinitis, upper respiratory tract infection, sinusitis, rhinosinusitis, nasopharyngitis. viral pharyngitis, otitis media, otitis externa, pneumonia, bronchitis, viral cough syndrome, viral syndrome, and influenza. Differential diagnosis and treatment plan were discussed with the patient. Patient agrees with discussion and after shared medical decision making agrees with plan of care. All questions were answered to the patient's satisfaction. Patient is appropriate for outpatient treatment and follow-up. Discharge Plan Discharge Clinical Impression: Sinusitis Patient Disposition: Home Condition: Stable Instructions: Antibiotic Form, Sinusitis (ED) Additional Instructions: Symptomatic treatment of a sinus infection aims to relieve symptoms. These treatments do not shorten the duration of illness. Nonprescription pain medications, such as acetaminophen (eg, Tylenol) or ibuprofen (eg, Motrin, Advil), are recommended for pain. Flushing the nose and sinuses with a saline solution several times per day has been proven to decrease pain associated with congestion and shorten the duration of symptoms. Nasal steroids (such as Flonase, 2 sprays in each nostril daily) can help to reduce swelling inside the nose, usually within two to three days. These drugs have few side effects and relieve symptoms in most people. Oral decongestants (pseudoephedrine and phenylephrine) may be helpful if you have associated symptoms of ear pain or fullness. Nasal decongestant sprays, including oxymetazoline (Afrin) and phenylephrine (Ruben-Synephrine), can be used to temporarily treat congestion. However, these sprays should not be used for more than two to three days due to the risk of rebound congestion (when the nose becomes congested constantly unless the medication is used repeatedly), possible addiction, and long-term consequences of frequent use, including persistent nasal dryness and crusting, which is very difficult to treat once it has developed. Medications to thin secretions (such as guaifenesin) may help to clear mucus. Please follow-up with your primary care doctor in the next 1-2 days. If you cannot follow-up with your primary care doctor please go to the ED for any urgent issues. If you have any worsening of symptoms or any other concerns please go to the ED immediately. Patient Language: Hebrew Prescriptions: New pseudoephedrine HCl [12 Hour Decongestant] 120 mg tablet extended release 120 mg PO Q12H PRN (Reason: nasal congestion) Qty: 12 0RF doxycycline monohydrate 100 mg tablet 100 mg PO BID 7 Days Qty: 14 0RF No Action loratadine [Claritin] 10 mg tablet 10 mg PO DAILY Qty: 30 0RF methylphenidate HCl 10 mg tablet Sunosi 150 mg tablet finasteride 1 mg Tablet 1 mg PO DAILY Follow-up/Referrals: Clay,Esa Kasper MD [Primary Care Provider, Unknown] Time of Disposition: 16:43
[2025-08-29 16:37] VITALS: BP 125/64; PULSE 70; RESP 18; TEMP 36.1; O2SAT 100
--- OUTSIDE RECORDS SUMMARY | 2025-08-29 17:10 | XMS_ITS | Encounter Summary ---
Author Organization [facility] Address [address] [place] [address] Care Team Providers Care Speech And Drama Teacher Name Role Phone Esa Williamson MD Primary Care Provider [phone] Encounter Details Date Type Department Care Team (Late st Contact Info) Description 10/18/2022 [email or web address] Message Enc [facility] Medical Group Family & Internal Medicine [address] [phone] Esa Williamson MD [address] [place] [address] Diagnosis Question Social History Tobacco Use Types [...] on filedocumented in this encounter Care Teams Speech And Drama Teacher Relationship Specialty Start Date End Date Esa Williamson MD [address] [place] [address] PCP - General FAMILY PRACTICE 08/21/22 documented as of this encounter
--- OUTSIDE RECORDS SUMMARY | 2025-08-29 17:10 | XMS_ITS | Encounter Summary ---
Author Organization [facility] Address [address] [place] [address] Care Team Providers Care Assistant Nurse Manager Name Role Phone Esa Williamson MD Primary Care Provider [phone] Encounter Details Date Type Department Care Team (Late st Contact Info) Description 03/26/2024 117got Message Enc [facility] Medical Group Family & Internal Medicine [address] [phone] Esa Williamson MD [address] [place] [address] Sleep Referral & an Unrelated Vaccine Social [...] on filedocumented in this encounter Care Teams Assistant Nurse Manager Relationship Specialty [place] [address] [place] [address] PCP - General FAMILY PRACTICE 08/21/22 documented as of this encounter
--- OUTSIDE RECORDS SUMMARY | 2025-08-29 17:10 | XMS_ITS | Encounter Summary ---
Author Organization [facility] Address [address] [place] [address] Care Team Providers Care Seam Feller Name Role Phone Esa Williamson MD Primary Care Provider [phone] Idania Schwab Primary Care Provider [phone] Esa Williamson MD Primary Care Provider [phone] Encounter Details Date Type Department Care Team (Late st Contact Info) Description 06/22/2022 [employer] Message Enc [facility] Medical Group Family & Internal Medicine [address] [phone] Esa Williamson MD [address] [place] [address] Supplements Social History Tobacco Use Types Packs/Day [...] on filedocumented in this encounter Care Teams Seam Feller Relationship Specialty [place] [address] [place] [address] PCP - General FAMILY PRACTICE 02/17/21 08/09/22 Idania Schwab APNP [id number] [address] PCP - General Nurse Practitioner [facility] 08/10/22 [place] [address] [place] [address] PCP - General FAMILY PRACTICE 08/21/22 documented as of this encounter
--- OUTSIDE RECORDS SUMMARY | 2025-08-29 17:10 | XMS_ITS | Encounter Summary ---
Author Organization [facility] Address [address] [place] [address] Care Team Providers Care Human Services Supervisor Name Role Phone Esa Williamson MD Primary Care Provider [phone] Encounter Details Date Type Department Care Team (Late st Contact Info) Description 01/01/2023 Azadit Message Enc [facility] Medical Group Family & Internal Medicine [facility] [id number] [place] [phone] Esa Williamson MD [address] [place] [address] Bloodwork Social History Tobacco Use Types Packs/Day [...] filedocumented in this encounter Care Teams Human Services Supervisor Relationship Specialty Start Date End Date Esa Williamson MD [address] [place] [address] PCP - General FAMILY PRACTICE 08/21/22 documented as of this encounter
--- OUTSIDE RECORDS SUMMARY | 2025-08-29 17:10 | XMS_ITS | Encounter Summary ---
Author Organization [facility] Address [address] [place] [address] Care Team Providers Care Riveter Hand Name Role Phone Esa Williamson MD Primary Care Provider [phone] Encounter Details Date Type Department Care Team (Late st Contact Info) Description 01/06/2023 [employer] Message Enc [facility] Medical Group Multispecialty Care - [address], [address] [place] [address] [email or web address], [facility] Provider Lab order Social History Tobacco [...] on filedocumented in this encounter Care Teams Riveter Hand Relationship Specialty [place] [address] [place] [address] PCP - General FAMILY PRACTICE 08/21/22 documented as of this encounter
--- OUTSIDE RECORDS SUMMARY | 2025-08-29 17:10 | XMS_ITS | Clinical Summary ---
Author Organization [facility] Address [address] [place] [address] Care Team Providers Care Entertainment Production Professional Name Role Phone Esa Williamson MD Primary Care Provider [phone] Allergies Active Allergy Reactions Criticality Noted Date [...] bowel syndrome with diarrhea Cough variant asthma 08/02/2014 Overview (02/20/2021): Transitioned From: History of asthma Encounters Date Type Department Care Team Description 05/31/2025 Scan HEALTH INFO SRVCS Scanned, Doc Med Group from Last 3 Months Immunizations Immunization Administration [...] 2023 12/09/2005, 02/25/2005, 2004, Additional history exists PHQ-2 (Physician [place]) 09/27/2024 06/28/2024 COVID-19 Vaccine ( season) 2025 07/02/2022, 09/16/2021, 01/14/2021, Additional history exists Influenza Adult (#1) 2025 07/20/2022, 07/10/2021, 08/01/2020, Additional history exists DTaP, Tdap and Td Vaccines (7 - Td or Tdap) 04/10/2026 04/10/2016, 11/06/2008, 11/06/2008, Additional history exists Hepatitis B Vaccines Completed 12/09/2005, 12/09/2005, 2004, Additional history exists Hepatitis A Vaccines Completed 08/24/2006, 02/18/20 06 HPV Vaccines Completed 11/04/2020, 02/2020, 05/02/2020 Meningococcal Vaccine Completed 04/03/2021, 016 RSV Immunizations Under 20 Months Aged Out No longer eligible based on patient's age to complete this topic Insurance [employer] [facility] [employer] [facility] Care Teams Entertainment Production Professional Relationship Specialty [place] [address] [place] [address] PCP - General FAMILY PRACTICE 08/21/22
--- OUTSIDE RECORDS SUMMARY | 2025-08-29 17:10 | XMS_ITS | Encounter Summary ---
Author Organization [facility] Address [facility] [place] [address] Care Team Providers Care Aircraft Sheet Metal Mechanic Name Role Phone Esa Williamson MD Primary Care Provider [phone] Encounter Details Date Type Department Care Team (Late st Contact Info) Description 03/24/2023 MyChart Message Enc [facility] - [facility] [address] [place], [place] [address] Mychart, [facility] Provider Air Quality Message Social History [...] on filedocumented in this encounter Care Teams Aircraft Sheet Metal Mechanic Relationship Specialty [place] [address] [place] [address] PCP - General FAMILY PRACTICE 08/21/22 documented as of this encounter
--- OUTSIDE RECORDS SUMMARY | 2025-08-29 17:10 | XMS_ITS | Encounter Summary ---
Author Organization [facility] Address [address] [place] [address] Care Team Providers Care Paint Sprayer Sandblaster Name Role Phone Esa Williamson MD Primary Care Provider [phone] Encounter Details Date Type Department Care Team (Late st Contact Info) Description 12/30/2022 [employer] Message Enc [facility] Family & Internal Medicine [address] [address] Esa Williamson MD [address] [place] [address] Hearing Social History Tobacco Use Types Packs/Day [...] on filedocumented in this encounter Care Teams Paint Sprayer Sandblaster Relationship Specialty [place] [address] [place] [address] PCP - General FAMILY PRACTICE 08/21/22 documented as of this encounter
--- OUTSIDE RECORDS SUMMARY | 2025-08-29 17:10 | XMS_ITS | Clinical Summary ---
Author Organization [facility] Address [address] [place] [address] Care Team Providers Care Bottle Packer Name Role Phone Nafisa Juarez MD Unavailable [phone] Esa Williamson MD Primary Care Provider [phone] Source Comments [facility],non-owned Affiliates and Associated Physician Practices is amultiple site organization consisting of ambulatory clinics and hospital sitesin [place], [place] and [place]. This disclosure is being madepursuant to the Care Everywhere program and may not contain all information available regarding this patient. Last updated 18.[facility] Allergies Active Allergy Reactions Criticality Noted Date Comments Penicillins Rash Medium 03/22/2018 Sulfa Drugs 05/16/2014 Medications * Be aware that medications may not be up to date on this document. Alwaysverify current medications with the patient. fluticasone propionate (FLONASE) 50 MCG/ACT nasal spray [place] 1 spray into each nostril once daily [...] 36.2 C (97.2 F) 11/04/2020 3:57 PM SPREADER BOX OPERATOR Respiratory Rate 20 11/25/2015 7:13 PM SPREADER BOX OPERATOR Oxygen Saturation 100% 12/05/2018 11:00 AM CDT Inhaled Oxygen Concentration - - Weight 70.4 kg (155 lb 3.3 oz) 09/11/2021 10:38 AM SPREADER BOX OPERATOR Height 178.2 cm (5' 10.16) 09/11/2021 10:38 AM SPREADER BOX OPERATOR Body Mass Index 22.17 09/11/2021 10:38 AM SPREADER BOX OPERATOR Plan of Treatment Health Maintenance Due Date [...] CDT) No Massiel Delgado [place] [address] [employer] Care Teams Bottle Packer Relationship Specialty [place] [address] [place] [address] PCP - General Family Medicine 09/11/21 Nafisa Juarez MD Orthopedic Surgery 06/28/19
--- OUTSIDE RECORDS SUMMARY | 2025-08-29 17:10 | XMS_ITS | Encounter Summary ---
Author Organization [facility] Address [address] [place] [address] Care Team Providers Care Systems Tester Name Role Phone Esa Williamson MD Primary Care Provider [phone] Encounter Details Date Type Department Care Team (Late st Contact Info) Description 01/05/2023 [employer] Message Enc [facility] [address] [address] Chin Carcamo MD [address] [place] [address] Bloodwork Social History Tobacco Use Types [...] on filedocumented in this encounter Care Teams Systems Tester Relationship Specialty Start Date End Date Esa Williamson MD [address] [place] [address] PCP - General FAMILY PRACTICE 08/21/22 documented as of this encounter
--- OUTSIDE RECORDS SUMMARY | 2025-08-29 17:10 | XMS_ITS | Encounter Summary ---
Author Organization [facility] Address [address] [place] [address] Care Team Providers Care Director Learning And Development Name Role Phone Esa Williamson MD Primary Care Provider [phone] Encounter Details Date Type Department Care Team (Late st Contact Info) Description 09/30/2024 [email or web address] Message Enc [facility] Family & Internal Medicine [address] [address] Esa Williamson MD [address] [place] [place] [address] ENT Referral Social History Tobacco Use Types [...] AM CST Ok for ENT referral? Thanks! ORATION TECHNICIAN * Janell Cross RN - 10/02/2024 1:05 PM CST [place] patient. ORATION TECHNICIAN documented in this encounter Plan of Treatment Not on file documented as of this encounter Visit Diagnoses Not on filedocumented in this encounter Care Teams Director Learning And Development Relationship Specialty [place] [address] [place] [address] PCP - General FAMILY PRACTICE 08/21/22 documented as of this encounter
== END 2025-08-29 16:48 | disposition home or self-care (01) ==
PROVIDERS: Emergency Provider Nurse Practitioner; PCP Family Medicine Sports Medicine
DX: J32.9 Chronic sinusitis, unspecified (principal); J45.909 Unspecified asthma, uncomplicated
CPT/HCPCS: 99213; G0463